=== PATIENT | male | born 1960 | race Caucasian/White ===

== ENCOUNTER → 2019-12-11 09:04 | Outpatient (BNVA) | payer MEDICAID, SELFPAY | PROVIDERS: Family Provider Family Medicine; PCP Family Medicine; Visit Provider Anesthesiology | DX: G89.29 Other chronic pain (principal); M54.5 Low back pain; F17.210 Nicotine dependence, cigarettes, uncomplicated; Z79.891 Long term (current) use of opiate analgesic | CPT/HCPCS: 99214 ==

== ENCOUNTER 2019-12-26 18:29 | Emergency (ER) | payer MEDICAID, SELFPAY | END 2019-12-26 20:10 | disposition admitted as inpatient to this hospital (09) | LOC: ER 02-01 07:31 | PROVIDERS: Emergency Provider Family Medicine; Family Provider Family Medicine; PCP Family Medicine | DX: I48.91 Unspecified atrial fibrillation (principal); J44.9 Chronic obstructive pulmonary disease, unspecified; I25.10 Atherosclerotic heart disease of native coronary artery without angina pectoris; I11.0 Hypertensive heart disease with heart failure; I50.9 Heart failure, unspecified; R07.9 Chest pain, unspecified; E78.5 Hyperlipidemia, unspecified; Z86.73 Personal history of transient ischemic attack (TIA), and cerebral infarction without residual deficits; F17.210 Nicotine dependence, cigarettes, uncomplicated; I25.2 Old myocardial infarction | CPT/HCPCS: 71045; 80053; 83540; 83550; 83880; 84443; 84484; 85025; 85610; 85730; 93005; 96365; 96372; 96375; 99283; 99285; J1650; J3490; J7040 ==

== ENCOUNTER 2019-12-26 18:29 | Emergency (ER) | payer MEDICAID, SELFPAY | END 2019-12-26 20:00 | disposition home or self-care (01) | LOC: ER 06-21 15:31 | PROVIDERS: Emergency Provider Family Medicine; Family Provider Family Medicine; PCP Family Medicine | DX: R07.9 Chest pain, unspecified (principal); I48.91 Unspecified atrial fibrillation; J44.9 Chronic obstructive pulmonary disease, unspecified; I11.0 Hypertensive heart disease with heart failure; I50.9 Heart failure, unspecified; I25.10 Atherosclerotic heart disease of native coronary artery without angina pectoris; E78.5 Hyperlipidemia, unspecified; Z86.73 Personal history of transient ischemic attack (TIA), and cerebral infarction without residual deficits; F17.210 Nicotine dependence, cigarettes, uncomplicated | CPT/HCPCS: 99281 ==

== ENCOUNTER 2019-12-26 18:29 | Inpatient (IN) | payer MEDICAID, SELFPAY ==
[2019-12-26] VITALS (38 sets, daily range): BP systolic 115–167; BP diastolic 64–122; PULSE 59–190; RESP 10–36; TEMP 36.5–36.9; O2SAT 92–98; BMI 30.7
--- NOTE | 2019-12-26 18:36 | ED_ITS ---
Entered by Paris Mata, acting as scribe for HPI - Chest Pain General: Chief Complaint: Chest Pain Stated Complaint: chest pain Time Seen by Provider: 12/26/19 18:38 Source: patient Mode of arrival: wheelchair Limitations: no limitations History of Present Illness: HPI narrative: 59 yo Male presents to ED with complaint of rapid heart rate and chest pain. Pt states that he has a history of a heart attack and 2 stents. Pt states that he was at rest when his rapid heart rate and pain started this evening. Pt states that this started around 17:30 this evening. MD complaint: chest pain Pertinent past history: coronary artery disease and prior [place] Onset (ago): hour(s) Timing of current episode: constant and still present Prior episodes: Yes Onset: during rest Pain location: substernal Pain radiation: none Pain scale (0-10): 8 Quality: other (pressure) Relieving factors: nothing Exacerbating factors: nothing Associated symptoms: Reports palpitations; Deny abdominal pain, dyspnea, fever(s), nausea or vomiting Treatment prior to arrival: nitroglycerin Review of Systems Const: Denies: fever, chills, body aches, fatigue, malaise or night sweats Eyes: Denies: change in vision or blurry vision ENMT: Denies: throat pain, oral sores/lesions, dental pain, nasal discharge or nasal congestion Card: Reports: chest pain and palpitations Resp: Denies: shortness of breath, productive cough, non-productive cough or wheezing GI: Denies: abdominal pain, nausea, vomiting, vomiting blood, coffee grounds in vomit, difficulty swallowing, heartburn/indigestion, diarrhea, constipation, cramping, blood in stool or black tarry stool : Denies: flank pain, difficulty urinating, painful urination, urinary frequency, urinary urgency, urinary incontinence or blood in urine Musc: Denies: neck pain, back pain, extremity pain, extremity swelling, joint pain or joint swelling Skin/Breast: Denies: rash, itching or redness Neuro: Denies: headache, numbness in extremities, weakness in extremities, changes in sensation, lack of coordination, difficulty walking, frequent falls, dizziness, vertigo or confusion Psych: Denies: anxiety, depression, loss of interest, visual hallucinations, auditory hallucinations, suicidal ideation or homicidal ideation Endo: Denies: excessive urination, excessive thirst, tired all the time or cold intolerance Jose/Lymph: Denies: easy bruising, easy bleeding, petechiae, enlarged lymph nodes or tender lymph nodes PFSH ED PFSH: Medical History (Updated 12/28/19 @ 15:06 by Suleiman Luz DO) CAD (coronary artery disease) COPD (chronic obstructive pulmonary disease) Encounter for long-term use of opiate analgesic Hyperlipidemia Hypertension Kidney stones Opioid contract exists Stroke Tobacco abuse Smoking cessation discussed with patient in detail for over 10 minutes. Surgical History (Updated 12/26/19 @ 21:26 by Tony Frias MD) H/O angioplasty History of ureter stent Stented coronary artery Family History Other Adopted Social History (Updated 12/26/19 @ 21:26 by Tony Frias MD) Smoking and tobacco status: current every day smoker cigarettes Packs smoked per day: 0.5 Alcohol intake: unknown Adopted: Yes Household members: family Housing: House Physical Exam Const: COMMON NORMALS: average body habitus, oriented x3 and alert GENERAL APPEARANCE: cooperative, comfortable, well kempt and well developed NUTRITIONAL APPEARANCE: obese ORIENTATION/CONSCIOUSNESS: Yes awake, Yes oriented to person and Yes oriented to place HENMT: COMMON NORMALS: normocephalic, head/scalp atraumatic, EAC's normal, TM 's normal bilaterally, external nose normal, moist oral mucous membranes and oropharynx normal HEAD & SCALP: normocephalic and atraumatic NOSE: ex ternal nose normal EXTERNAL AUDITORY CANAL: EAC's normal TYMPANIC MEMBRANE: TM's normal bilaterally MOUTH: oral and palatal mucosa normal, lip normal and tongue normal THROAT: posterior oropharynx normal and tonsils normal Eye: COMMON NORMALS: PERRL, EOMs intact bilaterally, conjunctivae normal and no scleral icterus CONJUNCTIVA: Yes conjunctivae normal PUPIL: Yes PERRL Neck/C-Spine: COMMON NORMALS: full ROM, no lymphadenopathy, supple, no meningeal signs and thyroid normal THYROID: thyroid normal and asymmetrical Lymph: LYMPHATIC: no lymphadenopathy noted Resp: COMMON NORMALS: normal respiratory effort, no retractions, no use of accessory muscles and clear to auscultation bilaterally AUSCULTATION: clear to auscultation bilaterally Cardio: COMMON NORMALS: regular rhythm; negative for regular rate RATE: abnormal rate and tachycardic RHYTHM: regular rhythm HEART SOUNDS: no murmurs GI: COMMON NORMALS: normal to inspection, nondistended, normoactive bowel sounds, soft to palpation and no hepatosplenomegaly PALPATION: Yes soft and Y es no hepatosplenomegaly : COMMON NORMALS: Yes no CVA tenderness BLADDER/KIDNEY EXAM: Yes no CVA tenderness Back/Pelvis: COMMON NORMALS: no CVA tenderness LUMBAR SPINE/LOWER BACK: Yes normal to inspection Extremity: COMMON NORMALS: no clubbing, cyanosis or edema, no calf tenderness and no pedal edema Neuro: COMMON NORMALS: oriented x3 SENSORIUM/ORIENTATION: Yes alert, Yes oriented to person and Yes oriented to place MENINGEAL SIGNS: Yes no meningeal signs Psych: APPEARANCE: Yes well kempt Skin: COMMON NORMALS: no rashes or lesions noted and skin turgor normal GENERAL SKIN EXAM: no rashes or lesions noted and turgor normal Course ED course: New onset A. fib with signs of congestive heart failure patient converted with medication in the emergency room will admit for evaluation medication adjustments. He also had chest pain while he was in A. fib with RVR may need further evaluation given his known history of coronary artery disease Vital Signs: Vital signs: Vital Signs Temperature 98.4 F 12/27/19 04:00 Pulse Rate 73 12/27/19 07:00 Respiratory Rate 21 H 12/27/19 05:30 Blood Pressure 136/81 12/27/19 07:00 Pulse Oximetry 96 12/27/19 07:00 MDM - Chest Pain Lab Data: Labs: Lab Results 12/26/19 12/26/19 12/26/19 Range/Units 18:58 18:58 18:58 WBC 10.4 H (4.0-10.0) 10^3/ uL RBC 5.08 (4.1-5.3) 10^6/u L Hgb 14.9 (11.7-16.6) g/dL Hct 44.8 (42.0-52.0) % MCV 88.2 (80-94) fL MCH 29.3 (28.0-34.0) pg MCHC 33.3 (30.0-36.0) g/dL RDW 12.6 (12.1-15.1) % Plt Count 225 (130-400) 10^3/c mm MPV 10.0 (7.4-10.4) fL Neut % (Auto) 67.1 % Lymph % (Auto) 21.4 % [place] % (Auto) 7.4 % Eos % (Auto) 3.2 % Baso % (Auto) 0.7 % Neut # (Auto) 7.0 (1.8-7.7) 10^3/u L Lymph # (Auto) 2.2 (0.8-4.8) 10^3/u L [place] # (Auto) 0.8 (0.2-0.9) 10^3/u L Eos # (Auto) 0.3 (0.0-0.8) 10^3/u L Baso # (Auto) 0.1 (0.0-0.1) 10^3/u L Nucleated RBC % (a uto) 0 % Nucleated RBCs # 0.0 /100WBC PT 12.80 (10.5-13.3) SECO NDS INR 0.93 (0.8-1.2) APTT 28.6 (23.9-36.7) SECO NDS Sodium 138 (136-145) mmol/L Potassium 3.5 (3.5-5.1) mmol/L Chloride 103 (98-107) mmol/L Carbon Dioxide 20 L (22-29) mmol/L Anion Gap 18.5 (5-19) BUN 12 (6-20) mg/dL Creatinine 1.0 (0.7-1.2) mg/dL GFR Calculation 76.7 L (90-130) mL/min Glucose 159 H (65-115) mg/dL Calcium 10.0 (8.5-10.5) mg/dL Iron (59-158) ug/dL TIBC mcg/dl % Saturation (20-50) % Unsat Iron Binding (112-347) ug/dL Total Bilirubin 0.3 (0.15-1.2) mg/dL AST 38 (0-40) U/L ALT 32 (0-41) U/L Alkaline Phosphata se 74 (40-130) IU/L Troponin T Baselin e (0-15) ng/mL NT-Pro-B Natriuret Pep 2701 H (0-125) pg/mL Total Protein 7.1 (6.6-8.7) g/dL Albumin 4.1 (3.5-5.2) g/dL Globulin 3.0 (1.3-4.6) g/dL TSH (0.27-4.20) uIU/ mL 12/26/19 12/26/19 Range/Units 18:58 18:58 WBC (4.0-10.0) 10^3/ uL RBC (4.1-5.3) 10^6/u L Hgb (11.7-16.6) g/dL Hct (42.0-52.0) % MCV (80-94) fL MCH (28.0-34.0) pg MCHC (30.0-36.0) g/dL RDW (12.1-15.1) % Plt Count (130-400) 10^3/c mm MPV (7.4-10.4) fL Neut % (Auto) % Lymph % (Auto) % [place] % (Auto) % Eos % (Auto) % Baso % (Auto) % Neut # (Auto) (1.8-7.7) 10^3/u L Lymph # (Auto) (0.8-4.8) 10^3/u L [place] # (Auto) (0.2-0.9) 10^3/u L Eos # (Auto) (0.0-0.8) 10^3/u L Baso # (Auto) (0.0-0.1) 10^3/u L Nucleated RBC % (a uto) % Nucleated RBCs # /100WBC PT (10.5-13.3) SECO NDS INR (0.8-1.2) APTT (23.9-36.7) SECO NDS Sodium (136-145) mmol/L Potassium (3.5-5.1) mmol/L Chloride (98-107) mmol/L Carbon Dioxide (22-29) mmol/L Anion Gap (5-19) BUN (6-20) mg/dL Creatinine (0.7-1.2) mg/dL GFR Calculation (90-130) mL/min Glucose (65-115) mg/dL Calcium (8.5-10.5) mg/dL Iron 49 L (59-158) ug/dL TIBC 286 mcg/dl % Saturation 17.1 L (20-50) % Unsat Iron Binding 237 (112-347) ug/dL Total Bilirubin (0.15-1.2) mg/dL AST (0-40) U/L ALT (0-41) U/L Alkaline Phosphata se (40-130) IU/L Troponin T Baselin e 21 H (0-15) ng/mL NT-Pro-B Natriuret Pep (0-125) pg/mL Total Protein (6.6-8.7) g/dL Albumin (3.5-5.2) g/dL Globulin (1.3-4.6) g/dL TSH 1.49 (0.27-4.20) uIU/ mL Discharge Plan Discharge Patient Disposition: Left Against Medical Advice Clinical Impression: Chest pain, Atrial fibrillation, COPD (chronic obstructive pulmonary disease), Hypertension, CAD (coronary artery disease), CHF (congestive heart failure) Interventions: ED Discharge Assessment Last Done: 12/26/19 20:44 Discharge Date/Time: 12/26/19 20:10 Coding Level of Care Code ED Cosmetologist for Chg Fwd Exam Comprehensive The documentation recorded by the Esperanza maddox Carmen, accurately reflects the service I personally performed and the decisions made by Natty ugarte Curtis L, Dec 26, 2019 18:29
--- NOTE | 2019-12-26 18:39 | ECG_ITS ---
Measurements Intervals [place] Rate: 128 P: [place]: 0 QRS: -6 QRSD: 95 T: 138 QT: 309 QTc: 452 ATRIAL FIBRILLATION WITH RAPID VENTRICULAR RESPONSE POSSIBLE LEFT VENTRICULAR HYPERTROPHY [VOLTAGE CRITERIA PLUS LAE OR QRS WIDENING] ST DEVIATION AND MODERATE T-WAVE ABNORMALITY, CONSIDER LATERAL ISCHEMIA Compared to ECG 12/25/2018 06:39:43 T-wave abnormality now present Possible ischemia now present Sinus rhythm no longer present ST (T wave) deviation no longer present Myocardial infarct finding no longer present Electronically Signed On 12-27-2019 13:07:47 CONSULTING NURSE by Devorah Cat M.D. [id number]
--- NOTE | 2019-12-26 18:41 | XR_ITS ---
WS: [id number] XR chest 1V portable [id number] REASON FOR EXAM: dyspnea/cough FINDINGS: Along the lingula segment there is evidence of infiltrate obliterating the cardiac silhouet te on the left. And suggest interstitial pneumonia. There is cardiomegaly the heart appears to be larger than previous exam. The remaining lung carney show no edema, pleural effusion, pneumothorax, or mass effect. XR/XR chest 1V portable [id number] IMPRESSION: Interstitial infiltrate in the lingula segment on the left. Borderline cardiomegaly.
[2019-12-26] MEDS: sodium chloride 0.9% 500 ML 999 ML IV (18:46)
[2019-12-26 19:09] LABS: Basophils # 0.1 10^3/uL (0.0-0.1); Basophils % 0.7 %; Eosinophils # 0.3 10^3/uL (0.0-0.8); Eosinophils % 3.2 %; Hematocrit 44.8 % (42.0-52.0); Hemoglobin 14.9 g/dL (11.7-16.6); Lymphocytes # 2.2 10^3/uL (0.8-4.8); Lymphocytes % 21.4 %; Mean Corpuscular HGB Conc 33.3 g/dL (30.0-36.0); Mean Corpuscular Hemoglobin 29.3 pg (28.0-34.0); Mean Corpuscular Volume 88.2 fL (80-94); Monocytes # 0.8 10^3/uL (0.2-0.9); Monocytes % 7.4 %; Neutrophils % 67.1 %; Nucleated Red Blood Cells % 0 %; Platelet Count 225 10^3/cmm (130-400); Red Blood Count 5.08 10^6/uL (4.1-5.3); Red Cell Distribution Width 12.6 % (12.1-15.1); White Blood Count 10.4 10^3/uL (4.0-10.0)
[2019-12-26 19:18] LABS: INR 0.93 (0.8-1.2)
[2019-12-26 19:19] LABS: Partial Thromboplastin Time 28.6 SECONDS (23.9-36.7)
[2019-12-26 19:26] LABS: Troponin(5th) Baseline 21 ng/mL (0-15)
--- NOTE | 2019-12-26 19:27 | PC.NURSE ---
EKG performed and shown to ED physician.
[2019-12-26 19:33] LABS: Alanine Aminotransferase 32 U/L (0-41); Albumin Level 4.1 g/dL (3.5-5.2); Alkaline Phosphatase 74 IU/L (40-130); Anion Gap 18.5 (5-19); Aspartate Amino Transferase 38 U/L (0-40); Blood Urea Nitrogen 12 mg/dL (6-20); Carbon Dioxide 20 mmol/L (22-29); Chloride 103 mmol/L (98-107); Glomerular Filtration Rate 76.7 mL/min (90-130); Glucose 159 mg/dL (65-115); NT Pro B Type Natriuretic Pept 2701 pg/mL (0-125); Potassium 3.5 mmol/L (3.5-5.1); Sodium 138 mmol/L (136-145); Total Bilirubin 0.3 mg/dL (0.15-1.2); Total Protein 7.1 g/dL (6.6-8.7)
[2019-12-26] MEDS: enoxaparin 100 mg/mL Syringe 90 MG SUBCUT (19:35)
--- NOTE | 2019-12-26 20:39 | ECG_ITS ---
Measurements Intervals [place] Rate: 79 P: 50 [place]: 153 QRS: -6 QRSD: 98 T: 152 QT: 390 QTc: 447 SINUS RHYTHM WITH OCCASIONAL SUPRAVENTRICULAR PREMATURE COMPLEXES POSSIBLE LEFT ATRIAL ENLARGEMENT [-0.1mV P WAVE IN V1/V2] LEFT VENTRICULAR HYPERTROPHY AND ST-T CHANGE PROBABLE INFERIOR MYOCARDIAL INFARCTION , PROBABLY OLD Compared to ECG 12/25/2018 06:39:43 No significant changes Electronically Signed On 12-27-2019 13:15:11 GRAIN SACKER by Devorah Cat M.D. [id number]
--- NOTE | 2019-12-26 21:17 | P.HP_ITS ---
Providers/Chief Complaint Admitting Physician: Tony Frias MD Primary Care Provider: Syeda Bender MD Chief Complaint: chest pain History of Present Illness Shamir Larose is a 59 year old male with past medical history of significant noncompliance, obesity, uncontrolled hypertension, hyperlipidemia, continuous tobacco abuse, history of CAD status post drug-eluting stent to RCA in 2014, NSTEMI in 2019 requiring stent to 100% mid RCA lesion, COPD who presented to the ER today after having symptoms of chest discomfort which started while he was sitting in his couch at home at around 9 AM. Patient states chest discomfort was different from his previous heart attacks as it was not any chest pain but more of chest pressure along with fluttering palpitations in his chest which accompanied by him feeling uneasy with nausea, diaphoresis, mild dizziness, difficulty in breathing. He states he has never had similar episodes in the past. He denies of having any exertional or rest anginal-like symptoms in the last 1 to 2 weeks and states he has been very compliant with his medications though he has not seen any rubber process hand in last 1 year. When he presented to the ER he was found to be in atrial fibrillation with his heart rate going up to 130 and he was started on Cardizem drip at 15 after a bolus of Cardizem. On my evaluation patient was on Cardizem 15 with his heart rate in 60s, sinus rhythm with frequent APCs. Patient stated that he used Symbicort nebulization for the first time in a long time along with a cup of coffee after which he had his symptoms. On further interrogation patient states he has been having difficulty in breathing which is been progressing for last couple of months for which he has been getting different nebulizations from his primary care physician. Difficulty in breathing gets worse on exertion and on lying down flat. He denies of having any PND, swelling in his lower limbs. He denies of having any fever, flulike symptoms, cough, expectoration, dysuria, changes in his bowel movements, bleeding from anywhere. He continues to smoke. Review of Systems Const: Denies: fever, chills, body aches, change in appetite, malaise, night sweats, diaphoresis, change in sleep pattern, daytime sleepiness or snoring Eyes: Denies: change in vision, blurry vision, photophobia, eye discomfort or eye discharge ENMT: Denies: throat pain, enlarged tonsils, hoarseness, mouth pain, oral sores/lesions, dry mouth, tinnitus, nasal congestion or post nasal drip Card: Reports: chest pain, palpitations, irregular heart rhythm, edema, swelling of feet/ankles, shortness of breath on exertion and shortness of breath when lying down; Denies: lightheadedness, syncope, pre-syncope, leg pain with exertion or bluish discoloration of hands/feet Resp: Reports: shortness of breath; Denies: productive cough, non-productive cough, wheezing, stridor, pain on inspiration, change in phlegm color, coughing up blood or chest congestion GI: Denies: abdominal pain, nausea, vomiting, vomiting blood, coffee grounds in vomit, difficulty swallowing, heartburn/indigestion, diarrhea, constipation, bloating, cramping, change in bowel habits, painful bowel movements, blood in stool or black tarry stool : Denies: flank pain, difficulty urinating, painful urination, urinary frequency, urinary urgency, urinary hesitancy, urinary dribbling, difficulty starting urination, change in urine stream, nighttime urination or blood in urine Musc: Denies: neck pain, back pain, extremity pain, joint pain, joint swelling, redness, joint stiffness or limited range of motion Neuro: Denies: headache, numbness in extremities, weakness in extremities, changes in sensation, lack of coordination, difficulty walking, frequent falls, dizziness, vertigo, confusion, slurred speech, difficulty communicating thoughts or seizure-like activity Psych: Denies: anxiety, depression, mood swings, panic attacks, hopelessness or irritability Endo: Denies: excessive urination, excessive thirst, tired all the time, cold intolerance, excessive sweating, flushing or heat intolerance Jose/Lymph: Denies: easy bruising or easy bleeding All/Imm: Denies: tongue swelling, facial swelling or acute wheezing Medications/Allergies Home Medications Medication Instructions Recorded Confirmed Last Taken Type budesonide-formoterol [Symbicort] 2 puff INHALATION BID 12/26/19 12/26/19 12/26/19 History Allergies Allergy/AdvReac Type Severity Reaction Status Date / Time No Known Allergies Allergy Unverified 12/11/19 09:29 PFSH Acute PFSH: Medical History (Updated 12/26/19 @ 21:28 by Tony Frias MD) CAD (coronary artery disease) COPD (chronic obstructive pulmonary disease) Encounter for long-term use of opiate analgesic Hyperlipidemia Hypertension Kidney stones Opioid contract exists Stroke Tobacco abuse Smoking cessation discussed with patient in detail for over 10 minutes. Surgical History (Updated 12/26/19 @ 21:26 by Tony Frias MD) H/O angioplasty History of ureter stent Stented coronary artery Family History Other Adopted Social History (Updated 12/26/19 @ 21:26 by Tony Frias MD) Smoking and tobacco status: current every day smoker cigarettes Packs smoked per day: 0.5 Alcohol intake: unknown Adopted: Yes Household members: family Housing: House Vitals/I&O/Wt Last Vital Signs Temp 97.7 F 12/26/19 18:35 Pulse 69 12/26/19 21:15 Resp 18 12/26/19 20:44 BP 133/90 12/26/19 20:44 Pulse Ox 96 12/26/19 21:15 12/26/19 12/26/19 12/26/19 06:59 14:59 22:59 Intake Total 503.667 / 503.667 Balance 503.667 / 503.667 Weight last 48 hrs Weight 86.183 kg Physical Exam Narrative: EXAM NARRATIVE: General: No acute distress, AO x3 HEENT: PERRLA, pupils bilaterally equal and reactive Chest: Normal vesicular breath sounds, bilateral fine crackles, equal good air entry bilaterally CVS: S1-S2 irregular, no murmurs, no tachycardia, no gallops, no rubs Abdomen: Soft, nontender, no organomegaly, bowel sounds present Neuro: No focal deficits, no facial deformity, AO x3, power 5/5 in all limbs Data : 12/27/19 04:40 12/27/19 04:28 A&P Assessment and plan (1) Atrial fibrillation: Status: Acute Code(s): I48.91 - Unspecified atrial fibrillation (2) CAD (coronary artery disease): Status: Acute Code(s): I25.10 - Atherosclerotic heart disease of [place] coronary artery without angina pectoris (3) CHF (congestive heart failure): Status: Acute Code(s): I50.9 - Heart failure, unspecified (4) Hypertension: Status: Acute Code(s): I10 - Essential (primary) hypertension (5) Hyperlipidemia: Status: Acute Code(s): E78.5 - Hyperlipidemia, unspecified (6) COPD (chronic obstructive pulmonary disease): Status: Acute Code(s): J44.9 - Chronic obstructive pulmonary disease, unspecified (7) Tobacco abuse: Status: Chronic Code(s): Z72.0 - Tobacco use Additional A&P Information Atrial fibrillation: This is new to the patient. Patient is on Cardizem drip at 15 with a heart rate of 60 and is converted to sinus rhythm right now with frequent APCs. We will decrease the Cardizem drip to 5. And can been off keeping his heart rate around 80 to 90 bpm. We will start patient on Lopressor 25 mg twice daily in view of his extensive CAD history. Patient was already given Lovenox full dose in the ER. Patient is already on dual antiplatelet therapy for his CAD history. Will most likely need anticoagulation as well given atrial fibrillation. Can plan to start him on oral anticoagulation from tomorrow morning. CHF: As per the old records in the system Patient has not seen any rubber process hand over 1 year but has been having symptoms of shortness of breath for couple of months. proBNP is elevated. Repeat echocardiogram. IV Lasix 20 mg stat. Strict intake and output charting. Daily weights. CAD: Patient has extensive history of noncompliance and CAD with stents in RCA in the past. Atrial fibrillation at present could be a warning sign for impending ACS. Continue to monitor troponins. Will await for delta. Continue home dose of aspirin, Plavix. Patient is not on any statins. We will give him atorvastatin 80 mg daily. Check lipid panel, HbA1c tomorrow morning. Morphine and nitroglycerin as needed. Given the new onset A. fib it could be a sign of oncoming angina as well. Will need stress test before discharge even if troponins continue to remain negative. Oxygen supplementation keeping saturation over 90%. COPD: Continue with oxygen supplementation keeping saturation 90% Ipratropium every 6 hours, budesonide twice daily. Will avoid albuterol given atrial fibrillation. Continue home dose of Flonase. Tobacco abuse: Discussed in detail regarding this need for cessation of tobacco. Full code. Full dose Lovenox will work for DVT prophylaxis as well. Cardiac diet. Attestations Medical Necessity Statement*: Admission for more than 2 midnights for atrial fibrillation, CHF. 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
[2019-12-26 21:19] LABS: Troponin 5 2HR 67.94 ng/mL (0-15)
[2019-12-26 21:31] LABS: Troponin 5 2HR Delta 46.94 ABS# (0-10)
[2019-12-26] MEDS: atorvastatin 40 mg Tablet 80 MG PO (21:46)
[2019-12-26] MEDS: HYDROcodone-acetaminophen 10-325 mg Tablet 1 TAB PO (21:46)
[2019-12-26] MEDS: FUROsemide 10 mg/mL SDV 2mL 20 MG IVP (21:49)
[2019-12-26] MEDS: pneumococcal (23 valent) SDV 0.5 mL IM (21:49)
[2019-12-26 23:15] LABS: Iron 49 ug/dL (59-158); Percent Saturation 17.1 % (20-50); Thyroid Stimulating Hormone 1.49 uIU/mL (0.27-4.20); Total Iron Binding Capacity 286 mcg/dl; Unsaturated Iron Binding 237 ug/dL (112-347)
[2019-12-27] VITALS (14 sets, daily range): BP systolic 121–157; BP diastolic 62–86; PULSE 65–80; RESP 12–28; TEMP 36.9; O2SAT 90–98
--- NOTE | 2019-12-27 00:39 | ECG_ITS ---
Measurements Intervals [place] Rate: 181 P: [place]: 0 QRS: -18 QRSD: 95 T: 131 QT: 220 QTc: 382 ATRIAL FIBRILLATION WITH RAPID VENTRICULAR RESPONSE VOLTAGE CRITERIA FOR LVH PROBABLE INFERIOR MYOCARDIAL INFARCTION MODERATE T-WAVE ABNORMALITY, CONSIDER LATERAL ISCHEMIA Compared to ECG 12/25/2018 06:39:43 T-wave abnormality now present Possible ischemia now present Sinus rhythm no longer present ST (T wave) deviation no longer present Myocardial infarct finding still present Electronically Signed On 12-27-2019 13:16:51 BUYER GRAIN by Devorah Cat M.D. [id number]
[2019-12-27 01:02] LABS: Troponin 5 6HR 243.7 ng/mL (0-15); Troponin 5 6HR Delta 222.7 ng/L (0-12)
[2019-12-27] MEDS: metoprolol tartrate 25 mg Tablet PO (03:59)
[2019-12-27 04:57] LABS: Basophils # 0.1 10^3/uL (0.0-0.1); Basophils % 0.7 %; Eosinophils # 0.3 10^3/uL (0.0-0.8); Eosinophils % 3.7 %; Hematocrit 43.6 % (42.0-52.0); Hemoglobin 14.5 g/dL (11.7-16.6); Lymphocytes % 22.3 %; Mean Corpuscular HGB Conc 33.3 g/dL (30.0-36.0); Mean Corpuscular Volume 87.2 fL (80-94); Mean Platelet Volume 10.5 fL (7.4-10.4); Monocytes # 0.9 10^3/uL (0.2-0.9); Neutrophils # 5.6 10^3/uL (1.8-7.7); Nucleated Red Blood Cells % 0 %; Platelet Count 233 10^3/cmm (130-400); White Blood Count 8.8 10^3/uL (4.0-10.0)
[2019-12-27 05:27] LABS: Alanine Aminotransferase 31 U/L (0-41); Albumin Level 4.1 g/dL (3.5-5.2); Alkaline Phosphatase 71 IU/L (40-130); Anion Gap 18.3 (5-19); Aspartate Amino Transferase 34 U/L (0-40); Blood Urea Nitrogen 12 mg/dL (6-20); Calcium 9.9 mg/dL (8.5-10.5); Carbon Dioxide 24 mmol/L (22-29); Chloride 103 mmol/L (98-107); Globulin 2.8 g/dL (1.3-4.6); Glomerular Filtration Rate 76.7 mL/min (90-130); Glucose 101 mg/dL (65-115); Potassium 4.3 mmol/L (3.5-5.1); Sodium 141 mmol/L (136-145); Total Bilirubin 0.6 mg/dL (0.15-1.2); Total Protein 6.9 g/dL (6.6-8.7)
[2019-12-27 05:29] LABS: Chol HDL Ratio 7.77 mg/dL (1.0-5.00); Cholesterol 272 mg/dL (0-200); HDL Cholesterol 35 mg/dL (60-100); LDL Cholesterol Calculated 192 mg/dL (50-129); Triglycerides 227 mg/dL (0-150); VLDL Cholestrol Calculation 45 mg/dL (0-30)
[2019-12-27 05:40] LABS: Estmated Average Glucose 117; Hemoglobin A1C 5.7 % (4.0-6.0)
--- NOTE | 2019-12-27 07:29 | NUR.SHIFT ---
Addendum entered by Skyla Kirk RN 12/27/19 08:27: Dr. Frias notified Original Note: Threatening to leave AMA nurse entered room to assess patient, patient states he wants unhooked so he can leave right now. Nurse asked patient what was wrong, he states he cant breathe and can come back to have his stress test done. He states he wants to leave right now. Nurse asked if patient understood risk of this and importance of staying in the hospital, he says yes. SERENA Daly, encouraged patient to stay to be assessed by . Patient agrees at this time, but states that when hes ready to leave he will.
--- NOTE | 2019-12-27 07:55 | PC.NURSE ---
AMA patient once again requests to have IV removed and heart monitor disconnected. this nurse again explained the risk of leaving AMA. He verbalized understanding. Patient left AMA at 0800. IV discontinued, cath intact and site asymptomatic.
--- NOTE | 2019-12-27 10:20 | P.DS_ITS ---
Discharge Providers Date of Admission: 12/26/19 20:13 Date of Discharge: December 27, 2019 Attending Provider at Admission: Tony Frias MD Attending Provider at Discharge: Tnoy Frias MD Primary Care Provider: Syeda Bender MD Diagnoses at Discharge Discharge Diagnosis (1) Atrial fibrillation: Status: Acute (2) CAD (coronary artery disease): Status: Acute (3) CHF (congestive heart failure): Status: Acute (4) Hypertension: Status: Acute (5) Hyperlipidemia: Status: Acute (6) COPD (chronic obstructive pulmonary disease): Status: Acute (7) Tobacco abuse: Status: Chronic Problem details: Smoking cessation discussed with patient in detail for over 10 minutes. Reason for Visit Reason for Visit: Reason For Visit: chest pain Hospital Course Discharge Summary: Shamir Larose is a 59 year old male with past medical history of significant noncompliance, obesity, uncontrolled hypertension, hyperlipidemia, continuous tobacco abuse, history of CAD status post drug- eluting stent to RCA in 2013, NSTEMI in 2019 requiring stent to 100% mid RCA lesion, COPD. Patient was admitted on December 26 for atrial fibrillation with RVR which was treated with Cardizem drip. Overnight Cardizem drip was weaned off once his heart rate had settled down. Patient had converted back to sinus rhythm with frequent APCs. Overnight patient had remained chest pain-free though his cardiac enzymes continue to rise with a significant delta change. Patient was started on full dose Lovenox and metoprolol twice daily along with his home medications which were continued. This morning patient insisted on leaving AMA at around 7 AM when the nursing staff from ICU and myself had spoken to him via phone and explained to him for him need to be in hospital for 1 more day for possible cardiac catheterization versus stress test after cardiology consultation. Patient was explained that no treatment can lead to dire consequences as he is having NSTEMI right now. Patient at first had agreed to stay for me to come and see him but on coming to the ER I was told that patient had left AMA 30 minutes after talking to me. Physical Exam Narrative: EXAM NARRATIVE: Left AMA before I could see him today. Discharge Data Data Completed and Pending: Completed Studies During Hospitalization Category Date Time Status XR chest 1V kelly ble [id number] Stat Exams 12/26/19 18:41 Completed Labs from last 24 hours 0212/27/19 12/27/19 04:40 04:40 04:28 WBC 8.8 RBC 5.00 Hgb 14.5 Hct 43.6 MCV 87.2 MCH 29.0 MCHC 33.3 RDW 13.0 Plt Count 233 MPV 10.5 H Neut % (Auto) 63.0 Lymph % (Auto) 22.3 [place] % (Auto) 10.0 Eos % (Auto) 3.7 Baso % (Auto) 0.7 Neut # (Auto) 5.6 Lymph # (Auto) 2.0 [place] # (Auto) 0.9 Eos # (Auto) 0.3 Baso # (Auto) 0.1 Nucleated RBC % (a uto) 0 Nucleated RBCs # 0.0 PT INR APTT Sodium Potassium Chloride Carbon Dioxide Anion Gap BUN Creatinine GFR Calculation Glucose Estimat Average Gl ucose 117 Hemoglobin A1c 5.7 Calcium Iron TIBC % Saturation Unsat Iron Binding Total Bilirubin AST ALT Alkaline Phosphata se Troponin I 6 Hour Troponin I Hi Sens Del Troponin T Baselin e Troponin T 120 Min cab[place] Delta Troponin T NT-Pro-B Natriuret Pep Total Protein Albumin Globulin Triglycerides 227 H Cholesterol 272 H LDL Cholesterol, C alc 192 H Total VLDL Cholest jo 45 H HDL Cholesterol 35 L Cholesterol/HDL Ra cyrus 7.77 H TSH 12/27/19 12/27/19 12/26/19 04:28 00:30 20:39 WBC RBC Hgb Hct MCV MCH MCHC RDW Plt Count MPV Neut % (Auto) Lymph % (Auto) [place] % (Auto) Eos % (Auto) Baso % (Auto) Neut # (Auto) Lymph # (Auto) [place] # (Auto) Eos # (Auto) Baso # (Auto) Nucleated RBC % (a uto) Nucleated RBCs # PT INR APTT Sodium 141 Potassium 4.3 Chloride 103 Carbon Dioxide 24 Anion Gap 18.3 BUN 12 Creatinine 1.0 GFR Calculation 76.7 L Glucose 101 Estimat Average Gl ucose Hemoglobin A1c Calcium 9.9 Iron TIBC % Saturation Unsat Iron Binding Total Bilirubin 0.6 AST 34 ALT 31 Alkaline Phosphata se 71 Troponin I 6 Hour 243.7 H Troponin I Hi Sens Del 222.7 H* Troponin T Baselin e Troponin T 120 Min cabazon 67.94 H Delta Troponin T 46.94 H* NT-Pro-B Natriuret Pep Total Protein 6.9 Albumin 4.1 Globulin 2.8 Triglycerides Cholesterol LDL Cholesterol, C alc Total VLDL Cholest jo HDL Cholesterol Cholesterol/HDL Ra cyrus TSH 12/26/19 12/26/19 12/26/19 18:58 18:58 18:58 WBC RBC Hgb Hct MCV MCH MCHC RDW Plt Count MPV Neut % (Auto) Lymph % (Auto) [place] % (Auto) Eos % (Auto) Baso % (Auto) Neut # (Auto) Lymph # (Auto) [place] # (Auto) Eos # (Auto) Baso # (Auto) Nucleated RBC % (a uto) Nucleated RBCs # PT INR APTT Sodium 138 Potassium 3.5 Chloride 103 Carbon Dioxide 20 L Anion Gap 18.5 BUN 12 Creatinine 1.0 GFR Calculation 76.7 L Glucose 159 H Estimat Average Gl ucose Hemoglobin A1c Calcium 10.0 Iron 49 L TIBC 286 % Saturation 17.1 L Unsat Iron Binding 237 Total Bilirubin 0.3 AST 38 ALT 32 Alkaline Phosphata se 74 Troponin I 6 Hour Troponin I Hi Sens Del Troponin T Baselin e 21 H Troponin T 120 Min [place] Delta Troponin T NT-Pro-B Natriuret Pep 2701 H Total Protein 7.1 Albumin 4.1 Globulin 3.0 Triglycerides Cholesterol LDL Cholesterol, C alc Total VLDL Cholest jo HDL Cholesterol Cholesterol/HDL Ra cyrus TSH 1.49 12/26/19 12/26/19 18:58 18:58 WBC 10.4 H RBC 5.08 Hgb 14.9 Hct 44.8 MCV 88.2 MCH 29.3 MCHC 33.3 RDW 12.6 Plt Count 225 MPV 10.0 Neut % (Auto) 67.1 Lymph % (Auto) 21.4 [place] % (Auto) 7.4 Eos % (Auto) 3.2 Baso % (Auto) 0.7 Neut # (Auto) 7.0 Lymph # (Auto) 2.2 [place] # (Auto) 0.8 Eos # (Auto) 0.3 Baso # (Auto) 0.1 Nucleated RBC % (a uto) 0 Nucleated RBCs # 0.0 PT 12.80 INR 0.93 APTT 28.6 Sodium Potassium Chloride Carbon Dioxide Anion Gap BUN Creatinine GFR Calculation Glucose Estimat Average Gl ucose Hemoglobin A1c Calcium Iron TIBC % Saturation Unsat Iron Binding Total Bilirubin AST ALT Alkaline Phosphata se Troponin I 6 Hour Troponin I Hi Sens Del Troponin T Baselin e Troponin T 120 Min [place] Delta Troponin T NT-Pro-B Natriuret Pep Total Protein Albumin Globulin Triglycerides Cholesterol LDL Cholesterol, C alc Total VLDL Cholest jo HDL Cholesterol Cholesterol/HDL Ra cyrus TSH Vitals: Last Vital Signs Temp 98.4 F 12/27/19 04:00 Pulse 73 12/27/19 07:00 Resp 21 H 12/27/19 05:30 BP 136/81 12/27/19 07:00 Pulse Ox 96 12/27/19 07:00 Discharge Plan Discharge Patient Disposition: Left Against Medical Advice Prescriptions: No Action clopidogrel [Plavix] 75 mg tablet 75 mg PO DAILY RF: 0 nitroglycerin [Nitrostat] 0.4 mg tablet, sublingual 0.4 mg SUBLINGUAL Q5M PRN (Reason: Chest Pain) RF: 0 Spiriva with HandiHaler 18 mcg capsule, w/inhalation device 1 cap INHALATION DAILY RF: 0 fluticasone propionate 50 mcg/actuation spray,suspension 1 spray INTRANASAL DAILY RF: 0 hydrocodone-acetaminophen 10-325 mg tablet 1 tab PO TID PRN (Reason: pain) 30 Days Qty: 90 RF: 0 aspirin [Adult Aspirin Regimen] 81 mg tablet,delayed release (DR/EC) 81 mg PO DAILY Qty: 90 RF: 3 Symbicort 160-4.5 mcg/actuation Hfa Aerosol Inhaler 2 puff INHALATION BID RF: 0 Discharge Date/Time: 12/27/19 08:00 Discharge Attestations Time Spent in Discharge Care*: less than 30 min Quality Metrics Clinical Quality Measures During this hospital stay, did patient experience: AMI Clinical Trial Participant: No Contraindication to aspirin (AMI): Aspirin given Contraindication to statin: Statin prescribed Coding Level of Care Code Acute [employer] [employer] Former for [facility] Fwd Diagnoses Atrial fibrillation I48.91 CAD (coronary artery disease) I25.10 CHF (congestive heart failure) I50.9 Hypertension I10 Hyperlipidemia E78.5 COPD (chronic obstructive pulmonary disease) J44.9 Tobacco abuse Z72.0
== END 2019-12-27 08:00 | disposition left against medical advice (07) | DRG 310 ==
LOC: ER 18:47 → ICU 20:38
PROVIDERS: Admitting Provider Student in an Organized Health Care Education/Training Program; Emergency Provider Family Medicine; Family Provider Family Medicine; PCP Family Medicine; Visit Provider Student in an Organized Health Care Education/Training Program
DX: I48.91 Unspecified atrial fibrillation (principal); I25.10 Atherosclerotic heart disease of native coronary artery without angina pectoris; E78.5 Hyperlipidemia, unspecified; J44.9 Chronic obstructive pulmonary disease, unspecified; Z86.73 Personal history of transient ischemic attack (TIA), and cerebral infarction without residual deficits; I10 Essential (primary) hypertension; I25.2 Old myocardial infarction; E66.9 Obesity, unspecified; Z68.30 Body mass index [BMI] 30.0-30.9, adult; F17.210 Nicotine dependence, cigarettes, uncomplicated; Z79.82 Long term (current) use of aspirin; Z79.899 Other long term (current) drug therapy; Z79.02 Long term (current) use of antithrombotics/antiplatelets; Z79.891 Long term (current) use of opiate analgesic
CPT/HCPCS: 12345; 36415; 71045; 80053; 80061; 83036; 83540; 83550; 83880; 84443; 84484; 85025; 85610; 85730; 90471; 90686; 90732; 93005; 94640; 94664; 96372; 96375; 99283; J1650; J1940; J3490; J3535; J7040

== ENCOUNTER → 2020-02-04 09:44 | Outpatient (BNVA) | payer MEDICAID, SELFPAY | PROVIDERS: Family Provider Family Medicine; PCP Family Medicine; Visit Provider Nurse Practitioner | DX: G89.29 Other chronic pain (principal); M54.5 Low back pain; F17.210 Nicotine dependence, cigarettes, uncomplicated; Z71.6 Tobacco abuse counseling; Z79.891 Long term (current) use of opiate analgesic | CPT/HCPCS: 99213; 99214 ==

== ENCOUNTER → 2020-04-08 08:12 | Outpatient (BNVA) | payer MEDICAID, SELFPAY | PROVIDERS: Family Provider Family Medicine; PCP Family Medicine; Visit Provider Anesthesiology | DX: G89.29 Other chronic pain (principal); M54.5 Low back pain; F17.210 Nicotine dependence, cigarettes, uncomplicated; Z79.891 Long term (current) use of opiate analgesic; Z71.6 Tobacco abuse counseling | CPT/HCPCS: 99214 ==

== ENCOUNTER → 2020-06-08 08:01 | Outpatient (BNVA) | payer MEDICAID, SELFPAY | PROVIDERS: Family Provider Family Medicine; PCP Family Medicine; Visit Provider Anesthesiology | DX: G89.29 Other chronic pain (principal); M54.41 Lumbago with sciatica, right side; F17.210 Nicotine dependence, cigarettes, uncomplicated; Z79.891 Long term (current) use of opiate analgesic | CPT/HCPCS: 99213; 99214 ==

== ENCOUNTER → 2020-07-12 11:49 | Outpatient (BNVA) | payer MEDICAID, SELFPAY | PROVIDERS: Family Provider Family Medicine; PCP Family Medicine; Visit Provider Internal Medicine | DX: Z11.59 Encounter for screening for other viral diseases (principal) | CPT/HCPCS: 87635 ==

== ENCOUNTER 2020-07-14 09:55 | Outpatient (CLI) | payer MEDICAID, SELFPAY ==
--- NOTE | 2020-07-14 10:31 | PFTS_ITS ---
Date of Study:07/14/20 Date of Dictation: 07/15/2020 MECHANICS: Forced vital capacity (FVC) is . Reduced Forced expiratory volume in one second (FEV1) is . Reduced FEV1/FVC is . Normal No significant bronchodilator response FLOW VOLUME LOOP: Normal . LUNG VOLUMES: Total lung capacity (TLC) is normal. Residual volume (RV) is mildly high. RV/TLC mildly high DIFFUSING CAPACITY FOR CARBON MONOXIDE: Mildly reduced . INTERPRETATION: Mixed pattern with spirometry suggestive of restriction and lung volumes suggestive of air trapping with mild gas transfer defect. Correlate clinically. MTDD
== END 2020-07-14 09:56 | disposition home or self-care (01) ==
LOC: RT 09:57
PROVIDERS: PCP Family Medicine; Visit Provider Family Medicine
DX: J44.9 Chronic obstructive pulmonary disease, unspecified (principal)
CPT/HCPCS: 94060; 94726; 94729; J7611

== ENCOUNTER → 2020-08-05 08:49 | Outpatient (BNVA) | payer MEDICAID, SELFPAY | PROVIDERS: PCP Family Medicine; Visit Provider Anesthesiology | DX: G89.29 Other chronic pain (principal); M54.41 Lumbago with sciatica, right side; F17.210 Nicotine dependence, cigarettes, uncomplicated; Z79.891 Long term (current) use of opiate analgesic | CPT/HCPCS: 99213; 99214 ==

== ENCOUNTER → 2020-10-04 08:34 | Outpatient (BNVA) | payer MEDICAID, SELFPAY | PROVIDERS: PCP Family Medicine; Visit Provider Anesthesiology | DX: G89.29 Other chronic pain (principal); M54.5 Low back pain; F17.210 Nicotine dependence, cigarettes, uncomplicated; Z79.891 Long term (current) use of opiate analgesic | CPT/HCPCS: 99212; 99214 ==

== ENCOUNTER 2020-11-17 14:14 | Emergency (ER) | payer MEDICAID, SELFPAY ==
[2020-11-17 14:16] VITALS: BP 198/152; PULSE 105; RESP 18; TEMP 36.4; O2SAT 95; BMI 32.3
--- NOTE | 2020-11-17 14:34 | PC.NURSE ---
pt has 1.5 cm laceration in between thumb and index finger as well as about 2.5cm laceration to proximal left upper hand area. has a couple of additional skin tears. wounds cleansed with normal saline flushes. distal sensation and radial pulse intact. swelling noted to right little finger and right thumb finger. pt utd on tetanus, finding out from [employer] worker if the dog is utd on its rabies shot. was not provoked, pt bent down to pet dog and dog bit his hand.
--- NOTE | 2020-11-17 14:40 | XR_ITS ---
WS: [id number] Right hand, 3 views, 11/17/2020 Clinical Data: dog bite Comparison: Right hand, 09/13/2015. Findings: No fractures or dislocations are seen. The soft tissues are unremarkable. The cystic lee ge at the distal portion of the radial side of the scaphoid is again seen.No radiopaque foreign neelam s are seen. XR/XR hand RT min 3V* [id number] Impression: Negative right hand.
--- NOTE | 2020-11-17 14:40 | W.ED.ANIMALB ---
HPI - Animal Bite General: Chief Complaint: Animal Bite Stated Complaint: DOG BITE TO R HAND Time Seen by Provider: 11/17/20 14:32 Source: patient Mode of arrival: ambulatory Limitations: no limitations History of Present Illness: HPI narrative: Patient is a 60-year-old male who presents to ED today for evaluation following a dog bite injury to his right hand. Patient tells me he went to pet his neighbor's dog when it bit him. Dog is up-to-date on immunizations. Dog can be quarantined. Dog was not acting abnormally. Patient is up-to-date on his tetanus. complaint: animal bite Onset (ago): hour(s) Animal: dog Description of animal: household pet, immunizations UTD and appeared well Mechanism: bite Location - Extremities: Right: hand Context: provoked (approached animal) Associated symptoms: Reports no associated symptoms Related Data: Patient tetanus UTD: Yes Review of Systems Musc: Reports: extremity pain (R hand) Skin/Breast: Reports: other (several abrasions/bite roy to R hand) Neuro: Denies: numbness in extremities or sensory changes PFSH ED PFSH: Medical History (Updated 11/17/20 @ 15:12 by SAHARA Ansari) CAD (coronary artery disease) COPD (chronic obstructive pulmonary disease) Encounter for long-term use of opiate analgesic Hyperlipidemia Hypertension Kidney stones Opioid contract exists Sleep apnea in adult Stroke Tobacco abuse Smoking cessation discussed with patient in detail for 3-10 minutes. -he has cut back to 15 cigs/day Surgical History H/O angioplasty History of ureter stent Stented coronary artery Family History Other Adopted Social History (Updated 10/04/20 @ 08:57 by Tamela Ventura LPN) Smoking and tobacco status: current every day smoker cigarettes Packs smoked per day: 0.75 Alcohol intake: never Adopted: Yes Household members: family Housing: House History of recent travel: No Physical Exam Const: COMMON NORMALS: no acute distress, patient oriented x3, no limitations and alert Extremity: OTHER: pt with one 1cm laceration to dorsal hand overlying 1st metacarpal; another 1cm lac to dorsal surface overlying 5th MCP joint; several other very shallow abrasions; no tendon involvement visualized; full ROM of all digits against resistance; sensory intact; bleeding controlled Neuro: COMMON NORMALS: patient oriented x3, moves all extremities, no focal motor deficits and no sensory deficits noted SENSORIUM/ORIENTATION: Yes alert Skin: OTHER: see extremity assessment Procedures Laceration Laceration 1: Site: hand Side (If applicable): right Size (cm): 1.0 Description: linear Depth: simple, single layer Local Anesthetic: lidocaine 2% Amount of anesthesia used (mL): 1.0 Pre-repair: wound explored and irrigated extensively Skin layer closed with: nylon Size (cm): 4-0 Number of sutures: 2 Technique: simple, interrupted Laceration 2: Site: hand Side (If applicable): right Size (cm): 1.0 Description: linear Depth: simple, single layer Local Anesthetic: lidocaine 2% Amount of anesthesia used (mL): 1.0 Pre-repair: wound explored and irrigated extensively Skin layer closed with: nylon Size (cm): 4-0 Number of sutures: 2 Technique: simple, interrupted Course Vital Signs: Vital signs: Vital Signs Temperature 97.5 F L 11/17/20 14:16 Pulse Rate 105 H 11/17/20 14:16 Respiratory Rate 18 11/17/20 14:16 Blood Pressure 198/152 11/17/20 14:16 Pulse Oximetry 95 11/17/20 14:16 MDM - Animal Bite Imaging Data^: R hand XR: Radiologist's impression: [address] [address] XRay Report Signed Patient: Elfego Larose #: [id number] : 1Acct#:[id number] Age/Sex: 60 / MADM Date: 11/17/20 Loc: ERRoom/Bed: Attending Dr: Ordering Provider/Ordering MD: Natalie David Date of Service: 11/17/20 Procedure(s): XR hand RT min 3V* 32300 Accession Number(s): [id number] Report Number: [id number] WS: [id number] Right hand, 3 views, 11/17/2020 Clinical Data: dog bite Comparison: Right hand, 09/13/2015. Findings: No fractures or dislocations are seen. The soft tissues are unremarkable. The cystic change at the distal portion of the radial side of the scaphoid is again seen.No radiopaque foreign bodies are seen. XR/XR hand RT min 3V* 04803 Impression: Negative right hand. Dictated By:Brittany Rodríguez MD Signed By:Brittany Rodríguez MDSigned Date/Time:11/17/201454 DD/ 52 Discharge Plan Discharge Patient Disposition: Home Clinical Impression: Dog bite Qualifiers: Encounter type: initial encounter Qualified Code(s): W54.0XXA - Bitten by dog, initial encounter Condition: Stable Prescriptions: New Augmentin 875-125 mg tablet 1 tab PO Q12H 7 Days Qty: 14 RF: 0 No Action Spiriva with HandiHaler 18 mcg capsule, w/inhalation device 1 cap INHALATION DAILY RF: 0 fluticasone propionate 50 mcg/actuation spray,suspension 1 spray INTRANASAL DAILY RF: 0 nitroglycerin 0.4 mg tablet, sublingual 0.4 mg SUBLINGUAL ONCE PRNRF: 0 rosuvastatin [Crestor] 10 mg tablet 10 mg PO DAILY Qty: 30 RF: 3 potassium gluconate 595 mg (99 mg) tablet 595 mg PO DAILY RF: 0 diltiazem HCl [Cardizem CD] 180 mg capsule,extended release 24hr 180 mg PO DAILY Qty: 30 RF: 1 hydrocodone-acetaminophen 10-325 mg tablet 1 tab PO TID PRN (Reason: pain) 30 Days Qty: 90 RF: 0 hydrocodone-acetaminophen 10-325 mg tablet 1 tab PO Q8H PRN (Reason: pain) 30 Days Qty: 90 RF: 0 aspirin [Adult Aspirin Regimen] 81 mg tablet,delayed release (DR/EC) 81 mg PO DAILY Qty: 90 RF: 3 clopidogrel [Plavix] 75 mg tablet 75 mg PO DAILY Qty: 90 RF: 3 hydrochlorothiazide 12.5 mg capsule See Rx Instructions .ROUTE .COMPLEX Qty: 60 RF: 5 Discharge Orders: Discharge ED (Routine); Ordered 11/17/20 Ordered By: Natalie David Referrals: Syeda Bender MD [Primary Care Provider] - Patient Instructions: Laceration, Animal Bite (ED), Suture Care (ED) Activity Restrictions/Additional Instructions: Keep wounds clean with warm soap and water several times daily. Monitor for signs of infection such as redness, swelling, pus-like drainage, or worsening pain. Fill antibiotics immediately. Sutures can be removed in 7 days. Coding Level of Care Code ED Manufacturing Cost Estimator for [facility] Exam Expanded Problem Focused
--- NOTE | 2020-11-17 14:52 | PC.NURSE ---
dog that bit pt utd on rabies vaccine
--- NOTE | 2020-11-17 15:35 | PC.NURSE ---
dressed wounds with telfa, 2x2's, and coban
== END 2020-11-17 15:35 | disposition home or self-care (01) ==
PROVIDERS: Emergency Provider Physician Assistant; PCP Family Medicine
DX: S61.451A Open bite of right hand, initial encounter (principal); W54.0XXA Bitten by dog, initial encounter; Z79.82 Long term (current) use of aspirin; Z79.02 Long term (current) use of antithrombotics/antiplatelets; I25.10 Atherosclerotic heart disease of native coronary artery without angina pectoris; J44.9 Chronic obstructive pulmonary disease, unspecified; E78.5 Hyperlipidemia, unspecified; Z86.73 Personal history of transient ischemic attack (TIA), and cerebral infarction without residual deficits; F17.210 Nicotine dependence, cigarettes, uncomplicated
CPT/HCPCS: 12001; 12345; 73130; 99281; 99283

== ENCOUNTER → 2020-11-29 07:55 | Outpatient (BNVA) | payer MEDICAID, SELFPAY | PROVIDERS: PCP Family Medicine; Visit Provider Anesthesiology | DX: G89.29 Other chronic pain (principal); M54.5 Low back pain; F17.210 Nicotine dependence, cigarettes, uncomplicated; Z79.891 Long term (current) use of opiate analgesic | CPT/HCPCS: 99213 ==

== ENCOUNTER 2020-12-07 19:29 | Emergency (ER) | payer MEDICAID, SELFPAY ==
[2020-12-07 19:36] VITALS: PULSE 91; RESP 20; TEMP 36.9; O2SAT 95; BMI 32.3
[2020-12-07 19:41] VITALS: BP 211/125; PULSE 91; RESP 25; O2SAT 95
--- NOTE | 2020-12-07 19:48 | ECG_ITS ---
[facility] Test Date: 2020-12-07 Pat Name: Shamir Larose Department: Room: Gender: Male [employer]: : 1960 Requested By: Jackelyn Tompkins I Order Number: [id number] Shonda MD: Urbano Heard M.D. Measurements Intervals [place] Rate: 92 P: 71 NH: 148 QRS: -5 QRSD: 92 T: 145 QT: 372 QTc: 462 Interpretive Statements SINUS RHYTHM WITH SINUS ARRHYTHMIA LEFT VENTRICULAR HYPERTROPHY AND ST-T CHANGE [VOLTAGE CRITERIA PLUS ST/T ABNORMALITY] Compared to ECG 12/26/2019 19:51:59 Myocardial infarct finding no longer present ST (T wave) deviation still present Electronically Signed On 12-07-2020 20:15:46 INVENTORY ASSISTANT by Urbano Heard M.D. [id number]
--- NOTE | 2020-12-07 19:48 | XR_ITS ---
WS: [id number] Portable AP upright chest, 12/07/2020 Clinical Data: chest pain Comparison: PA and lateral chest, 05/31/2020. Findings: No nodules, masses or effusions are seen. The heart is enlarged. The pulmonary vascularity is not increased. No pneumonia or pneumothorax is seen. The aortic arch and descending aorta are tort uous. There is a levoscoliosis of the upper thoracic spine. XR/XR chest 1V portable 19656 Impression: Atherosclerosis and cardiomegaly.
--- NOTE | 2020-12-07 20:02 | PC.PHAR ---
pt states he takes care of his own medications-pt states he takes his lisinopril prn ext med history shows last filled on 05/31/2020 pts pharmacy is closed to verify last time filled-pt states he is taking lipitor ext med history shows last filled on 04/09/2020 pharmacy closed to verify last time filled-pt states he dced the symbicort inhaler
[2020-12-07 20:37] LABS: Basophils # 0.1 10^3/uL (0.0-0.1); Basophils % 0.5 %; Eosinophils # 0.4 10^3/uL (0.0-0.8); Eosinophils % 3.6 %; Hematocrit 46.4 % (42.0-52.0); Hemoglobin 15.7 g/dL (11.7-16.6); Lymphocytes # 2.4 10^3/uL (0.8-4.8); Lymphocytes % 22.2 %; Mean Corpuscular HGB Conc 33.8 g/dL (30.0-36.0); Mean Corpuscular Hemoglobin 30.3 pg (28.0-34.0); Mean Corpuscular Volume 89.4 fL (80-94); Mean Platelet Volume 10.6 fL (7.4-10.4); Monocytes % 9.4 %; Neutrophils # 6.95 10^3/uL (1.8-7.7); Neutrophils % 63.7 %; Nucleated Red Blood Cells % 0 %; Platelet Count 302 10^3/cmm (130-400); Red Blood Count 5.19 10^6/uL (4.1-5.3); Red Cell Distribution Width 12.6 % (12.1-15.1); White Blood Count 10.9 10^3/uL (4.0-10.0)
[2020-12-07] MEDS: aspirin 81 mg Chew Tablet 243 MG PO (20:48)
[2020-12-07 21:00] LABS: D Dimer 0.54 ug/mIFEU (0-0.59)
--- NOTE | 2020-12-07 21:48 | ECG_ITS ---
[facility] Test Date: 2020-12-07 Pat Name: Shamir Larose Department: Room: Gender: Male [employer] Administrator: : 1960 Requested By: Jackelyn Tompkins I Order Number: [id number] Shonda MD: Devorah Cat M.D. Measurements Intervals [place] Rate: 87 P: 70 VA: 151 QRS: 12 QRSD: 94 T: 159 QT: 386 QTc: 467 Interpretive Statements SINUS RHYTHM LEFT VENTRICULAR HYPERTROPHY AND ST-T CHANGE [VOLTAGE CRITERIA PLUS ST/T ABNORMALITY] Compared to ECG 12/07/2020 19:34:52 Sinus arrhythmia no longer present ST (T wave) deviation still present Electronically Signed On 12-08-2020 20:32:41 PUBLIC HEALTH VETERINARIAN by Devorah Cat M.D. [id number]
[2020-12-07 21:52] LABS: Troponin(5th) Baseline 20 ng/L (0-15)
[2020-12-07 22:00] LABS: Alanine Aminotransferase 20 U/L (0-41); Albumin Level 3.9 g/dL (3.5-5.2); Alkaline Phosphatase 61 IU/L (40-130); Anion Gap 14.1 (5-19); Aspartate Amino Transferase 14 U/L (0-40); Blood Urea Nitrogen 12 mg/dL (6-20); Calcium 9.1 mg/dL (8.5-10.5); Carbon Dioxide 25 mmol/L (22-29); Chloride 103 mmol/L (98-107); Globulin 3.1 g/dL (1.3-4.6); Glomerular Filtration Rate 115.4 mL/min (90-130); Glucose 98 mg/dL (65-115); Lipase 27 U/L (13-60); NT Pro B Type Natriuretic Pept 1744 pg/mL (0-125); Osmolality Calculated 286 mOsm/kg (285-295); Potassium 4.1 mmol/L (3.5-5.1); Sodium 138 mmol/L (136-145); Total Bilirubin 0.2 mg/dL (0.15-1.2)
[2020-12-07 22:56] VITALS: BP 181/108; PULSE 88; RESP 18; O2SAT 97
[2020-12-07 23:36] LABS: Troponin 5 2HR 21.13 ng/L (0-15); Troponin 5 2HR Delta 1.13 ABS# (0-10)
--- NOTE | 2020-12-07 23:39 | W.ED.CHESTPA ---
HPI - Chest Pain General: Chief Complaint: Chest Pain Stated Complaint: suspects heart attack Time Seen by Provider: 12/07/20 19:37 Source: patient Mode of arrival: ambulatory Limitations: no limitations History of Present Illness: HPI narrative: 60-year-old gentleman with a prior [place] presents to the emergency department with chest pain that started about 3 days ago. Pain started at rest, located on the left side of his chest and radiates to his left arm. The patient states that the pain comes and goes and he eventually decided to come in today because he had a pretty bad night last night. He is currently chest pain-free. MD complaint: chest pain Pertinent past history: coronary artery disease and prior [place] Onset (ago): day(s) (3) Timing of current episode: episodic Onset: during rest Pain location: left chest Pain radiation: left arm Severity: moderate Quality: sharp Relieving factors: nothing Exacerbating factors: nothing Associated symptoms: Reports nausea; Deny abdominal pain, diaphoresis, dyspnea, fever(s), leg edema, palpitations, sense of impending doom or vomiting Review of Systems General: Reports: 10 or more systems reviewed and unremarkable except in HPI and below Const: Denies: fever(s) or diaphoresis Eyes: Denies: change in vision or blurry vision ENMT: Denies: throat pain, enlarged tonsils, odynophagia, hoarseness, mouth pain or swelling of lips/tongue Card: Denies: palpitations Resp: Denies: dyspnea GI: Reports: nausea; Denies: abdominal pain or vomiting : Denies: flank pain, dysuria, urinary frequency, urinary urgency or urinary hesitancy Musc: Denies: neck pain, back pain or extremity swelling Skin/Breast: Denies: rash, pruritus or erythema Neuro: Denies: headache(s), numbness in extremities or weakness in extremities Endo: Denies: polyuria, polydipsia or tired all the time PFS ED PFSH: Medical History (Reviewed 12/08/20 @ 00:44 by Jackelyn Tompkins MD, [facility] – [place]) CAD (coronary artery disease) COPD (chronic obstructive pulmonary disease) Encounter for long-term use of opiate analgesic Hyperlipidemia Hypertension Kidney stones Opioid contract exists Sleep apnea in adult Stroke Tobacco abuse Smoking cessation discussed with patient in detail for 3-10 minutes. -he has cut back to 15 cigs/day Surgical History (Reviewed 12/08/20 @ 00:44 by Jackelyn Tompkins MD, [facility] [place]) H/O angioplasty History of ureter stent Stented coronary artery Family History (Reviewed 12/08/20 @ 00:44 by Jackelyn Tompkins MD, [facility] [place]) Other Adopted Social History (Reviewed 12/08/20 @ 00:44 by Jackelyn Tompkins MD, [facility] [place]) Smoking and tobacco status: current every day smoker cigarettes Packs smoked per day: 0.75 Alcohol intake: never Adopted: Yes Household members: family Housing: House History of recent travel: No Physical Exam Const: COMMON NORMALS: no acute distress, average body habitus, patient oriented x3, no limitations, healthy appearing, alert and well nourished HENMT: COMMON NORMALS: normocephalic, atraumatic and moist oral mucous membranes HEAD & SCALP: normocephalic and atraumatic Neck/C-Spine: COMMON NORMALS: no meningeal signs and no JVD Chest: COMMONS NORMALS: normal inspection of the chest and normal palpation of entire chest wall Resp: COMMON NORMALS: normal respiratory effort, No retractions, No use of accessory muscles, clear to auscultation bilaterally and percussion normal AUSCULTATION: clear to auscultation bilaterally PERCUSSION: percussion normal Cardio: COMMON NORMALS: no JVD, regular rate, regular rhythm, S1 normal heart sound present, S2 normal heart sound present, No gallops present (Cardio), No clicks present (Cardio), No murmurs present (Cardio), No rub (Cardio) and Peripheral pulses 2+ throughout RATE: regular rate RHYTHM: regular rhythm HEART SOUNDS: S1 normal heart sound present and S2 normal heart sound present PERIPHERAL PULSES: Peripheral pulses 2+ throughout GI: COMMON NORMALS: Normal to inspection, nondistended, normoactive bowel sounds present, Soft to palpation, non-tender, No hepatosplenomegaly present, no masses and no bruits PALPATION: Yes Soft to palpation and Yes No hepatosplenomegaly present Extremity: COMMON NORMALS: normal to inspection, full ROM, capillary refill normal, no calf tenderness and no pedal edema Neuro: COMMON NORMALS: patient oriented x3 SENSORIUM/ORIENTATION: Yes alert MENINGEAL SIGNS: Yes no meningeal signs Skin: COMMON NORMALS: no rashes or lesions noted, no wounds, turgor normal, no jaundice, no petechiae and no mottling GENERAL SKIN EXAM: no rashes or lesions noted and turgor normal Course Reevaluation(s): Reevaluation #1: Discussed his lab and imaging findings with him. Explained that he is baseline troponin is mildly elevated, however his 2-hour troponin has a flat delta. Based on his risk factors I discussed his options with him as his heart score is 4 making him moderate risk for major adverse cardiac event, about 17% in the next 6 weeks. Patient was anxious to go home and wanted to be discharged home. He will follow-up with his primary care provider and baffle mounter. Time: 23:39 Vital Signs: Vital signs: Vital Signs Temperature 98.4 F 12/07/20 19:36 Pulse Rate 85 12/08/20 00:14 Respiratory Rate 16 12/08/20 00:14 Blood Pressure 198/108 12/08/20 00:14 Pulse Oximetry 95 12/08/20 00:14 MDM - Chest Pain MDM Narrative: Medical decision making narrative: 60-year-old male who presents to the emergency department with chest pain. He has a history of a prior [place] about 1 year ago. Heart score is a 4 making him moderate risk for major adverse cardiac event within the next 6 weeks. Patient had a mildly elevated baseline troponin with a flat 2-hour delta. Patient elected to be discharged home. He will follow-up with his outpatient providers. Medical Records: Attestation: I reviewed the patient's medical records. Lab Data: Attestation: I reviewed the patient's lab results. Labs: Lab Results 12/07/20 12/07/20 12/07/20 Range/Units 19:42 19:42 19:42 WBC 10.9 H (4.0-10.0) 10^3/ uL RBC 5.19 (4.1-5.3) 10^6/u L Hgb 15.7 (11.7-16.6) g/dL Hct 46.4 (42.0-52.0) % MCV 89.4 (80-94) fL MCH 30.3 (28.0-34.0) pg MCHC 33.8 (30.0-36.0) g/dL RDW 12.6 (12.1-15.1) % Plt Count 302 (130-400) 10^3/c mm MPV 10.6 H (7.4-10.4) fL Neut % (Auto) 63.7 % Lymph % (Auto) 22.2 % Stevens % (Auto) 9.4 % Eos % (Auto) 3.6 % Baso % (Auto) 0.5 % Neut # (Auto) 6.95 (1.8-7.7) 10^3/u L Lymph # (Auto) 2.4 (0.8-4.8) 10^3/u L Stevens # (Auto) 1.0 H (0.2-0.9) 10^3/u L Eos # (Auto) 0.4 (0.0-0.8) 10^3/u L Baso # (Auto) 0.1 (0.0-0.1) 10^3/u L Nucleated RBC % (a uto) 0 % Nucleated RBCs # 0.0 /100WBC D-Dimer 0.54 (0-0.59) ug/mIFE U Sodium Cancelled Potassium Cancelled Chloride Cancelled Carbon Dioxide Cancelled Anion Gap Cancelled BUN Cancelled Creatinine Cancelled GFR Calculation Cancelled Glucose Cancelled Calculated Osmolal ity Cancelled Calcium Cancelled Total Bilirubin Cancelled AST Cancelled ALT Cancelled Alkaline Phosphata se Cancelled Troponin T Baselin e Troponin T 120 Min [place] (0-15) ng/L Delta Troponin T (0-10) ABS# NT-Pro-B Natriuret Pep Cancelled Total Protein Cancelled Albumin Cancelled Globulin Cancelled Lipase Cancelled 12/07/20 12/07/20 12/07/20 Range/Units 19:42 21:20 21:20 WBC (4.0-10.0) 10^3/ uL RBC (4.1-5.3) 10^6/u L Hgb (11.7-16.6) g/dL Hct (42.0-52.0) % MCV (80-94) fL MCH (28.0-34.0) pg MCHC (30.0-36.0) g/dL RDW (12.1-15.1) % Plt Count (130-400) 10^3/c mm MPV (7.4-10.4) fL Neut % (Auto) % Lymph % (Auto) % Stevens % (Auto) % Eos % (Auto) % Baso % (Auto) % Neut # (Auto) (1.8-7.7) 10^3/u L Lymph # (Auto) (0.8-4.8) 10^3/u L Stevens # (Auto) (0.2-0.9) 10^3/u L Eos # (Auto) (0.0-0.8) 10^3/u L Baso # (Auto) (0.0-0.1) 10^3/u L Nucleated RBC % (a uto) % Nucleated RBCs # /100WBC D-Dimer (0-0.59) ug/mIFE U Sodium 138 Potassium 4.1 Chloride 103 Carbon Dioxide 25 Anion Gap 14.1 BUN 12 Creatinine 0.7 GFR Calculation 115.4 Glucose 98 Calculated Osmolal ity 286 Calcium 9.1 Total Bilirubin 0.2 AST 14 ALT 20 Alkaline Phosphata se 61 Troponin T Baselin e Cancelled 20 H Troponin T 120 Min [place] (0-15) ng/L Delta Troponin T (0-10) ABS# NT-Pro-B Natriuret Pep 1744 H Total Protein 7.0 Albumin 3.9 Globulin 3.1 Lipase 27 12/07/20 Range/Units 23:09 WBC (4.0-10.0) 10^3/ uL RBC (4.1-5.3) 10^6/u L Hgb (11.7-16.6) g/dL Hct (42.0-52.0) % MCV (80-94) fL MCH (28.0-34.0) pg MCHC (30.0-36.0) g/dL RDW (12.1-15.1) % Plt Count (130-400) 10^3/c mm MPV (7.4-10.4) fL Neut % (Auto) % Lymph % (Auto) % Stevens % (Auto) % Eos % (Auto) % Baso % (Auto) % Neut # (Auto) (1.8-7.7) 10^3/u L Lymph # (Auto) (0.8-4.8) 10^3/u L Stevens # (Auto) (0.2-0.9) 10^3/u L Eos # (Auto) (0.0-0.8) 10^3/u L Baso # (Auto) (0.0-0.1) 10^3/u L Nucleated RBC % (a uto) % Nucleated RBCs # /100WBC D-Dimer (0-0.59) ug/mIFE U Sodium Potassium Chloride Carbon Dioxide Anion Gap BUN Creatinine GFR Calculation Glucose Calculated Osmolal ity Calcium Total Bilirubin AST ALT Alkaline Phosphata se Troponin T Baselin e Troponin T 120 Min [place] 21.13 H (0-15) ng/L Delta Troponin T 1.13 (0-10) ABS# NT-Pro-B Natriuret Pep Total Protein Albumin Globulin Lipase EKG Data^: EKG 1: Attestation: I personally reviewed and interpreted this EKG as follows: EKG interpretation date: 12/07/20 EKG interpretation time: 19:35 Prior EKG tracings: available for review Interpretation: Sinus rhythm with sinus arrhythmia. Heart rate 92 bpm. LVH. T wave inversion in lead I, aVL, V2 through V6 Q wave in leads II and aVF EKG 2: Attestation: I personally reviewed and interpreted this EKG as follows: EKG interpretation date: 12/07/20 EKG interpretation time: 22:54 Prior EKG tracings: available for review Interpretation: Sinus rhythm. Heart rate 87 bpm. LVH. Q waves in II, aVF. T wave inversion in leads I, aVL, V2 through V6. No significant change from earlier today Discharge Plan Discharge Patient Disposition: Home Clinical Impression: Chest pain Qualifiers: Chest pain type: unspecified Qualified Code(s): R07.9 - Chest pain, unspecified Condition: Stable Prescriptions: Continued Spiriva with HandiHaler 18 mcg capsule, w/inhalation device 1 cap INHALATION DAILY@06 RF: 0 fluticasone propionate 50 mcg/actuation spray,suspension 2 spray INTRANASAL BID PRN (Reason: Allergy Symptoms) RF: 0 nitroglycerin 0.4 mg tablet, sublingual 0.4 mg SUBLINGUAL Q5M PRN (Reason: Chest Pain) RF: 0 potassium gluconate 595 mg (99 mg) tablet 595 mg PO DAILY@06 RF: 0 hydrocodone-acetaminophen 10-325 mg tablet 1 tab PO TID PRN (Reason: pain) 30 Days Qty: 90 RF: 0 multivitamin Tablet 1 tab PO EVERY OTHER DAY RF: 0 Lipitor 80 mg Tablet 80 mg PO BEDTIME RF: 0 lisinopril 10 mg tablet 10 mg PO PRN RF: 0 Plavix 75 mg tablet 75 mg PO DAILY@06 RF: 0 Adult Low Dose Aspirin 81 mg tablet,delayed release (DR/EC) 81 mg PO DAILY@06 RF: 0 hydrochlorothiazide 12.5 mg capsule 12.5 mg PO BID@ RF: 0 Discharge Orders: Discharge ED (Routine); Ordered 12/07/20 Ordered By: Jackelyn Tompkins Referrals: Syeda Bender MD [Primary Care Provider] - 1-3 days Discharge Diet: Usual diet Discharge Activity: Resume usual activity Patient Instructions: Chest Pain (ED) Activity Restrictions/Additional Instructions: Return for any new or worsening symptoms. Follow-up with your primary care provider within 3 days. Continue your home medications. Coding Level of Care Code ED Community Affairs Director for [facility]
[2020-12-08 00:14] VITALS: BP 198/108; PULSE 85; RESP 16; O2SAT 95
== END 2020-12-07 23:58 | disposition home or self-care (01) ==
LOC: ER 20:00 → MEDSURG 23:40
PROVIDERS: Emergency Provider Family Medicine; PCP Family Medicine
DX: R07.9 Chest pain, unspecified (principal); Z79.02 Long term (current) use of antithrombotics/antiplatelets; Z79.82 Long term (current) use of aspirin; I25.10 Atherosclerotic heart disease of native coronary artery without angina pectoris; J44.9 Chronic obstructive pulmonary disease, unspecified; E78.5 Hyperlipidemia, unspecified; I10 Essential (primary) hypertension; Z86.73 Personal history of transient ischemic attack (TIA), and cerebral infarction without residual deficits; F17.210 Nicotine dependence, cigarettes, uncomplicated
CPT/HCPCS: 12345; 36415; 71045; 80053; 83690; 83880; 84484; 85025; 85378; 93005; 99282; 99283

== ENCOUNTER → 2021-01-27 10:14 | Outpatient (BNVA) | payer MEDICAID, SELFPAY | PROVIDERS: PCP Family Medicine; Visit Provider Anesthesiology | DX: G89.29 Other chronic pain (principal); M54.5 Low back pain; M54.6 Pain in thoracic spine; F17.210 Nicotine dependence, cigarettes, uncomplicated; Z79.891 Long term (current) use of opiate analgesic | CPT/HCPCS: 99213 ==

== ENCOUNTER → 2021-03-21 09:04 | Outpatient (BNVA) | payer MEDICAID, SELFPAY | PROVIDERS: PCP Family Medicine; Visit Provider Nurse Practitioner | DX: G89.29 Other chronic pain (principal); M54.6 Pain in thoracic spine; M54.5 Low back pain; F17.210 Nicotine dependence, cigarettes, uncomplicated; Z79.891 Long term (current) use of opiate analgesic; Z71.6 Tobacco abuse counseling | CPT/HCPCS: 99214 ==

== ENCOUNTER → 2021-04-28 09:25 | Outpatient (BNVA) | payer MEDICAID, SELFPAY | PROVIDERS: PCP Family Medicine; Visit Provider Nurse Practitioner | DX: G89.29 Other chronic pain (principal); M54.6 Pain in thoracic spine; M54.5 Low back pain; F17.210 Nicotine dependence, cigarettes, uncomplicated; Z79.891 Long term (current) use of opiate analgesic; Z71.6 Tobacco abuse counseling | CPT/HCPCS: 99213; 99214 ==

== ENCOUNTER → 2021-06-23 09:02 | Outpatient (BNVA) | payer MEDICAID, SELFPAY | PROVIDERS: PCP Family Medicine; Visit Provider Nurse Practitioner | DX: G89.29 Other chronic pain (principal); M54.6 Pain in thoracic spine; M54.5 Low back pain; F17.210 Nicotine dependence, cigarettes, uncomplicated; Z79.891 Long term (current) use of opiate analgesic; Z71.6 Tobacco abuse counseling | CPT/HCPCS: 99213; 99214 ==

== ENCOUNTER → 2021-08-25 09:11 | Outpatient (BNVA) | payer MEDICAID, SELFPAY | PROVIDERS: PCP Family Medicine; Visit Provider Anesthesiology | DX: G89.29 Other chronic pain (principal); M54.50 Low back pain, unspecified; Z71.6 Tobacco abuse counseling; Z79.891 Long term (current) use of opiate analgesic; F17.200 Nicotine dependence, unspecified, uncomplicated | CPT/HCPCS: 99214 ==

== ENCOUNTER 2021-09-05 13:08 | Outpatient (CLI) | payer MEDICAID, SELFPAY ==
--- NOTE | 2021-09-05 13:18 | USCV_ITS ---
Shamir Larose Age: 61 Gender: M : 1960 Exam Date: 09/05/2021 13:27 Ordering Phys: Syeda Bender MD Technologist: Myranda Winslow Exam Location: [facility] [place] Indication: claudication Risk Factors: denies diabetes Previous Vascular Surgery: cardiac stents RIGHT LEFT BP: 160.0 / 90.00 BP: 156.0/ 87.00 0 0 Waveform Velocity (cm/s) Velocity (cm/s) Waveform Triphasic 163.1 Iliac Prox 209.6 Triphasic Triphasic Iliac Mid Triphasic 150.7 227.9 Triphasic 129.0 Iliac Distal 205.1 Triphasic Biphasic 121.2 REPA[employer]ER [employer]IRSPRING 131.3 Triphasic Biphasic 24.4 SFA Prox 65.1 Biphasic Biphasic 67.6 SFA Mid 50.2 Biphasic Biphasic 54.4 SFA Dist 78.5 Monophasic Monophasic 27.2 POP 27.8 Monophasic Monophasic 30.7 OPERATIONS GENERAL AGENT 45.1 Monophasic Monophasic 22.9 DPA 24.9 Monophasic 0.7 YAMILET 0.9 FINDINGS RT OPERATIONS GENERAL AGENT 84, RT DPA 118 LT OPERATIONS GENERAL AGENT 138 , LT DPA 86 Moderate diffuse plaques are noted in the femoral and popliteal artery on the right side. Moderate diffuse plaques are noted in the superficial femoral, and popliteal artery on the left side. Minutes resting YAMILET of 0.7 on the right side and 0.9 on the left side . CONCLUSIONS 1. Abnormal resting YAMILET, consistent with moderate peripheral artery disease on the right side. 2. Slightly diminished resting YAMILET on the left side, suggesting mild peripheral artery disease. 3. Moderate diffuse plaques in the femoral and popliteal arteries bilaterally Consider exercise YAMILET, if clinically indicated, to evaluate the functional status Dr Urbano Heard MD [facility] (Electronically Signed) Final Date: 06 September 2021 09:45 S
== END 2021-09-05 13:09 | disposition home or self-care (01) ==
LOC: RAD 13:11
PROVIDERS: PCP Family Medicine; Visit Provider Family Medicine
DX: I73.9 Peripheral vascular disease, unspecified (principal)
CPT/HCPCS: 93925

== ENCOUNTER → 2021-09-12 10:13 | Outpatient (BNVA) | payer MEDICAID, SELFPAY | PROVIDERS: PCP Family Medicine; Visit Provider Anesthesiology | DX: G89.29 Other chronic pain (principal); M54.50 Low back pain, unspecified; F17.210 Nicotine dependence, cigarettes, uncomplicated; Z71.6 Tobacco abuse counseling; Z79.891 Long term (current) use of opiate analgesic | CPT/HCPCS: 99214 ==

== ENCOUNTER → 2021-10-26 08:35 | Outpatient (BNVA) | payer MEDICAID, SELFPAY | PROVIDERS: PCP Family Medicine; Visit Provider Anesthesiology | DX: G89.29 Other chronic pain (principal); M54.50 Low back pain, unspecified; F17.210 Nicotine dependence, cigarettes, uncomplicated; Z79.891 Long term (current) use of opiate analgesic; Z71.6 Tobacco abuse counseling | CPT/HCPCS: 99213 ==

== ENCOUNTER 2022-01-11 07:22 | Emergency (ER) | payer MEDICAID, SELFPAY ==
[2022-01-11 07:34] VITALS: BP 133/84; PULSE 90; RESP 22; TEMP 36.6; O2SAT 96; BMI 33.7
--- NOTE | 2022-01-11 07:53 | XR_ITS ---
WS: [id number] Portable AP upright chest, 01/11/2022 Clinical Data: angina, CHF Comparison: Portable chest, 12/07/2020. Findings: No nodules, masses or effusions are seen. The heart is enlarged. The pulmonary vascularity is not increased. No pneumonia or pneumothorax is seen. The aortic arch and descending thoracic aorta show mild tortuosity. Monitor leads are on the chest wall. XR/XR chest 1V portable [id number] Impression: Atherosclerosis and cardiomegaly.
--- NOTE | 2022-01-11 07:53 | W.ED.CHESTPA ---
Documented by User: BRANDYN Blankenship 01/11/22 10:44 HPI - Chest Pain General: Chief Complaint: Chest Pain Stated Complaint: sent by PCP Time Seen by Provider: 01/11/22 07:47 History of Present Illness: Patient states he was sent here by Dr. Bender's office yesterday but he decided he would wait a day to come in because he had to take care of his son. patient says he has had angina over the last few days and has taken nitroglycerin with good relief. Patient also takes hydrocodone. Patient states that Dr. Bender's office told me he had an elevated lab and that he should get it checked out further. Patient denies any shortness of breath chest pain nausea vomiting diarrhea fever chills. Patient does have a history of CHF , history of stents. Associated symptoms: Deny abdominal pain, dyspnea, fever(s), nausea or vomiting Review of Systems Const: Denies: fever(s), chills or body aches Eyes: Denies: eye discomfort ENMT: Denies: throat pain Card: Reports: chest pain (Angina over the last few days relieved with nitroglycerin.) and swelling of feet/ankles Resp: Denies: dyspnea GI: Denies: abdominal pain, nausea or vomiting Skin/Breast: Denies: rash Neuro: Denies: headache(s) Psych: Denies: depression or suicidal ideation PFSH ED PFSH: Medical History CAD (coronary artery disease) Cigarette smoker motivated to quit COPD (chronic obstructive pulmonary disease) Encounter for long-term use of opiate analgesic Encounter for tobacco use cessation counseling Hyperlipidemia Hypertension Kidney stones Opioid contract exists PAD (peripheral artery disease) Sleep apnea in adult Stroke Tobacco abuse Smoking cessation discussed with patient in detail for 3-10 minutes. -he has cut back to 15 cigs/day Surgical History H/O angioplasty History of ureter stent Stented coronary artery Family History Other Adopted Social History Alcohol intake: never Adopted: Yes Household members: family Housing: House History of recent travel: No Physical Exam Const: COMMON NORMALS: no acute distress, patient oriented x3 and alert HENMT: COMMON NORMALS: normocephalic and external ears normal HEAD & SCALP: normocephalic EXTERNAL EAR: Yes external ears normal Eye: COMMON NORMALS: EOMs intact bilaterally Neck/C-Spine: COMMON NORMALS: no JVD Resp: COMMON NORMALS: normal respiratory effort and No use of accessory muscles Cardio: COMMON NORMALS: no JVD GI: INSPECTION: Yes normal to inspection Extremity: COMMON NORMALS: normal to inspection and full ROM Neuro: COMMON NORMALS: patient oriented x3 SENSORIUM/ORIENTATION: Yes alert Psych: COMMON NORMALS: mental status grossly normal Skin: COMMON NORMALS: no rashes or lesions noted GENERAL SKIN EXAM: no rashes or lesions noted Course Vital Signs: Vital signs: Vital Signs Temperature 97.8 F 01/11/22 07:34 Pulse Rate 72 01/11/22 11:03 Respiratory Rate 18 01/11/22 11:03 Blood Pressure 119/70 01/11/22 11:03 Pulse Oximetry 97 01/11/22 11:03 MDM - Chest Pain Medical Decision Making Patient presents with stable angina type symptoms. He said he has had intermittent chest pain over the last few days. Takes nitroglycerin and has complete relief. Sent here by Dr. Bender. Patient is not having pain shortness of breath while here. Laboratory studies were negative for any concerning findings. Chest x-ray looks fine EKG looks fine. Patient as follow back up with Dr. Bender. Lab Data : 01/11/22 08:00 01/11/22 08:00 Radiology Impressions Chest X-Ray 01/11/22 07:53 Impression: Atherosclerosis and cardiomegaly. Laboratory Results WBC 10.9 10^3/uL (4.0-10.0) H 01/11/22 08:00 RBC 5.32 10^6/uL (4.1-5.3) H 01/11/22 08:00 Hgb 15.7 g/dL (11.7-16.6) 01/11/22 08:00 Hct 47.0 % (42.0-52.0) 01/11/22 08:00 MCV 88.3 fl (80-94) 01/11/22 08:00 MCH 29.5 pg (28.0-34.0) 01/11/22 08:00 MCHC 33.4 g/dL (30.0-36.0) 01/11/22 08:00 RDW 12.8 % (12.1-15.1) 01/11/22 08:00 Plt Count 272 10^3/cmm (130-400) 01/11/22 08:00 MPV 9.9 fL (7.4-10.4) 01/11/22 08:00 Neut % (Auto) 64.4 % 01/11/22 08:00 Lymph % (Auto) 19.8 % 01/11/22 08:00 Barron % (Auto) 10.2 % 01/11/22 08:00 Eos % (Auto) 4.6 % 01/11/22 08:00 Baso % (Auto) 0.6 % 01/11/22 08:00 Neut # (Auto) 7.01 10^3/uL (1.8-7.7) 01/11/22 08:00 Lymph # (Auto) 2.2 10^3/uL (0.8-4.8) 01/11/22 08:00 Barron # (Auto) 1.1 10^3/uL (0.2-0.9) H 01/11/22 08:00 Eos # (Auto) 0.5 10^3/uL (0.0-0.8) 01/11/22 08:00 Baso # (Auto) 0.1 10^3/uL (0.0-0.1) 01/11/22 08:00 Nucleated RBC % (auto) 0 % 01/11/22 08:00 Nucleated RBCs # 0.0 /100WBC 01/11/22 08:00 PT 13.30 SECONDS (12.1-14.9) 01/11/22 08:00 INR 0.98 (0.8-1.2) 01/11/22 08:00 Sodium 138 mmol/L (136-145) 01/11/22 08:00 Potassium 4.4 mmol/L (3.5-5.1) 01/11/22 08:00 Chloride 101 mmol/L (98-107) 01/11/22 08:00 Carbon Dioxide 22 mmol/L (22-29) 01/11/22 08:00 Anion Gap 19.4 (5-19) H 01/11/22 08:00 BUN 13 mg/dL (8-23) 01/11/22 08:00 Creatinine 0.9 mg/dL (0.7-1.2) 01/11/22 08:00 GFR Calculation 86.1 mL/min (90-130) L 01/11/22 08:00 Glucose 121 mg/dL (65-115) H 01/11/22 08:00 Calculated Osmolality 287 mOsm/kg (285-295) 01/11/22 08:00 Calcium 9.6 mg/dL (8.5-10.5) 01/11/22 08:00 Total Bilirubin 0.4 mg/dL (0.15-1.2) 01/11/22 08:00 AST 15 U/L (0-40) 01/11/22 08:00 ALT 21 U/L (0-41) 01/11/22 08:00 Alkaline Phosphatase 65 IU/L (40-130) 01/11/22 08:00 Troponin T Baseline 22 ng/L (0-15) H 01/11/22 08:00 Troponin T 120 Minute 17.40 ng/L (0-15) H 01/11/22 09:46 Delta Troponin T -4.60 ABS# (0-10) L 01/11/22 09:46 NT-Pro-B Natriuret Pep 881 pg/mL (0-125) H 01/11/22 08:00 Total Protein 6.8 g/dL (6.6-8.7) 01/11/22 08:00 Albumin 4.5 g/dL (3.5-5.2) 01/11/22 08:00 Globulin 2.3 g/dL (1.3-4.6) 01/11/22 08:00 EKG Data EKG 1: EKG interpretation date: 01/11/22 EKG interpretation time: 07:50 Computer generated interpretation: Sinus rhythm with occasional PVC. Left ventricular hypertrophy. Old [place] positive Q wave V1 V2. Ventricular rate 80 bpm RI interval 162 ms QRS duration 96 ms QT is 393 ms Discharge Plan Discharge Patient Disposition: Home Clinical Impression: Stable angina Condition: Stable Prescriptions: No Action potassium gluconate 595 mg (99 mg) tablet 595 mg PO DAILY@06 0RF Advil Dual Action 125-250 mg tablet 2 tab PO BID PRN (Reason: Pain) 0RF Plavix 75 mg tablet 75 mg PO DAILY@06 Qty: 90 3RF nitroglycerin 0.4 mg tablet, sublingual 0.4 mg SUBLINGUAL Q5M PRN (Reason: Chest Pain) Qty: 30 3RF Adult Low Dose Aspirin 81 mg tablet,delayed release (DR/EC) 81 mg PO DAILY@06 Qty: 30 3RF multivitamin Tablet 1 tab PO .TWICE A WEEK 0RF ropinirole 0.5 mg tablet See Rx Instructions .ROUTE .COMPLEX 0RF Rx Instructions: 1 TAB PO BEDTIME FOR 5 DAYS THEN 2 TABS AT BEDTIME lisinopril-hydrochlorothiazide 10-12.5 mg tablet 1 tab PO QAM 0RF Spiriva with HandiHaler 18 mcg capsule, w/inhalation device 1 cap INHALATION QAM 0RF Symbicort 160-4.5 mcg/actuation HFA aerosol inhaler 2 puff INHALATION BID 0RF hydrocodone-acetaminophen 10-325 mg tablet 1 tab PO QID PRN (Reason: Pain) 0RF Crestor 10 mg tablet 10 mg PO BEDTIME 0RF Discharge Orders: Discharge ED (Routine); Ordered 01/11/22 Ordered By: Neno Torres Referrals: Syeda Bender MD [Primary Care Provider] - Discharge Diet: Usual diet Discharge Activity: Increase activity as tolerated Patient Instructions: Angina (ED) Activity Restrictions/Additional Instructions: Follow-up with medical provider as directed. Take medications as prescribed. Return to the ER or your medical provider if condition worsens. Please read and understand discharge instructions. If any questions ask please. Coding Level of Care Code ED Plastic Card Grader Cardroom for Chg Fwd Exam Comprehensive Documented by User: Suleiman Luz DO 01/11/22 12:18 HPI - Chest Pain General: Chief Complaint: Chest Pain Stated Complaint: sent by PCP Time Seen by Provider: 01/11/22 07:47 PFSH ED PFSH: Medical History CAD (coronary artery disease) Cigarette smoker motivated to quit COPD (chronic obstructive pulmonary disease) Encounter for long-term use of opiate analgesic Encounter for tobacco use cessation counseling Hyperlipidemia Hypertension Kidney stones Opioid contract exists PAD (peripheral artery disease) Sleep apnea in adult Stroke Tobacco abuse Smoking cessation discussed with patient in detail for 3-10 minutes. -he has cut back to 15 cigs/day Surgical History H/O angioplasty History of ureter stent Stented coronary artery Family History Other Adopted Social History Alcohol intake: never Adopted: Yes Household members: family Housing: House History of recent travel: No Course Vital Signs: Vital signs: Vital Signs Temperature 97.8 F 01/11/22 07:34 Pulse Rate 72 01/11/22 11:03 Respiratory Rate 18 01/11/22 11:03 Blood Pressure 119/70 01/11/22 11:03 Pulse Oximetry 97 01/11/22 11:03 MDM - Chest Pain Medical Decision Making Patient presents with stable angina type symptoms. He said he has had intermittent chest pain over the last few days. Takes nitroglycerin and has complete relief. Sent here by Dr. Bender. Patient is not having pain shortness of breath while here. Laboratory studies were negative for any concerning findings. Chest x-ray looks fine EKG looks fine. Patient as follow back up with Dr. Bender. Chart reviewed and patient discussed with midlevel. Agree with assessment and plan. Medical Records I reviewed the patient's medical records. Lab Data I reviewed the patient's lab results. : 01/11/22 08:00 01/11/22 08:00 Radiology Impressions Chest X-Ray 01/11/22 07:53 Impression: Atherosclerosis and cardiomegaly. Laboratory Results WBC 10.9 10^3/uL (4.0-10.0) H 01/11/22 08:00 RBC 5.32 10^6/uL (4.1-5.3) H 01/11/22 08:00 Hgb 15.7 g/dL (11.7-16.6) 01/11/22 08:00 Hct 47.0 % (42.0-52.0) 01/11/22 08:00 MCV 88.3 fl (80-94) 01/11/22 08:00 MCH 29.5 pg (28.0-34.0) 01/11/22 08:00 MCHC 33.4 g/dL (30.0-36.0) 01/11/22 08:00 RDW 12.8 % (12.1-15.1) 01/11/22 08:00 Plt Count 272 10^3/cmm (130-400) 01/11/22 08:00 MPV 9.9 fL (7.4-10.4) 01/11/22 08:00 Neut % (Auto) 64.4 % 01/11/22 08:00 Lymph % (Auto) 19.8 % 01/11/22 08:00 Barron % (Auto) 10.2 % 01/11/22 08:00 Eos % (Auto) 4.6 % 01/11/22 08:00 Baso % (Auto) 0.6 % 01/11/22 08:00 Neut # (Auto) 7.01 10^3/uL (1.8-7.7) 01/11/22 08:00 Lymph # (Auto) 2.2 10^3/uL (0.8-4.8) 01/11/22 08:00 Barron # (Auto) 1.1 10^3/uL (0.2-0.9) H 01/11/22 08:00 Eos # (Auto) 0.5 10^3/uL (0.0-0.8) 01/11/22 08:00 Baso # (Auto) 0.1 10^3/uL (0.0-0.1) 01/11/22 08:00 Nucleated RBC % (auto) 0 % 01/11/22 08:00 Nucleated RBCs # 0.0 /100WBC 01/11/22 08:00 PT 13.30 SECONDS (12.1-14.9) 01/11/22 08:00 INR 0.98 (0.8-1.2) 01/11/22 08:00 Sodium 138 mmol/L (136-145) 01/11/22 08:00 Potassium 4.4 mmol/L (3.5-5.1) 03/10/22 08:00 Chloride 101 mmol/L (98-107) 01/11/22 08:00 Carbon Dioxide 22 mmol/L (22-29) 01/11/22 08:00 Anion Gap 19.4 (5-19) H 01/11/22 08:00 BUN 13 mg/dL (8-23) 01/11/22 08:00 Creatinine 0.9 mg/dL (0.7-1.2) 01/11/22 08:00 GFR Calculation 86.1 mL/min (90-130) L 01/11/22 08:00 Glucose 121 mg/dL (65-115) H 01/11/22 08:00 Calculated Osmolality 287 mOsm/kg (285-295) 01/11/22 08:00 Calcium 9.6 mg/dL (8.5-10.5) 01/11/22 08:00 Total Bilirubin 0.4 mg/dL (0.15-1.2) 01/11/22 08:00 AST 15 U/L (0-40) 01/11/22 08:00 ALT 21 U/L (0-41) 01/11/22 08:00 Alkaline Phosphatase 65 IU/L (40-130) 01/11/22 08:00 Troponin T Baseline 22 ng/L (0-15) H 01/11/22 08:00 Troponin T 120 Minute 17.40 ng/L (0-15) H 01/11/22 09:46 Delta Troponin T -4.60 ABS# (0-10) L 01/11/22 09:46 NT-Pro-B Natriuret Pep 881 pg/mL (0-125) H 01/11/22 08:00 Total Protein 6.8 g/dL (6.6-8.7) 01/11/22 08:00 Albumin 4.5 g/dL (3.5-5.2) 01/11/22 08:00 Globulin 2.3 g/dL (1.3-4.6) 01/11/22 08:00 Discharge Plan Discharge Patient Disposition: Home Clinical Impression: Stable angina Condition: Stable Prescriptions: No Action potassium gluconate 595 mg (99 mg) tablet 595 mg PO DAILY@06 0RF Advil Dual Action 125-250 mg tablet 2 tab PO BID PRN (Reason: Pain) 0RF Plavix 75 mg tablet 75 mg PO DAILY@06 Qty: 90 3RF nitroglycerin 0.4 mg tablet, sublingual 0.4 mg SUBLINGUAL Q5M PRN (Reason: Chest Pain) Qty: 30 3RF Adult Low Dose Aspirin 81 mg tablet,delayed release (DR/EC) 81 mg PO DAILY@06 Qty: 30 3RF multivitamin Tablet 1 tab PO .TWICE A WEEK 0RF ropinirole 0.5 mg tablet See Rx Instructions .ROUTE .COMPLEX 0RF Rx Instructions: 1 TAB PO BEDTIME FOR 5 DAYS THEN 2 TABS AT BEDTIME lisinopril-hydrochlorothiazide 10-12.5 mg tablet 1 tab PO QAM 0RF Spiriva with HandiHaler 18 mcg capsule, w/inhalation device 1 cap INHALATION QAM 0RF Symbicort 160-4.5 mcg/actuation HFA aerosol inhaler 2 puff INHALATION BID 0RF hydrocodone-acetaminophen 10-325 mg tablet 1 tab PO QID PRN (Reason: Pain) 0RF Crestor 10 mg tablet 10 mg PO BEDTIME 0RF Discharge Orders: Discharge ED (Routine); Ordered 01/11/22 Ordered By: Neno Torres Referrals: Syeda Bender MD [Primary Care Provider] - Discharge Diet: Usual diet Discharge Activity: Increase activity as tolerated Patient Instructions: Angina (ED) Activity Restrictions/Additional Instructions: Follow-up with medical provider as directed. Take medications as prescribed. Return to the ER or your medical provider if condition worsens. Please read and understand discharge instructions. If any questions ask please. Coding Level of Care Code ED Plastic Card Grader Cardroom for [place] Fwd Exam Comprehensive
[2022-01-11 08:18] LABS: Basophils # 0.1 10^3/uL (0.0-0.1); Basophils % 0.6 %; Eosinophils # 0.5 10^3/uL (0.0-0.8); Eosinophils % 4.6 %; Hemoglobin 15.7 g/dL (11.7-16.6); Lymphocytes # 2.2 10^3/uL (0.8-4.8); Lymphocytes % 19.8 %; Mean Corpuscular HGB Conc 33.4 g/dL (30.0-36.0); Mean Corpuscular Hemoglobin 29.5 pg (28.0-34.0); Mean Corpuscular Volume 88.3 fl (80-94); Mean Platelet Volume 9.9 fL (7.4-10.4); Monocytes # 1.1 10^3/uL (0.2-0.9); Monocytes % 10.2 %; Neutrophils # 7.01 10^3/uL (1.8-7.7); Neutrophils % 64.4 %; Nucleated Red Blood Cells % 0 %; Platelet Count 272 10^3/cmm (130-400); Red Blood Count 5.32 10^6/uL (4.1-5.3); Red Cell Distribution Width 12.8 % (12.1-15.1); White Blood Count 10.9 10^3/uL (4.0-10.0)
[2022-01-11 08:37] LABS: Troponin(5th) Baseline 22 ng/L (0-15)
[2022-01-11 08:44] LABS: INR 0.98 (0.8-1.2)
[2022-01-11 08:59] LABS: Alanine Aminotransferase 21 U/L (0-41); Albumin Level 4.5 g/dL (3.5-5.2); Alkaline Phosphatase 65 IU/L (40-130); Aspartate Amino Transferase 15 U/L (0-40); Blood Urea Nitrogen 13 mg/dL (8-23); Calcium 9.6 mg/dL (8.5-10.5); Carbon Dioxide 22 mmol/L (22-29); Chloride 101 mmol/L (98-107); Globulin 2.3 g/dL (1.3-4.6); Glomerular Filtration Rate 86.1 mL/min (90-130); Glucose 121 mg/dL (65-115); NT Pro B Type Natriuretic Pept 881 pg/mL (0-125); Osmolality Calculated 287 mOsm/kg (285-295); Sodium 138 mmol/L (136-145); Total Bilirubin 0.4 mg/dL (0.15-1.2); Total Protein 6.8 g/dL (6.6-8.7)
[2022-01-11 09:05] LABS: Anion Gap 19.4 (5-19); Potassium 4.4 mmol/L (3.5-5.1)
--- NOTE | 2022-01-11 09:40 | PC.PHAR ---
PT STATES HE TAKES CARE OF HIS OWN MEDICATIONS-PT STATES HE IS NOT TAKING DILTIAZEM 120MG DAILY LAST FILLED ON 01/08/22 30D/S PT STATES HE HAS TOLD THE DR HE IS NOT TAKING PT STATES NOT TAKEN IN OVER A MONTH PT STATES HE PICKS UP THE MEDICATION FROM THE PHARMACY AND THEN THROWS THE MEDICATION AWAY STATES IT MAKES HIM FEEL BAD- PT STATES HE STOP TAKING THE CRESTOR FOR A WHILE BUT RESTARTED TAKING A FEW WEEKS AGO-NOTES ARE MADE IN THE PHARMACY COMMENTS
[2022-01-11 09:42] VITALS: BP 136/88; PULSE 72; RESP 20; O2SAT 95
[2022-01-11 11:03] VITALS: BP 119/70; PULSE 72; RESP 18; O2SAT 97
--- NOTE | 2022-01-11 13:53 | ECG_ITS ---
[facility] Test Date: 2022-01-11 Pat Name: Shamir Larose Department: Room: Gender: Male Physiology Teacher: : 1960 Requested By: Neno Torres Order Number: [id number] Shonda MD: Devorah Cat M.D. Measurements Intervals [place] Rate: 80 P: 70 SC: 162 QRS: -5 QRSD: 96 T: 157 QT: 393 QTc: 455 Interpretive Statements SINUS RHYTHM WITH OCCASIONAL VENTRICULAR PREMATURE COMPLEXES LEFT VENTRICULAR HYPERTROPHY AND ST-T CHANGE [VOLTAGE CRITERIA PLUS ST/T ABNORMALITY] WARNING: DATA QUALITY MAY AFFECT INTERPRETATION Compared to ECG 12/07/2020 22:54:02 Ventricular premature complex(es) now present ST (T wave) deviation still present Electronically Signed On 01-12-2022 6:08:00 TRENCH DIGGING MACHINE OPERATOR by Devorah Cat M.D. [email or web address]
== END 2022-01-11 11:04 | disposition home or self-care (01) ==
PROVIDERS: Emergency Provider Nurse Practitioner Family; PCP Family Medicine
DX: I25.118 Atherosclerotic heart disease of native coronary artery with other forms of angina pectoris (principal); Z79.02 Long term (current) use of antithrombotics/antiplatelets; Z79.82 Long term (current) use of aspirin; I25.10 Atherosclerotic heart disease of native coronary artery without angina pectoris; J44.9 Chronic obstructive pulmonary disease, unspecified; E78.5 Hyperlipidemia, unspecified; I10 Essential (primary) hypertension
CPT/HCPCS: 71045; 80053; 83880; 84484; 85025; 85610; 93005; 99283

== ENCOUNTER 2022-04-08 20:07 | Emergency (ER) | payer MEDICAID, SELFPAY ==
[2022-04-08 20:17] VITALS: BP 153/90; PULSE 96; RESP 24; TEMP 36.6; O2SAT 96; BMI 33.7
--- NOTE | 2022-04-08 21:08 | XRR_ITS ---
PROCEDURE INFORMATION: Exam: XR Chest Exam date and time: 04/08/2022 9:27 PM Age: 62 years old Clinical indication: Pain; Chest pressure; Prior surgery; Surgery date: 6+ months; Surgery type: Stents; Additional info: Cp TECHNIQUE: Imaging protocol: XR of the chest. Views: 1 view. COMPARISON: CR XR chest 1V portable [id number] 01/11/2022 8:07 AM FINDINGS: Lungs: See Heart/Mediastinum finding. Pleural spaces: Unremarkable. No pleural effusion. No pneumothorax. Heart/Mediastinum: Stable mild cardiomegaly. Mild atelectasis in the lung bases. The lungs are otherwise clear. Bones/joints: Unremarkable. XR/XR chest 1V portable [id number] IMPRESSION: No acute finding.
--- NOTE | 2022-04-08 21:09 | ECG_ITS ---
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 Measurements Intervals [place] Rate: 89 P: 51 VA: 140 QRS: -10 QRSD: 94 T: 142 QT: 379 QTc: 463 Interpretive Statements SINUS RHYTHM LEFT VENTRICULAR HYPERTROPHY AND ST-T CHANGE [VOLTAGE CRITERIA PLUS ST/T ABNORMALITY] Compared to ECG 01/11/2022 07:50:44 Ventricular premature complex(es) no longer present ST (T wave) deviation still present Electronically Signed On 04-09-2022 16:21:27 CDT by Jonathan Singer M.D. [email or web address]
--- NOTE | 2022-04-08 21:18 | ED_ITS ---
HPI - Chest Pain General: Chief Complaint: Chest Pain Stated Complaint: Chest Pain Time Seen by Provider: 04/08/22 20:50 Source: patient History of Present Illness: 62-year-old male with a history of coronary disease and COPD. He presents with chest discomfort and shortness of breath. He notes the chest discomfort is been going on since yesterday or so. He states that it is worse at rest and it is with exertion. He feels it worse lying down at night as well. He denies any fever. He has a chronic cough that has not changed. He does have some sputum production. Someincreased swelling of his lower extremities. MD complaint: chest pain and chest discomfort Pertinent past history: coronary artery disease Onset (ago): day(s) Timing of current episode: episodic Prior episodes: Yes Onset: during rest Quality: tightness and aching Relieving factors: nothing Exacerbating factors: other Associated symptoms: Reports dyspnea and leg edema; Deny abdominal pain, diaphoresis, fever(s), palpitations or vomiting Treatment prior to arrival: none Review of Systems Const: Denies: fever(s) or diaphoresis ENMT: Denies: throat pain Card: Reports: chest pain; Denies: palpitations Resp: Reports: dyspnea and productive cough GI: Denies: abdominal pain or vomiting PFSH ED PFSH: Medical History CAD (coronary artery disease) Cigarette smoker motivated to quit COPD (chronic obstructive pulmonary disease) Encounter for long-term use of opiate analgesic Encounter for tobacco use cessation counseling Hyperlipidemia Hypertension Kidney stones Opioid contract exists PAD (peripheral artery disease) Sleep apnea in adult Stroke Tobacco abuse Smoking cessation discussed with patient in detail for 3-10 minutes. -he has cut back to 15 cigs/day Surgical History H/O angioplasty History of ureter stent Stented coronary artery Family History Other Adopted Social History Smoking and tobacco status: current every day smoker cigarettes Packs smoked per day: 0.75 Alcohol intake: never Adopted: Yes Household members: family Housing: House History of recent travel: No Physical Exam Const: GENERAL APPEARANCE: cooperative; not frail appearing HENMT: COMMON NORMALS: normocephalic, atraumatic and Normal external nose present HEAD & SCALP: normocephalic and atraumatic FACE & SINUS: normal facial exam and face symmetric NOSE: Normal external nose present Eye: COMMON NORMALS: Equal, round and reactive pupils present and EOMs intact bilaterally PUPIL: Yes Equal, round and reactive pupils present Chest: CHEST: Yes Symmetrical chest wall rise Resp: COMMON NORMALS: normal respiratory effort, No use of accessory muscles and clear to auscultation bilaterally AUSCULTATION: clear to auscultation bilaterally Cardio: COMMON NORMALS: regular rate and regular rhythm RATE: regular rate RHYTHM: regular rhythm GI: INSPECTION: Yes abdominal distension Extremity: GENERAL: Yes edema (1+) Neuro: DEISY COMA SCALE: document GCS findings [place] coma scale eye open ing: Spontaneous Deisy coma scale verbal response: Orientated Deisy coma scale motor response: Obey commands Deisy coma scale total score: 15 Course Vital Signs: Vital signs: Vital Signs Temperature 97.8 F 04/08/22 20:17 Pulse Rate 80 04/09/22 00:33 Respiratory Rate 18 04/09/22 00:33 Blood Pressure 167/90 04/09/22 00:33 Pulse Oximetry 97 04/09/22 00:33 MDM - Chest Pain Medical Decision Making 62-year-old male with a history of coronary disease. Presents with chest discomfort on and off. He is not hurting currently. He has some shortness of breath with it. CBC is normal. BMP is essentially normal. His troponin at baseline is 18, and did not change at 2 hours. His EKG did not show any significant acute ST changes. His chest x-ray is normal. His BNP is slightly elevated. He was given IV Lasix here, and has diuresed about 1300. He notes that he feels much better. His chest pain is gone. He had a stress test at this facility this year showing no disease amenable to intervention. He is givent the option for observation given his hx, but wishes to go home. continued diruesis the next couple days. to return for any return of symptoms. Lab Data : 04/08/22 20:54 04/08/22 20:54 Radiology Impressions Chest X-Ray 04/08/22 21:08 IMPRESSION: No acute finding. Laboratory Results WBC 10.4 10^3/uL (4.0-10.0) H 04/08/22 20:54 RBC 5.24 10^6/uL (4.1-5.3) 04/08/22 20:54 Hgb 16.0 g/dL (11.7-16.6) 04/08/22 20:54 Hct 45.8 % (42.0-52.0) 04/08/22 20:54 MCV 87.4 fl (80-94) 04/08/22 20:54 MCH 30.5 pg (28.0-34.0) 04/08/22 20:54 MCHC 34.9 g/dL (30.0-36.0) 04/08/22 20:54 RDW 12.5 % (12.1-15.1) 04/08/22 20:54 Plt Count 297 10^3/cmm (130-400) 04/08/22 20:54 MPV 9.7 fL (7.4-10.4) 04/08/22 20:54 Neut % (Auto) 62.4 % 04/08/22 20:54 Lymph % (Auto) 21.2 % 04/08/22 20:54 [place] % (Auto) 10.4 % 04/08/22 20:54 Eos % (Auto) 4.7 % 04/08/22 20:54 Baso % (Auto) 0.6 % 04/08/22 20:54 Neut # (Auto) 6.49 10^3/uL (1.8-7.7) 04/08/22 20:54 Lymph # (Auto) 2.2 10^3/uL (0.8-4.8) 04/08/22 20:54 [place] # (Auto) 1.1 10^3/uL (0.2-0.9) H 04/08/22 20:54 Eos # (Auto) 0.5 10^3/uL (0.0-0.8) 04/08/22 20:54 Baso # (Auto) 0.1 10^3/uL (0.0-0.1) 04/08/22 20:54 Nucleated RBC % (auto) 0 % 04/08/22 20:54 Nucleated RBCs # 0.0 /100WBC 04/08/22 20:54 Sodium 133 mmol/L (136-145) L 04/08/22 20:54 Potassium 4.1 mmol/L (3.5-5.1) 04/08/22 20:54 Chloride 97 mmol/L (98-107) L 04/08/22 20:54 Carbon Dioxide 24 mmol/L (22-29) 04/08/22 20:54 Anion Gap 16.1 (5-19) 04/08/22 20:54 BUN 14 mg/dL (8-23) 04/08/22 20:54 Creatinine 0.9 mg/dL (0.7-1.2) 04/08/22 20:54 GFR Calculation 85.8 mL/min (90-130) L 04/08/22 20:54 Glucose 115 mg/dL (65-115) 04/08/22 20:54 Calculated Osmolality 277 mOsm/kg (285-295) L 04/08/22 20:54 Calcium 9.7 mg/dL (8.5-10.5) 04/08/22 20:54 Total Bilirubin 0.4 mg/dL (0.15-1.2) 04/08/22 20:54 AST 16 U/L (0-40) 04/08/22 20:54 ALT 28 U/L (0-41) 04/08/22 20:54 Alkaline Phosphatase 59 IU/L (40-130) 04/08/22 20:54 Creatine Kinase 48 U/L (39-308) 04/08/22 20:54 Troponin T Baseline 18 ng/L (0-15) H 04/08/22 20:54 Troponin T 120 Minute 18.46 ng/L (0-15) H 04/08/22 22:45 Delta Troponin T 0.46 ABS# (0-10) 04/08/22 22:45 NT-Pro-B Natriuret Pep 796 pg/mL (0-125) H 04/08/22 20:54 Total Protein 7.2 g/dL (6.6-8.7) 04/08/22 20:54 Albumin 4.4 g/dL (3.5-5.2) 04/08/22 20:54 Globulin 2.8 g/dL (1.3-4.6) 04/08/22 20:54 Discharge Plan Discharge Patient Disposition: Home Clinical Impression: CAD (coronary artery disease), Pulmonary edema Condition: Stable Prescriptions: New furosemide 20 mg tablet 20 mg PO DAILY Qty: 30 0RF No Action potassium gluconate 595 mg (99 mg) tablet 595 mg PO DAILY@06 0RF Advil Dual Action 125-250 mg tablet 2 tab PO BID PRN (Reason: Pain) 0RF Plavix 75 mg tablet 75 mg PO DAILY@06 Qty: 90 3RF nitroglycerin 0.4 mg tablet, sublingual 0.4 mg SUBLINGUAL Q5M PRN (Reason: Chest Pain) Qty: 30 3RF Adult Low Dose Aspirin 81 mg tablet,delayed release (DR/EC) 81 mg PO DAILY@06 Qty: 30 3RF Crestor 10 mg tablet 10 mg PO BEDTIME Qty: 30 0RF Rx Instructions: Must make follow-up for further refills multivitamin Tablet 1 tab PO .TWICE A WEEK 0RF ropinirole 0.5 mg tablet See Rx Instructions .ROUTE .COMPLEX 0RF Rx Instructions: 1 TAB PO BEDTIME FOR 5 DAYS THEN 2 TABS AT BEDTIME lisinopril-hydrochlorothiazide 10-12.5 mg tablet 1 tab PO QAM 0RF Spiriva with HandiHaler 18 mcg capsule, w/inhalation device 1 cap INHALATION QAM 0RF Symbicort 160-4.5 mcg/actuation HFA aerosol inhaler 2 puff INHALATION BID 0RF hydrocodone-acetaminophen 10-325 mg tablet 1 tab PO QID PRN (Reason: Pain) 0RF Discharge Orders: Discharge ED (Routine); Ordered 04/09/22 Ordered By: Gera Alexis Referrals: Syeda Bender MD [Primary Care Provider] - 1-3 days Patient Instructions: Chest Pain (ED), Pulmonary Edema (ED) Activity Restrictions/Additional Instructions: Return for worsening chest pain despite treatment, worsening shortness of breath, fever greater than 100, vomiting liquids or medications, any other concerning symptoms. Take the medication you were prescribed once daily for the next 3 days, then stop. You may take it as needed for further swelling or shortness of breath as it arises. Call your doctor on Saturday to let them know. Coding Level of Care Code ED Door And Arrival Attendant for Chg Fwd Exam Comprehensive
[2022-04-08 21:25] LABS: Basophils # 0.1 10^3/uL (0.0-0.1); Basophils % 0.6 %; Eosinophils # 0.5 10^3/uL (0.0-0.8); Eosinophils % 4.7 %; Hematocrit 45.8 % (42.0-52.0); Lymphocytes # 2.2 10^3/uL (0.8-4.8); Lymphocytes % 21.2 %; Mean Corpuscular HGB Conc 34.9 g/dL (30.0-36.0); Mean Corpuscular Hemoglobin 30.5 pg (28.0-34.0); Mean Corpuscular Volume 87.4 fl (80-94); Mean Platelet Volume 9.7 fL (7.4-10.4); Monocytes # 1.1 10^3/uL (0.2-0.9); Monocytes % 10.4 %; Neutrophils # 6.49 10^3/uL (1.8-7.7); Neutrophils % 62.4 %; Nucleated Red Blood Cells % 0 %; Platelet Count 297 10^3/cmm (130-400); Red Blood Count 5.24 10^6/uL (4.1-5.3); Red Cell Distribution Width 12.5 % (12.1-15.1); White Blood Count 10.4 10^3/uL (4.0-10.0)
[2022-04-08 21:30] LABS: Troponin(5th) Baseline 18 ng/L (0-15)
[2022-04-08] MEDS: FUROsemide 10 mg/mL SDV 10mL 60 MG IVP (21:33)
[2022-04-08] MEDS: ipratropium-albuterol 3 mL Neb INHALATION (21:36)
[2022-04-08 21:37] VITALS: PULSE 82; RESP 18; O2SAT 97
[2022-04-08 21:38] LABS: Alanine Aminotransferase 28 U/L (0-41); Albumin Level 4.4 g/dL (3.5-5.2); Alkaline Phosphatase 59 IU/L (40-130); Anion Gap 16.1 (5-19); Aspartate Amino Transferase 16 U/L (0-40); Blood Urea Nitrogen 14 mg/dL (8-23); Calcium 9.7 mg/dL (8.5-10.5); Carbon Dioxide 24 mmol/L (22-29); Chloride 97 mmol/L (98-107); Creatine Phosphokinase 48 U/L (39-308); Globulin 2.8 g/dL (1.3-4.6); Glomerular Filtration Rate 85.8 mL/min (90-130); Glucose 115 mg/dL (65-115); NT Pro B Type Natriuretic Pept 796 pg/mL (0-125); Osmolality Calculated 277 mOsm/kg (285-295); Potassium 4.1 mmol/L (3.5-5.1); Sodium 133 mmol/L (136-145); Total Bilirubin 0.4 mg/dL (0.15-1.2); Total Protein 7.2 g/dL (6.6-8.7)
[2022-04-08 21:40] VITALS: PULSE 84
--- NOTE | 2022-04-08 23:09 | ECG_ITS ---
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 Measurements Intervals [place] Rate: 94 P: 68 ME: 153 QRS: -9 QRSD: 93 T: 146 QT: 358 QTc: 450 Interpretive Statements SINUS RHYTHM LEFT VENTRICULAR HYPERTROPHY AND ST-T CHANGE [VOLTAGE CRITERIA PLUS ST/T ABNORMALITY] Compared to ECG 01/11/2022 07:50:44 Ventricular premature complex(es) no longer present ST (T wave) deviation still present Electronically Signed On 04-09-2022 16:29:17 CDT by Jonathan Singer M.D. [email or web address] systemQvolveun[facility].[email or web address]/store/[id number] f
[2022-04-08 23:18] LABS: Troponin 5 2HR 18.46 ng/L (0-15)
[2022-04-08 23:21] LABS: Troponin 5 2HR Delta 0.46 ABS# (0-10)
[2022-04-09 00:33] VITALS: BP 167/90; PULSE 80; RESP 18; O2SAT 97
== END 2022-04-09 00:35 | disposition home or self-care (01) ==
PROVIDERS: Emergency Provider Emergency Medicine; PCP Family Medicine
DX: I25.10 Atherosclerotic heart disease of native coronary artery without angina pectoris (principal); J81.1 Chronic pulmonary edema; I10 Essential (primary) hypertension; J44.9 Chronic obstructive pulmonary disease, unspecified; E78.5 Hyperlipidemia, unspecified; F17.210 Nicotine dependence, cigarettes, uncomplicated; Z79.02 Long term (current) use of antithrombotics/antiplatelets; Z79.82 Long term (current) use of aspirin
CPT/HCPCS: 71045; 80053; 82550; 83880; 84484; 85025; 93005; 94640; 96374; 99285; J1940

== ENCOUNTER 2022-04-19 12:25 | Emergency (ER) | payer MEDICAID, SELFPAY ==
[2022-04-19 12:30] VITALS: BP 164/77; PULSE 98; RESP 18; O2SAT 98; BMI 33.9
--- NOTE | 2022-04-19 12:38 | XR_ITS ---
WS: [id number] Portable AP upright chest, 04/19/2022 Clinical Data: chest pain Comparison: Portable chest, 04/08/2022. Findings: No nodules, masses or effusions are seen. The heart is enlarged. The pulmonary vascularity is not increased. No pneumonia or pneumothorax is seen. Monitor leads are on the chest wall. XR/XR chest 1V portable [id number] Impression: Cardiomegaly.
--- NOTE | 2022-04-19 12:38 | ECG_ITS ---
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 Measurements Intervals [place] Rate: 96 P: 76 HI: 156 QRS: 34 QRSD: 95 T: 140 QT: 359 QTc: 454 Interpretive Statements SINUS RHYTHM WITH OCCASIONAL SUPRAVENTRICULAR PREMATURE COMPLEXES MODERATE T-WAVE ABNORMALITY, CONSIDER ANTEROLATERAL ISCHEMIA [-0.1+ mV T-WAVE IN V3-V6] WARNING: DATA QUALITY MAY AFFECT INTERPRETATION Compared to ECG 04/08/2022 22:27:52 T-wave abnormality now present Possible ischemia now present Left ventricular hypertrophy no longer present ST (T wave) deviation no longer present Electronically Signed On 04-20-2022 5:45:17 CDT by Urbano Heard M.D. [email or web address] [email or web address].[employer]/store/[id number] f
[2022-04-19 12:46] LABS: Basophils # 0.1 10^3/uL (0.0-0.1); Basophils % 0.6 %; Eosinophils # 0.4 10^3/uL (0.0-0.8); Eosinophils % 3.8 %; Hematocrit 45.5 % (42.0-52.0); Lymphocytes # 2.4 10^3/uL (0.8-4.8); Lymphocytes % 22.3 %; Mean Corpuscular HGB Conc 35.2 g/dL (30.0-36.0); Mean Corpuscular Hemoglobin 30.4 pg (28.0-34.0); Mean Corpuscular Volume 86.3 fl (80-94); Mean Platelet Volume 9.8 fL (7.4-10.4); Monocytes # 0.8 10^3/uL (0.2-0.9); Monocytes % 7.3 %; Neutrophils # 7.13 10^3/uL (1.8-7.7); Neutrophils % 65.5 %; Nucleated Red Blood Cells % 0 %; Platelet Count 282 10^3/cmm (130-400); Red Blood Count 5.27 10^6/uL (4.1-5.3); Red Cell Distribution Width 12.2 % (12.1-15.1); White Blood Count 10.9 10^3/uL (4.0-10.0)
--- NOTE | 2022-04-19 12:52 | ED_ITS ---
HPI - General Adult General: Chief complaint: Weakness Stated complaint: Heart pressure Time Seen by Provider: 04/19/22 12:38 History of Present Illness: Patient is a 62-year-old male with a history of CAD status post stents x2, diabetes, hypertension, smoking with COPD who presents emergency room with complaints of acute onset of chest pressure and diaphoresis since 5:00. Patient says that shortly after waking up this morning, patient developed pressure-like chest pain lasting for 30 seconds at home. During his period, patient reported diaphoresis and nausea. Patient denies any emesis, radiation of pain towards the back, shoulder or abdomen. Patient says the pain is pleuritic. Patient denies any recent exertional chest pain or shortness of breath. Patient report feeling lightheaded and diaphoretic frantic lasting for few seconds. Patient has had intermittent chest pressure throughout this morning. Patient denies any fever/chills, cough runny nose sore throat. P atient denies any recent mobilization recent surgery, leg swelling, prior history of VTE. No focal abdominal complaints, complaints, diarrhea not melena/hematochezia. Patient is followed by Dr. Cat and has an appointment with her on Saturday. Onset:5am Duration:ongoing, intermittent Location:home Severity:moderate Associated symptoms: Reports chest pain and nausea; Deny dyspnea, rash, palpitations or vomiting Review of Systems Const: Reports: other (+Diaphroesis); Denies: fever(s) or chills Eyes: Denies: change in vision ENMT: Denies: mouth pain Card: Reports: chest pain; Denies: palpitations Resp: Denies: dyspnea or non-productive cough GI: Reports: nausea; Denies: abdominal pain, vomiting or diarrhea : Denies: dysuria Musc: Denies: extremity pain Skin/Breast: Denies: rash or new lesions Neuro: Denies: weakness in extremities Psych: Reports: other (Normal mood) Jose/Lymph: Denies: easy bruising PFSH ED PFSH: Medical History CAD (coronary artery disease) Cigarette smoker motivated to quit COPD (chronic obstructive pulmonary disease) Encounter for long-term use of opiate analgesic Encounter for tobacco use cessation counseling Hyperlipidemia Hypertension Kidney stones Opioid contract exists PAD (peripheral artery disease) Sleep apnea in adult Stroke Tobacco abuse Smoking cessation discussed with patient in detail for 3-10 minutes. -he has cut back to 15 cigs/day Surgical History H/O angioplasty History of ureter stent Stented coronary artery Family History Other Adopted Social History Smoking and tobacco status: current every day smoker cigarettes Packs smoked per day: 0.75 Alcohol intake: never Adopted: Yes Household members: family Housing: House History of recent travel: No Physical Exam Const: COMMON NORMALS: alert HENMT: COMMON NORMALS: atraumatic HEAD & SCALP: atraumatic MOUTH: moist mucous membranes not abnormal Eye: COMMON NORMALS: EOMs intact bilaterally and conjunctivae normal CONJUNCTIVA: Yes conjunctivae normal Neck/C-Spine: COMMON NORMALS: full ROM and supple Resp: COMMON NORMALS: normal respiratory effort and clear to auscultation bilaterally AUSCULTATION: clear to auscultation bilaterally Cardio: COMMON NORMALS: regular rate RATE: regular rate GI: COMMON NORMALS: Soft to palpation and non-tender PALPATION: Yes Soft to palpation OTHER: No focal TTP. NO guarding rebound, guarding, rigidity. No CVA tenderness to percussion. Neg Ortiz/Neg McBurney's point tenderness, no suprabupic tenderness to palpation. Extremity: COMMON NORMALS: full ROM OTHER: no lower extremity swelling Neuro: SENSORIUM/ORIENTATION: Yes alert MOTOR EXAM: No Abnormal motor strength present and Other motor observations present (no focal motor deficits) Psych: COMMON NORMALS: speech normal SPEECH: Yes normal speech MOOD & AFFECT: Yes euthymic mood Course Vital Signs: Vital signs: Vital Signs Pulse Rate 98 04/19/22 12:30 Respiratory Rate 18 04/19/22 12:30 Blood Pressure 164/77 04/19/22 12:30 Pulse Oximetry 98 04/19/22 12:30 MDM - General Adult Medical Decision Making [62]yo patient w/ hx of CAD s/p stent x 2, COPD, HTN, DM, smoking presenting to the ED with evaluation of new onset chest pain lasting for 30 seconds at a time since 5 AM. HDS, pulse 2+ radially bilaterally, no signs of fluid overload, AAOx3, neuro exam intact. Given History and Exam today I have no suspicion for ACS, Pneumothorax, Pneumonia, Pulmonary Embolus, Tamponade, Aortic Dissection or other emergent problems as a cause for this presentation. Workup: ECG x 2, CXR, CBC, BMP, Troponin x 2 Interventions: ASA 325mg, morphine 4mg Findings: ECG: No overt evidence of STEMI, T wave inversions in V2-V6, I and aVL without any reciprocal ST elevation. CXR: Without PTX, PNA, or widened mediastinum [3:37pm] On reassessment, the patient is HDS, troponin x2 with delta less than 5. However given the EKG, and risk factors, I have performed a shared decision patient. At the present time I have offered admission however patient declined. Patient electing to leave AMA at 3:23pm. Patient counseled regarding risks of leaving including severe morbidity, brain , hypoxia, arrythmia, , chest pain, or any other unwanted consequences of leaving against medical advice today. Patient verbalizes understanding of the risks and still wishes to leave AMA. Patient tells me that he elects for the alternative of following up closely with cardiology outpatient. I will schedule patient with close follow- up with cardiology in the next few days. Patient signed AMA paperwork. Patient advised that patient is welcome to return at any time. Was instructed that patient may come back if symptoms continue to persist and that emergent adverse conditions have not fully been ruled out. Patient is A&Ox3 and has capacity and is of sound mind to make decisions. I have given patient follow up with our pillowcase cleaner to be seen by our outpatient Cardiology for chest pain. Patient aware of a call from our pillowcase cleaner to schedule for appointment(s) and verbalizes understanding of the importance of following up. Disposition: AMA Lab Data : 04/19/22 12:40 04/19/22 12:40 Radiology Impressions Chest X-Ray 04/19/22 12:38 Impression: Cardiomegaly. Laboratory Results WBC 10.9 10^3/uL (4.0-10.0) H 04/19/22 12:40 RBC 5.27 10^6/uL (4.1-5.3) 04/19/22 12:40 Hgb 16.0 g/dL (11.7-16.6) 04/19/22 12:40 Hct 45.5 % (42.0-52.0) 04/19/22 12:40 MCV 86.3 fl (80-94) 04/19/22 12:40 MCH 30.4 pg (28.0-34.0) 04/19/22 12:40 MCHC 35.2 g/dL (30.0-36.0) 04/19/22 12:40 RDW 12.2 % (12.1-15.1) 04/19/22 12:40 Plt Count 282 10^3/cmm (130-400) 04/19/22 12:40 MPV 9.8 fL (7.4-10.4) 04/19/22 12:40 Neut % (Auto) 65.5 % 04/19/22 12:40 Lymph % (Auto) 22.3 % 04/19/22 12:40 [place] % (Auto) 7.3 % 04/19/22 12:40 Eos % (Auto) 3.8 % 04/19/22 12:40 Baso % (Auto) 0.6 % 04/19/22 12:40 Neut # (Auto) 7.13 10^3/uL (1.8-7.7) 04/19/22 12:40 Lymph # (Auto) 2.4 10^3/uL (0.8-4.8) 04/19/22 12:40 [place] # (Auto) 0.8 10^3/uL (0.2-0.9) 04/19/22 12:40 Eos # (Auto) 0.4 10^3/uL (0.0-0.8) 04/19/22 12:40 Baso # (Auto) 0.1 10^3/uL (0.0-0.1) 04/19/22 12:40 Nucleated RBC % (auto) 0 % 04/19/22 12:40 Nucleated RBCs # 0.0 /100WBC 04/19/22 12:40 Sodium 136 mmol/L (136-145) 04/19/22 12:40 Potassium 4.2 mmol/L (3.5-5.1) 04/19/22 12:40 Chloride 97 mmol/L (98-107) L 04/19/22 12:40 Carbon Dioxide 25 mmol/L (22-29) 04/19/22 12:40 Anion Gap 18.2 (5-19) 04/19/22 12:40 BUN 19 mg/dL (8-23) 04/19/22 12:40 Creatinine 1.1 mg/dL (0.7-1.2) 04/19/22 12:40 GFR Calculation 68.1 mL/min (90-130) L 04/19/22 12:40 Glucose 179 mg/dL (65-115) H 04/19/22 12:40 Calculated Osmolality 289 mOsm/kg (285-295) 04/19/22 12:40 Calcium 9.5 mg/dL (8.5-10.5) 04/19/22 12:40 Troponin T Baseline 21 ng/L (0-15) H 04/19/22 12:40 Troponin T 120 Minute 24.65 ng/L (0-15) H 04/19/22 14:00 Delta Troponin T 3.65 ABS# (0-10) 04/19/22 14:00 Imaging Data Other Imaging: Radiologist's impression: [employer] [address] XRay Report Signed Patient: Shamir Larose Unit #: [id number] : 1960 Age/Sex: 62 / M ADM Date: 04/19/22 Loc: ER Room/Bed: Attending Dr: Ordering Provider/Ordering MD: Roberto Carlos Gracia MD Date of Service: 04/19/22 Procedure(s): XR chest 1V portable [id number] Accession Number(s): [id number] Report Number: [id number] WS: [id number] Portable AP upright chest, 04/19/2022 Clinical Data: chest pain Comparison: Portable chest, 04/08/2022. Findings: No nodules, masses or effusions are seen. The heart is enlarged. The pulmonary vascularity is not increased. No pneumonia or pneumothorax is seen. Monitor leads are on the chest wall. XR/XR chest 1V portable [id number] Impression: Cardiomegaly. ? Dictated By: Brittany Rodríguez MD Signed By: Brittany Rodríguez MD Signed Date/Time: 04/19/22 1323 DD/ 1322 Discharge Plan Discharge Patient Disposition: Left Against Medical Advice Clinical Impression: Chest pain Condition: Stable Prescriptions: No Action potassium gluconate 595 mg (99 mg) tablet 595 mg PO DAILY@06 0RF Advil Dual Action 125-250 mg tablet 2 tab PO BID PRN (Reason: Pain) 0RF Plavix 75 mg tablet 75 mg PO DAILY@06 Qty: 90 3RF nitroglycerin 0.4 mg tablet, sublingual 0.4 mg SUBLINGUAL Q5M PRN (Reason: Chest Pain) Qty: 30 3RF furosemide 20 mg tablet 20 mg PO DAILY Qty: 30 3RF Adult Low Dose Aspirin 81 mg tablet,delayed release (DR/EC) 81 mg PO DAILY@06 Qty: 30 3RF Crestor 10 mg tablet 10 mg PO BEDTIME Qty: 30 0RF Rx Instructions: Must make follow-up for further refills lisinopril-hydrochlorothiazide 10-12.5 mg tablet 1 tab PO QAM 0RF Spiriva with HandiHaler 18 mcg capsule, w/inhalation device 1 cap INHALATION QAM 0RF budesonide-formoterol [Symbicort] 160-4.5 mcg/actuation HFA aerosol inhaler 2 puff INHALATION BID 0RF hydrocodone-acetaminophen 10-325 mg tablet 1 tab PO QID PRN (Reason: Pain) 0RF Referrals: Syeda Bender MD [Primary Care Provider] - Discharge Diet: Advance as tolerated Discharge Activity: Increase activity as tolerated Coding Level of Care Code ED Sorting And Folding Supervisor for Chg Fwd Exam Comprehensive
[2022-04-19 13:06] LABS: Troponin(5th) Baseline 21 ng/L (0-15)
[2022-04-19 13:09] LABS: Anion Gap 18.2 (5-19); Blood Urea Nitrogen 19 mg/dL (8-23); Calcium 9.5 mg/dL (8.5-10.5); Carbon Dioxide 25 mmol/L (22-29); Chloride 97 mmol/L (98-107); Glomerular Filtration Rate 68.1 mL/min (90-130); Glucose 179 mg/dL (65-115); Osmolality Calculated 289 mOsm/kg (285-295); Potassium 4.2 mmol/L (3.5-5.1); Sodium 136 mmol/L (136-145)
[2022-04-19] MEDS: aspirin 325 mg Tablet PO (13:45)
--- NOTE | 2022-04-19 14:38 | ECG_ITS ---
[facility] Test Date: 2022-04-19 Pat Name: Shamir Larose Department: Room: Gender: Male Warp Hand: : 1960 Requested By: Roberto Carlos Gracia Order Number: [id number] Shonda MD: Urbano Heard M.D. Measurements Intervals [place] Rate: 91 P: 78 [place]: 166 QRS: 35 QRSD: 91 T: 167 QT: 367 QTc: 453 Interpretive Statements SINUS RHYTHM PROBABLE INFERIOR MYOCARDIAL INFARCTION , PROBABLY OLD [35 ms Q WAVE IN II/aVF] MODERATE T-WAVE ABNORMALITY, CONSIDER ANTEROLATERAL ISCHEMIA [-0.1+ mV T-WAVE IN V3-V6] Compared to ECG 04/19/2022 11:34:17 Myocardial infarct finding now present T-wave abnormality still present Possible ischemia still present Electronically Signed On 04-20-2022 6:01:59 CDT by Urbano Heard M.D. [email or web address]/store/[id number]
[2022-04-19 15:10] LABS: Troponin 5 2HR 24.65 ng/L (0-15)
[2022-04-19 15:19] LABS: Troponin 5 2HR Delta 3.65 ABS# (0-10)
--- NOTE | 2022-04-20 14:22 | DCPLANNER ---
Addendum entered by Gilda Bah 06/07/22 09:11: Patient had a follow up appointment scheduled for 04.23.[address] Cat at [facility] - patient did attend appointment. Addendum entered by Gilda Bah 04/22/22 05:47: Patient has a follow up appointment scheduled for Saturday, April 23, 2022 at 3:[address] Cat at 3:[address] Cat at [facility]. Clinic will call patient with appointment information. Original Note: manager surgical had message to schedule a follow up appointment for patient with cardiology. manager surgical sent patients information to the front office staff at [facility]. Patients information will be printed and reviewed. Clinic will call patient with appointment information.
== END 2022-04-19 15:38 | disposition left against medical advice (07) ==
PROVIDERS: Emergency Provider Emergency Medicine; PCP Family Medicine
DX: R07.9 Chest pain, unspecified (principal); Z53.29 Procedure and treatment not carried out because of patient's decision for other reasons; I25.10 Atherosclerotic heart disease of native coronary artery without angina pectoris; I10 Essential (primary) hypertension; E11.9 Type 2 diabetes mellitus without complications; F17.210 Nicotine dependence, cigarettes, uncomplicated; Z79.82 Long term (current) use of aspirin; Z79.02 Long term (current) use of antithrombotics/antiplatelets
CPT/HCPCS: 71045; 80048; 84484; 85025; 93005; 99285

== ENCOUNTER → 2022-04-23 15:15 | Outpatient (BNVA) | payer MEDICAID, SELFPAY | PROVIDERS: PCP Family Medicine; Visit Provider Internal Medicine Cardiovascular Disease | DX: I11.0 Hypertensive heart disease with heart failure (principal); I50.32 Chronic diastolic (congestive) heart failure; I25.10 Atherosclerotic heart disease of native coronary artery without angina pectoris; E78.5 Hyperlipidemia, unspecified; F17.210 Nicotine dependence, cigarettes, uncomplicated; I73.9 Peripheral vascular disease, unspecified; G47.30 Sleep apnea, unspecified; I48.0 Paroxysmal atrial fibrillation; Z79.82 Long term (current) use of aspirin; Z79.01 Long term (current) use of anticoagulants | CPT/HCPCS: 99214 ==

== ENCOUNTER 2022-08-02 13:24 | Outpatient (CLI) | payer MEDICAID, SELFPAY ==
--- NOTE | 2022-08-02 13:45 | USCV_ITS ---
Shamir Larose Age: 62 Gender: M : 1960 Exam Date: 08/02/2022 13:39 Ordering Phys: Devorah Cat MD ([email or web address]) Technologist: Myranda Winslow Exam Location: [facility] – [place] Indication: SOB, CAD BP: 110 / 70 HR: 93 Rhythm: Sinus Technical Quality: Technically difficult study MEASUREMENTS (Male / Female) Normal Values 2D ECHO LV Diastolic Diameter PLAX 4.5 cm 4.2 - 5.9 / 3.9 - 5.3 cm LV Systolic Diameter PLAX 3.6 cm IVS Diastolic Thickness 1.4 cm 0.6 - 1.0 / 0.6 - 0.9 cm IVS Systolic Thickness 2.2 cm LVPW Diastolic Thickness 1.4 cm 0.6 - 1.0 / 0.6 - 0.9 cm LVPW Systolic Thickness 2.0 cm LVOT Diameter 2.0 cm LV Ejection Fraction 2D Teich 9.5 % LV Ejection Fraction MOD 2C 58.6 % LV Ejection Fraction 2C AL 59.1 % LA Diameter 2.9 cm LA Width 3.5 cm LA Height 5.6 cm RA Width 3.4 cm RA Height 3.9 cm Aorta at Sinotubular Diameter 2.9 cm IVC Diameter 1.2 cm DOPPLER AV Peak Velocity 176.0 cm/s LVOT Peak Velocity 146.0 cm/s AV Area Cont Eq vti 2.8 cm squared AV Area Cont Eq pk 2.7 cm squared MV Peak Velocity 97.0 cm/s MV Area PHT 3.6 cm squared Mitral E to A Ratio 0.7 MV E' Velocity 28.0 cm/s Mitral E to MV E' Ratio 11.8 Mitral E to LV E' Lateral Ratio 13.4 Mitral E to LV E' Septal Ratio 10.6 TR Peak Velocity 102.0 cm/s TR Peak Gradient 4.2 mmHg Right Atrial Pressure 3.0 mmHg Pulmonary Artery Systolic Pressu 7.2 mmHg PV Peak Velocity 106.0 cm/s RV Acceleration Time 0.1 s RV Ejection Time 0.3 s RV AcT/ET 0.4 FINDINGS Left Ventricle Normal left ventricular size, systolic function and wall thickness, with no regional wall motion abnormalities. Left ventricular ejection fraction is estimated at 70-75 %. Grade I diastolic dysfunction (abnormal relaxation filling pattern), normal to mildly elevated filling pressures. Right Ventricle Normal right ventricular size and systolic function. RVSP could not be calculated due to incomplete tricuspid regurgitation velocity profile. Right Atrium Normal right atrial size. Left Atrium Normal left atrial size. Mitral Valve Structurally normal mitral valve. No mitral valve stenosis. No mitral valve regurgitation. Aortic Valve Possibly trileaflet aortic valve. No aortic valve stenosis. No aortic valve regurgitation. Tricuspid Valve Structurally normal tricuspid valve. Pulmonic Valve Pulmonic valve not well visualized. Pericardium No pericardial effusion. Aorta Aorta not well visualized. IVC Normal IVC dimension with >50% respiratory change of the inferior vena cava. CONCLUSIONS 1. This is a technically difficult study. Optison was used per protocol. 2. Normal left ventricular size, systolic function and wall thickness, with no regional wall motion abnormalities. Left ventricular ejection fraction is estimated at 70-75 %. Grade I diastolic dysfunction (abnormal relaxation filling pattern), normal to mildly elevated filling pressures. 3. When compared to study dated 06/09/2018, there may not have been any significant change. Devorah Cat MD (Electronically Signed) Final Date: 07 August 2022 19:16 S
[2022-08-02] MEDS: perflutren protein-a microsphr 0.22 mg/mL SDV 3 mL IV (14:45)
== END 2022-08-02 13:25 | disposition home or self-care (01) ==
LOC: RAD 13:25
PROVIDERS: PCP Family Medicine; Visit Provider Internal Medicine Cardiovascular Disease
DX: R06.02 Shortness of breath (principal); I48.0 Paroxysmal atrial fibrillation; I25.10 Atherosclerotic heart disease of native coronary artery without angina pectoris
CPT/HCPCS: C8929

== ENCOUNTER → 2022-09-14 09:17 | Outpatient (BNVA) | payer MEDICAID, SELFPAY | PROVIDERS: PCP Family Medicine; Visit Provider Internal Medicine Cardiovascular Disease | DX: I11.0 Hypertensive heart disease with heart failure (principal); I50.32 Chronic diastolic (congestive) heart failure; I25.10 Atherosclerotic heart disease of native coronary artery without angina pectoris; E78.5 Hyperlipidemia, unspecified; G47.30 Sleep apnea, unspecified; I48.0 Paroxysmal atrial fibrillation; F17.210 Nicotine dependence, cigarettes, uncomplicated; Z95.5 Presence of coronary angioplasty implant and graft | CPT/HCPCS: 99214 ==

== ENCOUNTER 2023-02-21 07:38 | Emergency (ER) | payer MEDICAID, SELFPAY ==
[2023-02-21] VITALS (10 sets, daily range): BP systolic 141–158; BP diastolic 91–98; PULSE 85–99; RESP 15–26; TEMP 36.6; O2SAT 95–98; BMI 33.5
--- NOTE | 2023-02-21 07:47 | ECG_ITS ---
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 Measurements Intervals [place] Rate: 91 P: 66 IA: 155 QRS: 6 QRSD: 122 T: 131 QT: 371 QTc: 457 Interpretive Statements SINUS RHYTHM RIGHT BUNDLE BRANCH BLOCK [120+ ms QRS DURATION, UPRIGHT V1, 40+ ms S IN I/aVL/V4/V5/V6] MODERATE T-WAVE ABNORMALITY, CONSIDER ANTEROLATERAL ISCHEMIA [-0.1+ mV T-WAVE IN V3-V6] Compared to ECG 04/19/2022 13:20:41 Right bundle-branch block now present Myocardial infarct finding no longer present T-wave abnormality still present Possible ischemia still present Electronically Signed On 02-22-2023 1:32:12 CDT by Urbano Heard M.D. [id number]
--- NOTE | 2023-02-21 07:47 | XRR_ITS ---
PROCEDURE INFORMATION: Exam: XR Chest Exam date and time: 02/21/2023 8:02 AM Age: 62 years old Clinical indication: Sternal or substernal pain; Prior surgery; Surgery type: Coronary stents; Additional info: Chest pain TECHNIQUE: Imaging protocol: Radiologic exam of the chest. Views: 1 view. COMPARISON: CR XR chest 1V portable [id number] 04/08/2022 9:27 PM FINDINGS: Lungs: Unremarkable. No consolidation. Pleural spaces: Unremarkable. No pleural effusion. No pneumothorax. Heart/Mediastinum: Unremarkable. No cardiomegaly. Bones/joints: Unremarkable. XR/XR chest 1V portable [id number] IMPRESSION: No acute findings.
--- NOTE | 2023-02-21 07:47 | ED_ITS ---
HPI - Chest Pain General: Chief Complaint: Chest Pain Stated Complaint: chest pains/sob Time Seen by Provider: 02/21/23 07:40 Source: patient Mode of arrival: ambulatory History of Present Illness: 62-year-old male who presents to the emergency room with complaints of chest pain that woke him up this morning around 5 AM. Earlier in the evening he had woken up diaphoretic but had no chest pain at that time. He had 1 other episode of chest pain while at rest 2 days ago but it resolved spontaneously and did not take any nitro. This morning he took 2 nitro he said he had minimal relief at worst his chest pain is 8 of 10 he reports that it 6 of 10 at this time. Patient has known history of coronary artery disease with previous angiography and stenting. He states he is still taking both his aspirin and his Plavix. Unfortunately he does still smoke. complaint: chest pain Onset (ago): minute(s) Timing of current episode: episodic Prior episodes: Yes Onset: during rest Pain location: left chest Quality: tightness Relieving factors: nothing Exacerbating factors: nothing Associated symptoms: Reports diaphoresis, dyspnea and nausea; Deny abdominal pain, fever(s), leg edema, palpitations, sense of impending doom, syncope or vomiting Treatment prior to arrival: nitroglycerin Review of Systems Const: Reports: diaphoresis; Denies: fever(s), chills, fatigue or malaise ENMT: Denies: throat pain, ear or mastoid pain, nasal discharge or nasal congestion Card: Reports: chest pain; Denies: palpitations, irregular heart rhythm, edema or syncope Resp: Reports: dyspnea GI: Reports: nausea; Denies: abdominal pain or vomiting : Denies: flank pain, dysuria, urinary frequency or urinary urgency Skin/Breast: Denies: rash or pruritus PFSH ED PFSH: Medical History CAD (coronary artery disease) Cigarette smoker motivated to quit COPD (chronic obstructive pulmonary disease) Encounter for long-term use of opiate analgesic Encounter for tobacco use cessation counseling Hyperlipidemia Hypertension Kidney stones Opioid contract exists PAD (peripheral artery disease) Sleep apnea in adult Stroke Tobacco abuse Smoking cessation discussed with patient in detail for 3-10 minutes. -he has cut back to 15 cigs/day Surgical History H/O angioplasty History of ureter stent Stented coronary artery Family History Other Adopted Social History Smoking and tobacco status: current every day smoker cigarettes Packs smoked per day: 0.75 Alcohol intake: never Substance/Drug Use: never Adopted: Yes Household members: family Housing: House Physical Exam Const: GENERAL APPEARANCE: cooperative and comfortable ORIENTATION/CONSCIOUSNESS: Yes awake, Yes oriented to person, Yes oriented to place and Yes oriented to time HENMT: COMMON NORMALS: normocephalic, atraumatic and hearing grossly normal bilaterally HEAD & SCALP: normocephalic and atraumatic Resp: COMMON NORMALS: normal respiratory effort, No retractions, No use of accessory muscles and clear to auscultation bilaterally AUSCULTATION: clear to auscultation bilaterally Cardio: COMMON NORMALS: regular rate, regular rhythm and No murmurs present (Cardio) RATE: regular rate RHYTHM: regular rhythm GI: COMMON NORMALS: Soft to palpation and No hepatosplenomegaly present AUSCULTATION: Yes normoactive bowel sounds PALPATION: Yes Soft to palpation, No Tenderness to palpation present (GI), No Guarding due to palpation present (GI) and Yes No hepatosplenomegaly present Extremity: COMMON NORMALS: normal to inspection, capillary refill normal, no clubbing, cyanosis or edema, no calf tenderness and no pedal edema Neuro: SENSORIUM/ORIENTATION: Yes oriented to person, Yes oriented to place and Yes oriented to time Skin: COMMON NORMALS: no rashes or lesions noted GENERAL SKIN EXAM: no rashes or lesions noted Course Vital Signs: Vital signs: Vital Signs Temperature 97.8 F 02/21/23 07:48 Pulse Rate 99 02/21/23 10:00 Respiratory Rate 26 H 02/21/23 10:00 Blood Pressure 147/98 02/21/23 10:00 Pulse Oximetry 95 02/21/23 10:00 Oxygen Delivery Me thod Room Air 02/21/23 08:06 MDM - Chest Pain Medical Decision Making Initial EKG on arrival shows a right bundle branch block with a sinus rhythm at a heart rate of 91 T wave inversion across the anterior leads is unchanged from April 2022 Second troponin negative EKGs is unchanged. I was going to discussed with the patient discharge him however he became upset we had given him his morning pain medicines that he had missed from his home medications but he still was angry he left without discussing the results with me nurse had attempted to try to get him to stay. Medical Records I reviewed the patient's medical records. Lab Data I reviewed the patient's lab results. 02/21/23 08:16 02/21/23 08:16 Radiology Impressions Chest X-Ray 02/21/23 07:47 IMPRESSION: No acute findings. Laboratory Results WBC 7.8 10^3/uL (4.0-10.0) 02/21/23 08:16 RBC 5.04 10^6/uL (4.1-5.3) 02/21/23 08:16 Hgb 14.5 g/dL (11.7-16.6) 02/21/23 08:16 Hct 43.1 % (42.0-52.0) 02/21/23 08:16 MCV 85.5 fl (80-94) 02/21/23 08:16 MCH 28.8 pg (28.0-34.0) 02/21/23 08:16 MCHC 33.6 g/dL (30.0-36.0) 02/21/23 08:16 RDW 12.6 % (12.1-15.1) 02/21/23 08:16 Plt Count 269 10^3/cmm (130-400) 02/21/23 08:16 MPV 9.7 fL (7.4-10.4) 02/21/23 08:16 Neut % (Auto) 67.7 % 02/21/23 08:16 Lymph % (Auto) 20.7 % 02/21/23 08:16 Anderson % (Auto) 6.5 % 02/21/23 08:16 Eos % (Auto) 4.1 % 02/21/23 08:16 Baso % (Auto) 0.6 % 02/21/23 08:16 Neut # (Auto) 5.31 10^3/uL (1.8-7.7) 02/21/23 08:16 Lymph # (Auto) 1.6 10^3/uL (0.8-4.8) 02/21/23 08:16 Anderson # (Auto) 0.5 10^3/uL (0.2-0.9) 02/21/23 08:16 Eos # (Auto) 0.3 10^3/uL (0.0-0.8) 02/21/23 08:16 Baso # (Auto) 0.1 10^3/uL (0.0-0.1) 02/21/23 08:16 Nucleated RBC % (auto) 0 % 02/21/23 08:16 Nucleated RBCs # 0.0 /100WBC 02/21/23 08:16 Sodium 136 mmol/L (136-145) 02/21/23 08:16 Potassium 4.2 mmol/L (3.5-5.1) 02/21/23 08:16 Chloride 99 mmol/L (98-107) 02/21/23 08:16 Carbon Dioxide 25 mmol/L (22-29) 02/21/23 08:16 Anion Gap 16.2 (5-19) 02/21/23 08:16 BUN 18 mg/dL (8-23) 02/21/23 08:16 Creatinine 0.7 mg/dL (0.7-1.2) 02/21/23 08:16 GFR Calculation 114.6 mL/min (90-130) 02/21/23 08:16 Glucose 187 mg/dL (65-115) H 02/21/23 08:16 Calculated Osmolality 289 mOsm/kg (285-295) 02/21/23 08:16 Calcium 9.4 mg/dL (8.5-10.5) 02/21/23 08:16 Total Bilirubin 0.4 mg/dL (0.15-1.2) 02/21/23 08:16 AST 16 U/L (0-40) 02/21/23 08:16 ALT 17 U/L (0-41) 02/21/23 08:16 Alkaline Phosphatase 66 U/L (40-130) 02/21/23 08:16 Troponin T Baseline 18 ng/L (0-15) H 02/21/23 08:16 Troponin T 120 Minute 16.08 ng/L (0-15) H 02/21/23 10:54 Delta Troponin T -1.92 ABS# (0-10) L 02/21/23 10:54 Total Protein 7.1 g/dL (6.6-8.7) 02/21/23 08:16 Albumin 4.1 g/dL (3.5-5.2) 02/21/23 08:16 Globulin 3.0 g/dL (1.3-4.6) 02/21/23 08:16 Discharge Plan Discharge Patient Disposition: Home Clinical Impression: Chest pain Condition: Stable Prescriptions: No Action potassium gluconate 595 mg (99 mg) tablet 595 mg PO DAILY@05 Crestor 10 mg tablet 10 mg PO BEDTIME Qty: 90 3RF lisinopril-hydrochlorothiazide 10-12.5 mg tablet 1 tab PO DAILY@05 Spiriva with HandiHaler 18 mcg capsule, w/inhalation device 1 cap INHALATION QAM budesonide-formoterol [Symbicort] 160-4.5 mcg/actuation HFA aerosol inhaler 2 puff INHALATION BID hydrocodone-acetaminophen 10-325 mg tablet 1 tab PO Q6H Rx Instructions: @02:00,08:00,14:00,20:00 tizanidine 4 mg tablet 4 mg PO BEDTIME pantoprazole 40 mg tablet,delayed release (DR/EC) 40 mg PO DAILY@05 Advil 200 mg Tablet 400 mg PO Q6H PRN (Reason: Pain) Nitrostat 0.4 mg Tablet, Sublingual 0.4 mg SUBLINGUAL Q5M PRN (Reason: Chest Pain) Rx Instructions: do not exceed 3 doses per episode Plavix 75 mg tablet 75 mg PO DAILY@05 Adult Low Dose Aspirin 81 mg tablet,delayed release (DR/EC) 81 mg PO DAILY@05 furosemide 20 mg tablet 20 mg PO DAILY PRN (Reason: Edema) Discharge Orders: Discharge ED (Routine); Ordered 02/21/23 Ordered By: Suleiman Luz Referrals: Syeda Bender MD [Primary Care Provider] - Patient Instructions: Opioid Safety, Pain Management Coding Level of Care Code ED Marketing Project Manager for [facility]
[2023-02-21] MEDS: aspirin 81 mg Chew Tablet 324 MG PO (08:03)
[2023-02-21] MEDS: nitroglycerin drip 50 MG/250 ML PREMIX IV (08:23)
[2023-02-21 08:35] LABS: Basophils # 0.1 10^3/uL (0.0-0.1); Basophils % 0.6 %; Eosinophils # 0.3 10^3/uL (0.0-0.8); Eosinophils % 4.1 %; Hematocrit 43.1 % (42.0-52.0); Hemoglobin 14.5 g/dL (11.7-16.6); Lymphocytes # 1.6 10^3/uL (0.8-4.8); Lymphocytes % 20.7 %; Mean Corpuscular HGB Conc 33.6 g/dL (30.0-36.0); Mean Corpuscular Hemoglobin 28.8 pg (28.0-34.0); Mean Corpuscular Volume 85.5 fl (80-94); Mean Platelet Volume 9.7 fL (7.4-10.4); Monocytes # 0.5 10^3/uL (0.2-0.9); Monocytes % 6.5 %; Neutrophils # 5.31 10^3/uL (1.8-7.7); Neutrophils % 67.7 %; Nucleated Red Blood Cells % 0 %; Platelet Count 269 10^3/cmm (130-400); Red Blood Count 5.04 10^6/uL (4.1-5.3); Red Cell Distribution Width 12.6 % (12.1-15.1); White Blood Count 7.8 10^3/uL (4.0-10.0)
[2023-02-21 08:54] LABS: Alanine Aminotransferase 17 U/L (0-41); Albumin Level 4.1 g/dL (3.5-5.2); Alkaline Phosphatase 66 U/L (40-130); Anion Gap 16.2 (5-19); Aspartate Amino Transferase 16 U/L (0-40); Blood Urea Nitrogen 18 mg/dL (8-23); Calcium 9.4 mg/dL (8.5-10.5); Carbon Dioxide 25 mmol/L (22-29); Chloride 99 mmol/L (98-107); Glomerular Filtration Rate 114.6 mL/min (90-130); Glucose 187 mg/dL (65-115); Osmolality Calculated 289 mOsm/kg (285-295); Potassium 4.2 mmol/L (3.5-5.1); Sodium 136 mmol/L (136-145); Total Bilirubin 0.4 mg/dL (0.15-1.2); Total Protein 7.1 g/dL (6.6-8.7); Troponin(5th) Baseline 18 ng/L (0-15)
[2023-02-21] MEDS: HYDROcodone-acetaminophen 5-325 mg Tablet 1 TAB PO (09:44)
--- NOTE | 2023-02-21 09:47 | ECG_ITS ---
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 Measurements Intervals [place] Rate: 95 P: 66 IL: 152 QRS: 8 QRSD: 125 T: 104 QT: 352 QTc: 443 Interpretive Statements SINUS RHYTHM RIGHT BUNDLE BRANCH BLOCK [120+ ms QRS DURATION, UPRIGHT V1, 40+ ms S IN I/aVL/V4/V5/V6] MODERATE T-WAVE ABNORMALITY, CONSIDER LATERAL ISCHEMIA [-0.1+ mV T-WAVE IN I/aVL/V5/V6] Compared to ECG 04/19/2022 13:20:41 Right bundle-branch block now present Myocardial infarct finding no longer present T-wave abnormality still present Possible ischemia still present Electronically Signed On 02-22-2023 22:15:00 CDT by Urbano Heard M.D. [id number]
--- NOTE | 2023-02-21 11:00 | PC.NURSE ---
AT 1040 NURSE ROUNDED ON PT - COORDINATOR CARDIOPULMONARY SERVICES WAS IN THE ROOM AND PT STATES, I FEEL REALLY GREAT RIGHT NOW! AND SMILED.
--- NOTE | 2023-02-21 11:16 | PC.NURSE ---
Cooper Hu reported to this nurse that patient was requesting to leave. This nurse went into patient's room and inquired about why patient wanted to leave. Pt sitting on edge of bed, stating If I , I'm going to at home. I want to leave. You better hurry the fuck up, because I want to leave now . This nurse educated patient on the risks and benefits of leaving the hospital against medical advice. Pt continued to state that he wanted to go home. This nurse removed patient's IV and walked patient to ED waiting room.
[2023-02-21 11:19] LABS: Troponin 5 2HR 16.08 ng/L (0-15); Troponin 5 2HR Delta -1.92 ABS# (0-10)
--- NOTE | 2023-02-21 19:46 | PC.NURSE ---
AT 0920- PT ASKED NURSE IF HE COULD HAVE HIS NEIGHBOR BRING HIS HOME MEDICATIONS IN BECAUSE HE HAD NOT TAKEN THEM AND HE TAKES THEM AT 0800. NURSE TOLD PT THAT WAS FINE. AT 0945 - NURSE SMITA COMES TO GET THIS NURSE BECAUSE HE IS STANDING IN HIS ROOM, VERY UPSET, WANTING TO LEAVE, AND TAKING ALL OF HIS MONITORS OFF. DR HURD CAME INTO ROOM AND WAS ABLE TO CALM PATIENT. PT STATES HE WAS HAVING BACK PAIN AND WANTED TO GO HOME FOR HIS PAIN MEDICATION. NURSE ORDERED PT'S HOME DOSE OF NORCO 10MG/325 AND ADMINISTERED TO PT. PT WAS APOLOGETIC AND WANTED TO STAY.
== END 2023-02-21 11:15 | disposition home or self-care (01) ==
PROVIDERS: Emergency Provider Family Medicine; PCP Family Medicine
DX: R07.9 Chest pain, unspecified (principal); Z79.82 Long term (current) use of aspirin; Z79.02 Long term (current) use of antithrombotics/antiplatelets; I25.10 Atherosclerotic heart disease of native coronary artery without angina pectoris; J44.9 Chronic obstructive pulmonary disease, unspecified; E78.5 Hyperlipidemia, unspecified; I10 Essential (primary) hypertension; Z86.73 Personal history of transient ischemic attack (TIA), and cerebral infarction without residual deficits; F17.210 Nicotine dependence, cigarettes, uncomplicated
CPT/HCPCS: 36415; 71045; 80053; 84484; 85025; 93005; 96365; 96366; 99285; J3490

== ENCOUNTER 2023-04-20 15:15 | Emergency (ER) | payer MEDICAID, SELFPAY ==
[2023-04-20] VITALS (7 sets, daily range): BP systolic 124–174; BP diastolic 74–88; PULSE 88–97; RESP 16–20; TEMP 36.7; O2SAT 94–96; BMI 32.3
--- NOTE | 2023-04-20 15:30 | W.ED.CHESTPA ---
Documented by User: John Raines MD 04/30/23 03:29 HPI - Chest Pain General: Chief Complaint: Chest Pain Stated Complaint: CHEST PAIN Time Seen by Provider: 04/20/23 15:30 History of Present Illness: 63-year-old gentleman presenting to the emergency department for evaluation of chest pain. He reports he has been at baseline health, awoke 20 minutes into nap with shooting sensation in the chest and severe left arm pain/numbness. Associated shortness of breath. [place] atypical compared to normal chest pain and was concerned. No other specific changes in health, exacerbating, or alleviating factors identified. Onset (ago): minute(s) Timing of current episode: constant Onset: awoke with symptoms Severity: severe Quality: shooting Associated symptoms: Reports no associated symptoms Review of Systems General: Reports: 10 or more systems reviewed and unremarkable except in HPI and below PFSH ED PFSH: Medical History CAD (coronary artery disease) Cigarette smoker motivated to quit COPD (chronic obstructive pulmonary disease) Encounter for long-term use of opiate analgesic Encounter for tobacco use cessation counseling Hyperlipidemia Hypertension Kidney stones Opioid contract exists PAD (peripheral artery disease) Sleep apnea in adult Stroke Tobacco abuse Smoking cessation discussed with patient in detail for 3-10 minutes. -he has cut back to 15 cigs/day Surgical History H/O angioplasty History of ureter stent Stented coronary artery Family History Other Adopted Social History Smoking and tobacco status: current every day smoker cigarettes Packs smoked per day: 0.75 Alcohol intake: never Substance/Drug Use: never Adopted: Yes Household members: family Housing: House Physical Exam Const: COMMON NORMALS: alert GENERAL APPEARANCE: cooperative and well developed HENMT: COMMON NORMALS: normocephalic and atraumatic HEAD & SCALP: normocephalic and atraumatic THROAT: posterior oropharynx normal Eye: COMMON NORMALS: conjunctivae normal CONJUNCTIVA: Yes conjunctivae normal SCLERA: sclerae normal Neck/C-Spine: COMMON NORMALS: supple GENERAL: Yes trachea midline Resp: COMMON NORMALS: clear to auscultation bilaterally EFFORT & INSPECTION: Yes able to speak in complete sentences AUSCULTATION: clear to auscultation bilaterally Cardio: COMMON NORMALS: regular rate and regular rhythm RATE: regular rate RHYTHM: regular rhythm GI: COMMON NORMALS: Soft to palpation PALPATION: Yes Soft to palpation and No Tenderness to palpation present (GI) Extremity: GENERAL: Yes normal exam except as noted and No edema Neuro: COMMON NORMALS: moves all extremities SENSORIUM/ORIENTATION: Yes alert and No Orientation impaired Psych: COMMON NORMALS: mental status grossly normal and Normal thought process present THOUGHT PROCESS: Normal thought process present Course Vital Signs: Vital signs: Vital Signs Temperature 98.1 F 04/20/23 15:21 Pulse Rate 93 04/20/23 19:30 Respiratory Rate 16 04/20/23 19:30 Blood Pressure 133/75 04/20/23 19:30 Pulse Oximetry 95 04/20/23 19:30 Oxygen Delivery Me thod Room Air 04/20/23 16:40 MDM - Chest Pain Medical Decision Making 63-year-old gentleman presenting to the emergency department for evaluation of chest pain that is different from baseline. Exam as above. EKG demonstrates sinus tachycardia with PVCs and right bundle branch block. Handed off to Dr. Alexis pending completion of ED evaluation. 63-year-old male gentleman checked out to me at shift change by the previous physician. This gentleman had chest pain at home. 63-year-old patient checked out to me at shift change by the previous physician. This gentleman had chest pain at home. It is resolved now. He is feeling well. His vitals are good. CBC is essentially normal. BMP is normal. Liver enzymes and lipase are normal. His BNP is 642, delta troponin is 10. His EKG shows some T wave inversion that appears chronic. It is anterior lateral on EKG. He also has some ST depression laterally. Spoke with the patient. Told him that his enzymes are up, and he may have coronary blockage that needs further investigation such as repeat cardiac enzymes, stress testing versus cardiac cath. Risks of not proceeding with this were discussed including continued heart muscle damage and potential . Despite this, he wishes to go home, as he feels well at this point. He assures me that he will return immediately to the emergency department for any return of his symptoms. He will follow-up with his doctor. Medical Records I reviewed the patient's medical records. Lab Data I reviewed the patient's lab results. 04/20/23 15:46 04/20/23 15:46 Radiology Impressions Chest X-Ray 04/20/23 15:38 IMPRESSION: 1. No acute cardiopulmonary process. 2. Stable moderate enlargement of the cardiac silhouette. Laboratory Results WBC 8.8 10^3/uL (4.0-10.0) 04/20/23 15:46 RBC 4.67 10^6/uL (4.1-5.3) 04/20/23 15:46 Hgb 13.4 g/dL (11.7-16.6) 04/20/23 15:46 Hct 40.6 % (42.0-52.0) L 04/20/23 15:46 MCV 86.9 fl (80-94) 04/20/23 15:46 MCH 28.7 pg (28.0-34.0) 04/20/23 15:46 MCHC 33.0 g/dL (30.0-36.0) 04/20/23 15:46 RDW 13.1 % (12.1-15.1) 04/20/23 15:46 Plt Count 298 10^3/cmm (130-400) 04/20/23 15:46 MPV 9.3 fL (7.4-10.4) 04/20/23 15:46 Neut % (Auto) 73.9 % 04/20/23 15:46 Lymph % (Auto) 16.0 % 04/20/23 15:46 [place] % (Auto) 6.3 % 04/20/23 15:46 Eos % (Auto) 2.7 % 04/20/23 15:46 Baso % (Auto) 0.6 % 04/20/23 15:46 Neut # (Auto) 6.47 10^3/uL (1.8-7.7) 04/20/23 15:46 Lymph # (Auto) 1.4 10^3/uL (0.8-4.8) 04/20/23 15:46 Merrick # (Auto) 0.6 10^3/uL (0.2-0.9) 04/20/23 15:46 Eos # (Auto) 0.2 10^3/uL (0.0-0.8) 04/20/23 15:46 Baso # (Auto) 0.1 10^3/uL (0.0-0.1) 04/20/23 15:46 Nucleated RBC % (auto) 0 % 04/20/23 15:46 Nucleated RBCs # 0.0 /100WBC 04/20/23 15:46 Sodium 139 mmol/L (136-145) 04/20/23 15:46 Potassium 3.9 mmol/L (3.5-5.1) 04/20/23 15:46 Chloride 101 mmol/L (98-107) 04/20/23 15:46 Carbon Dioxide 23 mmol/L (22-29) 04/20/23 15:46 Anion Gap 18.9 (5-19) 04/20/23 15:46 BUN 11 mg/dL (8-23) 04/20/23 15:46 Creatinine 0.9 mg/dL (0.7-1.2) 04/20/23 15:46 GFR Calculation 85.5 mL/min (90-130) L 04/20/23 15:46 Glucose 188 mg/dL (65-115) H 04/20/23 15:46 Calculated Osmolality 292 mOsm/kg (285-295) 04/20/23 15:46 Calcium 9.4 mg/dL (8.5-10.5) 04/20/23 15:46 Total Bilirubin 0.2 mg/dL (0.15-1.2) 04/20/23 15:46 AST 13 U/L (0-40) 04/20/23 15:46 ALT 16 U/L (0-41) 04/20/23 15:46 Alkaline Phosphatase 60 U/L (40-130) 04/20/23 15:46 Troponin T Baseline 15 ng/L (0-15) 04/20/23 15:46 Troponin T 120 Minute 24.80 ng/L (0-15) H 04/20/23 17:52 Delta Troponin T 9.80 ABS# (0-10) 04/20/23 17:52 NT-Pro-B Natriuret Pep 642 pg/mL (0-125) H 04/20/23 15:46 Total Protein 6.4 g/dL (6.6-8.7) L 04/20/23 15:46 Albumin 4.0 g/dL (3.5-5.2) 04/20/23 15:46 Globulin 2.4 g/dL (1.3-4.6) 04/20/23 15:46 Lipase 19 U/L (13-60) 04/20/23 15:46 Discharge Plan Discharge Patient Disposition: Home Clinical Impression: Chest pain Condition: Stable Prescriptions: No Action potassium gluconate 595 mg (99 mg) tablet 595 mg PO DAILY@05 sulfamethoxazole-trimethoprim [Bactrim DS] 800-160 mg tablet 1 tab PO BID 10 Days Qty: 20 0RF mupirocin 2 % ointment 1 applic topical BID Qty: 22 0RF Crestor 10 mg tablet 10 mg PO BEDTIME Qty: 90 3RF lisinopril-hydrochlorothiazide 10-12.5 mg tablet 1 tab PO DAILY@05 Spiriva with HandiHaler 18 mcg capsule, w/inhalation device 1 cap INHALATION QAM budesonide-formoterol [Symbicort] 160-4.5 mcg/actuation HFA aerosol inhaler 2 puff INHALATION BID hydrocodone-acetaminophen 10-325 mg tablet 1 tab PO Q6H Rx Instructions: @02:00,08:00,14:00,20:00 tizanidine 4 mg tablet 4 mg PO BEDTIME pantoprazole 40 mg tablet,delayed release (DR/EC) 40 mg PO DAILY@05 Advil 200 mg Tablet 400 mg PO Q6H PRN (Reason: Pain) Nitrostat 0.4 mg Tablet, Sublingual 0.4 mg SUBLINGUAL Q5M PRN (Reason: Chest Pain) Rx Instructions: do not exceed 3 doses per episode Plavix 75 mg tablet 75 mg PO DAILY@05 Adult Low Dose Aspirin 81 mg tablet,delayed release (DR/EC) 81 mg PO DAILY@05 furosemide 20 mg tablet 20 mg PO DAILY PRN (Reason: Edema) Discharge Orders: Discharge ED (Routine); Ordered 04/20/23 Ordered By: Gera Alexis Referrals: Syeda Bender MD [Primary Care Provider] - Discharge Diet: Usual diet Discharge Activity: Resume usual activity Patient Instructions: Chest Pain (ED), Opioid Safety Activity Restrictions/Additional Instructions: Thank you for visiting the emergency department. You were seen and evaluated for chest pain. The exact cause of your symptoms is unclear, although elevation in your heart enzymes are concerning for a potential problem. You were counseled on this, and chose to go home despite our advice to stay for further testing. Please follow up with primary care. Please follow-up with cardiology. Return for anything that you are concerned about and feel needs emergency department evaluation, especially any return of your chest discomfort. 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[employer] Documented by User: Gera Alexis DO 04/21/23 16:22 HPI - Chest Pain General: Chief Complaint: Chest Pain Stated Complaint: CHEST PAIN Time Seen by Provider: 04/20/23 15:30 PFSH ED PFSH: Medical History CAD (coronary artery disease) Cigarette smoker motivated to quit COPD (chronic obstructive pulmonary disease) Encounter for long-term use of opiate analgesic Encounter for tobacco use cessation counseling Hyperlipidemia Hypertension Kidney stones Opioid contract exists PAD (peripheral artery disease) Sleep apnea in adult Stroke Tobacco abuse Smoking cessation discussed with patient in detail for 3-10 minutes. -he has cut back to 15 cigs/day Surgical History H/O angioplasty History of ureter stent Stented coronary artery Family History Other Adopted Social History Smoking and tobacco status: current every day smoker cigarettes Packs smoked per day: 0.75 Alcohol intake: never Substance/Drug Use: never Adopted: Yes Household members: family Housing: House Course Vital Signs: Vital signs: Vital Signs Temperature 98.1 F 04/20/23 15:21 Pulse Rate 93 04/20/23 19:30 Respiratory Rate 16 04/20/23 19:30 Blood Pressure 133/75 04/20/23 19:30 Pulse Oximetry 95 06/17/23 19:30 Oxygen Delivery Me thod Room Air 04/20/23 16:40 MDM - Chest Pain Medical Decision Making 63-year-old male gentleman checked out to me at shift change by the previous physician. This gentleman had chest pain at home. 63-year-old patient checked out to me at shift change by the previous physician. This gentleman had chest pain at home. It is resolved now. He is feeling well. His vitals are good. CBC is essentially normal. BMP is normal. Liver enzymes and lipase are normal. His BNP is 642, delta troponin is 10. His EKG shows some T wave inversion that appears chronic. It is anterior lateral on EKG. He also has some ST depression laterally. Spoke with the patient. Told him that his enzymes are up, and he may have coronary blockage that needs further investigation such as repeat cardiac enzymes, stress testing versus cardiac cath. Risks of not proceeding with this were discussed including continued heart muscle damage and potential . Despite this, he wishes to go home, as he feels well at this point. He assures me that he will return immediately to the emergency department for any return of his symptoms. He will follow-up with his doctor. Lab Data 04/20/23 15:46 04/20/23 15:46 Radiology Impressions Chest X-Ray 04/20/23 15:38 IMPRESSION: 1. No acute cardiopulmonary process. 2. Stable moderate enlargement of the cardiac silhouette. Laboratory Results WBC 8.8 10^3/uL (4.0-10.0) 04/20/23 15:46 RBC 4.67 10^6/uL (4.1-5.3) 04/20/23 15:46 Hgb 13.4 g/dL (11.7-16.6) 04/20/23 15:46 Hct 40.6 % (42.0-52.0) L 04/20/23 15:46 MCV 86.9 fl (80-94) 04/20/23 15:46 MCH 28.7 pg (28.0-34.0) 04/20/23 15:46 MCHC 33.0 g/dL (30.0-36.0) 04/20/23 15:46 RDW 13.1 % (12.1-15.1) 04/20/23 15:46 Plt Count 298 10^3/cmm (130-400) 04/20/23 15:46 MPV 9.3 fL (7.4-10.4) 04/20/23 15:46 Neut % (Auto) 73.9 % 04/20/23 15:46 Lymph % (Auto) 16.0 % 04/20/23 15:46 [place] % (Auto) 6.3 % 04/20/23 15:46 Eos % (Auto) 2.7 % 04/20/23 15:46 Baso % (Auto) 0.6 % 04/20/23 15:46 Neut # (Auto) 6.47 10^3/uL (1.8-7.7) 04/20/23 15:46 Lymph # (Auto) 1.4 10^3/uL (0.8-4.8) 04/20/23 15:46 [place] # (Auto) 0.6 10^3/uL (0.2-0.9) 04/20/23 15:46 Eos # (Auto) 0.2 10^3/uL (0.0-0.8) 04/20/23 15:46 Baso # (Auto) 0.1 10^3/uL (0.0-0.1) 04/20/23 15:46 Nucleated RBC % (auto) 0 % 04/20/23 15:46 Nucleated RBCs # 0.0 /100WBC 04/20/23 15:46 Sodium 139 mmol/L (136-145) 04/20/23 15:46 Potassium 3.9 mmol/L (3.5-5.1) 04/20/23 15:46 Chloride 101 mmol/L (98-107) 04/20/23 15:46 Carbon Dioxide 23 mmol/L (22-29) 04/20/23 15:46 Anion Gap 18.9 (5-19) 04/20/23 15:46 BUN 11 mg/dL (8-23) 04/20/23 15:46 Creatinine 0.9 mg/dL (0.7-1.2) 04/20/23 15:46 GFR Calculation 85.5 mL/min (90-130) L 04/20/23 15:46 Glucose 188 mg/dL (65-115) H 04/20/23 15:46 Calculated Osmolality 292 mOsm/kg (285-295) 04/20/23 15:46 Calcium 9.4 mg/dL (8.5-10.5) 04/20/23 15:46 Total Bilirubin 0.2 mg/dL (0.15-1.2) 04/20/23 15:46 AST 13 U/L (0-40) 04/20/23 15:46 ALT 16 U/L (0-41) 04/20/23 15:46 Alkaline Phosphatase 60 U/L (40-130) 04/20/23 15:46 Troponin T Baseline 15 ng/L (0-15) 04/20/23 15:46 Troponin T 120 Minute 24.80 ng/L (0-15) H 04/20/23 17:52 Delta Troponin T 9.80 ABS# (0-10) 04/20/23 17:52 NT-Pro-B Natriuret Pep 642 pg/mL (0-125) H 04/20/23 15:46 Total Protein 6.4 g/dL (6.6-8.7) L 04/20/23 15:46 Albumin 4.0 g/dL (3.5-5.2) 04/20/23 15:46 Globulin 2.4 g/dL (1.3-4.6) 04/20/23 15:46 Lipase 19 U/L (13-60) 04/20/23 15:46 Discharge Plan Discharge Patient Disposition: Home Clinical Impression: Chest pain Condition: Stable Prescriptions: No Action potassium gluconate 595 mg (99 mg) tablet 595 mg PO DAILY@05 sulfamethoxazole-trimethoprim [Bactrim DS] 800-160 mg tablet 1 tab PO BID 10 Days Qty: 20 0RF mupirocin 2 % ointment 1 applic topical BID Qty: 22 0RF Crestor 10 mg tablet 10 mg PO BEDTIME Qty: 90 3RF lisinopril-hydrochlorothiazide 10-12.5 mg tablet 1 tab PO DAILY@05 Spiriva with HandiHaler 18 mcg capsule, w/inhalation device 1 cap INHALATION QAM budesonide-formoterol [Symbicort] 160-4.5 mcg/actuation HFA aerosol inhaler 2 puff INHALATION BID hydrocodone-acetaminophen 10-325 mg tablet 1 tab PO Q6H Rx Instructions: @02:00,08:00,14:00,20:00 tizanidine 4 mg tablet 4 mg PO BEDTIME pantoprazole 40 mg tablet,delayed release (DR/EC) 40 mg PO DAILY@05 Advil 200 mg Tablet 400 mg PO Q6H PRN (Reason: Pain) Nitrostat 0.4 mg Tablet, Sublingual 0.4 mg SUBLINGUAL Q5M PRN (Reason: Chest Pain) Rx Instructions: do not exceed 3 doses per episode Plavix 75 mg tablet 75 mg PO DAILY@05 Adult Low Dose Aspirin 81 mg tablet,delayed release (DR/EC) 81 mg PO DAILY@05 furosemide 20 mg tablet 20 mg PO DAILY PRN (Reason: Edema) Discharge Orders: Discharge ED (Routine); Ordered 04/20/23 Ordered By: Gera Alexis Referrals: Syeda Bender MD [Primary Care Provider] - Discharge Diet: Usual diet Discharge Activity: Resume usual activity Patient Instructions: Chest Pain (ED), Opioid Safety Activity Restrictions/Additional Instructions: Thank you for visiting the emergency department. You were seen and evaluated for chest pain. The exact cause of your symptoms is unclear, although elevation in your heart enzymes are concerning for a potential problem. You were counseled on this, and chose to go home despite our advice to stay for further testing. Please follow up with primary care. Please follow-up with cardiology. Return for anything that you are concerned about and feel needs emergency department evaluation, especially any return of your chest discomfort. 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
--- NOTE | 2023-04-20 15:38 | XRR_ITS ---
PROCEDURE INFORMATION: Exam: XR Chest Exam date and time: 04/20/2023 4:10 PM Age: 63 years old Clinical indication: Pain; Chest pressure; Additional info: Cp TECHNIQUE: Imaging protocol: Radiologic exam of the chest. Views: 1 view. COMPARISON: CR XR chest 1V portable [id number] 02/21/2023 8:02 AM FINDINGS: Lungs: Lungs are clear bilaterally. Pleural spaces: No pleural effusion. No pneumothorax. Heart/Mediastinum: Stable moderate enlargement of the cardiac silhouette. Mediastinal contours are unremarkable. Bones/joints: Unremarkable for age. XR/XR chest 1V portable [id number] IMPRESSION: 1. No acute cardiopulmonary process. 2. Stable moderate enlargement of the cardiac silhouette.
--- NOTE | 2023-04-20 15:50 | ECG_ITS ---
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 Measurements Intervals [place] Rate: 101 P: 74 CA: 143 QRS: 1 QRSD: 122 T: 140 QT: 355 QTc: 462 Interpretive Statements SINUS TACHYCARDIA WITH FREQUENT SUPRAVENTRICULAR PREMATURE COMPLEXES RIGHT BUNDLE BRANCH BLOCK [120+ ms QRS DURATION, UPRIGHT V1, 40+ ms S IN I/aVL/V4/V5/V6] MODERATE T-WAVE ABNORMALITY, CONSIDER ANTEROLATERAL ISCHEMIA [-0.1+ mV T-WAVE IN V3-V6] Compared to ECG 02/21/2023 09:58:51 Sinus rhythm no longer present T-wave abnormality still present Possible ischemia still present Electronically Signed On 04-22-2023 8:01:03 CDT by Librado Lerma M.D. [email or web address]
[2023-04-20 15:52] LABS: Basophils # 0.1 10^3/uL (0.0-0.1); Basophils % 0.6 %; Eosinophils # 0.2 10^3/uL (0.0-0.8); Eosinophils % 2.7 %; Hematocrit 40.6 % (42.0-52.0); Hemoglobin 13.4 g/dL (11.7-16.6); Lymphocytes # 1.4 10^3/uL (0.8-4.8); Mean Corpuscular Hemoglobin 28.7 pg (28.0-34.0); Mean Corpuscular Volume 86.9 fl (80-94); Mean Platelet Volume 9.3 fL (7.4-10.4); Monocytes # 0.6 10^3/uL (0.2-0.9); Monocytes % 6.3 %; Neutrophils # 6.47 10^3/uL (1.8-7.7); Neutrophils % 73.9 %; Nucleated Red Blood Cells % 0 %; Platelet Count 298 10^3/cmm (130-400); Red Blood Count 4.67 10^6/uL (4.1-5.3); Red Cell Distribution Width 13.1 % (12.1-15.1); White Blood Count 8.8 10^3/uL (4.0-10.0)
[2023-04-20 16:13] LABS: Troponin(5th) Baseline 15 ng/L (0-15)
[2023-04-20 16:20] LABS: Alanine Aminotransferase 16 U/L (0-41); Alkaline Phosphatase 60 U/L (40-130); Anion Gap 18.9 (5-19); Aspartate Amino Transferase 13 U/L (0-40); Blood Urea Nitrogen 11 mg/dL (8-23); Calcium 9.4 mg/dL (8.5-10.5); Carbon Dioxide 23 mmol/L (22-29); Chloride 101 mmol/L (98-107); Globulin 2.4 g/dL (1.3-4.6); Glomerular Filtration Rate 85.5 mL/min (90-130); Glucose 188 mg/dL (65-115); Lipase 19 U/L (13-60); NT Pro B Type Natriuretic Pept 642 pg/mL (0-125); Osmolality Calculated 292 mOsm/kg (285-295); Potassium 3.9 mmol/L (3.5-5.1); Sodium 139 mmol/L (136-145); Total Bilirubin 0.2 mg/dL (0.15-1.2); Total Protein 6.4 g/dL (6.6-8.7)
--- NOTE | 2023-04-20 16:44 | PC.NURSE ---
PT PLACED ON CONTINUOS NIBP, SPO2, AND CM
[2023-04-20] MEDS: morphine 4 mg/mL SDV 1 mL IVP (17:42)
--- NOTE | 2023-04-20 17:43 | ECG_ITS ---
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 Measurements Intervals [place] Rate: 91 P: 30 MS: 140 QRS: 2 QRSD: 123 T: 167 QT: 373 QTc: 459 Interpretive Statements SINUS RHYTHM RIGHT BUNDLE BRANCH BLOCK [120+ ms QRS DURATION, UPRIGHT V1, 40+ ms S IN I/aVL/V4/V5/V6] LEFT VENTRICULAR HYPERTROPHY AND ST-T CHANGE [VOLTAGE CRITERIA PLUS ST/T ABNORMALITY] Compared to ECG 04/20/2023 15:50:32 Left ventricular hypertrophy now present ST (T wave) deviation now present Sinus tachycardia no longer present T-wave abnormality no longer present Possible ischemia no longer present Electronically Signed On 04-22-2023 8:03:41 CDT by Librado Lerma M.D. [email or web address]
== END 2023-04-20 19:31 | disposition home or self-care (01) ==
PROVIDERS: Emergency Medicine; Emergency Provider Emergency Medicine; PCP Family Medicine
DX: R07.9 Chest pain, unspecified (principal); Z79.02 Long term (current) use of antithrombotics/antiplatelets; Z79.82 Long term (current) use of aspirin; F17.210 Nicotine dependence, cigarettes, uncomplicated; I25.10 Atherosclerotic heart disease of native coronary artery without angina pectoris; J44.9 Chronic obstructive pulmonary disease, unspecified; E78.5 Hyperlipidemia, unspecified; I10 Essential (primary) hypertension; Z86.73 Personal history of transient ischemic attack (TIA), and cerebral infarction without residual deficits
CPT/HCPCS: 36415; 71045; 80053; 83690; 83880; 84484; 85025; 93005; 96374; 99285; J2270

== ENCOUNTER → 2023-08-26 14:44 | Outpatient (BNVA) | payer MEDICAID, SELFPAY | PROVIDERS: PCP Family Medicine; Visit Provider Internal Medicine Cardiovascular Disease | DX: I11.0 Hypertensive heart disease with heart failure (principal); I50.32 Chronic diastolic (congestive) heart failure; I25.10 Atherosclerotic heart disease of native coronary artery without angina pectoris; E78.5 Hyperlipidemia, unspecified; I73.9 Peripheral vascular disease, unspecified; Z72.0 Tobacco use; G47.30 Sleep apnea, unspecified; I48.0 Paroxysmal atrial fibrillation; Z79.82 Long term (current) use of aspirin | CPT/HCPCS: 99214 ==

== ENCOUNTER 2023-08-27 13:40 | Outpatient (CLI) | payer MEDICAID, SELFPAY ==
[2023-08-27 14:02] LABS: Basophils # 0.1 10^3/uL (0.0-0.1); Basophils % 0.9 %; Eosinophils # 0.4 10^3/uL (0.0-0.8); Eosinophils % 4.5 %; Hematocrit 42.6 % (37-53); Lymphocytes # 2.3 10^3/uL (0.8-4.8); Lymphocytes % 25.4 %; Mean Corpuscular HGB Conc 33.1 g/dL (30-55); Mean Corpuscular Hemoglobin 28.4 pg (27-33); Mean Corpuscular Volume 85.9 fl (82-101); Mean Platelet Volume 9.4 fL (7.4-10.4); Monocytes # 0.5 10^3/uL (0.2-0.9); Monocytes % 5.8 %; Neutrophils # 5.65 10^3/uL (1.8-7.7); Neutrophils % 63.1 %; Nucleated Red Blood Cells % 0 %; Platelet Count 301 10^3/cmm (157-399); Red Blood Count 4.96 10^6/uL (3.85-5.65); Red Cell Distribution Width 13.2 % (12.1-15.1); White Blood Count 8.96 10^3/uL (3.29-11.43)
[2023-08-27 14:22] LABS: Alanine Aminotransferase 20 U/L (0-41); Albumin Level 4.2 g/dL (3.5-5.2); Alkaline Phosphatase 69 U/L (40-130); Anion Gap 14.5 (5-19); Aspartate Amino Transferase 16 U/L (0-40); Blood Urea Nitrogen 15 mg/dL (8-23); Calcium 9.5 mg/dL (8.5-10.5); Carbon Dioxide 28 mmol/L (22-29); Chloride 99 mmol/L (98-107); Chol HDL Ratio 6.24 mg/dL (1.0-5.00); Cholesterol 212 mg/dL (0-200); Globulin 3.2 g/dL (1.3-4.6); Glomerular Filtration Rate 85.5 mL/min (90-130); Glucose 161 mg/dL (65-115); HDL Cholesterol 34 mg/dL (60-100); LDL Cholesterol Calculated 126 mg/dL (50-129); LDL HDL Ratio 3.71 RATIO (0.00-3.22); Osmolality Calculated 288 mOsm/kg (285-295); Potassium 4.5 mmol/L (3.5-5.1); Sodium 137 mmol/L (136-145); Total Bilirubin 0.4 mg/dL (0.15-1.2); Total Protein 7.4 g/dL (6.6-8.7); Triglycerides 261 mg/dL (0-150)
== END 2023-08-27 13:41 | disposition home or self-care (01) ==
PROVIDERS: PCP Family Medicine; Visit Provider Internal Medicine Cardiovascular Disease
DX: I25.10 Atherosclerotic heart disease of native coronary artery without angina pectoris (principal); I50.9 Heart failure, unspecified; I73.9 Peripheral vascular disease, unspecified; Z79.899 Other long term (current) drug therapy
CPT/HCPCS: 36415; 80053; 80061; 85025

== ENCOUNTER → 2023-09-05 09:13 | Outpatient (BNVA) | payer MEDICAID, SELFPAY | PROVIDERS: PCP Family Medicine; Visit Provider Internal Medicine Cardiovascular Disease | DX: R07.89 Other chest pain (principal); I73.9 Peripheral vascular disease, unspecified; I25.10 Atherosclerotic heart disease of native coronary artery without angina pectoris; I50.9 Heart failure, unspecified; R07.9 Chest pain, unspecified; I50.32 Chronic diastolic (congestive) heart failure; I10 Essential (primary) hypertension; E78.5 Hyperlipidemia, unspecified; Z72.0 Tobacco use; G47.30 Sleep apnea, unspecified; I48.0 Paroxysmal atrial fibrillation; G89.29 Other chronic pain | CPT/HCPCS: 93005 ==

== ENCOUNTER 2023-09-19 11:44 | Observation (INO) | payer MEDICAID, SELFPAY ==
[2023-09-19] VITALS (24 sets, daily range): BP systolic 125–174; BP diastolic 81–109; PULSE 86–100; RESP 17–22; O2SAT 92–96; BMI 33.2
--- NOTE | 2023-09-19 07:30 | XACV_ITS ---
Exam Room: 2 Ht: 168 cm Wt: 93 kg BSA: 2.12 m2 Gender: Male : 1960 Any Known Allergies: Other Exam Priority: Routine Procedure(s): Procedure Description: Diagnostic procedure Procedure Description: Coronary Angiography Diagnostic Cath Status: Elective Diagnostic Findings * 63-year-old man with past medical history of coronary artery disease with drug-eluting stents to RV marginal branch in 2013 and mid RCA in December 2018, hypertension, hyperlipidemia, obesity, RBBB, PAD and tobacco abuse. He has been having worsening chest pains with more nitro use for last few months. EKG showed T wave inversion in anterolateral leads. Given typical worsening symptoms, I decided to proceed with coronary angiogram.. * Angiography shows a right coronary dominant system. * Short left main artery with mid vessel 60% stenosis. SANDRA 3 flow. * Small to medium caliber left anterior descending artery that wraps around apex. Mid LAD with 70% stenosis. SANDRA 3 flow. * Small to medium caliber circumflex artery with minor luminal irregularities.. * Proximal right coronary artery with 90% stenosis. Patent stent in mid right coronary artery and an RV marginal branch with mild in-stent restenosis. Mild diffuse disease in rest of right coronary artery. SANDRA 3 flow. Conclusions 1. Multivessel coronary artery disease including left main disease. 2. Mid left main with severe 60% stenosis. 3. Mid LAD with 70% stenosis. 4. Proximal right coronary artery with 90% stenosis. Recommendations * Return to inpatient for close monitoring and routine cath care. * Statin and aspirin 81mg lifelong, if tolerated. * Continue optimal medical management. Meticulous diabetes control. * He will be referred to CT surgery for coronary artery bypass grafting. Pressures Phase:Rest AO : 166 / 87 ( 118 ) @ 9:30:00 AM 129 / 103 ( 117 ) @ 9:32:00 AM 109 / 69 ( 89 ) @ 9:39:00 AM 122 / 83 ( 103 ) @ 9:43:00 AM 143 / 83 ( 110 ) @ 9:48:00 AM 126 / 92 ( 110 ) @ 9:48:00 AM Clinical Evaluation EBL: 5mL-10mL Procedural Details Procedure Consent Obtained. Current Diagnosis : Chest Pain. Pre-Procedure Time Out. Identified patient by full name and date of as verbalized by the patient/guarantor. Does the consent match the physician's order: Yes. Accurate & Complete Informed Consent: Yes. Inpatient/Outpatient History & Physical on Chart: Yes. If H&P is completed, is and addenduem needed: No; If yes, is the addendum complete: N/A. Visualize and Verify Site with Patient/Guarantor: N/A. Relevant Radiology Images available: Yes. Pre-op teaching completed and patient verbalized understanding. The risks, benefits, and alternatives of sedation and/or procedure were discussed by physician. The patient agrees to continue. Procedure started. Physician arrived. [facility] Clinical Fraility Score: 3: Managing Well. Radio Performer Indications: Worsening Angina. Chest Pain Symptom Assessment: Typical Angina Symptoms. Correct patient, site and procedure confirmed by cath team. Current diagnosis: Chest Pain. PERRLA. Strong, equal hand data reviewer bilaterally. Lungs clear x 5 lobes. IV Site on Arrival: 20 gauge in the left anticubital. IV Fluids: 0.9% NaCl at KVO. 0 mL infused prior to supervisor laboratory. Pre Procedural Pulses: bilateral dorsalis pedis was Doppled. Pre Procedural Pulses: bilateral posterior tibial was Doppled. Pre Procedural Pulses: bilateral radial was 2+. Oxygen started at 2liters/min via nasal canula. right groin was prepped with chloroprep then draped in the usual sterile fashion. right radial was prepped with chloroprep then draped in the usual sterile fashion. Baseline sample Acquired. HR: 94 BPM. Physician scrubbed in. Immediate Pre-Procedure Time Out. Correct Patient: Yes; Correct Procedure: Yes; Correct Site: Yes; Correct Patient Position: Yes; Correct Supplies: Yes; Dried Flammable Prep: Yes; Blood Products Available: N/A;. Lidocaine 1% infiltrated to the right radial. Arterial access obtained. Wire unable to advance. Wire and needle out. Arterial access obtained. Wire unable to advance. Wire and needle out. Arterial access obtained. Wire unable to advance. Wire and needle out. Arterial access obtained. Wire unable to advance. Wire and needle out. TR band placed. Hemostasis obtained. Unable to obtain radial access. attempting to gain access in the Femoral artery. Lidocaine 1% infiltrated to the right groin. Arterial access obtained with micropuncture set. Wire and needle removed. Arterial access obtained with micropuncture set. A 5 [place] JL4 catheter in over wire. Multiple views taken of left coronary artery. Catheter removed over the standard wire. A 5 [place] JL4.5 catheter in over wire. Multiple views taken of left coronary artery. Catheter removed over the standard wire. A 5 [place] JR4 catheter in over wire. Multiple views taken of right coronary artery. Dr. Singer called to review films. Catheter removed over the standard wire. Sheath to be pulled in CPRU. Post Procedure: Pulses reassessed and unchanged. PERRLA. Strong, equal hand data reviewer bilaterally. No VTE prophylaxis required. Medication's Wasted: Nitro = 49.95 mcg. Medication's Wasted: Heparin = 1000 units. Total IV fluids: 70 mL. Post-op diagnosis: Multi Vessel CAD. Complications: None. Estimated blood loss: 5mL-10mL. Responsiveness - Normal response to verbal stimuli; alert and oriented, PERRLA. Airway - Unaffected, no intervention required; spontaneous ventilation. Circulation: W/N/L, pulses unchanged. Nausea/Vomiting: No. Vital chart was stopped. Procedure completed. Patient transferred by stretcher to CPRU. Access Site Site: Right Femoral artery Sheath Size: 6 Fr Hemostasis Success: Unsuccessful Procedure Medications Start: 8:48 AM Stop: 8:48 AM Medication: Fentanyl Amount: 50 mcg Route: I.V. Start: 8:56 AM Stop: 8:56 AM Medication: Versed Amount: 1 mg Route: I.V. Start: 9:06 AM Stop: 9:06 AM Medication: Nitrogylcerin Amount: 50 mcg Route: S.Q. Start: 9:21 AM Stop: 9: AM Medication: Fentanyl Amount: 25 mcg Route: I.V. Start: 9: AM Stop: 9: AM Medication: Versed Amount: 1 mg Route: I.V. Start: 9:27 AM Stop: 9: AM Medication: Versed 1 mg and Fentanyl 25 mcg Amount: 1 Route: I.V. Start: 9:50 AM Stop: 9:50 AM Medication: Versed Amount: 1 mg Route: I.V. I, the attending physician, have reviewed and verified all procedure medications. Yes, all medications given per verbal order History/Risk Factors Hypertension: Yes Dyslipidemia: Yes Peripheral Arterial Disease (PAD): No Myocardial Infarction (NE): Yes Obesity: No Renal Disease: No Prior Interventions PCI: Yes CABG: No Valve Surgery: No Date of PCI: 12/24/2018 Report Signatures Finalized by Devorah Cat MD on 09/20/2023 02:05 PM
[2023-09-19] MEDS: diphenhydrAMINE 50 mg Capsule PO (07:45)
[2023-09-19 07:58] LABS: Basophils # 0.1 10^3/uL (0.0-0.1); Eosinophils # 0.4 10^3/uL (0.0-0.8); Eosinophils % 4.6 %; Hematocrit 45.4 % (37-53); Lymphocytes # 2.7 10^3/uL (0.8-4.8); Lymphocytes % 28.8 %; Mean Corpuscular HGB Conc 33.7 g/dL (30-55); Mean Corpuscular Hemoglobin 29.7 pg (27-33); Mean Corpuscular Volume 88.2 fl (82-101); Mean Platelet Volume 9.5 fL (7.4-10.4); Monocytes # 0.5 10^3/uL (0.2-0.9); Monocytes % 5.8 %; Neutrophils # 5.54 10^3/uL (1.8-7.7); Neutrophils % 59.4 %; Nucleated Red Blood Cells % 0 %; Platelet Count 306 10^3/cmm (157-399); Red Blood Count 5.15 10^6/uL (3.85-5.65); Red Cell Distribution Width 13.2 % (12.1-15.1); White Blood Count 9.33 10^3/uL (3.29-11.43)
[2023-09-19 08:14] LABS: Anion Gap 16.1 (5-19); Blood Urea Nitrogen 18 mg/dL (8-23); Calcium 9.7 mg/dL (8.5-10.5); Carbon Dioxide 27 mmol/L (22-29); Chloride 98 mmol/L (98-107); Glomerular Filtration Rate 85.5 mL/min (90-130); Glucose 213 mg/dL (65-115); Osmolality Calculated 292 mOsm/kg (285-295); Potassium 4.1 mmol/L (3.5-5.1); Sodium 137 mmol/L (136-145)
--- NOTE | 2023-09-19 08:40 | W.PM.OPSUD ---
Surgery/Procedure H&P Update DATE OF PROCEDURE: September 19, 2023 DATE H&P PERFORMED: 08/26/23 H&P UPDATE INFORMATION: I have reviewed H&P completed within last 30 days, I have examined patient prior to procedure and No changes to prior documentation PREOP DIAGNOSIS: Worsening chest pain PRIMARY INDICATION FOR PROCEDURE: Worsening chest pains PLANNED PROCEDURE: Operation Date: 09/19/23 08:30 Proposed Procedures p [facility] [place] w/-w/o 44566,R07.89,I25.10,I50.32(Left) - Devorah Cat MD PATIENT REASSESSED PRIOR TO SEDATION, WITH NO CHANGE NOTED: Yes PHYSICAL EXAM: alert, oriented x 3, clear to auscultation bilaterally and regular rate & rhythm AIRWAY EVAL/ANESTHESIA PLAN: normal airway, ASA III, Monitored Anesthesia, Local Anesthesia, Risks, benefits & alternatives of sedation and/or procedure discussed and Patient agrees to continue as planned
--- NOTE | 2023-09-19 10:05 | PC.NURSE ---
Pt arrived to CPRU 3 for post cath recovery. Pt drowsy and arouses easily to verbal stimuli. Denies pain. Pt placed on bedside patient monitor.
--- NOTE | 2023-09-19 10:09 | PC.NURSE ---
Vtach at 1009 patient had 16 beat run of Vtach, rhythm returned to SR spontaneously. Defib pads applied to patient. Patient denies pain. Dr. Cat notified and came to bedside. Dr. Cat placed orders to admit for observation.
--- NOTE | 2023-09-19 10:20 | USCV_ITS ---
Shamir Larose Age: 63 Gender: M : 1960 Exam Date: 09/19/2023 13:30 Ordering Phys: Devorah Cat MD ([email or web address]) Technologist: Mack Helton [place] [facility] [place]: CAD BP: 134 / 76 HR: 86 Rhythm: Sinus Technical Quality: Adequate MEASUREMENTS (Male / Female) Normal Values 2D ECHO LV Diastolic Diameter PLAX 4.0 cm 4.2 - 5.9 / 3.9 - 5.3 cm LV Systolic Diameter PLAX 2.5 cm IVS Diastolic Thickness 1.1 cm 0.6 - 1.0 / 0.6 - 0.9 cm IVS Systolic Thickness 1.2 cm LVPW Diastolic Thickness 1.1 cm 0.6 - 1.0 / 0.6 - 0.9 cm LVPW Systolic Thickness 1.4 cm LVOT Diameter 2.1 cm LV Ejection Fraction 2D Teich 65.3 % LV Ejection Fraction MOD 2C 58.8 % LV Ejection Fraction 2C AL 56.6 % LA Diameter 4.0 cm LA Width 4.5 cm DOPPLER AV Peak Velocity 147.0 cm/s LVOT Peak Velocity 119.0 cm/s AV Area Cont Eq vti 3.6 cm squared AV Area Cont Eq pk 2.8 cm squared MV Area PHT 4.2 cm squared Mitral E to A Ratio 0.8 MV E' Velocity 35.0 cm/s Mitral E to MV E' Ratio 14.1 Mitral E to LV E' Lateral Ratio 14.1 Mitral E to LV E' Septal Ratio 14.1 TR Peak Velocity 123.7 cm/s TR Peak Gradient 6.1 mmHg RV Acceleration Time 0.1 s FINDINGS Left Ventricle Normal left ventricular size, systolic function with no regional wall motion abnormalities. Left ventricular ejection fraction is estimated at 65-70 %. Grade I diastolic dysfunction (abnormal relaxation filling pattern), normal to mildly elevated filling pressures. Right Ventricle Normal right ventricular size and systolic function. RVSP could not be calculated due to incomplete tricuspid regurgitation velocity profile. Right Atrium Normal right atrial size. Left Atrium Normal left atrial size. Mitral Valve Structurally normal mitral valve. No mitral valve stenosis. No mitral valve regurgitation. Aortic Valve Aortic valve not well visualized. No aortic valve stenosis. No aortic valve regurgitation. Tricuspid Valve Structurally normal tricuspid valve. No significant tricuspid valve regurgitation. Pulmonic Valve Pulmonic valve not well visualized. Pericardium No pericardial effusion. Aorta Aorta not well visualized. IVC Inferior vena cava not visualized. CONCLUSIONS 1. Normal left ventricular size, systolic function with no regional wall motion abnormalities. Left ventricular ejection fraction is estimated at 65-70 %. Grade I diastolic dysfunction (abnormal relaxation filling pattern), normal to mildly elevated filling pressures. 2. No significant change when compared to study dated 08/02/2022. Devorah Cat MD (Electronically Signed) Final Date: 20 September 2023 13:29 S
--- NOTE | 2023-09-19 11:25 | PC.NURSE ---
Sheath pull Received verbal orders from Dr. Cat to pull groin sheath. Sheath was flushed intermittently to maintain patency until sheath pull orders. Right groin sheath pulled at 1050, manual pressure held for 20 minutes. pressure relieved and bleeding noted from site. Small hematoma noted. Additional 15 minutes of pressure held, hematoma expressed. Hemostasis achieved . No signs of bleeding or hematoma noted. Site soft. Applied dressing to site.
--- NOTE | 2023-09-19 11:48 | PC.NURSE ---
Pt transferred to ICU 6. Report called to SERENA Mancini. Bedside performed with SERENA Mancini.
[2023-09-19] MEDS: HYDROcodone-acetaminophen 10-325 mg Tablet 1 TAB PO (12:33)
[2023-09-19] MEDS: metoprolol tartrate 25 mg Tablet 12.5 MG PO (12:33)
[2023-09-19] MEDS: sodium chloride 0.9% 1,000 ML 100 ML IV (12:33)
[2023-09-19 13:01] LABS: Glucose Point of Care 286 mg/dL (70-110)
[2023-09-19] MEDS: ipratropium-albuterol 3 mL Neb INHALATION ×2 (13:07→15:44)
--- NOTE | 2023-09-19 13:11 | ECG_ITS ---
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 Measurements Intervals [place] Rate: 100 P: 18 VT: 122 QRS: 10 QRSD: 106 T: 132 QT: 351 QTc: 454 Interpretive Statements SINUS TACHYCARDIA POSSIBLE RIGHT VENTRICULAR CONDUCTION DELAY [RSR (QR) IN V1/V2] MODERATE T-WAVE ABNORMALITY, CONSIDER ANTEROLATERAL ISCHEMIA [-0.1+ mV T-WAVE IN V3-V6] Compared to ECG 08/26/2023 15:47:43 Sinus rhythm no longer present T-wave abnormality still present Possible ischemia still present Electronically Signed On 09-20-2023 14:18:43 TECHNICAL TRAINING INSTRUCTOR by Jonathan Singer M.D. [id number]
--- NOTE | 2023-09-19 13:13 | PC.NURSE ---
Patient refused insulin even though blood sugar is 286. Patient stated that isn't bad and refused insulin because he does not take any at home.
[2023-09-19] MEDS: gabapentin 300 mg Capsule PO (15:34)
--- NOTE | 2023-09-19 16:30 | PC.NURSE ---
Nurse went to round on patient and he was standing fully dressed and demanded I take his IV out right now. I told the patient to wait until Dr. Cat and he then screamed at nurse YOU CAN T TELL ME WHAT TO DO, GET OUT OF MY ROOM . Nurse left room. Dr. Cat then came in the room and spoke with the patient and agreed to discharge him.
== END 2023-09-19 16:50 | disposition home or self-care (01) ==
LOC: ICU 11:48
PROVIDERS: Admitting Provider Internal Medicine Cardiovascular Disease; PCP Family Medicine; Visit Provider Internal Medicine Cardiovascular Disease
DX: I65.23 Occlusion and stenosis of bilateral carotid arteries (principal); I25.10 Atherosclerotic heart disease of native coronary artery without angina pectoris; Z95.5 Presence of coronary angioplasty implant and graft; I10 Essential (primary) hypertension; E78.5 Hyperlipidemia, unspecified; I25.2 Old myocardial infarction; J44.9 Chronic obstructive pulmonary disease, unspecified
CPT/HCPCS: 36415; 36416; 80048; 82962; 85025; 93005; 93306; 93454; 94640; 96361; 96365; 99152; 99153; C1769; C1887; C1894; G0378; J1644; J2250; J3010; J3490; J7030; Q0163; Q9967

== ENCOUNTER → 2023-09-25 08:38 | Outpatient (BNVA) | payer MEDICAID, SELFPAY | PROVIDERS: PCP Family Medicine; Visit Provider Nurse Practitioner Family | DX: I25.10 Atherosclerotic heart disease of native coronary artery without angina pectoris (principal); F17.210 Nicotine dependence, cigarettes, uncomplicated; I10 Essential (primary) hypertension | CPT/HCPCS: 36415; 80048; 99213 ==

== ENCOUNTER 2024-01-05 04:44 | Emergency (ER) | payer MEDICAID, SELFPAY ==
[2024-01-05] VITALS (15 sets, daily range): BP systolic 96–125; BP diastolic 49–87; PULSE 95–108; RESP 16–28; TEMP 36.9; O2SAT 82–94; BMI 29.0
--- NOTE | 2024-01-05 04:59 | XRR_ITS ---
PROCEDURE INFORMATION: Exam: XR Chest Exam date and time: 01/05/2024 5:09 AM Age: 63 years old Clinical indication: Dyspnea; Prior surgery; Surgery date: <1 month; Surgery type: Quad bypass 10 days ago; Additional info: SOB TECHNIQUE: Imaging protocol: Radiologic exam of the chest. Views: 1 view. COMPARISON: CR XR chest 1V portable [id number] 04/20/2023 4:10 PM FINDINGS: Lungs: See Heart/Mediastinum finding. Pleural spaces: See Heart/Mediastinum finding. Heart/Mediastinum: Stable cardiomegaly, slightly increasing vascular prominence, interstitial edema, and small bilateral pleural effusions. Bones/joints: Status post median sternotomy. XR/XR chest 1V portable [id number] IMPRESSION: Mild congestive heart failure is developing.
--- NOTE | 2024-01-05 05:00 | ECG_ITS ---
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 Measurements Intervals [place] Rate: 98 P: -4 OR: 96 QRS: -6 QRSD: 104 T: 120 QT: 387 QTc: 494 Interpretive Statements SINUS RHYTHM WITH SHORT OR INTERVAL WITH OCCASIONAL SUPRAVENTRICULAR PREMATURE COMPLEXES POSSIBLE RIGHT VENTRICULAR CONDUCTION DELAY [RSR (QR) IN V1/V2] POSSIBLE LEFT VENTRICULAR HYPERTROPHY [VOLTAGE CRITERIA PLUS LAE OR QRS WIDENING] POSSIBLE LATERAL MYOCARDIAL INFARCTION , OF INDETERMINATE AGE [30 ms Q WAVE IN I/aVL/V5/V6] Compared to ECG 09/19/2023 13:11:11 Short OR interval now present Myocardial infarct finding now present Sinus tachycardia no longer present T-wave abnormality no longer present Possible ischemia no longer present Electronically Signed On 01-06-2024 9:29:52 FOSTER PARENT by Librado Lerma M.D. [id number]
[2024-01-05 05:10] LABS: Basophils % 0.2 %; Eosinophils # 0.2 10^3/uL (0.0-0.8); Eosinophils % 1.1 %; Hematocrit 32.2 % (37-53); Lymphocytes % 10.6 %; Mean Corpuscular HGB Conc 30.7 g/dL (30-55); Mean Corpuscular Hemoglobin 28.4 pg (27-33); Mean Corpuscular Volume 92.3 fl (82-101); Mean Platelet Volume 10.6 fL (7.4-10.4); Monocytes # 1.5 10^3/uL (0.2-0.9); Monocytes % 7.8 %; Neutrophils # 14.79 10^3/uL (1.8-7.7); Neutrophils % 78.5 %; Nucleated Red Blood Cells # 0.1 /100WBC; Nucleated Red Blood Cells % 0.6 %; Platelet Count 211 10^3/cmm (157-399); Red Blood Count 3.49 10^6/uL (3.85-5.65); Red Cell Distribution Width 14.2 % (12.1-15.1); White Blood Count 18.81 10^3/uL (3.29-11.43)
[2024-01-05] MEDS: FUROsemide 10 mg/mL SDV 4mL 40 MG IVP (05:14)
[2024-01-05 05:21] LABS: INR 1.09 (0.8-1.2)
[2024-01-05] MEDS: ipratropium-albuterol 3 mL Neb INHALATION (05:35)
[2024-01-05 05:37] LABS: Alanine Aminotransferase 43 U/L (0-41); Albumin Level 3.5 g/dL (3.5-5.2); Alkaline Phosphatase 127 U/L (40-130); Blood Urea Nitrogen 16 mg/dL (8-23); Calcium 8.4 mg/dL (8.5-10.5); Carbon Dioxide 24 mmol/L (22-29); Chloride 98 mmol/L (98-107); Creatinine Clr Calc Pharmacy 59.1157; Glomerular Filtration Rate 55.9 mL/min (90-130); Glucose 167 mg/dL (65-115); NT Pro B Type Natriuretic Pept 13228 pg/mL (0-125); Osmolality Calculated 293 mOsm/kg (285-295); Sodium 139 mmol/L (136-145); Total Bilirubin 0.8 mg/dL (0.15-1.2); Total Protein 6.5 g/dL (6.6-8.7)
[2024-01-05 05:40] LABS: Anion Gap 20.5 (5-19); Aspartate Amino Transferase 30 U/L (0-40); Potassium 3.5 mmol/L (3.5-5.1)
--- NOTE | 2024-01-05 05:49 | W.ED.SOB ---
Documented by User: Gera Alexis DO 01/05/24 18:32 HPI - SOB/Dyspnea General: Chief Complaint: Shortness of Breath/Dyspnea Stated Complaint: SOB\Swollen Time Seen by Provider: 01/05/24 05:01 History of Present Illness: HPI Narrative: 63-year-old male had four-vessel CABG 10 days ago at an outside facility. He evidently left AMA 3 days ago. He presents with significant shortness of breath. He denies fever. He denies overt chest pain other than postsurgical pain. He has noted significant swelling to his bilateral lower extremities and his right hand as well. Associated symptoms: Deny abdominal pain, chest pain, fever(s), nausea or vomiting Review of Systems Const: Denies: fever(s) or chills ENMT: Denies: throat pain Card: Denies: chest pain Resp: Reports: dyspnea; Denies: productive cough or non-productive cough GI: Denies: abdominal pain, nausea or vomiting PFS ED PFSH: Medical History Cigarette smoker motivated to quit PAD (peripheral artery disease) Encounter for tobacco use cessation counseling Sleep apnea in adult Kidney stones Stroke CAD (coronary artery disease) COPD (chronic obstructive pulmonary disease) Hyperlipidemia Hypertension Opioid contract exists Encounter for long-term use of opiate analgesic Tobacco abuse Smoking cessation discussed with patient in detail for 3-10 minutes. -he has cut back to 15 cigs/day Surgical History History of ureter stent Stented coronary artery H/O angioplasty Family History Other Adopted Social History Smoking and tobacco/nicotine status: current every day tobacco/nicotine user cigarettes Packs smoked per day: 0.75 Alcohol intake: never Substance/Drug Use: never Adopted: Yes Household members: family Housing: House Physical Exam Const: GENERAL APPEARANCE: cooperative; not frail appearing HENMT: COMMON NORMALS: normocephalic, atraumatic and Normal external nose present HEAD & SCALP: normocephalic and atraumatic FACE & SINUS: normal facial exam NOSE: Normal external nose present Eye: COMMON NORMALS: Equal, round and reactive pupils present and EOMs intact bilaterally PUPIL: Yes Equal, round and reactive pupils present Neck/C-Spine: GENERAL: Yes trachea midline Chest: CHEST: Yes Symmetrical chest wall rise OTHER: sternal wound clean, no discharge Resp: EFFORT & INSPECTION: Yes symmetric chest movement and Yes tachypneic AUSCULTATION: diminished lung sounds Cardio: COMMON NORMALS: regular rate and regular rhythm RATE: regular rate RHYTHM: regular rhythm GI: COMMON NORMALS: Soft to palpation PALPATION: Yes Soft to palpation Extremity: GENERAL: Yes edema (2+) Course Vital Signs: Vital signs: Vital Signs Temperature 98.4 F 01/05/24 06:56 Pulse Rate 100 01/05/24 12:43 Respiratory Rate 16 01/05/24 12:43 Blood Pressure 104/49 01/05/24 12:43 Pulse Oximetry 91 01/05/24 12:43 Oxygen Delivery Me thod Nasal Cannula 01/05/24 10:00 Oxygen Flow Rate 3 01/05/24 10:00 MDM - SOB/Dyspnea Medical Decision Making The patient had a room air sat of 82% on arrival. He feels much better on 3 L here. Saturations are 90 to 94% on 3 L. He was given IV Lasix. Initially his blood pressure was quite soft, so only 40 mg was given. His white blood cell count is 19. Only 79% neutrophils. His creatinine is 1.3. His BNP is significantly elevated at 13,000. He has a troponin of 300. I have spoken with our land leasing examiner here. We do not have chest surgery availability. While we could start a workup here, any needed intervention would require transfer. The patient is agreeable to be transferred back to his surgical facility. We have a call out to them. Patient care was taken over at shift change. A call was placed to Deann, Dr. Lu was excepting hospitalist. Patient will be transferred for continuity of care and for CT surgeon. Prior to transfer, patient decided to leave AGAINST MEDICAL ADVICE. It was stressed to him that he is feeling improved, because he received medication, and he is on oxygen currently which she does not have adequate oxygen at home. He understands this, and he understands the risks including . He still wishes to go. Lab Data 01/05/24 05:03 01/05/24 05:03 Labs/Radiology: Radiology Impressions Chest X-Ray 01/05/24 04:59 IMPRESSION: Mild congestive heart failure is developing. Laboratory Results WBC 18.81 10^3/uL (3.29-11.43) H 01/05/24 05:03 RBC 3.49 10^6/uL (3.85-5.65) L 01/05/24 05:03 Hgb 9.90 g/dL (11.27-16.99) L 01/05/24 05:03 Hct 32.2 % (37-53) L 01/05/24 05:03 MCV 92.3 fl (82-101) 01/05/24 05:03 MCH 28.4 pg (27-33) 01/05/24 05:03 MCHC 30.7 g/dL (30-55) 01/05/24 05:03 RDW 14.2 % (12.1-15.1) 01/05/24 05:03 Plt Count 211 10^3/cmm (157-399) 01/05/24 05:03 MPV 10.6 fL (7.4-10.4) H 01/05/24 05:03 Neut % (Auto) 78.5 % 01/05/24 05:03 Lymph % (Auto) 10.6 % 01/05/24 05:03 [place] % (Auto) 7.8 % 01/05/24 05:03 Eos % (Auto) 1.1 % 01/05/24 05:03 Baso % (Auto) 0.2 % 01/05/24 05:03 Neut # (Auto) 14.79 10^3/uL (1.8-7.7) H 01/05/24 05:03 Lymph # (Auto) 2.0 10^3/uL (0.8-4.8) 01/05/24 05:03 [place] # (Auto) 1.5 10^3/uL (0.2-0.9) H 01/05/24 05:03 Eos # (Auto) 0.2 10^3/uL (0.0-0.8) 01/05/24 05:03 Baso # (Auto) 0.0 10^3/uL (0.0-0.1) 01/05/24 05:03 Nucleated RBC % (auto) 0.6 % 01/05/24 05:03 Nucleated RBCs # 0.1 /100WBC 01/05/24 05:03 PT 14.50 SECONDS (12.1-14.9) 01/05/24 05:03 INR 1.09 (0.8-1.2) 01/05/24 05:03 Specimen Type Arterial 01/05/24 05:39 Sample Site Radial, right 01/05/24 05:39 ABG pH 7.50 (7.35-7.45) H 01/05/24 05:39 ABG pCO2 34.5 mmHg (35-45) L 01/05/24 05:39 ABG pO2 87.9 mmHg (80.0-100.0) 01/05/24 05:39 ABG HCO3 26.8 mmol/L (22-26) H 01/05/24 05:39 ABG Base Excess 3.6 mmol/L (-2.0-2.0) H 01/05/24 05:39 Samir Test Pos 01/05/24 05:39 Hematocrit 27.8 % (42-52) L 01/05/24 05:39 Hgb O2 Saturation 95.7 % (95-100) 01/05/24 05:39 Carboxyhemoglobin 1.9 %THgb (0.4-20.1) 01/05/24 05:39 Methemoglobin 0.4 % (0.4-1.5) 01/05/24 05:39 Total Hemoglobin 9.1 g/dL (14-18) L 01/05/24 05:39 O2 Delivery Device Nc 01/05/24 05:39 O2 Liters/Min 2.5 % 01/05/24 05:39 Pay Station Collector ID [email or web address] 01/05/24 05:39 Sodium 139 mmol/L (136-145) 01/05/24 05:03 Potassium 3.5 mmol/L (3.5-5.1) 01/05/24 05:03 Chloride 98 mmol/L (98-107) 01/05/24 05:03 Carbon Dioxide 24 mmol/L (22-29) 01/05/24 05:03 Anion Gap 20.5 (5-19) H 01/05/24 05:03 BUN 16 mg/dL (8-23) 01/05/24 05:03 Creatinine 1.3 mg/dL (0.7-1.2) H 01/05/24 05:03 GFR Calculation 55.9 mL/min (90-130) L 01/05/24 05:03 Glucose 167 mg/dL (65-115) H 01/05/24 05:03 Calculated Osmolality 293 mOsm/kg (285-295) 01/05/24 05:03 Lactic Acid 3.0 mmol/L (0.5-2.2) H 01/05/24 05:03 Lactic Acid (Sepsis) 2.5 mmol/L (0.5-2.2) H 01/05/24 08:03 Calcium 8.4 mg/dL (8.5-10.5) L 01/05/24 05:03 Total Bilirubin 0.8 mg/dL (0.15-1.2) 01/05/24 05:03 AST 30 U/L (0-40) 01/05/24 05:03 ALT 43 U/L (0-41) H 01/05/24 05:03 Alkaline Phosphatase 127 U/L (40-130) 01/05/24 05:03 Troponin T Baseline 302 ng/L (0-15) H* 01/05/24 05:03 Troponin T 120 Minute 316.1 ng/L (0-15) H 01/05/24 06:43 Delta Troponin T 14.1 ABS# (0-10) H* 01/05/24 06:43 Troponin T Hi Sens 6Hr 325.8 ng/L (0-15) H 01/05/24 10:59 Troponin T Hi Sens 6Hr Delta 23.8 ng/L (0-12) H* 01/05/24 10:59 NT-Pro-B Natriuret Pep 61447 pg/mL (0-125) H 01/05/24 05:03 Total Protein 6.5 g/dL (6.6-8.7) L 01/05/24 05:03 Albumin 3.5 g/dL (3.5-5.2) 01/05/24 05:03 Globulin 3.0 g/dL (1.3-4.6) 01/05/24 05:03 Discharge Plan Discharge Patient Disposition: Left Against Medical Advice Clinical Impression: Acute hypoxic respiratory failure, Pulmonary edema, Leukocytosis CHF (congestive heart failure) Qualifiers: Heart failure type: diastolic Heart failure chronicity: chronic Qualified Code(s): I50.32 - Chronic diastolic (congestive) heart failure Condition: Stable Prescriptions: No Action potassium gluconate 595 mg (99 mg) tablet 595 mg PO DAILY@05 gabapentin 300 mg capsule See Rx Instructions .ROUTE .COMPLEX Rx Instructions: 300mg po qam and 600mg at bedtime furosemide 20 mg tablet 20 mg PO DAILY PRN (Reason: Edema) Qty: 90 3RF lisinopril-hydrochlorothiazide 10-12.5 mg tablet 1 tab PO DAILY@05 hydrocodone-acetaminophen 10-325 mg tablet 1 tab PO Q6H MDD 4 tabs PRN (Reason: Pain) clopidogrel 75 mg tablet 75 mg PO DAILY@05 Nitrostat 0.4 mg Tablet, Sublingual 0.4 mg SUBLINGUAL Q5M PRN (Reason: Chest Pain) Rx Instructions: do not exceed 3 doses per episode rosuvastatin 20 mg tablet 20 mg PO BEDTIME Lantus Solostar U-100 Insulin 100 unit/mL (3 mL) insulin pen 15 unit SUBCUT BEDTIME@17 aspirin 325 mg tablet 325 mg PO DAILY@05 pantoprazole 40 mg tablet,delayed release (DR/EC) 40 mg PO DAILY@05 metformin 500 mg tablet extended release 24 hr 500 mg PO BID@05,17 metoprolol succinate 25 mg tablet extended release 24 hr 25 mg PO DAILY Qty: 90 1RF Rx Instructions: rx filled 12/19/23 30d/s pt states doesnt take 01/05/24 Referrals: Syeda Bender MD [Primary Care Provider] - Coding Level of Care Code 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 Fwd Documented by User: Robbie Us DO 01/05/24 10:51 HPI - SOB/Dyspnea General: Chief Complaint: Shortness of Breath/Dyspnea Stated Complaint: SOB\Swollen Time Seen by Provider: 01/05/24 05:01 PFSH ED PFSH: Medical History Cigarette smoker motivated to quit PAD (peripheral artery disease) Encounter for tobacco use cessation counseling Sleep apnea in adult Kidney stones Stroke CAD (coronary artery disease) COPD (chronic obstructive pulmonary disease) Hyperlipidemia Hypertension Opioid contract exists Encounter for long-term use of opiate analgesic Tobacco abuse Smoking cessation discussed with patient in detail for 3-10 minutes. -he has cut back to 15 cigs/day Surgical History History of ureter stent Stented coronary artery H/O angioplasty Family History Other Adopted Social History Smoking and tobacco/nicotine status: current every day tobacco/nicotine user cigarettes Packs smoked per day: 0.75 Alcohol intake: never Substance/Drug Use: never Adopted: Yes Household members: family Housing: House Course Vital Signs: Vital signs: Vital Signs Temperature 98.4 F 01/05/24 06:56 Pulse Rate 100 01/05/24 12:43 Respiratory Rate 16 01/05/24 12:43 Blood Pressure 104/49 01/05/24 12:43 Pulse Oximetry 91 01/05/24 12:43 Oxygen Delivery Me thod Nasal Cannula 01/05/24 10:00 Oxygen Flow Rate 3 01/05/24 10:00 MDM - SOB/Dyspnea Medical Decision Making The patient had a room air sat of 82% on arrival. He feels much better on 3 L here. Saturations are 90 to 94% on 3 L. He was given IV Lasix. Initially his blood pressure was quite soft, so only 40 mg was given. His white blood cell count is 19. Only 79% neutrophils. His creatinine is 1.3. His BNP is significantly elevated at 13,000. He has a troponin of 300. I have spoken with our land leasing examiner here. We do not have chest surgery availability. While we could start a workup here, any needed intervention would require transfer. The patient is agreeable to be transferred back to his surgical facility. We have a call out to them. Patient care was taken over at shift change. A call was placed to Deann, Dr. Lu was excepting hospitalist. Patient will be transferred for continuity of care and for CT surgeon. Lab Data 01/05/24 05:03 01/05/24 05:03 Labs/Radiology: Radiology Impressions Chest X-Ray 01/05/24 04:59 IMPRESSION: Mild congestive heart failure is developing. Laboratory Results WBC 18.81 10^3/uL (3.29-11.43) H 01/05/24 05:03 RBC 3.49 10^6/uL (3.85-5.65) L 01/05/24 05:03 Hgb 9.90 g/dL (11.27-16.99) L 01/05/24 05:03 Hct 32.2 % (37-53) L 01/05/24 05:03 MCV 92.3 fl (82-101) 01/05/24 05:03 MCH 28.4 pg (27-33) 01/05/24 05:03 MCHC 30.7 g/dL (30-55) 01/05/24 05:03 RDW 14.2 % (12.1-15.1) 01/05/24 05:03 Plt Count 211 10^3/cmm (157-399) 01/05/24 05:03 MPV 10.6 fL (7.4-10.4) H 01/05/24 05:03 Neut % (Auto) 78.5 % 01/05/24 05:03 Lymph % (Auto) 10.6 % 01/05/24 05:03 [place] % (Auto) 7.8 % 01/05/24 05:03 Eos % (Auto) 1.1 % 01/05/24 05:03 Baso % (Auto) 0.2 % 01/05/24 05:03 Neut # (Auto) 14.79 10^3/uL (1.8-7.7) H 01/05/24 05:03 Lymph # (Auto) 2.0 10^3/uL (0.8-4.8) 01/05/24 05:03 [place] # (Auto) 1.5 10^3/uL (0.2-0.9) H 01/05/24 05:03 Eos # (Auto) 0.2 10^3/uL (0.0-0.8) 01/05/24 05:03 Baso # (Auto) 0.0 10^3/uL (0.0-0.1) 01/05/24 05:03 Nucleated RBC % (auto) 0.6 % 01/05/24 05:03 Nucleated RBCs # 0.1 /100WBC 01/05/24 05:03 PT 14.50 SECONDS (12.1-14.9) 01/05/24 05:03 INR 1.09 (0.8-1.2) 01/05/24 05:03 Specimen Type Arterial 01/05/24 05:39 Sample Site Radial, right 01/05/24 05:39 ABG pH 7.50 (7.35-7.45) H 01/05/24 05:39 ABG pCO2 34.5 mmHg (35-45) L 01/05/24 05:39 ABG pO2 87.9 mmHg (80.0-100.0) 01/05/24 05:39 ABG HCO3 26.8 mmol/L (22-26) H 01/05/24 05:39 ABG Base Excess 3.6 mmol/L (-2.0-2.0) H 01/05/24 05:39 Samir Test Pos 01/05/24 05:39 Hematocrit 27.8 % (42-52) L 01/05/24 05:39 Hgb O2 Saturation 95.7 % (95-100) 01/05/24 05:39 Carboxyhemoglobin 1.9 %THgb (0.4-20.1) 01/05/24 05:39 Methemoglobin 0.4 % (0.4-1.5) 01/05/24 05:39 Total Hemoglobin 9.1 g/dL (14-18) L 01/05/24 05:39 O2 Delivery Device Nc 01/05/24 05:39 O2 Liters/Min 2.5 % 01/05/24 05:39 Pay Station Collector ID [email or web address] 01/05/24 05:39 Sodium 139 mmol/L (136-145) 01/05/24 05:03 Potassium 3.5 mmol/L (3.5-5.1) 01/05/24 05:03 Chloride 98 mmol/L (98-107) 01/05/24 05:03 Carbon Dioxide 24 mmol/L (22-29) 01/05/24 05:03 Anion Gap 20.5 (5-19) H 01/05/24 05:03 BUN 16 mg/dL (8-23) 01/05/24 05:03 Creatinine 1.3 mg/dL (0.7-1.2) H 01/05/24 05:03 GFR Calculation 55.9 mL/min (90-130) L 01/05/24 05:03 Glucose 167 mg/dL (65-115) H 01/05/24 05:03 Calculated Osmolality 293 mOsm/kg (285-295) 01/05/24 05:03 Lactic Acid 3.0 mmol/L (0.5-2.2) H 01/05/24 05:03 Lactic Acid (Sepsis) 2.5 mmol/L (0.5-2.2) H 01/05/24 08:03 Calcium 8.4 mg/dL (8.5-10.5) L 01/05/24 05:03 Total Bilirubin 0.8 mg/dL (0.15-1.2) 01/05/24 05:03 AST 30 U/L (0-40) 01/05/24 05:03 ALT 43 U/L (0-41) H 01/05/24 05:03 Alkaline Phosphatase 127 U/L (40-130) 01/05/24 05:03 Troponin T Baseline 302 ng/L (0-15) H* 01/05/24 05:03 Troponin T 120 Minute 316.1 ng/L (0-15) H 01/05/24 06:43 Delta Troponin T 14.1 ABS# (0-10) H* 01/05/24 06:43 Troponin T Hi Sens 6Hr 325.8 ng/L (0-15) H 01/05/24 10:59 Troponin T Hi Sens 6Hr Delta 23.8 ng/L (0-12) H* 01/05/24 10:59 NT-Pro-B Natriuret Pep 33355 pg/mL (0-125) H 01/05/24 05:03 Total Protein 6.5 g/dL (6.6-8.7) L 01/05/24 05:03 Albumin 3.5 g/dL (3.5-5.2) 01/05/24 05:03 Globulin 3.0 g/dL (1.3-4.6) 01/05/24 05:03 All radiology interpretation(s) finalized by discharge Discharge Plan Discharge Patient Disposition: Left Against Medical Advice Clinical Impression: Acute hypoxic respiratory failure, Pulmonary edema, Leukocytosis CHF (congestive heart failure) Qualifiers: Heart failure type: diastolic Heart failure chronicity: chronic Qualified Code(s): I50.32 - Chronic diastolic (congestive) heart failure Condition: Stable Prescriptions: No Action potassium gluconate 595 mg (99 mg) tablet 595 mg PO DAILY@05 gabapentin 300 mg capsule See Rx Instructions .ROUTE .COMPLEX Rx Instructions: 300mg po qam and 600mg at bedtime furosemide 20 mg tablet 20 mg PO DAILY PRN (Reason: Edema) Qty: 90 3RF lisinopril-hydrochlorothiazide 10-12.5 mg tablet 1 tab PO DAILY@05 hydrocodone-acetaminophen 10-325 mg tablet 1 tab PO Q6H MDD 4 tabs PRN (Reason: Pain) clopidogrel 75 mg tablet 75 mg PO DAILY@05 Nitrostat 0.4 mg Tablet, Sublingual 0.4 mg SUBLINGUAL Q5M PRN (Reason: Chest Pain) Rx Instructions: do not exceed 3 doses per episode rosuvastatin 20 mg tablet 20 mg PO BEDTIME Lantus Solostar U-100 Insulin 100 unit/mL (3 mL) insulin pen 15 unit SUBCUT BEDTIME@17 aspirin 325 mg tablet 325 mg PO DAILY@05 pantoprazole 40 mg tablet,delayed release (DR/EC) 40 mg PO DAILY@05 metformin 500 mg tablet extended release 24 hr 500 mg PO BID@05,17 metoprolol succinate 25 mg tablet extended release 24 hr 25 mg PO DAILY Qty: 90 1RF Rx Instructions: rx filled 12/19/23 30d/s pt states doesnt take 01/05/24 Referrals: Syeda Bender MD [Primary Care Provider] - Coding Level of Care Code 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
[2024-01-05 05:50] LABS: ABG PCO2 34.5 mmHg (35-45); Arterial Blood Gas Hematocrit 27.8 % (42-52); Base Excess ABG 3.6 mmol/L (-2.0-2.0); Blood Gas Allen Test Pos; Blood Gas LPM 2.5 %; Blood Gas Sample Site Radial, right; Blood Gas Sample Type Arterial; Carboxyhemoglobin 1.9 %THgb (0.4-20.1); HCO3 ABG 26.8 mmol/L (22-26); HGB O2 Sat 95.7 % (95-100); Methemoglobin 0.4 % (0.4-1.5); Oxygen Device NC; PO2 ABG 87.9 mmHg (80.0-100.0); Total Hemoglobin 9.1 g/dL (14-18)
[2024-01-05 05:57] LABS: Troponin(5th) Baseline 302 ng/L (0-15)
[2024-01-05 06:56] LABS: Reflex Lactate Order REFLEX LACTIC ORDERD
--- NOTE | 2024-01-05 07:00 | ECG_ITS ---
[facility] Test Date: 2024-01-05 Pat Name: Shamir Larose Department: Room: Gender: Male Extrusion Former: : 1960 Requested By: Gera Covarrubias Order Number: [id number] Merchant MD: Librado Lerma M.D. Measurements Intervals [place] Rate: 101 P: 33 [place]: 127 QRS: -4 QRSD: 103 T: 69 QT: 426 QTc: 552 Interpretive Statements SINUS TACHYCARDIA POSSIBLE LEFT ATRIAL ENLARGEMENT [-0.1mV P-WAVE IN V1/V2] POSSIBLE RIGHT VENTRICULAR CONDUCTION DELAY [RSR (QR) IN V1/V2] LEFT VENTRICULAR HYPERTROPHY AND ST-T CHANGE [VOLTAGE CRITERIA PLUS ST/T ABNORMALITY] PROBABLE LATERAL MYOCARDIAL INFARCTION , PROBABLY OLD [35 ms Q WAVE IN I/aVL/V5/V6] Compared to ECG 01/05/2024 05:02:12 ST (T wave) deviation now present Sinus rhythm no longer present Short [place] interval no longer present Myocardial infarct finding still present Electronically Signed On 01-06-2024 9:37:09 SAMPLE COLOR MAKER by Librado Lerma M.D. [id number]
[2024-01-05] MEDS: vancomycin 1,000 MG in sodium chloride 0.9% 250 ML 250 MG IV (07:09)
[2024-01-05 07:14] LABS: Troponin 5 2HR 316.1 ng/L (0-15)
[2024-01-05 07:15] LABS: Troponin 5 2HR Delta 14.1 ABS# (0-10)
[2024-01-05] MEDS: piperacillin-tazobactam 4.5 GM in sodium chloride 0.9% (plus) 50 ML IV (08:14)
--- NOTE | 2024-01-05 08:19 | PC.PHAR ---
pt states he takes care of his own medications-pt states he no longer uses his symbicort 160-4.5mcg or spiriva handihaler pt states not used for a while ext shows both last filled 10/22/23-pt states he does not take metoprolol succinate er 25mg daily states not taken for a while ext shows last filled 12/19/23 30d/s
[2024-01-05 10:05] LABS: Lactic Acid level (Lactate) 2.5 mmol/L (0.5-2.2)
[2024-01-05] MEDS: HYDROcodone-acetaminophen 10-325 mg Tablet 1 TAB PO (10:54)
--- NOTE | 2024-01-05 10:54 | ECG_ITS ---
[facility] Test Date: 2024-01-05 Pat Name: Shamir Larose Department: Room: Gender: Male Office Services Clerk: : 1960 Requested By: Gera Covarrubias Order Number: [id number] Shonda MD: Librado Lerma M.D. Measurements Intervals [place] Rate: 104 P: 68 OR: 127 QRS: 25 QRSD: 110 T: 37 QT: 352 QTc: 465 Interpretive Statements SINUS TACHYCARDIA WITH OCCASIONAL SUPRAVENTRICULAR PREMATURE COMPLEXES POSSIBLE RIGHT VENTRICULAR CONDUCTION DELAY [RSR (QR) IN V1/V2] LATERAL MYOCARDIAL INFARCTION , PROBABLY OLD [40+ ms Q WAVE AND/OR ST/T ABNORMALITY IN I/aVL/V5/V6] Compared to ECG 01/05/2024 07:04:46 Left ventricular hypertrophy no longer present ST (T wave) deviation no longer present Myocardial infarct finding still present Electronically Signed On 01-06-2024 9:37:07 PLATEN DRIER OPERATOR by Librado Lerma M.D. [email or web address]/store/[id number]
[2024-01-05 11:41] LABS: Troponin 5 6HR 325.8 ng/L (0-15); Troponin 5 6HR Delta 23.8 ng/L (0-12)
== END 2024-01-05 13:14 | disposition left against medical advice (07) ==
PROVIDERS: Emergency Provider Emergency Medicine; PCP Family Medicine
DX: J96.01 Acute respiratory failure with hypoxia (principal); J81.1 Chronic pulmonary edema; D72.829 Elevated white blood cell count, unspecified; I11.0 Hypertensive heart disease with heart failure; I50.32 Chronic diastolic (congestive) heart failure; Z79.02 Long term (current) use of antithrombotics/antiplatelets; Z79.82 Long term (current) use of aspirin; Z79.84 Long term (current) use of oral hypoglycemic drugs; Z79.4 Long term (current) use of insulin; F17.210 Nicotine dependence, cigarettes, uncomplicated; Z86.73 Personal history of transient ischemic attack (TIA), and cerebral infarction without residual deficits; I25.10 Atherosclerotic heart disease of native coronary artery without angina pectoris; J44.9 Chronic obstructive pulmonary disease, unspecified; E78.5 Hyperlipidemia, unspecified; I10 Essential (primary) hypertension
CPT/HCPCS: 36415; 36600; 71045; 80053; 82805; 83605; 83880; 84484; 85025; 85610; 87040; 93005; 94640; 96365; 96375; 99285; J1940; J2543; J3370; J7050

== ENCOUNTER 2024-01-06 08:27 | Emergency (ER) | payer MEDICAID, SELFPAY ==
[2024-01-06] VITALS (51 sets, daily range): BP systolic 70–107; BP diastolic 36–62; PULSE 89–116; RESP 18–20; TEMP 36.8; O2SAT 78–94; BMI 29.0
--- NOTE | 2024-01-06 08:30 | XRR_ITS ---
PROCEDURE INFORMATION: Exam: XR Chest Exam date and time: 01/06/2024 8:54 AM Age: 63 years old Clinical indication: Cough and dyspnea and shortness of breath; Prior surgery; Surgery date: 6+ months; Surgery type: Heart; Additional info: Dyspnea/cough TECHNIQUE: Imaging protocol: Radiologic exam of the chest. Views: 1 view. COMPARISON: CR (CHEST, ) 01/05/2024 5:09 AM FINDINGS: Lungs: There are infiltrates in both lung bases without significant change. Pleural spaces: There are small bilateral pleural effusions as before both of which appears slightly improved Heart/Mediastinum: This patient is status post CABG. There is stable moderate cardiomegaly Bones/joints: Unremarkable. XR/XR chest 1V portable [id number] IMPRESSION: 1. Status post CABG 2. Stable cardiomegaly 3. No significant change bilateral basilar infiltrates 4. Small bilateral pleural effusions
--- NOTE | 2024-01-06 08:42 | ECG_ITS ---
[facility] Test Date: 2024-01-06 Pat Name: Shamir Larose Department: Room: Gender: Male Big Data Developer: : 1960 Requested By: Suleiman Stevens Order Number: [id number] Shonda MD: Librado Lerma M.D. Measurements Intervals [place] Rate: 93 P: 46 HI: 142 QRS: 1 QRSD: 107 T: 48 QT: 368 QTc: 459 Interpretive Statements SINUS RHYTHM WITH OCCASIONAL VENTRICULAR PREMATURE COMPLEXES POSSIBLE LEFT ATRIAL ENLARGEMENT [-0.1mV P-WAVE IN V1/V2] POSSIBLE RIGHT VENTRICULAR CONDUCTION DELAY [RSR (QR) IN V1/V2] Compared to ECG 01/05/2024 10:54:03 Ventricular premature complex(es) now present Sinus tachycardia no longer present Myocardial infarct finding no longer present Electronically Signed On 01-06-2024 8:45:49 INSURANCE SALESMAN by Librado Lerma M.D. [email or web address] [email or web address] medical [email or web address] [email or web address]/store/[id number]
--- NOTE | 2024-01-06 08:45 | ED_ITS ---
HPI - SOB/Dyspnea 2 General: Chief Complaint: Shortness of Breath/Dyspnea Stated Complaint: fluid retention Time Seen by Provider: 01/06/24 08:30 Source: patient Mode of arrival: EMS History of Present Illness: HPI Narrative: 63-year-old male who was seen yesterday for shortness of breath. Patient undergone CABG at [facility] in [place] left AMA from that facility 4 days ago. Transfer had been arranged to [facility] they are waiting on bed availability and patient decided to leave AMA from our ER because a bed was not available in [place]. He returns today complaining of increasing shortness of breath. MD elicited complaint: shortness of breath Pertinent past history: congestive heart failure Onset (ago): day(s) Context: other (Recent bypass) Timing: constant Severity: moderate Exacerbating factors: lying flat and exertion Relieving factors: oxygen, rest and upright position Known history of: congestive heart failure Associated symptoms: Reports chest congestion, lightheadedness and orthopnea; Deny abdominal pain, chest pain, cough, diaphoresis, dizziness, extremity pain, fever(s), hemoptysis, myalgias, nausea, palpitations, paresthesias, polydipsia, polyuria, rash, sense of impending doom, syncope or vomiting Treatment prior to arrival: oxygen Review of Systems 2 Const: Denies: fever(s), chills or diaphoresis Card: Reports: edema, swelling of feet/ankles, lightheadedness and orthopnea; Denies: chest pain, palpitations or syncope Resp: Reports: chest congestion; Denies: dyspnea or hemoptysis GI: Denies: abdominal pain, nausea or vomiting : Denies: dysuria, urinary frequency or urinary urgency Musc: Denies: neck pain, back pain or extremity pain Skin/Breast: Denies: rash Neuro: Denies: dizziness Endo: Denies: polyuria or polydipsia PFSH ED 2 PFSH: Medical History Cigarette smoker motivated to quit PAD (peripheral artery disease) Encounter for tobacco use cessation counseling Sleep apnea in adult Kidney stones Stroke CAD (coronary artery disease) COPD (chronic obstructive pulmonary disease) Hyperlipidemia Hypertension Opioid contract exists Encounter for long-term use of opiate analgesic Tobacco abuse Smoking cessation discussed with patient in detail for 3-10 minutes. -he has cut back to 15 cigs/day Surgical History History of ureter stent Stented coronary artery H/O angioplasty Family History Other Adopted Social History Smoking and tobacco/nicotine status: current every day tobacco/nicotine user cigarettes Packs smoked per day: 0.75 Alcohol intake: never Substance/Drug Use: never Adopted: Yes Household members: family Housing: House Physical Exam 2 Const: GENERAL APPEARANCE: cooperative ORIENTATION/CONSCIOUSNESS: Yes awake, Yes oriented to person, Yes oriented to place and Yes oriented to time HENMT: COMMON NORMALS: normocephalic, atraumatic and hearing grossly normal bilaterally HEAD & SCALP: normocephalic and atraumatic Resp: COMMON NORMALS: normal respiratory effort, No retractions and No use of accessory muscles AUSCULTATION: crackles and diminished lung sounds bilateral in the lower lung carney Cardio: COMMON NORMALS: regular rate, regular rhythm and No murmurs present (Cardio) RATE: regular rate RHYTHM: regular rhythm GI: COMMON NORMALS: Soft to palpation and No hepatosplenomegaly present I NSPECTION: Yes abdominal distension AUSCULTATION: Yes normoactive bowel sounds PALPATION: Yes Soft to palpation, No Tenderness to palpation present (GI), No Guarding due to palpation present (GI) and Yes No hepatosplenomegaly present Extremity: COMMON NORMALS: normal to inspection and capillary refill normal GENERAL: Yes edema Neuro: SENSORIUM/ORIENTATION: Yes oriented to person, Yes oriented to place and Yes oriented to time Skin: COMMON NORMALS: no rashes or lesions noted GENERAL SKIN EXAM: no rashes or lesions noted Course 2 Vital Signs: Vital signs: Vital Signs Temperature 98.2 F 01/06/24 08:28 Pulse Rate 101 H 01/06/24 11:16 Respiratory Rate 18 01/06/24 08:59 Blood Pressure 85/59 01/06/24 11:16 Pulse Oximetry 93 01/06/24 11:16 Oxygen Delivery Me thod Nasal Cannula 01/06/24 11:16 Oxygen Flow Rate 3 01/06/24 11:16 MDM - SOB/Dyspnea Medical Decision Making Bilateral lower lobe pneumonia complicated by congestive heart failure and hypotension lactic acid is elevated as well. He is not clinically able to tolerate a large fluid bolus. Started him on dobutamine to raise pressure and improve his cardiac output. He has been started on IV antibiotics as well we have called for transfer again to [facility] they will accept him as an ER to ER. Dobutamine IV infusion in the emergency room relayed to the transfer center. Medical Records I reviewed the patient's medical records. Lab Data I reviewed the patient's lab results. 01/06/24 09:23 01/06/24 09:23 Labs/Radiology: Radiology Impressions Chest X-Ray 01/06/24 08:30 IMPRESSION: 1. Status post CABG 2. Stable cardiomegaly 3. No significant change bilateral basilar infiltrates 4. Small bilateral pleural effusions Laboratory Results WBC 18.27 10^3/uL (3.29-11.43) H 01/06/24 09:23 RBC 3.13 10^6/uL (3.85-5.65) L 01/06/24 09:23 Hgb 9.00 g/dL (11.27-16.99) L 01/06/24 09:23 Hct 28.3 % (37-53) L 01/06/24 09:23 MCV 90.4 fl (82-101) 01/06/24 09:23 MCH 28.8 pg (27-33) 01/06/24 09: MCHC 31.8 g/dL (30-55) 01/06/24 09:23 RDW 14.6 % (12.1-15.1) 01/06/24 09:23 Plt Count 234 10^3/cmm (157-399) 01/06/24 09:23 MPV 10.3 fL (7.4-10.4) 01/06/24 09:23 Neut % (Auto) 80.8 % 01/06/24 09:23 Lymph % (Auto) 8.2 % 01/06/24 09:23 [place] % (Auto) 8.5 % 01/06/24 09:23 Eos % (Auto) 1.0 % 01/06/24 09:23 Baso % (Auto) 0.2 % 01/06/24 09:23 Neut # (Auto) 14.75 10^3/uL (1.8-7.7) H 01/06/24 09:23 Lymph # (Auto) 1.5 10^3/uL (0.8-4.8) 01/06/24 09:23 [place] # (Auto) 1.6 10^3/uL (0.2-0.9) H 01/06/24 09:23 Eos # (Auto) 0.2 10^3/uL (0.0-0.8) 01/06/24 09:23 Baso # (Auto) 0.0 10^3/uL (0.0-0.1) 01/06/24 09:23 Nucleated RBC % (auto) 0.3 % 01/06/24 09:23 Nucleated RBCs # 0.1 /100WBC 01/06/24 09:23 Sodium 141 mmol/L (136-145) 01/06/24 09:23 Potassium 2.9 mmol/L (3.5-5.1) L 01/06/24 09:23 Chloride 97 mmol/L (98-107) L 01/06/24 09:23 Carbon Dioxide 27 mmol/L (22-29) 01/06/24 09:23 Anion Gap 19.9 (5-19) H 01/06/24 09:23 BUN 20 mg/dL (8-23) 01/06/24 09:23 Creatinine 1.9 mg/dL (0.7-1.2) H 01/06/24 09:23 GFR Calculation 36.1 mL/min (90-130) L 01/06/24 09:23 Glucose 148 mg/dL (65-115) H 01/06/24 09:23 Calculated Osmolality 297 mOsm/kg (285-295) H 01/06/24 09:23 Lactic Acid 2.7 mmol/L (0.5-2.2) H 01/06/24 09:23 Calcium 8.2 mg/dL (8.5-10.5) L 01/06/24 09:23 Total Bilirubin 0.7 mg/dL (0.15-1.2) 01/06/24 09:23 AST 25 U/L (0-40) 01/06/24 09:23 ALT 31 U/L (0-41) 01/06/24 09:23 Alkaline Phosphatase 108 U/L (40-130) 01/06/24 09:23 NT-Pro-B Natriuret Pep 44851 pg/mL (0-125) H 01/06/24 09:23 Total Protein 6.5 g/dL (6.6-8.7) L 01/06/24 09:23 Albumin 3.3 g/dL (3.5-5.2) L 01/06/24 09:23 Globulin 3.2 g/dL (1.3-4.6) 01/06/24 09:23 All radiology interpretation(s) finalized by discharge Discharge Plan Discharge Patient Disposition: Transfer to ED Clinical Impression: Congestive heart failure, COPD (chronic obstructive pulmonary disease), Atrial fibrillation, Pneumonia of both lower lobes Condition: Stable Prescriptions: No Action potassium gluconate 595 mg (99 mg) tablet 595 mg PO DAILY@05 gabapentin 300 mg capsule See Rx Instructions .ROUTE .COMPLEX Rx Instructions: 300mg po qam and 600mg at bedtime furosemide 20 mg tablet 20 mg PO DAILY PRN (Reason: Edema) Qty: 90 3RF lisinopril-hydrochlorothiazide 10-12.5 mg tablet 1 tab PO DAILY@05 hydrocodone-acetaminophen 10-325 mg tablet 1 tab PO Q6H MDD 4 tabs PRN (Reason: Pain) clopidogrel 75 mg tablet 75 mg PO DAILY@05 nitroglycerin [Nitrostat] 0.4 mg Tablet, Sublingual 0.4 mg SUBLINGUAL Q5M PRN (Reason: Chest Pain) Rx Instructions: do not exceed 3 doses per episode rosuvastatin 20 mg tablet 20 mg PO BEDTIME insulin glargine [Lantus Solostar U-100 Insulin] 100 unit/mL (3 mL) insulin pen 15 unit SUBCUT BEDTIME@17 aspirin 325 mg tablet 325 mg PO DAILY@05 pantoprazole 40 mg tablet,delayed release (DR/EC) 40 mg PO DAILY@05 metformin 500 mg tablet extended release 24 hr 500 mg PO BID@05,17 metoprolol succinate 25 mg tablet extended release 24 hr 25 mg PO DAILY Qty: 90 1RF Rx Instructions: rx filled 12/19/23 30d/s pt states doesnt take 01/05/24 Referrals: Syeda Bender MD [Primary Care Provider] - Patient Instructions: Opioid Safety, Pain Management Coding Level of Care Code ED Line Controller for Hamilton Palmer
[2024-01-06 09:38] LABS: Basophils % 0.2 %; Eosinophils # 0.2 10^3/uL (0.0-0.8); Hematocrit 28.3 % (37-53); Lymphocytes # 1.5 10^3/uL (0.8-4.8); Lymphocytes % 8.2 %; Mean Corpuscular HGB Conc 31.8 g/dL (30-55); Mean Corpuscular Hemoglobin 28.8 pg (27-33); Mean Corpuscular Volume 90.4 fl (82-101); Mean Platelet Volume 10.3 fL (7.4-10.4); Monocytes # 1.6 10^3/uL (0.2-0.9); Monocytes % 8.5 %; Neutrophils # 14.75 10^3/uL (1.8-7.7); Neutrophils % 80.8 %; Nucleated Red Blood Cells # 0.1 /100WBC; Nucleated Red Blood Cells % 0.3 %; Platelet Count 234 10^3/cmm (157-399); Red Blood Count 3.13 10^6/uL (3.85-5.65); Red Cell Distribution Width 14.6 % (12.1-15.1); White Blood Count 18.27 10^3/uL (3.29-11.43)
[2024-01-06 10:02] LABS: Lactic Sepsis W/Reflex 2.7 mmol/L (0.5-2.2)
[2024-01-06 10:14] LABS: Alanine Aminotransferase 31 U/L (0-41); Albumin Level 3.3 g/dL (3.5-5.2); Alkaline Phosphatase 108 U/L (40-130); Anion Gap 19.9 (5-19); Aspartate Amino Transferase 25 U/L (0-40); Blood Urea Nitrogen 20 mg/dL (8-23); Calcium 8.2 mg/dL (8.5-10.5); Carbon Dioxide 27 mmol/L (22-29); Chloride 97 mmol/L (98-107); Creatinine Clr Calc Pharmacy 40.4476; Globulin 3.2 g/dL (1.3-4.6); Glomerular Filtration Rate 36.1 mL/min (90-130); Glucose 148 mg/dL (65-115); NT Pro B Type Natriuretic Pept 14871 pg/mL (0-125); Osmolality Calculated 297 mOsm/kg (285-295); Potassium 2.9 mmol/L (3.5-5.1); Sodium 141 mmol/L (136-145); Total Bilirubin 0.7 mg/dL (0.15-1.2); Total Protein 6.5 g/dL (6.6-8.7)
[2024-01-06] MEDS: HYDROcodone-acetaminophen 10-325 mg Tablet 1 TAB PO (10:42)
[2024-01-06] MEDS: piperacillin-tazobactam 3.375 GM in sodium chloride 0.9% (plus) 50 ML IV (10:52)
[2024-01-06] MEDS: potassium chloride premix 100 ML 25 MEQ IV (10:52)
[2024-01-06] MEDS: vancomycin 1,000 MG in sodium chloride 0.9% 250 ML 250 MG IV (11:15)
[2024-01-06 11:23] LABS: Reflex Lactate Order REFLEX LACTIC ORDERD
[2024-01-06] MEDS: DOBUTamine drip 500 MG/250 ML PREMIX 12.25 MG IV (12:26)
[2024-01-06 13:07] LABS: Lactic Acid level (Lactate) 1.6 mmol/L (0.5-2.2)
[2024-01-06] MEDS: DOPamine drip 400 MG/250 ML PREMIX 15.3100000000000005 MG IV (13:49)
== END 2024-01-06 13:51 ==
PROVIDERS: Emergency Provider Family Medicine; PCP Family Medicine
DX: I11.0 Hypertensive heart disease with heart failure (principal); I50.9 Heart failure, unspecified; J44.9 Chronic obstructive pulmonary disease, unspecified; I48.91 Unspecified atrial fibrillation; J18.9 Pneumonia, unspecified organism; Z95.1 Presence of aortocoronary bypass graft; Z79.02 Long term (current) use of antithrombotics/antiplatelets; Z79.82 Long term (current) use of aspirin; Z79.84 Long term (current) use of oral hypoglycemic drugs; Z79.4 Long term (current) use of insulin; Z86.73 Personal history of transient ischemic attack (TIA), and cerebral infarction without residual deficits; E78.5 Hyperlipidemia, unspecified
CPT/HCPCS: 36415; 71045; 80053; 83605; 83880; 85025; 87040; 87070; 87205; 93005; 96365; 96367; 96375; 99285; 99291; J1250; J1265; J2543; J3370; J3480; J7050

== ENCOUNTER 2024-02-13 19:00 | Emergency (ER) | payer MEDICAID, SELFPAY ==
--- NOTE | 2024-02-13 19:02 | XRR_ITS ---
PROCEDURE INFORMATION: Exam: XR Chest Exam date and time: 02/13/2024 7:26 PM Age: 63 years old Clinical indication: Chest wall pain; Patient HX: T. Presents to er with complaint of rib/ chest pain with inspiration. PT. States pain started at about 15:30. PT. Had open heart surgery on dec 24, and wanted to have it checked out; Additional info: Cp TECHNIQUE: Imaging protocol: Radiologic exam of the chest. Views: 1 view. COMPARISON: CR XR chest 1V portable [id number] 01/06/2024 8:54 AM FINDINGS: Lungs: No focal consolidation. Pleural spaces: No evidence of pneumothorax. Small left-sided pleural effusion. Heart/Mediastinum: Parascribe CABG Bones/joints: No evidence of acute osseous abnormality. XR/XR chest 1V portable [id number] IMPRESSION: 1. Small left-sided pleural effusion.
--- NOTE | 2024-02-13 19:02 | ECG_ITS ---
[facility] Test Date: 2024-02-13 Pat Name: Shamir Larose Department: Room: Gender: Male Screw Down: : 1960 Requested By: Kurtis Schaffer Order Number: [id number] Shonda MD: Librado Lerma M.D. Measurements Intervals [place] Rate: 88 P: 71 NM: 157 QRS: 19 QRSD: 110 T: 130 QT: 367 QTc: 445 Interpretive Statements SINUS RHYTHM POSSIBLE LEFT ATRIAL ENLARGEMENT [-0.1mV P-WAVE IN V1/V2] POSSIBLE RIGHT VENTRICULAR CONDUCTION DELAY [RSR (QR) IN V1/V2] MODERATE T-WAVE ABNORMALITY, CONSIDER ANTEROLATERAL ISCHEMIA [-0.1+ mV T-WAVE IN V3-V6] Compared to ECG 01/06/2024 08:42:10 T-wave abnormality now present Possible ischemia now present Ventricular premature complex(es) no longer present Electronically Signed On 02-14-2024 17:02:58 CDT by Librado Lerma M.D. [id number]
[2024-02-13 19:11] VITALS: BP 147/81; PULSE 90; RESP 18; TEMP 36.6; O2SAT 96; BMI 29.8
[2024-02-13 19:22] VITALS: BP 158/68; PULSE 88; RESP 17; O2SAT 97
[2024-02-13 19:43] LABS: Basophils # 0.1 10^3/uL (0.0-0.1); Eosinophils # 0.7 10^3/uL (0.0-0.8); Eosinophils % 6.3 %; Hematocrit 41.2 % (37-53); Lymphocytes # 2.9 10^3/uL (0.8-4.8); Lymphocytes % 27.8 %; Mean Corpuscular HGB Conc 30.8 g/dL (30-55); Mean Corpuscular Hemoglobin 27.4 pg (27-33); Mean Corpuscular Volume 88.8 fl (82-101); Mean Platelet Volume 9.6 fL (7.4-10.4); Monocytes # 0.8 10^3/uL (0.2-0.9); Neutrophils # 5.96 10^3/uL (1.8-7.7); Neutrophils % 56.6 %; Nucleated Red Blood Cells % 0 %; Platelet Count 327 10^3/cmm (157-399); Red Blood Count 4.64 10^6/uL (3.85-5.65); Red Cell Distribution Width 15.3 % (12.1-15.1); White Blood Count 10.51 10^3/uL (3.29-11.43)
--- NOTE | 2024-02-13 19:46 | ED_ITS ---
HPI - Chest Pain 2 General: Chief Complaint: Chest Pain Stated Complaint: cp, open heart surgery x 5 weeks ago Time Seen by Provider: 02/13/24 19:39 History of Present Illness: Patient presents to the ER with complaints of left lateral chest pain upon waking up from a nap today worse when he takes a big deep breath. Patient open heart surgery about 5 weeks ago and he said this pain is totally different than that pain. Patient said he woke up around 3 PM today with inspirational pain and pressure. Patient is lying in bed in no acute distress and does not appear toxic. Pain is reproducible with palpation of the lateral costochondral margin. Review of Systems 2 General: Reports: 10 or more systems reviewed and unremarkable except in HPI and below PFSH ED 2 PFSH: Medical History Cigarette smoker motivated to quit PAD (peripheral artery disease) Encounter for tobacco use cessation counseling Sleep apnea in adult Kidney stones Stroke CAD (coronary artery disease) COPD (chronic obstructive pulmonary disease) Hyperlipidemia Hypertension Opioid contract exists Encounter for long-term use of opiate analgesic Tobacco abuse Smoking cessation discussed with patient in detail for 3-10 minutes. -he has cut back to 15 cigs/day Surgical History History of ureter stent Stented coronary artery H/O angioplasty Family History Other Adopted Social History Smoking and tobacco/nicotine status: current every day tobacco/nicotine user cigarettes Packs smoked per day: 0.75 Alcohol intake: never Substance/Drug Use: never Adopted: Yes Household members: family Housing: House Physical Exam 2 Const: COMMON NORMALS: no acute distress, average body habitus, patient oriented x3, no limitations, healthy appearing, alert and well nourished HENMT: COMMON NORMALS: normocephalic, atraumatic, hearing grossly normal bilaterally, Normal external nose present, moist oral mucous membranes and oropharynx normal HEAD & SCALP: normocephalic and atraumatic NOSE: Normal external nose present Neck/C-Spine: COMMON NORMALS: no JVD Chest: COMMONS NORMALS: normal inspection of the chest; negative for normal palpation of entire chest wall (Tenderness with palpation over left lateral costochondral margin) Resp: COMMON NORMALS: normal respiratory effort, No retractions, No use of accessory muscles and clear to auscultation bilaterally AUSCULTATION: clear to auscultation bilaterally Cardio: COMMON NORMALS: no JVD, regular rate, regular rhythm, S1 normal heart sound present, S2 normal heart sound present, No gallops present (Cardio), No clicks present (Cardio), No murmurs present (Cardio) and No rub (Cardio) R ATE: regular rate RHYTHM: regular rhythm HEART SOUNDS: S1 normal heart sound present and S2 normal heart sound present GI: COMMON NORMALS: Normal to inspection, nondistended, normoactive bowel sounds present, Soft to palpation, non-tender, No hepatosplenomegaly present, no masses and no bruits PALPATION: Yes Soft to palpation and Yes No hepatosplenomegaly present Neuro: COMMON NORMALS: patient oriented x3 SENSORIUM/ORIENTATION: Yes alert Course 2 Vital Signs: Vital signs: Vital Signs Temperature 97.8 F 02/13/24 19:11 Pulse Rate 83 02/13/24 22:34 Respiratory Rate 16 02/13/24 22:34 Blood Pressure 153/61 02/13/24 20:44 Pulse Oximetry 99 02/13/24 22:34 Oxygen Delivery Me thod Room Air 02/13/24 21:50 MDM - Chest Pain Medical Decision Making Patient presented with left chest pain. Patient is worked up in a standard cardiac fashion with serial EKGs serial enzymes. X-ray shows small left pleural effusion, EKGs were unremarkable as well as troponins with a delta of less than 1. Patient was given 30 mg Toradol IV in which instantaneously resolved the patient's pain. This along with the patient's pain being reproducible with palpation makes it very unlikely to be cardiac orientated chest pain. Patient be discharged home with a small prescription for Toradol to take as needed. Differential Diagnosis Unlikely acute massive pulmonary embolism, acute respiratory failure, acute myocardial infarction, cardiac arrest or sudden cardiac Medical Records I reviewed the patient's medical records. Lab Data I reviewed the patient's lab results. 02/13/24 19:20 02/13/24 19:20 Radiology Impressions Chest X-Ray 02/13/24 19:02 IMPRESSION: 1. Small left-sided pleural effusion. Laboratory Results WBC 10.51 10^3/uL (3.29-11.43) 02/13/24 19:20 RBC 4.64 10^6/uL (3.85-5.65) 02/13/24 19:20 Hgb 12.70 g/dL (11.27-16.99) 02/13/24 19:20 Hct 41.2 % (37-53) 02/13/24 19:20 MCV 88.8 fl (82-101) 02/13/24 19:20 MCH 27.4 pg (27-33) 02/13/24 19:20 MCHC 30.8 g/dL (30-55) 02/13/24 19:20 RDW 15.3 % (12.1-15.1) H 02/13/24 19:20 Plt Count 327 10^3/cmm (157-399) 02/13/24 19:20 MPV 9.6 fL (7.4-10.4) 02/13/24 19:20 Neut % (Auto) 56.6 % 02/13/24 19:20 Lymph % (Auto) 27.8 % 02/13/24 19:20 [place] % (Auto) 8.0 % 02/13/24 19:20 Eos % (Auto) 6.3 % 02/13/24 19:20 Baso % (Auto) 1.0 % 02/13/24 19:20 Neut # (Auto) 5.96 10^3/uL (1.8-7.7) 02/13/24 19:20 Lymph # (Auto) 2.9 10^3/uL (0.8-4.8) 02/13/24 19:20 [place] # (Auto) 0.8 10^3/uL (0.2-0.9) 02/13/24 19:20 Eos # (Auto) 0.7 10^3/uL (0.0-0.8) 02/13/24 19:20 Baso # (Auto) 0.1 10^3/uL (0.0-0.1) 02/13/24 19:20 Nucleated RBC % (auto) 0 % 02/13/24 19:20 Nucleated RBCs # 0.0 /100WBC 02/13/24 19:20 PT 12.90 SECONDS (12.1-14.9) 02/13/24 19:20 INR 0.95 (0.8-1.2) 02/13/24 19:20 Sodium 140 mmol/L (136-145) 02/13/24 19:20 Potassium 4.9 mmol/L (3.5-5.1) 02/13/24 19:20 Chloride 103 mmol/L (98-107) 02/13/24 19:20 Carbon Dioxide 25 mmol/L (22-29) 02/13/24 19:20 Anion Gap 16.9 (5-19) 02/13/24 19:20 BUN 16 mg/dL (8-23) 02/13/24 19:20 Creatinine 1.0 mg/dL (0.7-1.2) 02/13/24 19:20 GFR Calculation 75.7 mL/min (90-130) L 02/13/24 19:20 Glucose 161 mg/dL (65-115) H 02/13/24 19:20 Calculated Osmolality 295 mOsm/kg (285-295) 02/13/24 19:20 Calcium 10.0 mg/dL (8.5-10.5) 02/13/24 19:20 Total Bilirubin 0.2 mg/dL (0.15-1.2) 02/13/24 19:20 AST 14 U/L (0-40) 02/13/24 19:20 ALT 11 U/L (0-41) 02/13/24 19:20 Alkaline Phosphatase 85 U/L (40-130) 02/13/24 19:20 Troponin T Baseline 30 ng/L (0-15) H 02/13/24 19:20 Troponin T 120 Minute 30.86 ng/L (0-15) H 02/13/24 21:20 Delta Troponin T 0.86 ABS# (0-10) 02/13/24 21:20 Total Protein 7.1 g/dL (6.6-8.7) 02/13/24 19:20 Albumin 4.3 g/dL (3.5-5.2) 02/13/24 19:20 Globulin 2.8 g/dL (1.3-4.6) 02/13/24 19:20 Lipase 31 U/L (13-60) 02/13/24 19:20 All radiology interpretation(s) finalized by discharge Discharge Plan Discharge Patient Disposition: Home Clinical Impression: Acute chest wall pain Condition: Stable Prescriptions: No Action potassium gluconate 595 mg (99 mg) tablet 595 mg PO DAILY@05 gabapentin 300 mg capsule See Rx Instructions .ROUTE .COMPLEX Rx Instructions: 300mg po qam and 600mg at bedtime furosemide 20 mg tablet 20 mg PO DAILY PRN (Reason: Edema) Qty: 90 3RF aspirin 325 mg tablet 325 mg PO DAILY Qty: 90 0RF lisinopril-hydrochlorothiazide 10-12.5 mg tablet 1 tab PO DAILY@05 hydrocodone-acetaminophen 10-325 mg tablet 1 tab PO Q6H MDD 4 tabs PRN (Reason: Pain) clopidogrel 75 mg tablet 75 mg PO DAILY@05 nitroglycerin [Nitrostat] 0.4 mg Tablet, Sublingual 0.4 mg SUBLINGUAL Q5M PRN (Reason: Chest Pain) Rx Instructions: do not exceed 3 doses per episode rosuvastatin 20 mg tablet 20 mg PO BEDTIME insulin glargine [Lantus Solostar U-100 Insulin] 100 unit/mL (3 mL) insulin pen 15 unit SUBCUT BEDTIME@17 pantoprazole 40 mg tablet,delayed release (DR/EC) 40 mg PO DAILY@05 metformin 500 mg tablet extended release 24 hr 500 mg PO BID@05,17 metoprolol succinate 25 mg tablet extended release 24 hr 25 mg PO DAILY Qty: 90 1RF Rx Instructions: rx filled 12/19/23 30d/s pt states doesnt take 01/05/24 Discharge Orders: Discharge ED (Routine); Ordered 02/13/24 Ordered By: Robbie Us Referrals: Syeda Bender MD [Primary Care Provider] - 1 week Patient Instructions: Chest Pain - Chest Wall Coding Level of Care Code ED Sheet Metal Contractor for Nicog Estela
[2024-02-13 20:04] LABS: INR 0.95 (0.8-1.2)
[2024-02-13 20:07] LABS: Troponin(5th) Baseline 30 ng/L (0-15)
[2024-02-13 20:08] LABS: Alanine Aminotransferase 11 U/L (0-41); Albumin Level 4.3 g/dL (3.5-5.2); Alkaline Phosphatase 85 U/L (40-130); Anion Gap 16.9 (5-19); Aspartate Amino Transferase 14 U/L (0-40); Blood Urea Nitrogen 16 mg/dL (8-23); Carbon Dioxide 25 mmol/L (22-29); Chloride 103 mmol/L (98-107); Creatinine Clr Calc Pharmacy 77.8332; Globulin 2.8 g/dL (1.3-4.6); Glomerular Filtration Rate 75.7 mL/min (90-130); Glucose 161 mg/dL (65-115); Lipase 31 U/L (13-60); Osmolality Calculated 295 mOsm/kg (285-295); Potassium 4.9 mmol/L (3.5-5.1); Sodium 140 mmol/L (136-145); Total Bilirubin 0.2 mg/dL (0.15-1.2); Total Protein 7.1 g/dL (6.6-8.7)
[2024-02-13] MEDS: ketorolac 30 mg/mL INJ IVP (20:27)
[2024-02-13 20:44] VITALS: BP 153/61; PULSE 84; RESP 15; O2SAT 95
[2024-02-13 21:50] VITALS: PULSE 85; RESP 16; O2SAT 95
[2024-02-13 21:51] LABS: Troponin 5 2HR 30.86 ng/L (0-15); Troponin 5 2HR Delta 0.86 ABS# (0-10)
[2024-02-13 22:34] VITALS: PULSE 83; RESP 16; O2SAT 99
== END 2024-02-13 22:35 | disposition home or self-care (01) ==
PROVIDERS: Emergency Medicine; Emergency Provider Emergency Medicine; PCP Family Medicine
DX: R07.89 Other chest pain (principal); Z79.02 Long term (current) use of antithrombotics/antiplatelets; Z79.82 Long term (current) use of aspirin; Z79.84 Long term (current) use of oral hypoglycemic drugs; Z79.4 Long term (current) use of insulin; Z86.73 Personal history of transient ischemic attack (TIA), and cerebral infarction without residual deficits; I25.10 Atherosclerotic heart disease of native coronary artery without angina pectoris; J44.9 Chronic obstructive pulmonary disease, unspecified; E78.5 Hyperlipidemia, unspecified; I10 Essential (primary) hypertension; F17.210 Nicotine dependence, cigarettes, uncomplicated
CPT/HCPCS: 36415; 71045; 80053; 83690; 84484; 85025; 85610; 93005; 96374; 99285; J1885

== ENCOUNTER → 2024-03-03 10:21 | Outpatient (BNVA) | payer MEDICAID, SELFPAY | PROVIDERS: PCP Family Medicine; Visit Provider Nurse Practitioner Family | DX: I25.10 Atherosclerotic heart disease of native coronary artery without angina pectoris (principal); I48.0 Paroxysmal atrial fibrillation; I11.0 Hypertensive heart disease with heart failure; I50.32 Chronic diastolic (congestive) heart failure; Z95.2 Presence of prosthetic heart valve; F17.210 Nicotine dependence, cigarettes, uncomplicated | CPT/HCPCS: 99214 ==

== ENCOUNTER 2024-03-19 12:53 | Outpatient (RCR) | payer MEDICAID, SELFPAY | END 2024-04-03 23:59 | disposition home or self-care (01) | LOC: CR 12:53 | PROVIDERS: PCP Family Medicine; Referring Provider Nurse Practitioner Family; Visit Provider Family Medicine | DX: Z95.1 Presence of aortocoronary bypass graft (principal) | CPT/HCPCS: 93798 ==

== ENCOUNTER 2024-04-08 10:02 | Outpatient (RCR) | payer MEDICAID, SELFPAY | END 2024-05-03 23:59 | disposition home or self-care (01) | LOC: CR 10:02 | PROVIDERS: PCP Family Medicine; Referring Provider Nurse Practitioner Family; Visit Provider Family Medicine | DX: Z95.1 Presence of aortocoronary bypass graft (principal) | CPT/HCPCS: 93798 ==

== ENCOUNTER → 2024-05-04 11:05 | Outpatient (BNVA) | payer MEDICAID, SELFPAY | PROVIDERS: PCP Family Medicine; Visit Provider Internal Medicine Cardiovascular Disease | DX: I25.10 Atherosclerotic heart disease of native coronary artery without angina pectoris (principal); Z72.0 Tobacco use; E78.5 Hyperlipidemia, unspecified; I48.0 Paroxysmal atrial fibrillation; I11.0 Hypertensive heart disease with heart failure; I50.32 Chronic diastolic (congestive) heart failure; I73.9 Peripheral vascular disease, unspecified; J44.9 Chronic obstructive pulmonary disease, unspecified; G47.30 Sleep apnea, unspecified; Z95.1 Presence of aortocoronary bypass graft | CPT/HCPCS: 99214 ==

== ENCOUNTER → 2024-08-31 13:45 | Outpatient (BNVA) | payer MEDICAID, SELFPAY | PROVIDERS: PCP Family Medicine; Visit Provider Internal Medicine Cardiovascular Disease | DX: I21.9 Acute myocardial infarction, unspecified (principal); I49.3 Ventricular premature depolarization; I45.10 Unspecified right bundle-branch block; R94.31 Abnormal electrocardiogram [ECG] [EKG]; R07.9 Chest pain, unspecified; I49.8 Other specified cardiac arrhythmias | CPT/HCPCS: 93005 ==

== ENCOUNTER 2024-09-24 06:49 | Outpatient (CLI) | payer MEDICAID, SELFPAY ==
--- NOTE | 2024-09-24 07:00 | USCV_ITS ---
Shamir Larose Age: 64 Gender: M : 1960 Exam Date: 09/24/2024 07:04 Ordering Phys: Ashley Zheng MD ([email or web address]) Technologist: Exam Location: [facility] [place] Indication: cad BP: 170 / 80 HR: 75 Rhythm: Sinus Technical Quality: Adequate MEASUREMENTS (Male / Female) Normal Values 2D ECHO LV Diastolic Diameter PLAX 4.3 cm 4.2 - 5.9 / 3.9 - 5.3 cm IVS Diastolic Thickness 1.2 cm 0.6 - 1.0 / 0.6 - 0.9 cm IVS Systolic Thickness 1.3 cm LVPW Diastolic Thickness 1.0 cm 0.6 - 1.0 / 0.6 - 0.9 cm LVPW Systolic Thickness 1.1 cm LVOT Diameter 2.0 cm LV Ejection Fraction 2D Teich 53.2 % LV Ejection Fraction MOD 4C 59.9 % LV Ejection Fraction MOD 2C 69.7 % LV Ejection Fraction 2C AL 69.0 % LA Diameter 3.5 cm RA Systolic Volume 4C AL 50.3 ml RA Systolic Volume 4C MOD 47.0 ml Aorta at Sinotubular Diameter 2.6 cm IVC Diameter 1.6 cm M-MODE LA Ao Ratio MM 1.2 AV Cusp Separation MM 1.7 cm DOPPLER AV Peak Velocity 124.0 cm/s LVOT Peak Velocity 111.0 cm/s AV Area Cont Eq vti 3.8 cm squared AV Area Cont Eq pk 2.9 cm squared MV Peak Velocity 111.0 cm/s MV Area PHT 3.4 cm squared Mitral E to A Ratio 0.8 TV Peak Velocity 144.0 cm/s TR Peak Velocity 164.0 cm/s TR Peak Gradient 10.8 mmHg TV Peak E Velocity 86.0 cm/s Right Atrial Pressure 3.0 mmHg Pulmonary Artery Systolic Pressu 13.8 mmHg PV Peak Velocity 107.0 cm/s FINDINGS Left Ventricle Normal left ventricular size, systolic function and wall thickness, with no regional wall motion abnormalities. Left ventricular ejection fraction is estimated at 55 %. Grade I/IV diastolic dysfunction (abnormal relaxation filling pattern), normal to mildly elevated filling pressures. Right Ventricle The right ventricle is normal in size and function. Right Atrium The right atrium is normal in size. Left Atrium The left atrium is normal in size. Mitral Valve Structurally normal mitral valve without significant stenosis or prolapse. There is no mitral regurgitation. Aortic Valve Structurally normal aortic valve without significant sclerosis or stenosis. There is no aortic regurgitation. Tricuspid Valve Structurally normal tricuspid valve without significant stenosis or regurgitation. Pulmonary artery systolic pressure is normal. Pulmonic Valve Structurally normal pulmonic valve without significant stenosis. There is no pulmonic regurgitation. Pericardium Normal pericardium without effusion. Aorta Normal ascending aorta dimension. IVC The inferior vena cava appears normal. CONCLUSIONS Normal left ventricular size, systolic function and wall thickness, with no regional wall motion abnormalities. Left ventricular ejection fraction is estimated at 55 %. Grade I/IV diastolic dysfunction (abnormal relaxation filling pattern), normal to mildly elevated filling pressures. No significant valve abnormalities. There is no pericardial effusion. Pulmonary artery systolic pressure is within normal limits. Right atrial pressure is around 5 mm of mercury. Ashley Zheng MD (Electronically Signed) Final Date: 24 September 2024 13:38 S
== END 2024-09-24 06:50 | disposition home or self-care (01) ==
LOC: RAD 06:49
PROVIDERS: PCP Family Medicine; Visit Provider Internal Medicine Cardiovascular Disease
DX: I50.30 Unspecified diastolic (congestive) heart failure (principal); R06.02 Shortness of breath
CPT/HCPCS: 93306

== ENCOUNTER 2024-10-04 12:30 | Emergency (ER) | payer MEDICAID, SELFPAY ==
[2024-10-04 12:40] VITALS: BP 138/91; PULSE 94; RESP 17; TEMP 36.6; O2SAT 95; BMI 32.3
--- NOTE | 2024-10-04 14:09 | CTR_ITS ---
PROCEDURE INFORMATION: Exam: CT Abdomen And Pelvis Without Contrast Exam date and time: 10/04/2024 2:45 PM Age: 64 years old Clinical indication: Abdominal pain; Right flank pain TECHNIQUE: Imaging protocol: Computed tomography of the abdomen and pelvis without contrast. Radiation optimization: All CT scans at this facility use at least one of these dose optimization techniques: automated exposure control; mA and/or kV adjustment per patient size (includes targeted exams where dose is matched to clinical indication); or iterative reconstruction. COMPARISON: CT abdomen pelvis w con* [id number] 07/17/2018 8:35 AM RADIATION DOSE METRICS: Total DLP (mGy-cm): 839.86 FINDINGS: Liver: There is a diffuse decrease in hepatic parenchymal density, consistent with fatty infiltration. Gallbladder and biliary ducts: Cholelithiasis. Pancreas: Normal. No ductal dilation. Spleen: Normal. No splenomegaly. Adrenal glands: Normal. No mass. Kidneys and ureters: Bilateral renal cysts have benign features the larger of which measures 16 mm in the craniocaudad dimension at the inferior pole of the right kidney. Follow-up is not necessary. Punctate nonobstructing right renal calculus. No hydronephrosis or hydroureter. Stomach and bowel: There is diverticulosis of the colon without evidence of diverticulitis. Appendix: A normal appendix is identified. Intraperitoneal space: Unremarkable. No free air. No significant fluid collection. Vasculature: Multivessel atherosclerotic disease. Infrarenal abdominal aorta is mildly aneurysmal measuring 3.1 cm in the AP dimension. No evidence for rupture. Lymph nodes: Unremarkable. No enlarged lymph nodes. Urinary bladder: Unremarkable as visualized. Reproductive: Unremarkable as visualized. Bones/joints: Unremarkable. No acute fracture. Soft tissues: Unremarkable. CT/CT kidney stone [id number] IMPRESSION: 1. Fatty infiltration of the liver. 2. Cholelithiasis. 3. There is a punctate nonobstructing right renal calculus. No obstructing urinary tract calculus. 4. Infrarenal abdominal aorta is mildly aneurysmal measuring 3.1 cm in the AP dimension. No evidence for rupture. Follow-up imaging in 3 years is recommended.
--- NOTE | 2024-10-04 14:11 | ED_ITS ---
Documented by User: SAHARA Albright 10/04/24 17:48 HPI - Abdominal Pain 2 General: Chief Complaint: Abdominal Pain Stated Complaint: back injury, pain increased Time Seen by Provider: 10/04/24 14:01 Source: patient Mode of arrival: ambulatory Limitations: no limitations History of Present Illness: Patient is a 64-year-old male with past medical history of multiple kidney stones and diverticulitis who presents to the emergency department complaining of right flank pain for the past 4 days. Initially he states that started in the right lower quadrant but has since migrated to the right flank. Reports that he has not had issues with kidney stones in some time, but does have a history of bilateral ureteral stents. He states he takes Creede daily, has been taking double dose due to the pain. Also notes decrease in urination and noticing that his urine appears darker. He is reporting fevers and chills. Reporting that the pain is a 10/10 at this time and located just to the right flank/right lower back region. He still has his appendix and gallbladder. No chest pain, shortness of breath, nausea/vomiting, or changes in bowel habits. He states that he thought this pain was from diverticulitis so he took some liquid medication that cleared him out. Vital stable at this time. He does not see a urologist regularly at this time. MD elicited complaint: flank pain Pertinent past history: diverticulitis and kidney stones Onset (ago): day(s) (4) Pain Consistency: constant Location: R flank Severity: severe Quality: stabbing Radiation: back Associated Symptoms: Reports chills, fever(s) and hematuria ( Dark urine ); Denies bloating, change in stool character, constipation, diarrhea, dysuria, hematochezia, nausea and vomiting Treatments prior to arrival: prescription analgesics Related Data Home Medications Medication Instructions Recorded Confirmed potassium gluconate 595 mg (99 mg) 595 mg PO DAILY@06/27/20 05/04/24 tablet hydrocodone 10 mg-acetaminophen 1 tab PO Q6H PRN Pain 01/11/22 05/04/24 325 mg tablet pantoprazole 40 mg tablet,delayed 40 mg PO DAILY@02/21/23 05/04/24 release metformin 500 mg tablet,extended 500 mg PO BID@09/19/23 05/04/24 release 24 hr nitroglycerin 0.4 mg sublingual 0.4 mg sublingual Q5M PRN Chest 01/05/24 05/04/24 tablet (Nitrostat) Pain lisinopril 10 0.5 tab PO DAILY@05 03/03/24 05/04/24 mg-hydrochlorothiazide 12.5 mg tablet insulin glargine 100 unit/mL (3 10 unit SUBCUT BEDTIME@17 05/04/24 05/04/24 mL) subcutaneous pen (Lantus Solostar U-100 Insulin) gabapentin 300 mg capsule 600 mg .Route TID 08/31/24 Previous Rx's Medication Instructions Recorded furosemide 20 mg tablet 20 mg PO DAILY PRN Edema #90 tabs 10/21/23 aspirin 325 mg tablet 325 mg PO DAILY #90 tabs 01/15/24 clopidogrel 75 mg tablet 75 mg PO DAILY@05 #90 tabs 08/21/24 rosuvastatin 20 mg tablet See Rx Instructions .Route 09/17/24 .COMPLEX #90 tabs Allergies Allergy/AdvReac Type Severity Reaction Status Date / Time Beta-Blockers Allergy ADR-Confusi Verified 08/31/24 13:10 (Beta-Adrenergic Bloc on/Sweating Review of Systems 2 General: Reports: 10 or more systems reviewed and unremarkable except in HPI and below Const: Reports: fever(s) and chills; Denies: change in appetite, change in weight or diaphoresis ENMT: Denies: throat pain or hoarseness Card: Denies: chest pain, palpitations or lightheadedness Resp: Denies: dyspnea, productive cough or wheezing GI: Denies: abdominal pain, nausea, vomiting, diarrhea, constipation, bloating, change in stool character or hematochezia : Reports: flank pain, oliguria and hematuria ( Dark urine ); Denies: difficulty urinating, dysuria, urinary frequency or urinary urgency Musc: Reports: back pain; Denies: neck pain Skin/Breast: Denies: rash or new lesions Neuro: Denies: headache(s) or dizziness PFSH ED 2 PFSH: Medical History Cigarette smoker motivated to quit PAD (peripheral artery disease) Encounter for tobacco use cessation counseling Sleep apnea in adult Kidney stones Stroke CAD (coronary artery disease) COPD (chronic obstructive pulmonary disease) Hyperlipidemia Hypertension Opioid contract exists Encounter for long-term use of opiate analgesic Tobacco abuse Smoking cessation discussed with patient in detail for 3-10 minutes. -he has cut back to 15 cigs/day Surgical History S/P CABG x 4 History of ureter stent Stented coronary artery H/O angioplasty Family History Other Adopted Social History Smoking and tobacco/nicotine status: current every day tobacco/nicotine user (1 ppd) cigarettes Packs smoked per day: 0.75 Alcohol intake: never Substance/Drug Use: never Adopted: Yes Household members: family Housing: House Physical Exam 2 Const: COMMON NORMALS: patient oriented x3, no limitations, alert and well nourished GENERAL APPEARANCE: cooperative and in distress (Appears uncomfortable) ORIENTATION/CONSCIOUSNESS: Yes awake HENMT: COMMON NORMALS: normocephalic, atraumatic, hearing grossly normal bilaterally, external ears normal, Normal external nose present, Normal nasal mucous membranes and turbinates present and moist oral mucous membranes HEAD & SCALP: normocephalic and atraumatic NOSE: Normal external nose present and Normal nasal mucous membranes and turbinates present EXTERNAL EAR: Yes external ears normal Eye: COMMON NORMALS: Equal, round and reactive pupils present, EOMs intact bilaterally, conjunctivae normal and normal visual carney by confrontation C ONJUNCTIVA: Yes conjunctivae normal PUPIL: Yes Equal, round and reactive pupils present Neck/C-Spine: COMMON NORMALS: full ROM, supple, no meningeal signs and no JVD Resp: COMMON NORMALS: normal respiratory effort, No retractions, No use of accessory muscles and clear to auscultation bilaterally AUSCULTATION: clear to auscultation bilaterally, no crackles, no rales, no rhonchi and no wheezes Cardio: COMMON NORMALS: no JVD, regular rate, regular rhythm, S1 normal heart sound present, S2 normal heart sound present, No gallops present (Cardio), No clicks present (Cardio), No murmurs present (Cardio) and No rub (Cardio) R ATE: regular rate RHYTHM: regular rhythm HEART SOUNDS: S1 normal heart sound present and S2 normal heart sound present GI: COMMON NORMALS: non-tender, No hepatosplenomegaly present and no masses INSPECTION: Yes central obesity AUSCULTATION: Yes normoactive bowel sounds PALPATION: No Guarding due to palpation present (GI), No Rigid due to palpation and Yes No hepatosplenomegaly present RECTAL EXAM: Yes deferred OTHER: Negative Rovsing sign. Negative McBurney's point tenderness. : BLADDER/KIDNEY EXAM: Yes CVA tenderness on the right Back/Pelvis: GENERAL BACK: Yes CVA tenderness OTHER: Tender to palpation to the right lower back Extremity: COMMON NORMALS: normal to inspection and full ROM Neuro: COMMON NORMALS: patient oriented x3, moves all extremities, no focal motor deficits and no sensory deficits noted SENSORIUM/ORIENTATION: Yes alert MENINGEAL SIGNS: Yes no meningeal signs Psych: COMMON NORMALS: mental status grossly normal, cooperative and speech normal SPEECH: Yes normal speech Skin: COMMON NORMALS: no rashes or lesions noted GENERAL SKIN EXAM: no rashes or lesions noted Course 2 Vital Signs: Vital signs: Vital Signs Temperature 97.8 F 10/04/24 12:40 Pulse Rate 85 10/04/24 16:33 Respiratory Rate 16 10/04/24 16:33 Blood Pressure 125/71 10/04/24 16:33 Pulse Oximetry 97 10/04/24 16:33 Oxygen Delivery Me thod Room Air 10/04/24 12:40 MDM - Abdominal Pain Medical Decision Making Patient has significant history of kidney stones, has had bilateral ureteral stents placed. 4 days ago began having right flank pain that began in the right lower quadrant and has since moved to the right flank. States this feels identical to prior kidney stones. His lab work today was normal, urinalysis did not show any signs of blood or infection. CT did not demonstrate any stones in the ureter, did show a large stone in the right kidney. Due to the location of his pain, this favors a musculoskeletal pain. He requested morphine here, which controlled his pain. He already takes Creede at home for chronic back issues. Did give him 1 dose of tamsulosin here at his request, and referred to urology as he has not seen urology in many years. Encouraged to increase his fluid intake and he will return with any new or worsening. Patient comfortable discharge home at this time. Lab Data 10/04/24 14:39 10/04/24 14:39 Labs/Radiology: Radiology Impressions Abdomen/Pelvis CT 10/04/24 14:09 IMPRESSION: 1. Fatty infiltration of the liver. 2. Cholelithiasis. 3. There is a punctate nonobstructing right renal calculus. No obstructing urinary tract calculus. 4. Infrarenal abdominal aorta is mildly aneurysmal measuring 3.1 cm in the AP dimension. No evidence for rupture. Follow-up imaging in 3 years is recommended. Laboratory Results WBC 9.85 10^3/uL (3.29-11.43) 10/04/24 14:39 RBC 5.42 10^6/uL (3.85-5.65) 10/04/24 14:39 Hgb 14.90 g/dL (11.27-16.99) 10/04/24 14:39 Hct 45.4 % (37-53) 10/04/24 14:39 MCV 83.8 fl (82-101) 10/04/24 14:39 MCH 27.5 pg (27-33) 10/04/24 14:39 MCHC 32.8 g/dL (30-55) 10/04/24 14:39 RDW 15.2 % (12.1-15.1) H 10/04/24 14:39 Plt Count 282 10^3/cmm (157-399) 10/04/24 14:39 MPV 9.4 fL (7.4-10.4) 10/04/24 14:39 Neut % (Auto) 75.8 % 10/04/24 14:39 Lymph % (Auto) 14.6 % 10/04/24 14:39 Beltrami % (Auto) 5.6 % 10/04/24 14:39 Eos % (Auto) 3.1 % 10/04/24 14:39 Baso % (Auto) 0.6 % 10/04/24 14:39 Neut # (Auto) 7.46 10^3/uL (1.8-7.7) 10/04/24 14:39 Lymph # (Auto) 1.4 10^3/uL (0.8-4.8) 10/04/24 14:39 Beltrami # (Auto) 0.6 10^3/uL (0.2-0.9) 10/04/24 14:39 Eos # (Auto) 0.3 10^3/uL (0.0-0.8) 10/04/24 14:39 Baso # (Auto) 0.1 10^3/uL (0.0-0.1) 10/04/24 14:39 Nucleated RBC % (auto) 0 % 10/04/24 14:39 Nucleated RBCs # 0.0 /100WBC 10/04/24 14:39 Sodium 140 mmol/L (136-145) 10/04/24 14:39 Potassium 4.4 mmol/L (3.5-5.1) 10/04/24 14:39 Chloride 101 mmol/L (98-107) 10/04/24 14:39 Carbon Dioxide 25 mmol/L (22-29) 10/04/24 14:39 Anion Gap 18.4 (5-19) 10/04/24 14:39 BUN 16 mg/dL (8-23) 10/04/24 14:39 Creatinine 0.9 mg/dL (0.7-1.2) 10/04/24 14:39 GFR Calculation 85.2 mL/min (90-130) L 10/04/24 14:39 Glucose 182 mg/dL (65-115) H 10/04/24 14:39 Calculated Osmolality 296 mOsm/kg (285-295) H 10/04/24 14:39 Calcium 9.9 mg/dL (8.5-10.5) 10/04/24 14:39 Total Bilirubin 0.4 mg/dL (0.15-1.2) 10/04/24 14:39 AST 14 U/L (0-40) 10/04/24 14:39 ALT 17 U/L (0-41) 10/04/24 14:39 Alkaline Phosphatase 84 U/L (40-130) 10/04/24 14:39 Total Protein 7.5 g/dL (6.6-8.7) 10/04/24 14:39 Albumin 4.4 g/dL (3.5-5.2) 10/04/24 14:39 Globulin 3.1 g/dL (1.3-4.6) 10/04/24 14:39 Lipase 21 U/L (13-60) 10/04/24 14:39 Urine Color Yellow (Yellow) 10/04/24 14:30 Urine Appearance Clear (CLEAR) 10/04/24 14:30 Urine pH 6.5 (5-7) 10/04/24 14:30 Ur Specific Karnack 1.020 (1.005-1.030) 10/04/24 14:30 Urine Protein Negative (Negative) 10/04/24 14:30 Urine Glucose (UA) Negative (Normal) 10/04/24 14:30 Urine Ketones Negative (Negative) 10/04/24 14:30 Urine Blood Negative (Negative) 10/04/24 14:30 Urine Nitrate Negative (Negative) 10/04/24 14:30 Urine Bilirubin Negative (Negative) 10/04/24 14:30 Urine Urobilinogen 1.0 mg/dL (Negative) 10/04/24 14:30 Ur Leukocyte Esterase Negative (Negative) 10/04/24 14:30 Urine RBC 0-2 /hpf (0-2) 10/04/24 14:30 Urine WBC 0-5 /hpf (0-5) 10/04/24 14:30 Ur Squamous Epith Cells 0-5 /hpf (0-5) 10/04/24 14:30 Amorphous Sediment Not Reportable 10/04/24 14:30 Urine Bacteria None seen /hpf (NONE) 10/04/24 14:30 Hyaline Casts 0-4 /lpf H 10/04/24 14:30 All radiology interpretation(s) finalized by discharge Discharge Plan Discharge Patient Disposition: Home Clinical Impression: Calculus of right kidney Low back pain Qualifiers: Chronicity: acute Back pain laterality: right Sciatica presence: without sciatica Qualified Code(s): M54.50 - Low back pain, unspecified Condition: Stable Prescriptions: No Action potassium gluconate 595 mg (99 mg) tablet 595 mg PO DAILY@05 lisinopril-hydrochlorothiazide 10-12.5 mg tablet 0.5 tab PO DAILY@05 gabapentin 300 mg capsule 600 mg .ROUTE TID Rx Instructions: 600 mg three times daily; furosemide 20 mg tablet 20 mg PO DAILY PRN (Reason: Edema) Qty: 90 3RF aspirin 325 mg tablet 325 mg PO DAILY Qty: 90 0RF clopidogrel 75 mg tablet 75 mg PO DAILY@05 Qty: 90 3RF rosuvastatin 20 mg tablet See Rx Instructions .ROUTE .COMPLEX Qty: 90 3RF Dose Instruction: TAKE ONE TABLET BY MOUTH AT BEDTIME Rx Instructions: TAKE ONE TABLET BY MOUTH AT BEDTIME hydrocodone-acetaminophen 10-325 mg tablet 1 tab PO Q6H MDD 4 tabs PRN (Reason: Pain) nitroglycerin [Nitrostat] 0.4 mg Tablet, Sublingual 0.4 mg SUBLINGUAL Q5M PRN (Reason: Chest Pain) Rx Instructions: do not exceed 3 doses per episode insulin glargine [Lantus Solostar U-100 Insulin] 100 unit/mL (3 mL) insulin pen 10 unit SUBCUT BEDTIME@17 pantoprazole 40 mg tablet,delayed release (DR/EC) 40 mg PO DAILY@05 metformin 500 mg tablet extended release 24 hr 500 mg PO BID@, Discharge Orders: Discharge ED (Routine); Ordered 10/04/24 Ordered By: Jose Maria Sevilla Referrals: Syeda Bender MD [Primary Care Provider] - Patient Instructions: Kidney Stones (ED) Activity Restrictions/Additional Instructions: Continue taking your pain medications at home. Follow-up with urology. If your pain is musculoskeletal in nature, apply heat to your right lower back and general rest and recovery. If pain significantly worsens, return for reevaluation. 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 [employer] Documented by User: Suleiman Luz DO 10/05/24 14:09 HPI - Abdominal Pain 2 General: Chief Complaint: Abdominal Pain Stated Complaint: back injury, pain increased Time Seen by Provider: 10/04/24 14:01 Related Data Home Medications Medication Instructions Recorded Confirmed potassium gluconate 595 mg (99 mg) 595 mg PO DAILY@06/27/20 05/04/24 tablet hydrocodone 10 mg-acetaminophen 1 tab PO Q6H PRN Pain 01/11/22 05/04/24 325 mg tablet pantoprazole 40 mg tablet,delayed 40 mg PO DAILY@02/21/23 05/04/24 release metformin 500 mg tablet,extended 500 mg PO BID@,09/19/23 05/04/24 release 24 hr nitroglycerin 0.4 mg sublingual 0.4 mg sublingual Q5M PRN Chest 01/05/24 05/04/24 tablet (Nitrostat) Pain lisinopril 10 0.5 tab PO DAILY@05 03/03/24 05/04/24 mg-hydrochlorothiazide 12.5 mg tablet insulin glargine 100 unit/mL (3 10 unit SUBCUT BEDTIME@17 05/04/24 05/04/24 mL) subcutaneous pen (Lantus Solostar U-100 Insulin) gabapentin 300 mg capsule 600 mg .Route TID 08/31/24 Previous Rx's Medication Instructions Recorded furosemide 20 mg tablet 20 mg PO DAILY PRN Edema #90 tabs 10/21/23 aspirin 325 mg tablet 325 mg PO DAILY #90 tabs 01/15/24 clopidogrel 75 mg tablet 75 mg PO DAILY@05 #90 tabs 08/21/24 rosuvastatin 20 mg tablet See Rx Instructions .Route 09/17/24 .COMPLEX #90 tabs Allergies Allergy/AdvReac Type Severity Reaction Status Date / Time Beta-Blockers Allergy ADR-Confusi Verified 08/31/24 13:10 (Beta-Adrenergic Bloc on/Sweating PFSH ED 2 PFSH: Medical History Cigarette smoker motivated to quit PAD (peripheral artery disease) Encounter for tobacco use cessation counseling Sleep apnea in adult Kidney stones Stroke CAD (coronary artery disease) COPD (chronic obstructive pulmonary disease) Hyperlipidemia Hypertension Opioid contract exists Encounter for long-term use of opiate analgesic Tobacco abuse Smoking cessation discussed with patient in detail for 3-10 minutes. -he has cut back to 15 cigs/day Surgical History S/P CABG x 4 History of ureter stent Stented coronary artery H/O angioplasty Family History Other Adopted Social History Smoking and tobacco/nicotine status: current every day tobacco/nicotine user (1 ppd) cigarettes Packs smoked per day: 0.75 Alcohol intake: never Substance/Drug Use: never Adopted: Yes Household members: family Housing: House Course 2 Vital Signs: Vital signs: Vital Signs Temperature 97.8 F 10/04/24 12:40 Pulse Rate 85 10/04/24 16:33 Respiratory Rate 16 10/04/24 16:33 Blood Pressure 125/71 10/04/24 16:33 Pulse Oximetry 97 10/04/24 16:33 Oxygen Delivery Me thod Room Air 10/04/24 12:40 MDM - Abdominal Pain Medical Decision Making Patient has significant history of kidney stones, has had bilateral ureteral stents placed. 4 days ago began having right flank pain that began in the right lower quadrant and has since moved to the right flank. States this feels identical to prior kidney stones. His lab work today was normal, urinalysis did not show any signs of blood or infection. CT did not demonstrate any stones in the ureter, did show a large stone in the right kidney. Due to the location of his pain, this favors a musculoskeletal pain. He requested morphine here, which controlled his pain. He already takes Creede at home for chronic back issues. Did give him 1 dose of tamsulosin here at his request, and referred to urology as he has not seen urology in many years. Encouraged to increase his fluid intake and he will return with any new or worsening. Patient comfortable discharge home at this time. Chart reviewed Lab Data 10/04/24 14:39 10/04/24 14:39 Labs/Radiology: Radiology Impressions Abdomen/Pelvis CT 10/04/24 14:09 IMPRESSION: 1. Fatty infiltration of the liver. 2. Cholelithiasis. 3. There is a punctate nonobstructing right renal calculus. No obstructing urinary tract calculus. 4. Infrarenal abdominal aorta is mildly aneurysmal measuring 3.1 cm in the AP dimension. No evidence for rupture. Follow-up imaging in 3 years is recommended. Laboratory Results WBC 9.85 10^3/uL (3.29-11.43) 10/04/24 14:39 RBC 5.42 10^6/uL (3.85-5.65) 10/04/24 14:39 Hgb 14.90 g/dL (11.27-16.99) 10/04/24 14:39 Hct 45.4 % (37-53) 10/04/24 14:39 MCV 83.8 fl (82-101) 10/04/24 14:39 MCH 27.5 pg (27-33) 10/04/24 14:39 MCHC 32.8 g/dL (30-55) 10/04/24 14:39 RDW 15.2 % (12.1-15.1) H 10/04/24 14:39 Plt Count 282 10^3/cmm (157-399) 10/04/24 14:39 MPV 9.4 fL (7.4-10.4) 10/04/24 14:39 Neut % (Auto) 75.8 % 10/04/24 14:39 Lymph % (Auto) 14.6 % 10/04/24 14:39 Beltrami % (Auto) 5.6 % 10/04/24 14:39 Eos % (Auto) 3.1 % 10/04/24 14:39 Baso % (Auto) 0.6 % 10/04/24 14:39 Neut # (Auto) 7.46 10^3/uL (1.8-7.7) 10/04/24 14:39 Lymph # (Auto) 1.4 10^3/uL (0.8-4.8) 10/04/24 14:39 Beltrami # (Auto) 0.6 10^3/uL (0.2-0.9) 10/04/24 14:39 Eos # (Auto) 0.3 10^3/uL (0.0-0.8) 10/04/24 14:39 Baso # (Auto) 0.1 10^3/uL (0.0-0.1) 10/04/24 14:39 Nucleated RBC % (auto) 0 % 10/04/24 14:39 Nucleated RBCs # 0.0 /100WBC 10/04/24 14:39 Sodium 140 mmol/L (136-145) 10/04/24 14:39 Potassium 4.4 mmol/L (3.5-5.1) 10/04/24 14:39 Chloride 101 mmol/L (98-107) 10/04/24 14:39 Carbon Dioxide 25 mmol/L (22-29) 10/04/24 14:39 Anion Gap 18.4 (5-19) 10/04/24 14:39 BUN 16 mg/dL (8-23) 10/04/24 14:39 Creatinine 0.9 mg/dL (0.7-1.2) 10/04/24 14:39 GFR Calculation 85.2 mL/min (90-130) L 10/04/24 14:39 Glucose 182 mg/dL (65-115) H 10/04/24 14:39 Calculated Osmolality 296 mOsm/kg (285-295) H 10/04/24 14:39 Calcium 9.9 mg/dL (8.5-10.5) 10/04/24 14:39 Total Bilirubin 0.4 mg/dL (0.15-1.2) 10/04/24 14:39 AST 14 U/L (0-40) 10/04/24 14:39 ALT 17 U/L (0-41) 10/04/24 14:39 Alkaline Phosphatase 84 U/L (40-130) 10/04/24 14:39 Total Protein 7.5 g/dL (6.6-8.7) 10/04/24 14:39 Albumin 4.4 g/dL (3.5-5.2) 10/04/24 14:39 Globulin 3.1 g/dL (1.3-4.6) 10/04/24 14:39 Lipase 21 U/L (13-60) 10/04/24 14:39 Urine Color Yellow (Yellow) 10/04/24 14:30 Urine Appearance Clear (CLEAR) 10/04/24 14:30 Urine pH 6.5 (5-7) 10/04/24 14:30 Ur Specific [place] 1.020 (1.005-1.030) 10/04/24 14:30 Urine Protein Negative (Negative) 10/04/24 14:30 Urine Glucose (UA) Negative (Normal) 10/04/24 14:30 Urine Ketones Negative (Negative) 10/04/24 14:30 Urine Blood Negative (Negative) 10/04/24 14:30 Urine Nitrate Negative (Negative) 10/04/24 14:30 Urine Bilirubin Negative (Negative) 10/04/24 14:30 Urine Urobilinogen 1.0 mg/dL (Negative) 10/04/24 14:30 Ur Leukocyte Esterase Negative (Negative) 10/04/24 14:30 Urine RBC 0-2 /hpf (0-2) 10/04/24 14:30 Urine WBC 0-5 /hpf (0-5) 10/04/24 14:30 Ur Squamous Epith Cells 0-5 /hpf (0-5) 10/04/24 14:30 Amorphous Sediment Not Reportable 10/04/24 14:30 Urine Bacteria None seen /hpf (NONE) 10/04/24 14:30 Hyaline Casts 0-4 /lpf H 10/04/24 14:30 Discharge Plan Discharge Patient Disposition: Home Clinical Impression: Calculus of right kidney Low back pain Qualifiers: Chronicity: acute Back pain laterality: right Sciatica presence: without sciatica Qualified Code(s): M54.50 - Low back pain, unspecified Condition: Stable Prescriptions: No Action potassium gluconate 595 mg (99 mg) tablet 595 mg PO DAILY@05 lisinopril-hydrochlorothiazide 10-12.5 mg tablet 0.5 tab PO DAILY@05 gabapentin 300 mg capsule 600 mg .ROUTE TID Rx Instructions: 600 mg three times daily; furosemide 20 mg tablet 20 mg PO DAILY PRN (Reason: Edema) Qty: 90 3RF aspirin 325 mg tablet 325 mg PO DAILY Qty: 90 0RF clopidogrel 75 mg tablet 75 mg PO DAILY@05 Qty: 90 3RF rosuvastatin 20 mg tablet See Rx Instructions .ROUTE .COMPLEX Qty: 90 3RF Dose Instruction: TAKE ONE TABLET BY MOUTH AT BEDTIME Rx Instructions: TAKE ONE TABLET BY MOUTH AT BEDTIME hydrocodone-acetaminophen 10-325 mg tablet 1 tab PO Q6H MDD 4 tabs PRN (Reason: Pain) nitroglycerin [Nitrostat] 0.4 mg Tablet, Sublingual 0.4 mg SUBLINGUAL Q5M PRN (Reason: Chest Pain) Rx Instructions: do not exceed 3 doses per episode insulin glargine [Lantus Solostar U-100 Insulin] 100 unit/mL (3 mL) insulin pen 10 unit SUBCUT BEDTIME@17 pantoprazole 40 mg tablet,delayed release (DR/EC) 40 mg PO DAILY@05 metformin 500 mg tablet extended release 24 hr 500 mg PO BID@,17 Discharge Orders: Discharge ED (Routine); Ordered 10/04/24 Ordered By: Jose Maria Sevilla Referrals: Syeda Bender MD [Primary Care Provider] - Patient Instructions: Kidney Stones (ED) Activity Restrictions/Additional Instructions: Continue taking your pain medications at home. Follow-up with urology. If your pain is musculoskeletal in nature, apply heat to your right lower back and general rest and recovery. If pain significantly worsens, return for reevaluation. 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 [employer]
[2024-10-04 14:46] LABS: Basophils # 0.1 10^3/uL (0.0-0.1); Basophils % 0.6 %; Eosinophils # 0.3 10^3/uL (0.0-0.8); Eosinophils % 3.1 %; Hematocrit 45.4 % (37-53); Lymphocytes # 1.4 10^3/uL (0.8-4.8); Lymphocytes % 14.6 %; Mean Corpuscular HGB Conc 32.8 g/dL (30-55); Mean Corpuscular Hemoglobin 27.5 pg (27-33); Mean Corpuscular Volume 83.8 fl (82-101); Mean Platelet Volume 9.4 fL (7.4-10.4); Monocytes # 0.6 10^3/uL (0.2-0.9); Monocytes % 5.6 %; Neutrophils # 7.46 10^3/uL (1.8-7.7); Neutrophils % 75.8 %; Nucleated Red Blood Cells % 0 %; Platelet Count 282 10^3/cmm (157-399); Red Blood Count 5.42 10^6/uL (3.85-5.65); Red Cell Distribution Width 15.2 % (12.1-15.1); White Blood Count 9.85 10^3/uL (3.29-11.43)
[2024-10-04 14:48] LABS: Bilirubin Urine Negative (Negative); Blood Urine Negative (Negative); Glucose Urine UA Negative (Normal); Ketones Urine Negative (Negative); Leukocyte Esterase Urine Negative (Negative); Nitrate Urine Negative (Negative); Protein Urine Negative (Negative); Urine Appearance Clear (CLEAR); Urine Color Yellow (Yellow); pH Urine 6.5 (5-7)
[2024-10-04 14:53] LABS: Add Urine Microscopic? YES; Bacteria Urine None Seen /hpf; Hyaline Casts Urine 0-4 /lpf; RBC Urine 0-2 /hpf (0-2); Squamous Epithelial Cell Urine 0-5 /hpf (0-5); WBC Urine 0-5 /hpf (0-5)
[2024-10-04 14:59] VITALS: RESP 18; O2SAT 98
[2024-10-04] MEDS: ondansetron 2 mg/ML SDV 2 mL 8 MG IVP (14:59)
[2024-10-04] MEDS: morphine 4 mg/mL SDV 1 mL IVP (14:59)
[2024-10-04 15:06] LABS: Alanine Aminotransferase 17 U/L (0-41); Albumin Level 4.4 g/dL (3.5-5.2); Alkaline Phosphatase 84 U/L (40-130); Anion Gap 18.4 (5-19); Aspartate Amino Transferase 14 U/L (0-40); Blood Urea Nitrogen 16 mg/dL (8-23); Calcium 9.9 mg/dL (8.5-10.5); Carbon Dioxide 25 mmol/L (22-29); Chloride 101 mmol/L (98-107); Creatinine Clr Calc Pharmacy 88.6061; Globulin 3.1 g/dL (1.3-4.6); Glomerular Filtration Rate 85.2 mL/min (90-130); Glucose 182 mg/dL (65-115); Lipase 21 U/L (13-60); Osmolality Calculated 296 mOsm/kg (285-295); Potassium 4.4 mmol/L (3.5-5.1); Sodium 140 mmol/L (136-145); Total Bilirubin 0.4 mg/dL (0.15-1.2); Total Protein 7.5 g/dL (6.6-8.7)
[2024-10-04] MEDS: tamsulosin 0.4 mg Capsule PO (16:10)
[2024-10-04] MEDS: morphine 4 mg/mL SDV 1 mL 2 MG IVP (16:10)
[2024-10-04 16:33] VITALS: BP 125/71; PULSE 85; RESP 16; O2SAT 97
--- NOTE | 2024-10-07 09:49 | DCPLANNER ---
Referral sent to [facility] urolog
== END 2024-10-04 16:32 | disposition home or self-care (01) ==
PROVIDERS: Emergency Provider Physician Assistant; PCP Family Medicine
DX: N20.0 Calculus of kidney (principal); M54.50 Low back pain, unspecified; Z79.82 Long term (current) use of aspirin; Z79.02 Long term (current) use of antithrombotics/antiplatelets; Z79.4 Long term (current) use of insulin; F17.210 Nicotine dependence, cigarettes, uncomplicated; I25.10 Atherosclerotic heart disease of native coronary artery without angina pectoris; E78.5 Hyperlipidemia, unspecified; I10 Essential (primary) hypertension
CPT/HCPCS: 74176; 80053; 81001; 83690; 85025; 96374; 96375; 96376; 99285; J2270; J2405

== ENCOUNTER 2024-12-12 11:41 | Emergency (ER) | payer MEDICAID, SELFPAY ==
[2024-12-12] VITALS (7 sets, daily range): BP systolic 116–145; BP diastolic 62–72; PULSE 101–110; RESP 20–28; TEMP 37.1; O2SAT 87–94; BMI 32.3
--- NOTE | 2024-12-12 11:51 | XRR_ITS ---
PROCEDURE INFORMATION: Exam: XR Chest Exam date and time: 12/12/2024 12:28 PM Age: 64 years old Clinical indication: Shortness of breath; Prior surgery; Surgery date: 6+ months; Surgery type: Cabg; SOB; Cough; Congestion TECHNIQUE: Imaging protocol: Radiologic exam of the chest. Views: 1 view. COMPARISON: CR XR chest 1V portable [id number] 02/13/2024 7:26 PM FINDINGS: Tubes, catheters and devices: Surgical clips overlie the mediastinum. Lungs: Bilateral pulmonary linear interstitial opacities identified within lower lungs. The pulmonary opacities are most prominent within the lower left lung. The bilateral upper lungs appear clear. Pleural spaces: No pleural effusion. No pneumothorax. Heart/Mediastinum: Cardiac silhouette appears [id number] enlarged. Vasculature: [id number] atherosclerotic calcification demonstrated within the aorta. Bones/joints: Sternotomy wires, hardware is demonstrated. Mild to moderate generalized bony degenerative changes. Bony structures appear otherwise unremarkable. Generalized bony degenerative changes. XR/XR chest 1V portable [id number] IMPRESSION: 1. [id number] enlarged cardiac silhouette. 2. Pulmonary atelectasis or acute infiltrates within lower chest bilaterally.
--- NOTE | 2024-12-12 11:52 | ECG_ITS ---
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: : 1960 Requested By: Brent Fisher Order Number: [id number] Shonda MD: ELIZABETH MACIAS Measurements Intervals [place] Rate: 105 P: 71 TN: 151 QRS: 22 QRSD: 124 T: 129 QT: 338 QTc: 447 Interpretive Statements SINUS TACHYCARDIA RIGHT BUNDLE BRANCH BLOCK [120+ ms QRS DURATION, UPRIGHT V1, 40+ ms S IN I/aVL/V4/V5/V6] INFERIOR MYOCARDIAL INFARCTION , PROBABLY OLD [40+ ms Q WAVE AND/OR ST/T ABNORMALITY IN II/aVF] MARKED T-WAVE ABNORMALITY, CONSIDER ANTEROLATERAL ISCHEMIA [-0.5+ mV T-WAVE IN I/aVL/V3-V6] Compared to ECG 08/31/2024 13:49:25 Sinus rhythm no longer present Myocardial infarct finding still present T-wave abnormality still present Possible ischemia still present Electronically Signed On 12-13-2024 20:59:15 PUBLICITY DIRECTOR by ELIZABETH MACIAS [id number]
[2024-12-12 12:22] LABS: Basophils % 0.3 %; Eosinophils % 0.1 %; Hematocrit 43.9 % (37-53); Lymphocytes # 1.1 10^3/uL (0.8-4.8); Lymphocytes % 7.3 %; Mean Corpuscular HGB Conc 32.6 g/dL (30-55); Mean Corpuscular Hemoglobin 28.7 pg (27-33); Mean Platelet Volume 9.6 fL (7.4-10.4); Monocytes # 0.7 10^3/uL (0.2-0.9); Neutrophils # 12.73 10^3/uL (1.8-7.7); Neutrophils % 86.8 %; Nucleated Red Blood Cells % 0 %; Platelet Count 224 10^3/cmm (157-399); Red Blood Count 4.99 10^6/uL (3.85-5.65); Red Cell Distribution Width 13.6 % (12.1-15.1); White Blood Count 14.65 10^3/uL (3.29-11.43)
[2024-12-12 12:36] LABS: Troponin(5th) Baseline 31 ng/L (0-15)
[2024-12-12 12:39] LABS: Alanine Aminotransferase 13 U/L (0-41); Albumin Level 4.3 g/dL (3.5-5.2); Alkaline Phosphatase 84 U/L (40-130); Anion Gap 19.8 (5-19); Aspartate Amino Transferase 11 U/L (0-40); Blood Urea Nitrogen 20 mg/dL (8-23); Calcium 9.4 mg/dL (8.5-10.5); Carbon Dioxide 26 mmol/L (22-29); Chloride 93 mmol/L (98-107); Creatinine Clr Calc Pharmacy 66.4546; Globulin 2.8 g/dL (1.3-4.6); Glomerular Filtration Rate 61.1 mL/min (90-130); Glucose 240 mg/dL (65-115); Osmolality Calculated 288 mOsm/kg (285-295); Potassium 4.8 mmol/L (3.5-5.1); Sodium 134 mmol/L (136-145); Total Bilirubin 0.6 mg/dL (0.15-1.2); Total Protein 7.1 g/dL (6.6-8.7)
--- NOTE | 2024-12-12 12:44 | W.ED.SOB ---
HPI - SOB/Dyspnea General: Chief Complaint: Shortness of Breath/Dyspnea Stated Complaint: sob Time Seen by Provider: 12/12/24 11:44 History of Present Illness: HPI Narrative: 64-year-old male presents with some cough, shortness of breath, dyspnea with exertion has been going on for couple weeks but continues to worsen. EMS provided patient DuoNeb and route which he felt a lot better with. They report that when they initially got here he is breathing in the respiratory is around 50 and that improved significant with a DuoNeb. Patient does have a recent sick contact with his kids. He reports that about 3 weeks ago he was seen by his primary care provider and started on on an antibiotic but unsure what it was along with a steroid. Patient reports that his symptoms just continue to worsen. Denies any chest pain. He did have a bypass about a year ago. Associated symptoms: Deny abdominal pain, chest pain, nausea or vomiting Related Data Home Medications ?Medication ?Instructions ?Recorded ?Confirmed pantoprazole 40 mg tablet,delayed 40 mg PO DAILY@02/21/23 12/12/24 release metformin 500 mg tablet,extended 500 mg PO BID@09/19/23 12/12/24 release 24 hr nitroglycerin 0.4 mg sublingual 0.4 mg sublingual Q5M PRN Chest 01/05/24 12/12/24 tablet (Nitrostat) Pain lisinopril 10 1 tab PO DAILY 03/03/24 12/12/24 mg-hydrochlorothiazide 12.5 mg tablet insulin glargine 100 unit/mL (3 15 unit SUBCUT DAILY 05/04/24 12/12/24 mL) subcutaneous pen (Lantus Solostar U-100 Insulin) dulaglutide 0.75 mg/0.5 mL 0.75 mg SUBCUT Q7D 12/12/24 12/12/24 subcutaneous pen injector (Trulicity) gabapentin 800 mg tablet 800 mg PO TID 12/12/24 12/12/24 hydrocodone 10 mg-acetaminophen 1 tab PO Q8H 12/12/24 12/12/24 325 mg tablet rosuvastatin 20 mg tablet 20 mg PO QPM 12/12/24 12/12/24 Previous Rx's ?Medication ?Instructions ?Recorded aspirin 325 mg tablet 325 mg PO DAILY #90 tabs 01/15/24 clopidogrel 75 mg tablet 75 mg PO DAILY@05 #90 tabs 08/21/24 Allergies Allergy/AdvReac Type Severity Reaction Status Date / Time Beta-Blockers Allergy ADR-Confusi Verified 08/31/24 13:10 (Beta-Adrenergic Bloc on/Sweating Review of Systems Const: Reports: fatigue and malaise Card: Reports: dyspnea on exertion; Denies: chest pain Resp: Reports: dyspnea, productive cough and wheezing GI: Denies: abdominal pain, nausea or vomiting : Denies: flank pain or difficulty urinating Musc: Reports: neck pain Skin/Breast: Denies: rash PFSH ED PFSH: Medical History Cigarette smoker motivated to quit PAD (peripheral artery disease) Encounter for tobacco use cessation counseling Sleep apnea in adult Kidney stones Stroke CAD (coronary artery disease) COPD (chronic obstructive pulmonary disease) Hyperlipidemia Hypertension Opioid contract exists Encounter for long-term use of opiate analgesic Tobacco abuse Smoking cessation discussed with patient in detail for 3-10 minutes. -he has cut back to 15 cigs/day Surgical History S/P CABG x 4 History of ureter stent Stented coronary artery H/O angioplasty Family History Other Adopted Social History Smoking and tobacco/nicotine status: current every day tobacco/nicotine user (1 ppd) cigarettes Packs smoked per day: 0.75 Alcohol intake: never Substance/Drug Use: never Adopted: Yes Household members: family Housing: House Physical Exam Const: NUTRITIONAL APPEARANCE: obese Resp: EFFORT & INSPECTION: Yes tachypneic and Yes Actively coughing AUSCULTATION: rhonchi throughout and bronchial breath sounds Cardio: COMMON NORMALS: regular rhythm RATE: tachycardic RHYTHM: regular rhythm GI: COMMON NORMALS: Soft to palpation and non-tender PALPATION: Yes Soft to palpation Course Vital Signs: Vital signs: Vital Signs Temperature 98.8 F 12/12/24 11:46 Pulse Rate 105 H 12/12/24 14:00 Respiratory Rate 28 H 12/12/24 14:00 Blood Pressure 143/68 12/12/24 14:00 Pulse Oximetry 94 12/12/24 14:00 Oxygen Delivery Me thod Nasal Cannula 12/12/24 14:00 Oxygen Flow Rate 1.5 12/12/24 14:00 MDM - SOB/Dyspnea Medical Decision Making Patient's diagnostic studies were ordered reviewed interpreted by me. Patient is positive for influenza A. He does have a slight white count. He is mildly tachycardic and has some mild increased oxygen need. He usually uses oxygen at home at night but has been using all of it during the day. I did obtain a CTA to evaluate for PE that was negative. He does have may be early pneumonia. Discussed hospitalization with patient however he would declined. He would prefer to try to manage on outpatient basis. I will start him on Tamiflu due to his underlying medical conditions. He will return to the ER if his symptoms continue to worsen. He is stable at discharge. Lab Data 12/12/24 12:11 12/12/24 12:11 Labs/Radiology: Radiology Impressions Chest X-Ray 12/12/24 11:51 IMPRESSION: 1. [id number] enlarged cardiac silhouette. 2. Pulmonary atelectasis or acute infiltrates within lower chest bilaterally. Chest CTA 12/12/24 13:13 IMPRESSION: 1. No visualized pulmonary embolus. 2. Bilateral bronchial wall thickening and mucous plugging suggesting bronchitis. 3. Mild enlarged cardiac silhouette. Coronary arterial calcifications. 4. Pulmonary emphysema. Linear bilateral lower chest pulmonary atelectasis, or scarring. 5. Indeterminate bilateral lung nodules measuring up to 6 mm. See Fleischner guideline recommendations below. 6. Cholelithiasis. 7. Moderate to severe hepatic steatosis. Nonspecific heterogeneous and irregular appearance of the liver. Recommend correlation with liver function tests. 8. Chronic findings. For patients at low risk (minimal or absent history of smoking and of other known risk factors), recommend CT Chest at 3-6 months, then consider CT Chest at 18-24 months. For patients at high risk (history of smoking or of other known risk factors), recommend CT Chest at 3-6 months, then CT Chest at 18-24 months. (Reference: Vivian) References: Vivian Omalley et al. Guidelines for Management of Incidental Pulmonary Nodules Detected on CT Images: From the Fleischner Society 2017. Radiology. 2017;284(1):228-243. COMMENTS: The presence of pulmonary emphysema on CT is an independent risk factor for lung cancer. In the absence of a history or active diagnosis of lung cancer, it is recommended that this patient with emphysema be evaluated for enrollment in a low dose CT lung cancer screening program. Laboratory Results WBC 14.65 10^3/uL (3.29-11.43) H 12/12/24 12:11 RBC 4.99 10^6/uL (3.85-5.65) 12/12/24 12:11 Hgb 14.30 g/dL (11.27-16.99) 12/12/24 12:11 Hct 43.9 % (37-53) 12/12/24 12:11 MCV 88.0 fl (82-101) 12/12/24 12:11 MCH 28.7 pg (27-33) 12/12/24 12:11 MCHC 32.6 g/dL (30-55) 12/12/24 12:11 RDW 13.6 % (12.1-15.1) 12/12/24 12:11 Plt Count 224 10^3/cmm (157-399) 12/12/24 12:11 MPV 9.6 fL (7.4-10.4) 12/12/24 12:11 Neut % (Auto) 86.8 % 12/12/24 12:11 Lymph % (Auto) 7.3 % 12/12/24 12:11 Teller % (Auto) 5.0 % 12/12/24 12:11 Eos % (Auto) 0.1 % 12/12/24 12:11 Baso % (Auto) 0.3 % 12/12/24 12:11 Neut # (Auto) 12.73 10^3/uL (1.8-7.7) H 12/12/24 12:11 Lymph # (Auto) 1.1 10^3/uL (0.8-4.8) 12/12/24 12:11 Teller # (Auto) 0.7 10^3/uL (0.2-0.9) 12/12/24 12:11 Eos # (Auto) 0.0 10^3/uL (0.0-0.8) 12/12/24 12:11 Baso # (Auto) 0.0 10^3/uL (0.0-0.1) 12/12/24 12:11 Nucleated RBC % (auto) 0 % 12/12/24 12:11 Nucleated RBCs # 0.0 /100WBC 12/12/24 12:11 Sodium 134 mmol/L (136-145) L 12/12/24 12:11 Potassium 4.8 mmol/L (3.5-5.1) 12/12/24 12:11 Chloride 93 mmol/L (98-107) L 12/12/24 12:11 Carbon Dioxide 26 mmol/L (22-29) 12/12/24 12:11 Anion Gap 19.8 (5-19) H 12/12/24 12:11 BUN 20 mg/dL (8-23) 12/12/24 12:11 Creatinine 1.2 mg/dL (0.7-1.2) 12/12/24 12:11 GFR Calculation 61.1 mL/min (90-130) L 12/12/24 12:11 Glucose 240 mg/dL (65-115) H 12/12/24 12:11 Calculated Osmolality 288 mOsm/kg (285-295) 12/12/24 12:11 Calcium 9.4 mg/dL (8.5-10.5) 12/12/24 12:11 Total Bilirubin 0.6 mg/dL (0.15-1.2) 12/12/24 12:11 AST 11 U/L (0-40) 12/12/24 12:11 ALT 13 U/L (0-41) 12/12/24 12:11 Alkaline Phosphatase 84 U/L (40-130) 12/12/24 12:11 Troponin T Baseline 31 ng/L (0-15) H 12/12/24 12:11 NT-Pro-B Natriuret Pep 2120 pg/mL (0-125) H 12/12/24 12:11 Total Protein 7.1 g/dL (6.6-8.7) 12/12/24 12:11 Albumin 4.3 g/dL (3.5-5.2) 12/12/24 12:11 Globulin 2.8 g/dL (1.3-4.6) 12/12/24 12:11 Adenovirus (PCR) Not detected (NOT DETECT) 12/12/24 12:11 C. pneumoniae DNA (PCR) Not detected (NOT DETECT) 12/12/24 12:11 Coronavirus 229E (PCR) Not detected (NOT DETECT) 12/12/24 12:11 Human Metapneumovir PCR Not detected (NOT DETECT) 12/12/24 12:11 Influenza A (H1) PCR Not detected (NOT DETECT) 12/12/24 12:11 Influ A (H1/09) PCR Detected (NOT DETECT) A 12/12/24 12:11 Influenza A (H3) PCR Not detected (NOT DETECT) 12/12/24 12:11 Influenza Type A (PCR) Detected (NOT DETECT) A 12/12/24 12:11 Influenza Type B (PCR) Not detected (NOT DETECT) 12/12/24 12:11 M. pneumoniae (PCR) Not detected (NOT DETECT) 12/12/24 12:11 Parainfluenza 1 (PCR) Not detected (NOT DETECT) 12/12/24 12:11 Parainfluenza 2 (PCR) Not detected (NOT DETECT) 12/12/24 12:11 Parainfluenza 3 (PCR) Not detected (NOT DETECT) 12/12/24 12:11 Parainfluenza 4 (PCR) Not detected (NOT DETECT) 12/12/24 12:11 RSV Type A (PCR) Not detected (NOT DETECT) 12/12/24 12:11 RSV Type B (PCR) Not detected (NOT DETECT) 12/12/24 12:11 Entero/Rhino (PCR) Not detected (NOT DETECT) 12/12/24 12:11 SARS-CoV-2 (PCR) Not detected (NOT DETECT) 12/12/24 12:11 All radiology interpretation(s) finalized by discharge Discharge Plan Discharge Condition: Stable Prescriptions: No Action lisinopril-hydrochlorothiazide 10-12.5 mg tablet 1 tab PO DAILY aspirin 325 mg tablet 325 mg PO DAILY Qty: 90 0RF clopidogrel 75 mg tablet 75 mg PO DAILY@05 Qty: 90 3RF nitroglycerin [Nitrostat] 0.4 mg Tablet, Sublingual 0.4 mg SUBLINGUAL Q5M PRN (Reason: Chest Pain) Rx Instructions: do not exceed 3 doses per episode insulin glargine [Lantus Solostar U-100 Insulin] 100 unit/mL (3 mL) insulin pen 15 unit SUBCUT DAILY pantoprazole 40 mg tablet,delayed release (DR/EC) 40 mg PO DAILY@05 metformin 500 mg tablet extended release 24 hr 500 mg PO BID@05,17 hydrocodone-acetaminophen 10-325 mg tablet 1 tab PO Q8H gabapentin 800 mg tablet 800 mg PO TID Trulicity 0.75 mg/0.5 mL pen injector 0.75 mg SUBCUT Q7D rosuvastatin 20 mg tablet 20 mg PO QPM Rx Instructions: TAKE ONE TABLET BY MOUTH AT BEDTIME Referrals: Syeda Bender MD [Primary Care Provider] - Print Language: Spanish Coding Level of Care Code ED Records Clerk for Nicog Estela
[2024-12-12] MEDS: ipratropium-albuterol 3 mL Neb INHALATION (13:10)
[2024-12-12 13:12] LABS: NT Pro B Type Natriuretic Pept 2120 pg/mL (0-125)
--- NOTE | 2024-12-12 13:13 | CTR_ITS ---
PROCEDURE INFORMATION: Exam: CTA Chest With Contrast Exam date and time: 12/12/2024 1:25 PM Age: 64 years old Clinical indication: Shortness of breath; Additional info: SOB, tachycardia TECHNIQUE: Imaging protocol: Computed tomographic angiography of the chest with contrast. Exam focused on the arteries. 3D rendering (Not supervised by radiologist): MIP and/or 3D reconstructed images were created by the technologist. Radiation optimization: All CT scans at this facility use at least one of these dose optimization techniques: automated exposure control; mA and/or kV adjustment per patient size (includes targeted exams where dose is matched to clinical indication); or iterative reconstruction. Contrast material: OMNIPAQUE 350; Contrast volume: 67 ml; Contrast route: INTRAVENOUS (IV); COMPARISON: CR (CHEST, ) 12/12/2024 12:28 PM RADIATION DOSE METRICS: Total DLP (mGy-cm): 487.57 FINDINGS: Pulmonary arteries: No visualized pulmonary emboli. Great vessels off aortic arch: Unremarkable. Aorta: Moderate atherosclerotic calcification demonstrated within the aorta. Other arteries: Odzk-[id number] diffuse atherosclerotic arterial vascular wall calcifications are demonstrated. Lungs: Pulmonary emphysema identified within the lungs. Diffuse bilateral bronchial wall thickening within the upper and lower chest bilaterally. Prominent bronchial wall thickening within the central perihilar region. Mucous plugging within the lower lobes bilaterally. No pulmonary venous congestion is demonstrated within the lungs. No lung consolidation identified. Linear density identified within bilateral lower lungs. Multiple indeterminate noncalcified lung nodules within bilateral upper and lower chest measuring up to 6 mm. No visualized lung mass. Pleural spaces: Unremarkable. No pneumothorax. No pleural effusion. Heart: Cardiac silhouette appears mildly enlarged. Coronary arteries: Post surgical changes overlie the mediastinum, suggesting previous CABG. Sternotomy wires, hardware are present. Coronary arterial calcifications are demonstrated. Lymph nodes: Enlarged bilateral hilar lymph nodes measure up to 2.8 cm. Enlarged mediastinal lymph nodes measure up to 2.1 cm. Liver: Liver demonstrates diffuse moderate to severe hypodensity. Liver appears heterogeneous with irregular border. Possible hepatic parenchymal disease. Incomplete visualization of the liver on this study. Gallbladder and biliary ducts: Cholelithiasis is demonstrated. Incomplete visualization of the gallbladder. No evidence for biliary dilatation. Pancreas: Pancreas incidental calcifications are noted. Possible chronic pancreatitis, prior granulomatous disease. Bones/joints: Mild to moderate generalized bony degenerative changes. No visualized evidence for acute bony fracture or dislocation. Levoscoliosis of the upper thoracic spine is demonstrated. Bony structures appear otherwise unremarkable. Soft tissues: Unremarkable. CT/CT angio chest PE protcl [id number] IMPRESSION: 1. No visualized pulmonary embolus. 2. Bilateral bronchial wall thickening and mucous plugging suggesting bronchitis. 3. Mild enlarged cardiac silhouette. Coronary arterial calcifications. 4. Pulmonary emphysema. Linear bilateral lower chest pulmonary atelectasis, or scarring. 5. Indeterminate bilateral lung nodules measuring up to 6 mm. See Fleischner guideline recommendations below. 6. Cholelithiasis. 7. Moderate to severe hepatic steatosis. Nonspecific heterogeneous and irregular appearance of the liver. Recommend correlation with liver function tests. 8. Chronic findings. For patients at low risk (minimal or absent history of smoking and of other known risk factors), recommend CT Chest at 3-6 months, then consider CT Chest at 18-24 months. For patients at high risk (history of smoking or of other known risk factors), recommend CT Chest at 3-6 months, then CT Chest at 18-24 months. (Reference: Vivian) References: Vivian Omalley, et al. Guidelines for Management of Incidental Pulmonary Nodules Detected on CT Images: From the Fleischner Society 2017. Radiology. 2017;284(1):228-243. COMMENTS: The presence of pulmonary emphysema on CT is an independent risk factor for lung cancer. In the absence of a history or active diagnosis of lung cancer, it is recommended that this patient with emphysema be evaluated for enrollment in a low dose CT lung cancer screening program.
[2024-12-12] MEDS: iohexol 350 mg/mL 500 mL Btl (per mL) IV (13:31)
[2024-12-12] MEDS: methylPREDNISolone sod succ 125 mg/2 mL INJ IVP (13:56)
[2024-12-12 14:04] LABS: Adenovirus Not Detected (NOT DETECT); Chlamydia Pneumoniae Not Detected (NOT DETECT); Coronavirus 229E,HKU1,NL63,OC4 Not Detected (NOT DETECT); Human Metapneumovirus Not Detected (NOT DETECT); Human Rhinovirus/Enterovirus Not Detected (NOT DETECT); Influenza A Detected (NOT DETECT); Influenza A H1 Not Detected (NOT DETECT); Influenza A H1-2009 Detected (NOT DETECT); Influenza A H3 Not Detected (NOT DETECT); Influenza B Not Detected (NOT DETECT); Mycoplasma Pneumoniae Not Detected (NOT DETECT); Parainfluenza Virus Type 1 Not Detected (NOT DETECT); Parainfluenza Virus Type 2 Not Detected (NOT DETECT); Parainfluenza Virus Type 3 Not Detected (NOT DETECT); Parainfluenza Virus Type 4 Not Detected (NOT DETECT); Respiratory Syncytial Virus A Not Detected (NOT DETECT); Respiratory Syncytial Virus B Not Detected (NOT DETECT); SARS-COV-2 Not Detected (NOT DETECT)
== END 2024-12-12 14:53 | disposition home or self-care (01) ==
PROVIDERS: Emergency Provider Student in an Organized Health Care Education/Training Program; PCP Family Medicine
DX: J10.1 Influenza due to other identified influenza virus with other respiratory manifestations (principal); Z11.52 Encounter for screening for COVID-19; Z79.82 Long term (current) use of aspirin; Z79.02 Long term (current) use of antithrombotics/antiplatelets; Z79.84 Long term (current) use of oral hypoglycemic drugs; Z79.85 Long-term (current) use of injectable non-insulin antidiabetic drugs; F17.210 Nicotine dependence, cigarettes, uncomplicated; Z95.1 Presence of aortocoronary bypass graft; I25.10 Atherosclerotic heart disease of native coronary artery without angina pectoris; J44.9 Chronic obstructive pulmonary disease, unspecified; E78.5 Hyperlipidemia, unspecified
CPT/HCPCS: 36415; 71045; 71275; 80053; 83880; 84484; 85025; 87486; 87581; 87633; 93005; 94640; 96374; 99285; J2919

== ENCOUNTER → 2025-03-25 13:49 | Outpatient (BNVA) | payer MEDICAID, SELFPAY | PROVIDERS: PCP Family Medicine; Visit Provider Internal Medicine Cardiovascular Disease | DX: I25.10 Atherosclerotic heart disease of native coronary artery without angina pectoris (principal); R60.9 Edema, unspecified; R07.9 Chest pain, unspecified; Z79.01 Long term (current) use of anticoagulants; Z79.82 Long term (current) use of aspirin; Z95.1 Presence of aortocoronary bypass graft; Z95.5 Presence of coronary angioplasty implant and graft; F17.210 Nicotine dependence, cigarettes, uncomplicated | CPT/HCPCS: 99214 ==

== ENCOUNTER 2025-05-03 14:41 | Inpatient (IN) | payer MEDICAID, SELFPAY ==
--- OUTSIDE RECORDS SUMMARY | 2012-12-08 19:00 | XMS_ITS | Continuity of Care Document ---
Author Organization [facility] Address [address] [facility] [address] [place] [address] Phone Care Team Providers Care Rolled Seat Trimmer Name Role Phone Janet LÓPEZ, Manny Unavailable Unavailable Procedures Procedure Date ECHO W/DOPPLER, INTERPRETATION 13 Advance Directives Directive Yes / No Effective Date File Name No Information Encounters Encounter Description Practice Location Reason(s) For Visit Diagnoses Date Provider Providers Copied on Encounter [facility], [address] [address], [place], [place], [id number], [place] tel:[phone] [facility] No Information 3 Janet Bryant. [address], [id number], [place]. tel:[phone] Referring Provider: Mack Akers , Hospitalist [address] [place], [address]. tel:[phone] Family History Family Member Type Diagnosis Age At Onset No Information Payers Payer name Insurance type Covered republican ID Authoriza tion(s) No Information Social History Type Description Quantity Date Captured Comments Sex Male Smoking Status No Information Chief Complaint And Reason For Visit No Information Reason For Referral Reason For Referral No Information History Of Present Illness Encounter Date Complaint History Of Prese nt Illness No Information Functional Status Date Functional Assessmen t No Information Instructions Date Instruction Additional Infor mation No Information Assessments Type Assessment Date No Information Patient Care Teams Name Effective Dates (start - stop) Status Members No Information
--- OUTSIDE RECORDS SUMMARY | 2013-05-11 19:00 | XMS_ITS | Continuity of Care Document ---
Author Organization [facility] Address [address] [place] [address] Phone Care Team Providers Care Client Services Analyst Name Role Phone Maksim LÓPEZ, Jb Unavailable Unavailable Advance Directives Directive Yes / No Effective Date File Name No Information Encounters Encounter Description Practice Location Reason(s) For Visit Diagnoses Date Provider Providers Copied on Encounter [facility], [address] [place] [address] Maya Cuello, [place], [place], [id number], [place] tel:[phone] [facility] No Information Maksim Muhammad. [address] [address], [place], [place], [id number], [place]. tel:[phone] Referring Provider: Jb Schaeffer [address] [address], [place], [address]. tel:[phone] Family History Family Member Type Diagnosis Age [...]
[2025-05-03] VITALS (21 sets, daily range): BP systolic 101–137; BP diastolic 51–96; PULSE 74–149; RESP 17–101; TEMP 36.3–36.8; O2SAT 90–97; BMI 33.6
--- NOTE | 2025-05-03 14:46 | XRR_ITS ---
PROCEDURE INFORMATION: Exam: XR Chest Exam date and time: 05/03/2025 2:56 PM Age: 65 years old Clinical indication: Shortness of breath; Prior surgery; Surgery date: 6+ months; Surgery type: Open heart; High heart rate; Additional info: SOB TECHNIQUE: Imaging protocol: Radiologic exam of the chest. Views: 1 view. COMPARISON: CT angio chest PE protcl [id number] 12/12/2024 1:25 PM FINDINGS: Lungs: Mild bibasilar atelectasis or airspace disease. Pleural spaces: No pleural effusion. No pneumothorax. Heart/Mediastinum: Mild cardiomegaly. Postoperative changes of CABG. Bones/joints: No acute abnormality. XR/XR chest 1V portable [id number] IMPRESSION: 1. Mild bibasilar atelectasis or airspace disease. 2. Mild cardiomegaly. Postoperative changes of CABG.
--- OUTSIDE RECORDS SUMMARY | 2025-05-03 14:49 | XMS_ITS | Patient Health Record ---
Author Organization [facility] Address [address] [place], [place] [id number] Care Team Providers Care Records Assistant Name Role Phone Cicso Ruiz Primary Care Provider Bonifacio Dominguez MD, Dre Unavailable [phone] Allergies Allergen (clinical drug ingredient) Drug/Non Drug Allergy documented on EMR Reaction Allergy Type Onset Date Status None or not verifiab le (as is Current Medications) (uncoded) Unknown Allergy Active Reason For Referral No Information Social History Tobacco Use: Social History Observation Description Date Details (start date - stop date) Current Smoker NA - NA Tobacco use: Question Answer Notes : current smoker Are you interested in quitting? Ready to quit How many cigarettes a day do you smoke? 11-20 How often do you smoke cigarettes? every day How soon after you wake up do you smoke your fir st cigarette? 6-30 min Plan Of Treatment No Information Insurance Providers Payer Name Payer Address Payer Phone Subscriber Number Group Number Insured Name Patient Relationship to Insured Coverage Start Date Coverage End Date [place] [employer] [address] [place] [address] [phone] [id number] Shamir Larose Self - patient is the insured Medical (General) History Medical History History ICD Code See scanned documentation. Surgical History Surgery Date(Month/Year) Colonoscopy 01/10/2016 Back surgery 11/18/2004 Heart surgery - Dr. Gamboa 03/23/2014
--- OUTSIDE RECORDS SUMMARY | 2025-05-03 14:49 | XMS_ITS | Data Portability ---
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 Plan of Treatment Reminders Order Date Submit Date Provider Last Modified By Organization Details Last Modified Time Details Appointments None recorded. Lab HbA1c (hemoglobin A1c), blood 2024 025 [email or web address] [id number] [facility], [address], [facility], [place], [address], 5 08:24:35 CMP, serum or plasma 2024 025 [facility], [address], [facility], [place], [address], 5 13:51:26 microalbumi n/creatinin e, mass ratio, urine 2024 025 [employer] [facility], [address] [facility] [address], [address] [place], [address], 5 11:38:14 lipid panel, blood 2024 025 [facility], [address] [facility], [facility], [place], [address], 13:51:28 HbA1c (hemoglobin A1c), blood 2023 024 [facility] ([facility]), [address] [place], [address], 4 12:43:10 Referral None recorded. Procedures None recorded. Surgeries None recorded. Imaging CT, chest, w/o contrast - in May 082024 [address] [facility] Orders, [address] [place], [address], 13:40:23 Medication Orders Breztri Aerosphere 160 mcg-9mcg-4. 8mcg/actuat ion HFA aerosol inhaler 2024 025 [facility], [address] [place] [address], [address], 5 11:48:56 albuterol sulfate HFA 90 mcg/actuati on aerosol inhaler [address], [address], 15:14:30 Trulicity 0.75 mg/0.5 mL subcutaneou s pen injector 2024 025 [facility], [address] [place] [address], [address], 5 09:14:18 doxycycline hyclate 100 mg capsule 2024 025 [facility], [address] [place] [address], [address], 5 11:39:10 prednisone 20 mg tablet 2024 025 [facility], [address] [place] [address], [address], 11:39:10 Patient TargetsNo targets recorded. Patient InstructionsNo instructions recorded. Reason for Referral None Reported. Results Created Date Observation Date Name Description Value Unit Range Abnormal Flag Note LastModifiedBy Organization Detail LastModifiedTime 04/01/20 24 04/01/2024 HbA1c (hemo globi n A1c), blood HbA1c 7.1 Not Available [facility] ([facility]) [address] [place], [address], 04/01/2024 11:52:31 11/16/19 25 11/16/2024 CMP (MALE ) glucose 277.0 mg/dL 60.0-9 9.0 high Not Available [facility] [address], [address], 11/16/2024 13:51:26 11/16/19 25 11/16/2024 CMP (MALE ) BUN (blood urea nitrogen) 24.0 mg/dL 10.0-2 6.0 Not Available [facility] [address], [address], 11/16/2024 13:51:26 11/16/19 25 11/16/2024 CMP (MALE ) creatinine (serum) 0.9 mg/dL 0.4-1. 5 Not Available [facility] [address], [address], 11/16/2024 13:51:26 11/16/19 25 11/16/2024 CMP (MALE ) BUN/creatini ne ratio 26.67 ratio Not Available [facility] [address] [facility] [address], [address], 11/16/2024 13:51:26 11/16/19 25 11/16/2024 CMP (MALE ) eGFR calculated 90.6 Not Available [facility] [address] [facility] 1, [place], [address], 11/16/2024 13:51:26 11/16/19 25 11/16/2024 CMP (MALE ) total protein 8.0 g/dL 6.0-8. 5 Not Available [facility] [address] [facility] [address], [place], [address], 11/16/2024 13:51:26 11/16/19 25 11/16/2024 CMP (MALE ) total bilirubin 0.6 mg/dL 0.2-1. 3 Not Available [facility] [address] [facility], [place], [address], 11/16/2024 13:51:26 11/16/19 25 11/16/2024 CMP (MALE ) albumin 4.4 g/dL 3.5-5. 5 Not Available [facility] [address] [facility] [place], [address], 11/16/2024 13:51:26 11/16/19 25 11/16/2024 CMP (MALE ) globulin 3.6 calc Not Available [facility] [address] [facility] [address] [facility], [place], [address], 11/16/2024 13:51:26 11/16/19 25 11/16/2024 CMP (MALE ) AST (SGOT) 19.0 U/L 0.0-46 .0 Not Available [facility] [address] [facility], [place], [address], 11/16/2024 13:51:26 11/16/19 25 11/16/2024 CMP (MALE ) altv (SGPT) 18.0 U/L 13.0-6 9.0 normal Not Available [facility] [address] [facility] [address] [facility], [place], [address], 11/16/2024 13:51:26 11/16/19 25 11/16/2024 CMP (MALE ) A/G ratio 1.2 ratio Not Available [facility] [address] [facility], [place], [address], 11/16/2024 13:51:26 11/16/19 25 11/16/2024 CMP (MALE ) ALP phos 85.0 U/L 30.0-1 40.0 normal Not Available [facility] [address] [facility] [address], [place], [address], 11/16/2024 13:51:26 11/16/19 25 11/16/2024 CMP (MALE ) calcium 9.8 mg/dL 8.4-10 .5 Not Available [facility] [address] [facility] [address], [place], [address], 11/16/2024 13:51:26 11/16/19 25 11/16/2024 CMP (MALE ) sodium 134.0 mmol/ L 136.0- 145.0 low Not Available [facility] [address] [facility] [address], [place], [address], 11/16/2024 13:51:26 11/16/19 25 11/16/2024 CMP (MALE ) potassium 4.3 mmol/ L 3.5-5. 1 Not Available [facility] [address] [facility] [address], [place], [address], 11/16/2024 13:51:26 11/16/19 25 11/16/2024 CMP (MALE ) chloride 99.0 mmol/ L 98.0-1 10.0 normal Not Available [facility] [address] [facility] [place], [address], 11/16/2024 13:51:26 11/16/19 25 11/16/2024 CMP (MALE ) C02 26.0 mmol/ L 22.0-3 1.0 Not Available [facility] [address], [place], [address], 11/16/2024 13:51:26 11/16/19 25 11/16/2024 CMP (MALE ) anion gap 9.0 calc Not Available Brandin irving [facility] [address] [facility], [place], [address], 11/16/2024 13:51:26 11/16/19 25 11/16/2024 CMP (MALE ) osmolality 289.9 calc Not Available [facility] [address] [facility], [place], [address], 11/16/2024 13:51:26 11/16/19 25 11/16/2024 LIPID PROFI LE (MALE ) cholesterol 200.0 mg/dL 0.0-20 0.0 Not Available [facility] [address] [facility] [place], [address], 11/16/2024 13:51:28 11/16/19 25 11/16/2024 LIPID PROFI LE (MALE ) trig 310.0 mg/dL 0.0-15 0.0 high Not Available [facility] [address] [facility], [place], [address], 11/16/2024 13:51:28 11/16/19 25 11/16/2024 LIPID PROFI LE (MALE ) HDL - direct 34.0 mg/dL >40.0 low Not Available [facility] [address] [facility], [place], [address], 11/16/2024 13:51:28 11/16/19 25 11/16/2024 LIPID PROFI LE (MALE ) VLDL - direct 62.0 mg/dL Not Available [facility] [address] [facility] [address], [place], [address], 11/16/2024 13:51:28 11/16/19 25 11/16/2024 LIPID PROFI AVTAR (MALE ) LDL - direct 104.0 mg/dL 0.0-13 0.0 Not Available [facility] [address] [facility], [place], [address], 11/16/2024 13:51:28 11/16/19 25 11/17/2024 ALBUM IN, RANDO M URINE W/CRE ATINI NE creatinine, random urine 185 mg/dL 20-320 normal Not Available [facility] [employer] [address] [address] [place], [address], 11/17/2024 11:38:14 11/16/19 25 11/17/2024 ALBUM IN, RANDO M URINE W/CRE ATINI NE albumin, urine 3.8 mg/dL see note: normal Refer ence Range : Refer ence Range Not estab lishe d Not Available [address] [address] [address], [place], [address], 11/17/2024 11:38:14 11/16/19 25 11/17/2024 ALBUM IN, RANDO M URINE W/CRE ATINI NE albumin/crea tinine ratio, random urine 21 mg/g_ creat <30 normal The ADA defin es abnor malit ies in album in excre tion as follo ws: Album inuri a Categ ory Resul t (mg/g creat inine ) Kirti l to Mildl y incre ased <30 Moder ately incre ased 30-29 9 Sever rosalind incre ased > OR = 300 The ADA recom mends that at least two of three speci mens colle cted withi n a 3-6 month perio d be abnor mal befor e consi chinyere g a patie nt to be withi n a diagn ostic categ ory. Not Available [facility] [address] [place], [address], 11/17/2024 11:38:14 11/30/19 25 11/30/2024 HBA1C hemaglobin A1C 9.9 4.2-6. 5 high Not Available [facility] [address], [place], [address], 11/30/2024 13:17:52 03/16/20 25 03/16/2025 HBA1C hemaglobin A1C 7.2 4.2-6. 5 high Not Available [facility] [address], [place], [address], 03/16/2025 11:19:34 Result Notes None recorded. Problems Name Problem SNOMED Code Status Onset Date Resolution Date Notes Provider Name and Address Organization Details Recorded Time Prolapsed lumbar intervert ebral disc 037340219 Active 2023 L4-L5 MITALI enamorado [facility] 4 07:57:33 Restless legs 95475819 Active 2023 MITALI enamorado [facility] 4 07:57:55 Hypertens kaley disorder 17229462 Active 2023 MITALI enamorado, [facility] 4 07:59:03 Chronic back pain 106841451 Active 2023 MITALI enamorado [facility] 4 07:59:17 Coronary arteriosc lerosis 37755065 Active 2023 MITALI enamorado, [facility] 4 07:59:38 Atrial fibrillat ion 57873725 Active 2023 MITALI enamorado [facility] 4 07:59:44 Chronic obstructi ve pulmonary disease 19359780 Active 2023 MITALI enamorado [facility] 4 07:59:52 Diabetes mellitus 93348019 Active 2023 MITALI CASTILLO fei [facility] 4 08:00:11 Periphera l arterial disease 425163891 Active 2023 MITALI CASTILLO fei [facility], BobyLWalterCWalter 4 08:00:30 Type 2 diabetes mellitus 47822098 Active 2023 BETH CRAIG fei [facility], BrigetteCWalter 4 11:18:02 Uric acid renal calculus 376052774 Active 2024 MITALI CASTILLO fei [facility], BrigetteCWalter 5 11:41:50 Diverticu litis of colon 087766745 Active 2021 Diverticul itis Of Colon; 01/04/2022 9:06AM by Mitali Castillo LPN, Office Visit; Promoted; acuity set as *; Not Available [facility] 3 03:08:00 Problem Notes None recorded. Procedures Surgical History Date Name Laterality Status Provider Name and Address Organization Details Recorded Time 4 coronary artery bypass grafts x 4 completed BETH CRAIG [facility], BobyLWalterCWalter 01/27/2024 10:04:50 3 Toenail avulsion completed Bobo Greer MD [address] [place] [address], [address], [facility], Radha.CWalter 03/05/2023 09:42:36 Colonoscopy completed MITALI CASTILLO [facility], BobyLWalterCWalter 12/03/2023 08:02:13 insertion of carotid artery stent completed MITALI CASTILLO [facility], BobyLWalterCWalter 12/03/2023 08:02:26 Back Surgery completed MITALI CASTILLO [facility], BrigetteCWalter 12/03/2023 08:02:36 fluoroscopy guided vascular stent procedure completed MITALI CASTILLO [facility], L.Yoanna 12/03/2023 08:03:32 angiography completed MITALI CASTILLO [facility], Jonn 12/03/2023 08:04:31 Imaging Results None recorded. Procedure Notes None recorded. Medical Equipment None Reported. Allergies Allergen ID Allergen Name Allergen Category Reaction Reaction Severity Criticality Documentation Date Start Date Code Code System Note Provider Name and Address Organization Details Recorded Time 49877 Beta-Gluc an medicatio n dizziness Not available Not available 06/01/2023 84399 UNK React ion: dizzi ness, hypot ensio n, _abou t to die_ feeli ng; Comme nt: Recor ded 01/04 9:06A M by Mitali taylor, LATHE TURNER, Offic e Visit ; Feliciano kemp; Joce buckley ce: *; Reaso n: Adver se react ion to drug; ; Not Available [facility] 02:27:14 Medications Name Sig Start Date Stop Date Status Note LastModified by Organization Details LastModified Time metformin 500 mg tablet Take 1 tablet twice a day by oral route. 12/17 completed Not Available Not Available Not Available atorvasta tin 80 mg tablet Take 1 tablet every day by oral route for 90 days. active Not Available Not Available No t Available gabapenti n 600 mg tablet TAKE 1 TABLET BY MOUTH THREE TIMES DAILY 11/16 completed Not Available Not Available Not Available doxycycli ne hyclate 100 mg capsule take 1 capsule BY MOUTH TWICE DAILY FOR 10 DAYS active Not Available Not Available No t Available tizanidin e 4 mg tablet TAKE 1 TABLET BY MOUTH EVERY night 07/22 completed Not Available Not Available Not Available prednison e 20 mg tablet TAKE 3 TABLETS BY MOUTH EVERY MORNING FOR 3 DAYS, 2 tabs every morning for 4 days,the n 1 tab every morning until gone active Not Available Not Available No t Available gabapenti n 400 mg capsule take 1 capsule BY MOUTH THREE TIMES DAILY need TO get from pain manageme nt 11/16 completed Not Available Not Available Not Available clopidogr el 75 mg tablet TAKE ONE TABLET BY MOUTH DAILY at 5am active Not Available Not Available No t Available sulfameth oxazole 800 mg-trimet hoprim 160 mg tablet TAKE ONE TABLET BY MOUTH TWICE DAILY FOR 10 DAYS 07/22 completed Not Available Not Available Not Available hydrocodo ne 10 mg-acetam inophen 325 mg tablet TAKE 1 TABLET BY MOUTH EVERY 8 HOURS NEEDED FOR 30 DAYS active Not Available Not Available No t Available ketorolac 10 mg tablet TAKE ONE TABLET BY MOUTH EVERY 8 HOURS NEEDED FOR PAIN 02/26 completed Not Available Not Available Not Available magnesium oxide 400 mg (241.3 mg magnesium ) tablet TAKE 2 TABLETS BY MOUTH TWICE DAILY 02/26 completed Not Available Not Available Not Available aspirin 325 mg tablet,de layed release TAKE 1 TABLET BY MOUTH EVERY DAY active Not Available Not Available No t Available gabapenti n 800 mg tablet TAKE 1 TABLET BY MOUTH THREE TIMES DAILY FOR 30 DAYS active Not Available Not Available No t Available OneTouch Ultra Test strips USE one strip TWICE DAILY 2024 active Not Available Not Available Not Avai lable pantopraz ole 40 mg tablet,de layed release TAKE 1 TABLET BY MOUTH EVERY DAY active Not Available Not Available No t Available oseltamiv ir 75 mg capsule 12/17 completed Not Available Not Available Not Available ropinirol e 0.5 mg tablet TAKE 1 TABLET BY MOUTH AT BEDTIME FOR FIVE nights THEN TWO AT BEDTIME 2024 active Not Available Not Available Not Avai lable lisinopri l 10 mg tablet TAKE 1 TABLET BY MOUTH EVERY DAY active Not Available Not Available No t Available nitroglyc felipe 0.4 mg sublingua l tablet DISSOLVE 1 TABLET UNDER TONGUE EVERY 5 MINUTES NEEDED FOR CHEST PAIN active Not Available Not Available No t Available gabapenti n 300 mg capsule take 1 capsule BY MOUTH EVERY MORNING and TWO at night 11/16 completed All further refills will need to come from Pain Manageme nt. 04/01/24 Not Available Not Available Not Available diltiazem CD 120 mg capsule,e xtended release 24 hr TAKE 1 CAPSULE BY MOUTH EVERY DAY 01/21 completed Not Available Not Available Not Available mupirocin 2 % topical ointment APPLY TO THE AFFECTED AREA(S) TWICE DAILY 03/13 completed Not Available Not Available Not Available furosemid e 20 mg tablet TAKE ONE TABLET BY MOUTH DAILY NEEDED FOR edema active Not Available Not Available No t Available metoprolo l succinate ER 25 mg tablet,ex tended release 24 hr TAKE 1 TABLET BY MOUTH EVERY DAY 02/26 completed Not Available Not Available Not Available lisinopri l 10 mg-hydroc hlorothia zide 12.5 mg tablet TAKE 1 TABLET BY MOUTH EVERY DAY 12/17 completed Not Available Not Available Not Available metformin ER 500 mg tablet,ex tended release 24 hr TAKE 1 TABLET BY MOUTH EVERY DAY FOR TWO weeks THEN ONE TWICE DAILY 2024 active Not Available Not Available Not Avai lable amoxicill in 875 mg-potass ium clavulana te 125 mg tablet TAKE 1 TABLET BY MOUTH EVERY TWELVE HOURS for 10 days 12/03 completed Not Available Not Available Not Available Ventolin HFA 90 mcg/actua tion aerosol inhaler INHALE TWO PUFFS BY MOUTH EVERY 4 HOURS NEEDED FOR SHORTNES S OF BREATH OR COUGH 2024 active Not Available Not Available Not Avai lable rosuvasta tin 10 mg tablet TAKE 1 TABLET BY MOUTH AT BEDTIME 12/03 completed Not Available Not Available Not Available rosuvasta tin 20 mg tablet TAKE ONE TABLET BY MOUTH AT BEDTIME active Not Available Not Available No t Available metoprolo l tartrate 25 mg tablet take 1/2 tablet BY MOUTH TWICE DAILY 11/16 completed Not Available Not Available Not Available Spiriva with HandiHale r 18 mcg and inhalatio n capsules use 2 inhalati ons to inhale contents of 1 capsule per handihal er once daily 12/03 completed Not Available Not Available Not Available atorvasta tin at bedtime 06/05 completed Recorded 06/08/20 20 9:43AM by BRANDYN Yun, Office Visit; Refill Quantity : 90; Tablet; Not Available Not Available Not Available aspirin 81mg qd 12/03 completed Not Available Not Available Not Available lisinopri l-hydroch lorothiaz jeff daily 06/05 completed PT NEEDS TO BE SEEN FOR ADDITION AL REFILLS; [id number]; Recorded 11/20/19 23 9:12AM by Zhou Andres (Authori ana through Syeda Mclaughlin MD), Refill Request; Refill Quantity : 0; Not Available Not Available Not Available diltiazem HCl daily 06/05 completed Cardiolo gy; 0; Recorded 01/03/20 22 10:09AM by Alexus Veliz LPN, Office Visit; Not Available Not Available Not Available Symbicort 160 mcg-4.5 mcg/actua tion HFA aerosol inhaler INHALE TWO PUFFS TWICE DAILY active Not Available Not Available No t Available Lantus Solostar U-100 Insulin 100 unit/mL (3 mL) subcutane ous pen inject 15 units SUBCUTAN EOUSLY EVERY DAY active Not Available Not Available No t Available potassium chloride ER 20 mEq tablet,ex tended release TAKE 1 TABLET BY MOUTH EVERY DAY with breakfas t active Not Available Not Available No t Available Trulicity 0.75 mg/0.5 mL subcutane ous pen injector USE ONE injectio n ONCE a week active Not Available Not Available No t Available Flonase Allergy Relief 50 mcg/actua tion nasal spray,reyes pension [place] 1 spray every day by intranas al route. 07/22 completed Not Available Not Available Not Available Spiriva Respimat 1.25 mcg/actua tion solution for inhalatio n Inhale 2 puffs every day by inhalati on route. 07/22 completed Not Available Not Available Not Available Narcan 4 mg/actuat ion nasal spray CALL 911, USE 1 SPRAY IN ONE NOSTRIL. MAY REPEAT IN ALTERNAT E NOSTRILS EVERY 3 MINUTES NEEDED IF NO OR MINIMAL RESPONSE . active Pain manageme nt Not Available Not Available Not Available TechLITE Pen Needle 32 gauge x /32 USE DIRECTED active Not Available Not Available No t Available OneTouch Ultra2 Meter USE DIRECTED active Not Available Not Available No t Available OneTouch Delica Plus Lancet 33 gauge USE DIRECTED active Not Available Not Available No t Available OneTouch Delica Plus Lancet 30 gauge USE DIRECTED 2023 active Not Available Not Available Not Avai lable Breztri Aerospher e 160 mcg-9mcg- 4.8mcg/ac tuation HFA aerosol inhaler INHALE TWO PUFFS TWICE DAILY active Not Available Not Available No t Available Vitals Date Recorded Body height Body mass index (BMI) Body weight Body temperature Oxygen saturation Oxygen saturation in Arterial blood by Pulse oximetry Heart rate Systolic blood pressure Diastolic blood pressure Provider Name and Address Organization Details Last Updated DateTime 5 167.64 cm 32.8 kg/m2 17603.2 5 g 98.1 [degF] 94 % 94 % 109 /min 115 mm[Hg] 70 mm[Hg] MITALI FOLEY CASTILLO [facility] 5 11:37:15 Date Recorded Body height Body mass index (BMI) Body weight Body temperature Oxygen saturation Oxygen saturation in Arterial blood by Pulse oximetry Heart rate Systolic blood pressure Diastolic blood pressure Provider Name and Address Organization Details Last Updated DateTime 5 167.64 cm 31.5 kg/m2 84313.5 1 g 97.9 [degF] 97 % 97 % 98 /min 100 mm[Hg] 60 mm[Hg] MITALI FOLEY CASTILLO [facility] 5 10:06:00 Date Recorded Body height Body mass index (BMI) Body weight Body temperature Oxygen saturation Oxygen saturation in Arterial blood by Pulse oximetry Heart rate Systolic blood pressure Diastolic blood pressure Provider Name and Address Organization Details Last Updated DateTime 4 167.64 cm 30.7 kg/m2 09916.5 5 g 98.1 [degF] 96 % 96 % 78 /min 115 mm[Hg] 70 mm[Hg] MITALI FOLEY CASTILLO [facility] 4 13:56:59 Date Recorded Body height Body mass index (BMI) Body weight Body temperature Oxygen saturation Oxygen saturation in Arterial blood by Pulse oximetry Heart rate Systolic blood pressure Diastolic blood pressure Provider Name and Address Organization Details Last Updated DateTime 5 167.64 cm 33.2 kg/m2 05787.0 3 g 97.4 [degF] 97 % 97 % 86 /min 94 mm[Hg] 62 mm[Hg] BETH CRAIG [facility] 5 09:59:35 Date Recorded Systolic blood pressure Diastolic blood pressure Provider Name and Address Organization Details Last Updated DateTime 04/01/2024 117 mm[Hg] 70 mm[Hg] MITALI ALAINA CASTILLO [facility] 04/01/2024 11:50:54 Date Recorded Body height Body mass index (BMI) Body weight Body temperature Oxygen saturation Oxygen saturation in Arterial blood by Pulse oximetry Heart rate Provider Name and Address Organization Details Last Updated DateTime 4 167.64 cm 31.3 kg/m2 12387.9 2 g 97.4 [degF] 97 % 97 % 61 /min BETH CRAIG [facility] 4 11:15:21 Social History Question Answer Notes LastModified by [employer] Community Details LastModified Time Tobacco Smoking Status Current Every Day Smoker MITALI ALAINA OLAYINKA enamorado, [facility] 02/06/2023 11:29:01 How Much Tobacco Do You Smoke? 1 PPD [email or web address] Information not available 02/06/2023 Sex: Unknown Functional Status Question Answer Note LastModified by [employer] Community Details LastModified Time Do you use any illicit or recreational drugs? No [email or web address] Information not available 04/15/2023 What is your level of alcohol consumption? None [email or web address] Information not available 04/15/2023 Mental Status None recorded. Family History Relationship Description Onset Age of this Age Resolved Age Notes LastModified by Organization Details LastModified Time Mother Malignant tumor of colon [email or web address] Not available 02/03 14:01:56 Medical History Condition Response Coronary Artery Disease N Other N Gout N Kidney Stones N Blood Diseases N Hyperthyroidism N Breast Cancer N Blood Transfusion N Depression N COPD Y Lung Disease N Hypothyroidism N Developmental or Behavioral Disorders N Defects or Inherited Disease N Breast Problem N Difficulty Swallowing N Anesthesia Complications N Meniere's disease N Anxiety Disorder N Muscle, Joint, or Bone Problems Y Vision or Eye Problems N Arthritis N Polyps N Infertility N Cancer N Varicosities N Stroke N Endometriosis N Bladder or Kidney Problems N High Cholesterol Y Liver Disease N Headaches N Fibromyalgia N Kidney Disease N Allergies/Hayfever N Heart Problems N Ear or Hearing Problems N Hospitalizations N Thyroid Problems N GI Problems N ADD/ADHD N Skin Problems N Eating Disorder N Anemia N Constipation N Mental Illness N Ovarian Cancer N Diabetes Y Bedwetting N Seizures/Epilepsy N Tuberculosis N Eczema N Diverticulitis N Abuse/Domestic Violence N Asthma N Reflux/GERD N Hepatitis N Heart Disease Y Pulmonary Embolism N Pre-Eclampsia N Hypertension Y Chronic Ear Infections N Osteoporosis N Chicken Pox N Autism Spectrum Disorder (ASD) Y Thrombophilias N Immunizations Vaccine Type Date Status Note Provider Nam e and Address Organization Details Recorded Time Influenza, split virus, trivalent, preservative 8 completed Not Available [facility] 12/03/2023 10:44:02 Influenza, recombinant, quadrivalent, PF 1 completed BRITTANY ROJAS, [address], [phone], [facility] 04/17/2023 11:38:03 COVID-19, mRNA, LNP-S, PF, 100 mcg/0.5mL dose or 50 mcg/0.25mL dose 1 completed BRITTANY ROJAS [address], [phone], [facility] 04/17/2023 11:38:03 COVID-19, mRNA, LNP-S, PF, 100 mcg/0.5mL dose or 50 mcg/0.25mL dose 1 completed BRITTANY ROJAS [address], [address], [facility] 04/17/2023 11:38:03 Past Encounters Encounter ID Performer Location Encounter Start Date Encounter Closed Date Diagnosis/Indication Diagnosis SNOMED-CT Code Diagnosis ICD10 Code Diagnosis Note [id number] Syeda Mclaughlin MD [facility] ([facility]) [address] [place] [id number] 02/06/2023 11:08:02 02/14/2023 23:34:14 Abdominal pain 54751044 R10.9 I suspect due to constipati on and acid. will get xray. pt given written instructio ns for bowel clean out. trial of antacid Chronic constipation 236 139205 K59.09 due to pain meds [id number] Syeda Mclaughlin MD [facility] ([facility]) [address] [place] [phone] 02/19/2023 10:07:15 02/26/2023 08:09:11 Abdominal pain 78553261 R10.9 resolved. Diabetes mellitus 481106 09 E11.9 has not f/u in 1 year. will check labs while he is here, he is not fasting today. f/u with me pending lab results. Ingrowing nail of toe of right foot [id number] 4155878 L60.0 f/u for toenail removal, does not appear infected today [id number] Bobo Greer MD [facility] ([facility]) [address] [place], [place] [phone] 02/26/2023 10:08:58 03/05/2023 12:49:32 Ingrowing nail of toe of right foot [id number] 5849722 L60.0 full nail plate removed [id number] Syeda Mclaughlin MD [facility] ([facility]) [address] [place], [place] [phone] 03/13/2023 09:49:00 03/28/2023 14:33:41 Diabetes mellitus 64886350 E11.9 not controlled . start Metformin. meet with Brittany for education. needs home monitor and to learn how to use it. [id number] Syeda Mclaughlin MD [facility] ([facility]) [address] [place], [place] [phone] 04/15/2023 09:44:42 04/15/2023 11:10:26 Diabetes mellitus 28689549 E11.9 pt was given log to record FASTING sugars. he has appt with Bang rosenberg 2 days. bring fasting sugar log to 1 month f/u. [id number] BRANDYN GUNN [facility] ([facility]) [address] [place] [phone] 04/17/2023 10:43:10 04/17/2023 19:54:26 Diabetes mellitus 68360322 E11.9 [id number] Syeda Mclaughlin MD [facility] ([facility]) [address] [place] [phone] 06/05/2023 10:48:19 06/17/2023 09:27:46 Neuropathy 980770325 G62.9 Pt must inform his PM doctor about being on gabapentin for neuropathy . Type 2 romy betes mellitus 85202832 E11.21 Per pt his fasting sugars sounds at goal. Recheck A1C in 3 months. [id number] Syeda Mclaughlin MD [facility] ([facility]) [address] [place] [id number] 07/22/2023 14:58:41 07/22/2023 17:15:55 Multiple infected superficial wounds 803721147 B99.9 f/u if not resolved with antibitoic s, pt should see improvemen t in 24-48hrs [id number] Syeda Mclaughlin MD [facility] ([facility]) [address] [place] [id number] 5 12/03/2023 10:43:40 12/03/2023 11:56:12 Diabetes mellitus 95684970 E11.9 uncontroll ed. We will start insulin and titrate up quickly. 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 After he has done that and started daily insulin he should f/u w me for further titration instructio ns. Noncomplia nce with treatment 3230290 Z91.199 I encouraged better compliance , especially so he can be around longer to take care of his son. Multi vess el coronary artery disease 708927821 I25.10 scheduled for bypass in Dec Chronic pain 26197971 G8 9.29 pt asked about taking his narcan if he felt bad . long education session on what narcan is for and when to use it. Essential hypertension 20001407 I10 Hyperlipidemia 98091736 E78.5 [id number] Syeda Mclaughlin MD [facility] ([facility]) [address] [place] [id number] 01/27/2024 09:41:19 01/27/2024 15:45:55 Hospital inpatient stay within past 30 days [id number] 106 Z76.89 10 day stay after quad bypass Type 2 romy betes mellitus 96830370 E11.21 there was some confusion with his d/c diabetes meds. he has only done his lantus prn evening sugar greater than 180. his sugars actually dont look too bad so we can continue this for now. record both am and pm sugars and f/u in one month. Multi vess el coronary artery disease 884302958 I25.10 s/p quad bypass 01/27/24 [id number] Syeda Mclaughlin MD [facility] ([facility]) [address] [place] [id number] 02/27/2024 13:47:19 02/27/2024 15:52:46 Type 2 diabetes mellitus 77833532 E11.21 there was some confusion with his d/c diabetes meds. he has only done his lantus prn evening sugar greater than 180. his sugars actually dont look too bad so we can continue this for now. record both am and pm sugars and f/u in one month.01/26 pt only recorded am sugars. they are mostly 120-130. We are going to simplify his regimen. check and record only am sugars. give 10 units lantus at night. f/u 1 month. 02/27/24 [id number] Syeda Mclaughlin MD [facility] ([facility]) [address] [place] [phone] 04/01/2024 10:47:52 04/02/2024 09:34:04 Type 2 diabetes mellitus 78985498 E11.21 there was some confusion with his d/c diabetes meds. he has only done his lantus prn evening sugar greater than 180. his sugars actually dont look too bad so we can continue this for now. record both am and pm sugars and f/u in one month. 01/27/24 pt only recorded am sugars. they are mostly 120-130. We are going to simplify his regimen. check and record only am sugars. give 10 units lantus at night. f/u 1 month. 02/27/24 His fasting sugars are almost all at goal. will check A1C for trend. f/u pending results 04/01/24. Diabetic p eripheral neuropathy 370349962 E11.40 he has been taking more gabapentin then what I prescribed . he is taking 2 tabs 3 times a day. while this is not a huge amount of gabapentin , this is not how I prescribed it! we were targeting night time neuropathy . he c/o of his legs keeping him up before (now it is his back). I told him if he is going to be taking large amounts throughout the day then he needs to discuss this and have it taken over by pm. my nurse called to inform office. Chronic pain 53286163 G8 08.02 we had a long discussion that pain medicine will not take away ALL the pain - it will if I take enough hydrocodon e - since his pain is not very bad I recommende d trial of unisom for sleep. of note he now c/o more back pain at night rather than the leg pain/neuro jose martin.... 04/01/24 [id number] Syeda Mclaughlin MD [facility] ([facility]) [address] [place] [phone] 11/16/2024 11:20:26 11/16/2024 14:05:07 Type 2 diabetes mellitus 46585729 E11.21 there was some confusion with his d/c diabetes meds. he has only done his lantus prn evening sugar greater than 180. his sugars actually dont look too bad so we can continue this for now. record both am and pm sugars and f/u in one month. 01/27/24 pt only recorded am sugars. they are mostly 120-130. We are going to simplify his regimen. check and record only am sugars. give 10 units lantus at night. f/u 1 month. 02/27/24 His fasting sugars are almost all at goal. will check A1C for trend. f/u pending results 04/01/24. A1C was 7.1 on 04/01/24 improved from prior. just taking 10 units lantus at night. sugar was 490 after eating citizen [employer] [place] cervantes sandwiches . Patient was counseled on a better diet. We will start Trulicity. Once he has been on it for 1 month we will do a follow-up visit 11/16/2024 Coronary arteriosclerosis 27661147 I25.10 cardio - now Dr. Zheng is back* Diabetic p eripheral neuropathy 604141631 E11.40 now per pm* Chronic pain 80288890 G8 9 we had a long discussion that pain medicine will not take away ALL the pain - it will if I take enough hydrocodon e - since his pain is not very bad I recommende d trial of unisom for sleep. of note he now c/o more back pain at night rather than the leg pain/neuro jose martin.... 04/01/24 per PM* 11/16/24 Acute exac erbation of chronic obstructive pulmonary disease 616990152 J44.1 The patient smells strongly of tobacco and did not complain himself but I noticed that he seemed rather short of breath today. Will will treat for acute exacerbati on 11/16/[address] is who put him on the nighttime oxygen.... [id number] Syeda Mclaughlin MD [facility] ([facility]) [address] [place] [id number] 12/17/2024 09:57:10 12/22/2024 11:37:14 Type 2 diabetes mellitus 24007459 E11.21 there was some confusion with his d/c diabetes meds. he has only done his lantus prn evening sugar greater than 180. his sugars actually dont look too bad so we can continue this for now. record both am and pm sugars and f/u in one month. 01/27/24 pt only recorded am sugars. they are mostly 120-130. We are going to simplify his regimen. check and record only am sugars. give 10 units lantus at night. f/u 1 month. 02/27/24 His fasting sugars are almost all at goal. will check A1C for trend. f/u pending results 04/01/24. A1C was 7.1 on 04/01/24 improved from prior. just taking 10 units lantus at night. sugar was 490 after eating [employer] [place] cerv[employer] sandwiches . Patient was counseled on a better diet. We will start Trulicity. Once he has been on it for 1 month we will do a follow-up visit 11/16/2024 A1C on 11/30/24 was 9.9 - high as we expected but we have since started trulicity. he is taking it and states no problems with the injections and no trouble getting the medication . recheck A1C in 3 months. 12/17/24 Chronic ob structive pulmonary disease 54337389 J44.9 I recommende thomas carmona maintenanc e med. We will see if moriahtri is covered. 12/17/24 Seen in [facility] outpatient department [id number] Z76.89 Influenza caused by Influenza A virus 172006495 J09.X2 finished the tamiflu. 12/17/24 [id number] Syeda Mclaughlin MD [facility] ([facility]) [address] [place] [phone] 03/16/2025 09:50:43 03/17/2025 09:50:55 Type 2 diabetes mellitus 41421407 E11.21 there was some confusion with his d/c diabetes meds. he has only done his lantus prn evening sugar greater than 180. his sugars actually dont look too bad so we can continue this for now. record both am and pm sugars and f/u in one month. 01/27/24 pt only recorded am sugars. they are mostly 120-130. We are going to simplify his regimen. check and record only am sugars. give 10 units lantus at night. f/u 1 month. 02/27/24 His fasting sugars are almost all at goal. will check A1C for trend. f/u pending results 04/01/24. A1C was 7.1 on 04/01/24 improved from prior. just taking 10 units lantus at night. sugar was 490 after eating [employer] [place] cerv[place] sandwiches . Patient was counseled on a better diet. We will start Trulicity. Once he has been on it for 1 month we will do a follow-up visit 11/16/2024 A1C on 11/30/24 was 9.9 - high as we expected but we have since started trulicity. he is taking it and states no problems with the injections and no trouble getting the medication . recheck A1C in 3 months. 12/17/24 morning sugars 90-110. check hgA1c. 03/16/25 Multiple n odules of lung 337478833 R91.8 indetermin ate bilateral lung nodules measuring up to 6mm. per ER CT on 12/12 f/u recommende d in 3-[address] ordered for May. Greater than 50% of visit was spent counseling and coordinati on of care. Hospital records reviewed. Total time spent 22 minutes 03/16/25 Health Concerns Section Related Observation LastModified by Organization Detai ls LastModified Time None Recorded Concern Status LastModified by Organization Details LastModified Time None Recorded Advance Directives Directive None Recorded Payers Insurance Date Sequence Insurance Name Policy Number Policy Collins Covered Member ID Collins Member ID Guarantor Name 03/13/2025 [place] [facility] Shamir Larose [id number] Shamir Larose 03/13/2025 1 [place] Shamir Larose [id number] Shamir Larose Notes Date Note Type Note Provider Name and Address Organization Details Recorded Time 02/27/2024 text/html DiabetesReported bypatient.Duration:chr onic Compliance:compliant with medications; compliant with follow-up visits;noncompliant with diet;noncompliant with physical activity he has been checking am sugars and pm sugarshe brings record of am sugars.he is only giving 15 units of lantus if evening is more than 180 - which ends up being >50% of the time. Syeda Mclaughlin MD [address] [place] [address], [phone], [facility], Symone. 02/27/2024 14:27:26 04/01/2024 text/html DiabetesReported bypatient.Review finger sticks:fastin Duration:chronic Compliance:compliant with medications; compliant with follow-up visits;noncompliant with diet;noncompliant with physical activity Self Care:monitoring glucose daily Associated Symptoms:no weight gain; no weight loss; no dizziness; no headaches no feelings of hypoglycemia, he brings his list of fasting glucose with him, most are 120 or less. his main complaint is pain and feeling like the pain doctor doesnt listen to him. when asked more about his pain he admits its not really that intense at night but just enough to keep me awake . When asked if he has tried sleep routine and sleep medicines he says he has done everything - benedryl doesnt make him tired. he has not tried unisom. Syeda Mclaughlin MD [address] [place] [address], [phone], [facility], LCarmen. 04/05/2024 09:54:05 11/16/2024 text/html DiabetesReported bypatient.Review finger sticks:fastin Duration:chronic Compliance:compliant with medications; compliant with follow-up visits;noncompliant with diet;noncompliant with physical activity Self Care:monitoring glucose daily Associated Symptoms:no weight gain; no weight loss; no dizziness; no headaches seeing now has not checked labs latelyHe made himself a [place] cervantes sandwich the other day he only had 2 of them but afterwards his blood sugar was in the 400s Syeda Mclaughlin MD [address] [place] [address], [phone], [facility], LWalterLStella. 11/18/2024 13:30:10 12/17/2024 text/html DiabetesReported bypatient.Review finger sticks:fastin Duration:chronic Compliance:compliant with medications; compliant with follow-up visits;noncompliant with diet;noncompliant with physical activity Self Care:monitoring glucose daily Associated Symptoms:no weight gain; no weight loss; no dizziness; no headaches was rushed to the hospital for flu on Sat. its like when I finished my steroids it just went bam. I'm on an inhaler, a flu pill - took the last one last night. breathing was real good for one day but that was about it.my oxygen is out in the truck. Syeda Mclaughlin MD [address] [place] [address], [phone], [facility], [facility] 12/21/2024 15:59:05 03/16/2025 text/html He is here bec se he got a letter from [facility] stating his CT scan was abnormal. Syeda Mclaughlin MD [address] [place] [address], [phone], [facility], LWalterLWalterC. 03/16/2025 15:48:42
--- OUTSIDE RECORDS SUMMARY | 2025-05-03 14:49 | XMS_ITS | Patient Health Record ---
Author Organization [facility] Address [address] [place] [address] Support Name Relationship Address , Jenny Emergency Contact Unknown U rumaailShamir Beatty Guarantor Unknown [phone] Care Team Providers Care Watch Commander Name Role Phone Syeda Bender Primary Care Provider UnavailIvet Claros Unavailable [phone] Migration, Provider Unavailable Unavailable Rojas Leroy Unavailable [phone] Allergies No Known Allergies Results Component Value Reference Range Notes Urine Drug Screen (cup read) - [id number] Reviewed date:01/14/2025 08:47:27 AM Interpretation: Performing Lab: Notes/Report: OXY + Urine Confirmation Panel (in strument) - [id number] Reviewed date:01/20/2025 02:49:57 PM Interpretation: Performing Lab: Notes/Report: 6-Acetylmorphine 0 <6 ng/mL This test w as developed and its performance characteristics determined by [facility]. It has not been cleared or approved by the U.S. Food and Drug Administration. 7-Aminoclonazepam 0 <60 ng/mL This test was developed and its performance characteristics determined by [facility]. It has not been cleared or approved by the U.S. Food and Drug Administration. Alprazolam 0 <60 ng/mL This test was d eveloped and its performance characteristics determined by [facility]. It has not been cleared or approved by the U.S. Food and Drug Administration. Amphetamine 0 <75 ng/mL This test was d eveloped and its performance characteristics determined by [facility]. It has not been cleared or approved by the U.S. Food and Drug Administration. aOH-Alprazolam 0 <60 ng/mL This test was developed and its performance characteristics determined by [facility]. It has not been cleared or approved by the U.S. Food and Drug Administration. Buprenorphine 0.0 <7.5 ng/mL This test was developed and its performance characteristics determined by [facility]. It has not been cleared or approved by the U.S. Food and Drug Administration. Norbuprenorphine 0.0 <37.5 ng/mL This test w as developed and its performance characteristics determined by [facility]. It has not been cleared or approved by the U.S. Food and Drug Administration. Carisoprodol 0 <75 ng/mL This test was d eveloped and its performance characteristics determined by [facility]. It has not been cleared or approved by the U.S. Food and Drug Administration. Codeine 0 <75 ng/mL This test was d eveloped and its performance characteristics determined by [facility]. It has not been cleared or approved by the U.S. Food and Drug Administration. EDDP 0 <75 ng/mL This test was d eveloped and its performance characteristics determined by [facility]. It has not been cleared or approved by the U.S. Food and Drug Administration. Fentanyl 0 <6 ng/mL This test was d eveloped and its performance characteristics determined by [facility]. It has not been cleared or approved by the U.S. Food and Drug Administration. Hydrocodone >5000 <75 ng/mL This test was d eveloped and its performance characteristics determined by [facility]. It has not been cleared or approved by the U.S. Food and Drug Administration. Hydromorphone 1662 <75 ng/mL This test was developed and its performance characteristics determined by [facility]. It has not been cleared or approved by the U.S. Food and Drug Administration. Lorazepam 0 <60 ng/mL This test was d eveloped and its performance characteristics determined by [facility]. It has not been cleared or approved by the U.S. Food and Drug Administration. MDMA 1 <75 ng/mL This test was d eveloped and its performance characteristics determined by [facility]. It has not been cleared or approved by the U.S. Food and Drug Administration. Meperidine 0.0 <37.5 ng/mL This test was d eveloped and its performance characteristics determined by [facility]. It has not been cleared or approved by the U.S. Food and Drug Administration. Meprobamate 0 <75 ng/mL This test was d eveloped and its performance characteristics determined by [facility]. It has not been cleared or approved by the U.S. Food and Drug Administration. Methamphetamine 0 <75 ng/mL This test wa s developed and its performance characteristics determined by [facility]. It has not been cleared or approved by the U.S. Food and Drug Administration. Methadone 0 <75 ng/mL This test was d eveloped and its performance characteristics determined by [facility]. It has not been cleared or approved by the U.S. Food and Drug Administration. Morphine 0 <75 ng/mL This test was d eveloped and its performance characteristics determined by [facility]. It has not been cleared or approved by the U.S. Food and Drug Administration. Nordiazepam 0 <60 ng/mL This test was d eveloped and its performance characteristics determined by [facility]. It has not been cleared or approved by the U.S. Food and Drug Administration. Norfentanyl 0 <6 ng/mL This test was d eveloped and its performance characteristics determined by [facility]. It has not been cleared or approved by the U.S. Food and Drug Administration. Normeperidine 0.0 <37.5 ng/mL This test was developed and its performance characteristics determined by [facility]. It has not been cleared or approved by the U.S. Food and Drug Administration. O-desmethyltramadol 0 <75 ng/mL This portillo t was developed and its performance characteristics determined by [facility]. It has not been cleared or approved by the U.S. Food and Drug Administration. Oxazepam 0 <60 ng/mL This test was d eveloped and its performance characteristics determined by [facility]. It has not been cleared or approved by the U.S. Food and Drug Administration. Oxycodone 0.0 <37.5 ng/mL This test was d eveloped and its performance characteristics determined by [facility]. It has not been cleared or approved by the U.S. Food and Drug Administration. Oxymorphone 0 <75 ng/mL This test was d eveloped and its performance characteristics determined by [facility]. It has not been cleared or approved by the U.S. Food and Drug Administration. Phencyclidine 0.0 <7.5 ng/mL This test was developed and its performance characteristics determined by [facility]. It has not been cleared or approved by the U.S. Food and Drug Administration. Tapentadol 6.7 <37.5 ng/mL This test was d eveloped and its performance characteristics determined by [facility]. It has not been cleared or approved by the U.S. Food and Drug Administration. Temazepam 0 <60 ng/mL This test was d eveloped and its performance characteristics determined by [facility]. It has not been cleared or approved by the U.S. Food and Drug Administration. Tramadol 12 <75 ng/mL This test was d eveloped and its performance characteristics determined by [facility]. It has not been cleared or approved by the U.S. Food and Drug Administration. Norhydrocodone >5000 <75 ng/mL This test was developed and its performance characteristics determined by [facility]. It has not been cleared or approved by the U.S. Food and Drug Administration. Noroxycodone 0 <38 ng/mL This test was d eveloped and its performance characteristics determined by [facility]. It has not been cleared or approved by the U.S. Food and Drug Administration. Pregabalin 0 <225 ng/mL This test was d eveloped and its performance characteristics determined by [facility]. It has not been cleared or approved by the U.S. Food and Drug Administration. Gabapentin >60516 <225 ng/mL This test was d eveloped and its performance characteristics determined by [facility]. It has not been cleared or approved by the U.S. Food and Drug Administration. Benzoylecgonine 0.0 <37.5 ng/mL This test wa s developed and its performance characteristics determined by [facility]. It has not been cleared or approved by the U.S. Food and Drug Administration. 4-Hydroxy Xylazine 0 <25 ng/mL This test was developed and its performance characteristics determined by [facility]. It has not been cleared or approved by the U.S. Food and Drug Administration. Urine Drug Screen (cup read) - [id number] Reviewed date:04/15/2025 09:20:13 AM Interpretation: Performing Lab: Notes/Report: OPI + OXY + Urine Confirmation Panel (in strument) - [id number] Reviewed date:04/22/2025 10:09:35 AM Interpretation: Performing Lab: Notes/Report: 6-Acetylmorphine 0 <6 ng/mL This test w as developed and its performance characteristics determined by [facility]. It has not been cleared or approved by the U.S. Food and Drug Administration. 7-Aminoclonazepam 0 <60 ng/mL This test was developed and its performance characteristics determined by [facility]. It has not been cleared or approved by the U.S. Food and Drug Administration. Alprazolam 0 <60 ng/mL This test was d eveloped and its performance characteristics determined by [facility]. It has not been cleared or approved by the U.S. Food and Drug Administration. Amphetamine 0 <75 ng/mL This test was d eveloped and its performance characteristics determined by [facility]. It has not been cleared or approved by the U.S. Food and Drug Administration. aOH-Alprazolam 0 <60 ng/mL This test was developed and its performance characteristics determined by [facility]. It has not been cleared or approved by the U.S. Food and Drug Administration. Buprenorphine 0.0 <7.5 ng/mL This test was developed and its performance characteristics determined by [facility]. It has not been cleared or approved by the U.S. Food and Drug Administration. Norbuprenorphine 0.0 <37.5 ng/mL This test w as developed and its performance characteristics determined by [facility]. It has not been cleared or approved by the U.S. Food and Drug Administration. Carisoprodol 0 <75 ng/mL This test was d eveloped and its performance characteristics determined by [facility]. It has not been cleared or approved by the U.S. Food and Drug Administration. Codeine 0 <75 ng/mL This test was d eveloped and its performance characteristics determined by [facility]. It has not been cleared or approved by the U.S. Food and Drug Administration. EDDP 0 <75 ng/mL This test was d eveloped and its performance characteristics determined by [facility]. It has not been cleared or approved by the U.S. Food and Drug Administration. Fentanyl 0 <6 ng/mL This test was d eveloped and its performance characteristics determined by [facility]. It has not been cleared or approved by the U.S. Food and Drug Administration. Hydrocodone 2955 <75 ng/mL This test was d eveloped and its performance characteristics determined by [facility]. It has not been cleared or approved by the U.S. Food and Drug Administration. Hydromorphone 526 <75 ng/mL This test was developed and its performance characteristics determined by [facility]. It has not been cleared or approved by the U.S. Food and Drug Administration. Lorazepam 0 <60 ng/mL This test was d eveloped and its performance characteristics determined by [facility]. It has not been cleared or approved by the U.S. Food and Drug Administration. MDMA 0 <75 ng/mL This test was d eveloped and its performance characteristics determined by [facility]. It has not been cleared or approved by the U.S. Food and Drug Administration. Meperidine 0.0 <37.5 ng/mL This test was d eveloped and its performance characteristics determined by [facility]. It has not been cleared or approved by the U.S. Food and Drug Administration. Meprobamate 0 <75 ng/mL This test was d eveloped and its performance characteristics determined by [facility]. It has not been cleared or approved by the U.S. Food and Drug Administration. Methamphetamine 40 <75 ng/mL This test wa s developed and its performance characteristics determined by [facility]. It has not been cleared or approved by the U.S. Food and Drug Administration. Methadone 0 <75 ng/mL This test was d eveloped and its performance characteristics determined by [facility]. It has not been cleared or approved by the U.S. Food and Drug Administration. Morphine 0 <75 ng/mL This test was d eveloped and its performance characteristics determined by [facility]. It has not been cleared or approved by the U.S. Food and Drug Administration. Nordiazepam 0 <60 ng/mL This test was d eveloped and its performance characteristics determined by [facility]. It has not been cleared or approved by the U.S. Food and Drug Administration. Norfentanyl 0 <6 ng/mL This test was d eveloped and its performance characteristics determined by [facility]. It has not been cleared or approved by the U.S. Food and Drug Administration. Normeperidine 0.0 <37.5 ng/mL This test was developed and its performance characteristics determined by [facility]. It has not been cleared or approved by the U.S. Food and Drug Administration. O-desmethyltramadol 0 <75 ng/mL This portillo t was developed and its performance characteristics determined by [facility]. It has not been cleared or approved by the U.S. Food and Drug Administration. Oxazepam 0 <60 ng/mL This test was d eveloped and its performance characteristics determined by [facility]. It has not been cleared or approved by the U.S. Food and Drug Administration. Oxycodone 0.0 <37.5 ng/mL This test was d eveloped and its performance characteristics determined by [facility]. It has not been cleared or approved by the U.S. Food and Drug Administration. Oxymorphone 0 <75 ng/mL This test was d eveloped and its performance characteristics determined by [facility]. It has not been cleared or approved by the U.S. Food and Drug Administration. Phencyclidine 0.0 <7.5 ng/mL This test was developed and its performance characteristics determined by [facility]. It has not been cleared or approved by the U.S. Food and Drug Administration. Tapentadol 0.0 <37.5 ng/mL This test was d eveloped and its performance characteristics determined by [facility]. It has not been cleared or approved by the U.S. Food and Drug Administration. Temazepam 0 <60 ng/mL This test was d eveloped and its performance characteristics determined by [facility]. It has not been cleared or approved by the U.S. Food and Drug Administration. Tramadol 0 <75 ng/mL This test was d eveloped and its performance characteristics determined by [facility]. It has not been cleared or approved by the U.S. Food and Drug Administration. Norhydrocodone >5000 <75 ng/mL This test was developed and its performance characteristics determined by [facility]. It has not been cleared or approved by the U.S. Food and Drug Administration. Noroxycodone 0 <38 ng/mL This test was d eveloped and its performance characteristics determined by [facility]. It has not been cleared or approved by the U.S. Food and Drug Administration. Pregabalin 0 <225 ng/mL This test was d eveloped and its performance characteristics determined by [facility]. It has not been cleared or approved by the U.S. Food and Drug Administration. Gabapentin >72824 <225 ng/mL This test was d eveloped and its performance characteristics determined by [facility]. It has not been cleared or approved by the U.S. Food and Drug Administration. Benzoylecgonine 0.0 <37.5 ng/mL This test wa s developed and its performance characteristics determined by [facility]. It has not been cleared or approved by the U.S. Food and Drug Administration. 4-Hydroxy Xylazine 0 <25 ng/mL This test was developed and its performance characteristics determined by [facility]. It has not been cleared or approved by the U.S. Food and Drug Administration. [facility] Drug Screen (Spotie by instrument) - [id number] Reviewed date:11/27/2024 09:59:24 AM Interpretation: Performing Lab: Notes/Report: Tox Results Reviewed date:01/20/2025 02:49:57 PM Interpretation: Performing Lab: Notes/Report: Tox Results Reviewed date:04/22/2025 10:18:08 AM Interpretation: Performing Lab: Notes/Report: Reason For Referral No Information Medications Medication SIG (Take, Route, Frequency, Duration) Notes Start Date End Date Status guaiFENesin *Pick strength-form from [facility] for eRX* Not-Taking Magnesium Oxide *Pick strength-form from [facility] for eRX* Not-Taking Lisinopril-hydroCHLO ROthiazide *Pick strength-form from [facility] for eRX* Active Metformin *Reorder from [facility] for eRx and Interaction Alerts* Active Metoprolol Tartrate *Pick strength-form from [facility] for eRX* Not-Taking Nitroglycerin *Pick strength-form from [facility] for eRX* Active ropinirole *Reorder from [facility] for eRx and Interaction Alerts* Not-Taking pantoprazole *Reorder from [facility] for eRx and Interaction Alerts* Active Spiriva with HandiHaler *Reorder from [facility] for eRx and Interaction Alerts* Not-Taking Potassium Chloride *Pick strength-form from [facility] for eRX* Active Rosuvastatin *Reorder from [facility] for eRx and Interaction Alerts* Active Adult Low Dose Aspirin Active [facility] Active clopidogrel *Reorder from [facility] for eRx and Interaction Alerts* Active Tylenol *Pick strength-form from [facility] for eRX* Active Furosemide *Pick strength-form from [facility] for eRX* Active Centrum Silver [facility]* Not-Taking HYDROcodone-Acetamin ophen 10-325 MG 1 tablet as needed Orally every 8 hrs for 30 days As needed Do not exceed 4 per day Fill on 05-18-25 04/15/2025 06/17/2025 Active Gabapentin 800 MG 1 tablet Orally three times a day for 30 days As needed Fill 30 days from previous Rx 04/15/2025 06/16/2025 Active Melatonin *Pick strength-form from [facility] for eRX* Not-Taking HYDROcodone-Acetamin ophen 10-325 MG 1 tablet as needed Orally every 8 hrs for 30 days As needed Do not exceed 4 per day Fill on 04-17-25 04/15/2025 05/17/2025 Active Social History Tobacco Use: Social History Observation Description Date Details (start date - stop date) Current Smoker NA - NA Tobacco Control (Standard) Question Answer Notes Tobacco use: Current smoker Section Notes: Patient is on disability Patient is on disability Problems Problem Type SNOMED Code ICD Code Onset Dates Problem Status W/U Status Risk Notes Problem 454928342 Chronic pain syndrome (G89.4) 04/24/20 24 Active confirmed Problem Lumbosacral spondylosis without myelopathy (03386422) Other spondylosis with radiculopathy, lumbosacral region (M47.27) 04/24/20 24 Active confirmed Problem Lumbosacral spondylosis without myelopathy (disorder) (79110355) Spondylosis without myelopathy or radiculopathy, lumbosacral region (M47.817) 04/24/20 24 Active confirmed Problem Degeneration of lumbar intervertebral disc (82738902) Other intervertebral disc degeneration, lumbar region (M51.36) 04/24/20 24 Active confirmed Problem Post-laminectomy syndrome (87777875) Postlaminectomy syndrome, not elsewhere classified (M96.1) 04/24/20 Active confirmed Problem Abnormal gait (70096313) Unspecified abnormalities of gait and mobility (R26.9) 04/24/20 Active confirmed Problem High risk drug monitoring status (467953088) USP (current) use of opiate analgesic (Z79.891) Active confirmed Problem 493297337 Lumbosacral spondylosis with radiculopathy (M47.27) Active confirmed Problem 869824394 Spondylosis of lumbosacral region, unspecified spinal osteoarthritis complication status (M47.817) Active confirmed Problem 478721035 Lumbar post-laminectomy syndrome (M96.1) Active confirmed Problem 02007431 Abnormality of gait and mobility (R26.9) Active confirmed Vital Signs Height-cm 167.64 cm 04/15/2025 Weight-kg 90.72 kg 04/15/2025 Height 66.00 in 04/15/2025 Weight 200 lbs 04/15/2025 BMI 32.28 kg/m2 04/15/2025 Encounters Encounter Location Date Provider Diagnosis Migrated_Facility 0 0 08/29/2024 Provider Migration [facility] 0 0 08/30/2024 Provider Migration [facility] [address] [place] [address] 11/19/2024 Rojas Leroy Chronic pain syndrom e G89.4 [facility] [address] [address] 01/14/2025 Rojas Leroy [facility] [place] [address] [place] [address] 04/15/2025 Rojas Leroy Other spondylosis wi th radiculopathy, lumbosacral region M47.27 and Chronic pain syndrome G89.4 [facility] [place] [address] [place] [address] 06/17/2024 Rojas Leroy [facility] [place] [address] [place] [address] 07/23/2024 Ivet Adamson [facility] [place] [address] [place] [address] 09/16/2024 Rojas Leroy Chronic pain syndrom e G89.4 ; Spondylosis of lumbosacral region, unspecified spinal osteoarthritis complication status M47.817 ; Lumbosacral spondylosis with radiculopathy M47.27 ; Lumbar post-laminectomy syndrome M96.1 ; Abnormality of gait and mobility R26.9 and superintendent terminal (current) use of opiate analgesic Z79.891 [facility] [address] [address] 11/19/2024 Ivet Adamson Chronic pain syndrom e G89.4 ; Degeneration of intervertebral disc of lumbar region with discogenic back pain M51.360 ; Other spondylosis with radiculopathy, lumbosacral region M47.27 ; Postlaminectomy syndrome, not elsewhere classified M96.1 ; Unspecified abnormalities of gait and mobility R26.9 and superintendent terminal (current) use of opiate analgesic Z79.891 [facility] [address] [address] 01/14/2025 Ivet Adamson Chronic pain syndrom e G89.4 ; Degeneration of intervertebral disc of lumbar region with discogenic back pain M51.360 ; Other spondylosis with radiculopathy, lumbosacral region M47.27 ; Postlaminectomy syndrome, not elsewhere classified M96.1 ; Unspecified abnormalities of gait and mobility R26.9 and USP (current) use of opiate analgesic Z79.891 [facility] [address] [address] 02/17/2025 Rojas Leroy Chronic pain syndrom e G89.4 ; Degeneration of intervertebral disc of lumbar region with discogenic back pain M51.360 ; Postlaminectomy syndrome, not elsewhere classified M96.1 ; Unspecified abnormalities of gait and mobility R26.9 ; Other spondylosis with radiculopathy, lumbosacral region M47.27 and USP (current) use of opiate analgesic Z79.891 [facility] [address] [address] 04/15/2025 Ivet Adamson Chronic pain syndrom e G89.4 ; Degeneration of intervertebral disc of lumbar region with discogenic back pain M51.360 ; Postlaminectomy syndrome, not elsewhere classified M96.1 ; Unspecified abnormalities of gait and mobility R26.9 ; USP (current) use of opiate analgesic Z79.891 and Other spondylosis with radiculopathy, lumbosacral region M47.27 Assessments Encounter Date Diagnosis (ICD Code) Assessment Notes Treatment Notes Treatment Clinical Notes Section Notes 09/16/2024 Chronic pain syndrome (ICD-10 - G89.4) I had a nice visit with the patient today regarding his chronic pain issues. Overall, he says he has been doing alright most of the month but he would like to go back up to the 800mg 3x a day on the gabapentin. This seems reasonable enough so we will get that changed and we will continue the hydrocodone unchanged. We will see him back in a couple of months. 11/19/2024 Chronic pain syndrome (ICD-10 - G89.4) I had a nice discussion with the patient today regarding his chronic pain complaints. He states he is doing reasonably well on his current medication regimen. He is sick right now and is ready to just get back home as he is really feeling unwell. He states he thinks he has the flu or something. Other than that he feels like his pain is well-controlled with his current medication regimen. He feels it allows him to function better overall. He denies any other changes since we last seen him or any untoward side effects of the medication. He will continue his medication at present level and return to clinic in 2 months to monitor for treatment effectiveness and compliance. 11/19/2024 Degeneration of intervertebral disc of lumbar region with discogenic back pain (ICD-10 - M51.360) 11/19/2024 Chronic pain syndrome (ICD-10 - G89.4) 01/14/2025 Chronic pain syndrome (ICD-10 - G89.4) I had a nice discussion with the patient today regarding his chronic pain complaints. He states he is doing reasonably well on his current medication regimen. He reports he was in the hospital with the flu but is doing better now. His last UDS was inconsistent showing positive for hydrocodone and oxycodone. He states he had went to the ER with kidney stones and thinks it may have been from that. He denies any other changes since we last seen him or any untoward side effects of the medication. He continues to defer any sort of interventional procedures. He will continue his medication at present level and return to clinic in 1 month to monitor for treatment effectiveness as well as for increased monitoring for compliance. 09/16/2024 Spondylosis of lumbosacral region, unspecified spinal osteoarthritis complication status (ICD-10 - M47.817) 02/17/2025 Chronic pain syndrome (ICD-10 - G89.4) I had a nice visit with the patient today regarding his chronic pain issues. He is a bit concerned because he has been taking more nitrous so he thinks he is probably going to require some more cardiac procedures. He is worried about doing another open heart because he had quite a bit of difficulty with the first one. We discussed treatments and at this point we will just continue with his medication. We did review his confirmation on his drug screen, which was consistent with his history and it appears the cup read was inaccurate. We will see him back in about 2 months and proceed accordingly. 02/17/2025 Degeneration of intervertebral disc of lumbar region with discogenic back pain (ICD-10 - M51.360) 04/15/2025 Chronic pain syndrome (ICD-10 - G89.4) I had a nice discussion with the patient today regarding his chronic pain complaints. He states a couple of months ago they found some spots on his lungs. He states they are doing more scans in May to see if anything is changed. He is understandably nervous about this. He feels his medications working really well for him so we will continue that at present level. He defers any sort of interventional procedures, updated advanced imaging, physical therapy. I did recommend/discuss ed lifestyle modifications as well as a bowel regimen with him. He denies any other changes since we last seen him or any untoward side effects of the medication. He will continue his medication at present level and return to clinic in 2 months to monitor for treatment effectiveness and compliance. The patient continues with chronic pain requiring treatment to help restore function and improve quality of life. Risks of opioid therapy as well as interaction of opioids with alcohol, illicit drugs, muscle relaxers, and other sedative medications are reviewed briefly with patient again today. The patient has trialed all other reasonable treatment options and uses the medication to alleviate pain in order to remain active and rest with less pain. No clinically relevant medication side effects are noted. Last UDS and AR PRODUCT GRADER reviewed today. Patient is advised that best long-term goals include increased activity, core strengthening, proper weight management, coping strategies, avoidance of painful triggers, and targeted interventional therapy. We will see the patient for routine follow up in accordance with all clinic policies. We did remind patient today of current guidelines to decrease opioid when possible. We will continue to stress nonopioid treatment. RECOMMEND URINE TESTING TODAY Urine drug screening will be performed today to monitor compliance with opioid therapy or to serve as a baseline screen for a patient who may be a candidate for opioid therapy in the future, pending UDS results. We will monitor with in-office testing (rapid testing) today and review the results prior to dispensing prescription. All positive results will be sent for quantitative analysis to ensure accuracy and quantify amounts. Any expected positive results that return negative will also be sent for quantitative analysis. Any questionable read or any medication we cannot test for in the office confidently will be sent for quantitative analysis, as well. Patient has been made aware of this policy and agrees to abide by our urine testing policy. 04/15/2025 Degeneration of intervertebral disc of lumbar region with discogenic back pain (ICD-10 - M51.360) 04/15/2025 Other spondylosis with radiculopathy, lumbosacral region (ICD-10 - M47.27) 04/15/2025 Chronic pain syndrome (ICD-10 - G89.4) 04/15/2025 Postlaminectomy syndrome, not elsewhere classified (ICD-10 - M96.1) 02/17/2025 Postlaminectomy syndrome, not elsewhere classified (ICD-10 - M96.1) 09/16/2024 Lumbosacral spondylosis with radiculopathy (ICD-10 - M47.27) 01/14/2025 Degeneration of intervertebral disc of lumbar region with discogenic back pain (ICD-10 - M51.360) 11/19/2024 Other spondylosis with radiculopathy, lumbosacral region (ICD-10 - M47.27) 11/19/2024 Postlaminectomy syndrome, not elsewhere classified (ICD-10 - M96.1) 01/14/2025 Other spondylosis with radiculopathy, lumbosacral region (ICD-10 - M47.27) 09/16/2024 Lumbar post-laminectomy syndrome (ICD-10 - M96.1) 02/17/2025 Unspecified abnormalities of gait and mobility (ICD-10 - R26.9) 04/15/2025 Unspecified abnormalities of gait and mobility (ICD-10 - R26.9) 04/15/2025 superintendent terminal (current) use of opiate analgesic (ICD-10 - Z79.891) 02/17/2025 Other spondylosis with radiculopathy, lumbosacral region (ICD-10 - M47.27) 09/16/2024 Abnormality of gait and mobility (ICD-10 - R26.9) 01/14/2025 Postlaminectomy syndrome, not elsewhere classified (ICD-10 - M96.1) 11/19/2024 Unspecified abnormalities of gait and mobility (ICD-10 - R26.9) 11/19/2024 superintendent terminal (current) use of opiate analgesic (ICD-10 - Z79.891) 01/14/2025 Unspecified abnormalities of gait and mobility (ICD-10 - R26.9) 02/17/2025 superintendent terminal (current) use of opiate analgesic (ICD-10 - Z79.891) 04/15/2025 Other spondylosis with radiculopathy, lumbosacral region (ICD-10 - M47.27) 09/16/2024 USP (current) use of opiate analgesic (ICD-10 - Z79.891) 01/14/2025 USP (current) use of opiate analgesic (ICD-10 - Z79.891) RECOMMEND URINE TESTING TODAY Urine drug screening will be performed today to monitor compliance with opioid therapy or to serve as a baseline screen for a patient who may be a candidate for opioid therapy in the future, pending UDS results. We will monitor with in-office testing (rapid testing) today and review the results prior to dispensing prescription. All positive results will be sent for quantitative analysis to ensure accuracy and quantify amounts. Any expected positive results that return negative will also be sent for quantitative analysis. Any questionable read or any medication we cannot test for in the office confidently will be sent for quantitative analysis, as well. Patient has been made aware of this policy and agrees to abide by our urine testing policy. 09/16/2024 Other Mehdi, Vj Palafox, am scribing for Rojas Leroy. I, Rojas Leroy, personally performed the services described in this documentation, as scribed by Vj Palafox, and it is both accurate and complete. 02/17/2025 Other Vj Harding, am scribing for Dr. Rojas Leroy. I, Dr. Rojas Leroy, personally performed the services described in this documentation, as scribed by Vj Palafox, and it is both accurate and complete. Plan Of Treatment Next Appt Details Provider Name:Ivet mcneil, 06/10/2025 08:40:00 AM, [address] [place], [address], Insurance Providers Payer Name Payer Address Payer Phone Subscriber Number Group Number Insured Name Patient Relationship to Insured Coverage Start Date Coverage End Date [place] Medicaid [address] [place] [id number] [phone] [id number] Shamir Larose Self - patient is the insured Medical (General) History Surgical History Surgery Date(Month/Year) Back surgery Since 2006 Kidney stone surgery Since 2006 Heart stents Since 2015 Heart stents Since 2020 CABG 12/2023
--- OUTSIDE RECORDS SUMMARY | 2025-05-03 14:49 | XMS_ITS | Clinical Summary ---
Author Organization [facility] Based Address On license of [facility] [place] [address] Care Team Providers Care Supervisor Of Research Name Role Phone Syeda Bender MD Primary Care Provider [phone] Allergies No known active allergies Medications clopidogreL (PLAVIX) 75 mg Tablet Take 75 mg by mouth daily. Held 5 days prior to surgery Active pantoprazole (PROTONIX) 20 mg Tablet, Delayed Release (E.C.) Take 20 mg by mouth daily. Active aspirin (ECOTRIN EC) 325 mg Tablet, Delayed Release (E.C.) Take 1 Tablet by mouth daily. 4 Active OneTouch Ultra Test Strip 1 Strip 4 times daily before meals and at bedtime. 4 Active rosuvastatin (CRESTOR) 20 mg tablet Take 20 mg by mouth daily at bedtime. 4 Active furosemide (Lasix) 20 mg tablet Take 1 Tablet (20 mg) by mouth daily. 4 Active acetaminophen (TYLENOL) 325 mg tablet Take 2 Tablets (650 mg) by mouth every 6 hours as needed for Pain, Mild / Temperature (T > 38 C). 4 Active guaiFENesin (MUCINEX) 600 mg Extended Release Biphasic tablet Take 1 Tablet (600 mg) by mouth every 12 hours. 4 Active insulin lispro (HumaLOG) 100 unit/mL pen syringe Inject 0-18 Units by subcutaneous injection 3 times daily with meals. 4 Active insulin lispro (HumaLOG) 100 unit/mL pen syringe Inject 0-6 Units by subcutaneous injection daily at bedtime. 4 Active melatonin 3 mg Tablet Take 3 Tablets (9 mg) by mouth nightly as needed for Insomnia. 4 Active potassium chloride (K-TAB) 20 mEq Extended Release tablet Take 1 Tablet (20 mEq) by mouth daily with breakfast. 30 Tablet 4 Active oxygen home delivery Home Oxygen Concentrator yes at 0 L/M Rest, 2 L/M Activity, 0 L/M Sleep, Delivery Device: Nasal Cannula Portability: yes, 0 L/M Rest, 2 L/M Activity, May provide device best for patient needs(E system,home fill, conserving device) Length of Need: 99 months 1 Each 4 Active HYDROcodone-shady taminophen (NORCO) 10-325 mg Tablet TAKE 1 TABLET BY MOUTH EVERY 6 HOURS NEEDED max of FOUR PER day 4 Active gabapentin (NEURONTIN) 300 mg capsule take 1 capsule BY MOUTH EVERY MORNING and TWO at night 4 Active metFORMIN (GLUCOPHAGE XR) 500 mg Extended Release 24 hour tablet TAKE 1 TABLET BY MOUTH EVERY DAY FOR TWO weeks THEN ONE TWICE DAILY 4 Active metoprolol tartrate (LOPRESSOR) 25 mg tablet Take 0.5 Tablets (12.5 mg) by mouth 2 times daily. 60 Tablet 11 4 Active Active Problems Problem Noted Date Diagnosed Date Pleural effusion 01/11/2024 Moderate COPD (chronic obstructive pulmonary dis ease) 01/06/2024 VINNIE (acute kidney injury) 01/06/2024 Cardiac Debility r/t CAD s/p CABG x4 01/02/2024 Protein-calorie malnutrition, moderate Coronary artery disease invo lving [place] coronary artery of [place] heart 12/24/2023 Type 2 diabetes mellitus wit h circulatory disorder, with long-term current use of insulin 12/24/2023 Dyslipidemia 12/24/2023 Essential hypertension 12/24/2023 Obesity (BMI 30.0-34.9) 12/24/2023 Emphysema of lung 12/24/2023 PAF (paroxysmal atrial fibrillation) 12/24/2023 Smoker 12/24/2023 Status post coronary artery bypass graft 024 Acute blood loss anemia 12/24/2023 Resolved Problems Problem Noted Date Diagnosed Date Resolved Date Severe sepsis with septic shock 01/06/2024 01/13/2024 Acute on chronic respiratory failure with hypoxia 12/31/2023 01/13/2024 Acute hypoxic respiratory failure 12/26/2023 01/13/2024 Encounters Date Type Department Care Team Description 03/16/2025 External Device Data STL ABSTRACTION Provider, Abstract from Last 3 Months Immunizations Immunization Administration Dates Next Due (PNEUMOVAX 23)(50 YRS UP) PN EUMOCOCCAL POLYSACCHARIDE (PPV23) 0.5 ML, IM 12/26/2019,12/25/2018 INFLUENZA VACCINE QUADRIVALENT 6 MOS UP PF IM ,12/25/2018 Social History Tobacco Use Types Packs/Day Years Used Date Smoking Tobacco: Every Day Cigarettes Smokeless Tobacco: Never Tobacco Cessation:Ready to Q uit: Not Asked; Counseling Given: Not Answered Alcohol Use Standard Drinks/Week Comments Not Currently 0 (1 standard drink = 0.6 oz pur e alcohol) Feeling Safe Answer Date Recorded Are you in a relationship wi th someone who hurts you emotionally and/or physically? No 01/06/2024 Sex and Gender Information Value Date Recorded Sex Assigned at Not on file Legal Sex Male 1:13 PM RESAWYER Gender Identity Not on file Sexual Orientation Not on file Last Filed Vital Signs Vital Sign Reading Time Taken Comments Blood Pressure 120/68 02/12/2024 10:23 AM CDT Pulse 86 02/12/2024 10:23 AM CDT Temperature 36.6 C (97.8 F) 01/13/2024 11:00 AM CDT Respiratory Rate 22 01/13/2024 3:20 AM CDT Oxygen Saturation 97% 02/12/2024 10:23 AM CDT Inhaled Oxygen Concentration - - Weight 85.7 kg (189 lb) 02/12/2024 10:23 AM CDT Height 167.6 cm (5' 6 ) 02/12/2024 10:23 AM CDT Body Mass Index 30.51 02/12/2024 10:23 AM CDT Plan of Treatment Health Maintenance Due Date Last Done Comments DIABETES ANNUAL FOOT EXAM 1979 DIABETES ANNUAL RETINAL EXAM 1979 DIABETES MICROALBUMIN ANNUAL SCREEN 1979 LDL CHOLESTEROL ANNUAL 1979 DTAP/TDAP/TD VACCINES (1 - Tdap) 1980 COLORECTAL SCREENING 2006 Colorectal Cancer Screening 2006 FIT-DNA Q 3 years 2006 FIT/FOBT Q 1 year 2006 Flex Sig/CT Colonography Q 5 years 2006 ZOSTER VACCINE (1 of 2) 2011 RSV VACCINE (60+ or ) (1 - Risk 60-74 years 1-dose series) 2021 DIABETES HBA1C Q 6 MONTHS 05/29/2024 11/29/2023 INFLUENZA VACCINE (#1) 2024 12/26/2019, 2018 Medical Devices Implanted Type Area Dental Chairside Assistant Device Identifier Shelf Expiration Date Model / Serial / Lot Clip Ligating Horizon Red [id number] - Csc - [id number] Implanted:Qty: 1 on 12/24/2023 by Ac Aguirre DO at [facility] Clip N/A: Chest TELE[employer]LEX INC [id number] 05/28/2028 [id number] / / [id number] Clip Ligating Horizon Med Ti [id number] - Csc - [id number] Implanted:Qty: 1 on 12/24/2023 by Ac Aguirre DO at [facility] Clip N/A: Chest TELEFLEX- WECK CLOSURE SYS [id number] 08/13/2028 [id number] / / [id number] Clip Ligating Horizon Med Ti 955427 - Csc - [id number] Implanted:Qty: 1 on 12/24/2023 by Ac Aguirre DO at [facility] Clip N/A: Chest TELEFLEX- WECK CLOSURE SYS [id number] 05/28/2028 [id number] / / [id number] Clip Ligating Horizon Red [id number] - Csc - [id number] Implanted:Qty: 1 on 12/24/2023 by Ac Aguirre DO at [facility] Clip N/A: Chest TELE[employer]LEX INC [id number] 05/14/2028 [id number] / / [id number] Clip Ligating Horizon Red [id number] - Csc - [id number] Implanted:Qty: 1 on 12/24/2023 by Ac Aguirre DO at [facility] Clip N/A: Chest TELEFLEX INC [id number] 05/14/2028 [id number] / / [id number] Clip Ligating Horizon Red [id number] - Csc - [id number] Implanted:Qty: 1 on 12/24/2023 by Ac Aguirre DO at [facility] Clip N/A: Chest TELEFLEX INC [id number] 05/28/2028 [id number] / / [id number] Hemostatic Surgicel 1x2in 1960 - [id number] Implanted:Qty: 1 on 12/24/2023 by Ac Aguirre DO at [facility] Hemostatic N/A: Chest J&J- [employer]IC[employer] [id number] 12/04/20241960 / / [id number] Hemostatic Surgicel 1x2in 1959 - [id number] Implanted:Qty: 1 on 12/24/2023 by Ac Aguirre DO at [facility] Hemostatic N/A: Chest J&J- [employer] [id number] 01/01/20261960 / / [id number] Hemostatic Surgicel 1x2in 1959 - [id number] Implanted:Qty: 1 on 12/24/2023 by Ac Aguirre DO at [facility] Hemostatic N/A: Chest J&J- [employer] [id number] 01/01/20261960 / / [id number] Orthostat 2.0gm Os-201 - [id number] Implanted:Qty: 1 on 12/24/2023 by Ac Aguirre DO at [facility] Hemostatic N/A: Chest ORTHOCON, INC [id number] 08/03/2026 OS- Orthostat 2.0gm Os-201 - [id number] Implanted:Qty: 1 on 12/24/2023 by Ac Aguirre DO at [facility] Hemostatic N/A: Chest ORTHOCON, INC [id number] 08/03/2026 OS- Orthostat 2.0gm Os-201 - [id number] Implanted:Qty: 1 on 12/24/2023 by Ac Aguirre DO at [facility] Hemostatic N/A: Chest ORTHOCON, INC [id number] 08/03/2026 OS- Orthostat 2.0gm Os- - [id number] Implanted:Qty: 1 on 12/24/2023 by Ac Aguirre DO at [facility] Hemostatic N/A: Chest ORTHOCON, INC [id number] 08/03/2026- Hemostatic Surgicel 1x2in 1959 - [id number] Implanted:Qty: 1 on 12/24/2023 by Ac Aguirre DO at [facility] Hemostatic N/A: Chest J&J- [employer] [id number] 03/03/2026 1961 / / [id number] Marker Anastomark Coronry Ss Distal W/ Collins Amgm-D - [id number] Implanted:Qty: 1 on 12/24/2023 by Ac Aguirre DO at [facility] Other N/A: Heart GENESEE BIOMED INC 07/04/2026 AMGM-D / / [id number] Marker Anastomark Coronry Ss Distal W/ Collins Amgm-D - [id number] Implanted:Qty: 1 on 12/24/2023 by Ac Aguirre DO at [facility] Other N/A: Heart [employer] 07/04/2026 AMGM-D / / [id number] Adh Bioglue 10ml [id number] - [id number] Implanted:Qty: 1 on 12/24/2023 by Ac Aguirre DO at [facility] Sealant N/A: Chest ARTIVION (FKA CRYOLIFE) [id number] 03/02/2025 [id number] / / [id number] Procedures Procedure Name Priority Date/Time Associated Diagnosis Comments HEMOGLOBIN A1C Routine 11/29/2023 8:51 AM RESAWYER Atherosclerosis of coronary artery, unspecified vessel or lesion type, unspecified whether angina present, unspecified whether [place] or transplanted heart from Last 3 Months or Most Recently Relevant to Health Maintenance Results * (ABNORMAL) HEMOGLOBIN A1C (11/29/2023 8:51 AM RESAWYER) HEMOGLOBIN A1C 10.6(H) <5.7 % of total Hgb [facility] Comment: For someone without known diabetes, a hemoglobin A1c value of 6.5% or greater indicates that they may have diabetes and this should be confirmed with a follow-up test. For someone with known diabetes, a value <7% indicates that their diabetes is well controlled and a value greater than or equal to 7% indicates suboptimal control. A1c targets should be individualized based on duration of diabetes, age, comorbid conditions, and other considerations. Currently, no consensus exists regarding use of hemoglobin A1c for diagnosis of diabetes for children. ESTIMATED AVERAGE GLUCOSE (MG/DL) 258 mg/dL [facility] ESTIMATED AVERAGE GLUCOSE (MMOL/L) 14.3 mmol/L [facility] Comment: HbA1c performed on [employer] platform. Test Performed at: [facility] [id number] [address] Edwin Gomez MD Blood 11/29/2023 8:51 AM RESAWYER 11/29/2023 8:52 AM RESAWYER Ac Aguirre DO CHEMISTRY ORDERABLES Final Result [facility] [phone] [facility] [address] [place] [address] from Last 3 Months or Most Recently Relevant to Health Maintenance Insurance MEDICAID [place] Advance Directives For more information, please contact: [phone] * Full Code (Latest Code Status on File) Date Activated Date Inactivated Comments 01/06/2024 3:58 PM 01/13/2024 4:13 PM * Full Code Date Activated Date Inactivated Comments 01/02/2024 4:20 PM 01/03/2024 2:36 PM * Full Code Date Activated Date Inactivated Comments 12/24/2023 2:48 PM 01/02/2024 4:12 PM * Full Code Date Activated Date Inactivated Comments 12/24/2023 5:10 AM 12/24/2023 2:48 PM Care Teams Supervisor Of Research Relationship Specialty Start Date End Date Syeda Bender MD [address] [place] [address] PCP - General Family Practice 10/09/23
--- NOTE | 2025-05-03 15:02 | ECG_ITS ---
[facility] Test Date: 2025-05-03 Pat Name: Shamir Larose Department: Room: Gender: Male Code Official: : 1960 Requested By: Kurtis Schaffer Order Number: [id number] Shonda MD: Librado Lerma M.D. Measurements Intervals [place] Rate: 156 P: 0 MO: 0 QRS: -55 QRSD: 130 T: 105 QT: 294 QTc: 475 Interpretive Statements ATRIAL FIBRILLATION WITH RAPID VENTRICULAR RESPONSE LEFT AXIS DEVIATION [QRS AXIS < -30] RIGHT BUNDLE BRANCH BLOCK [120+ ms QRS DURATION, UPRIGHT V1, 40+ ms S IN I/aVL/V4/V5/V6] INFERIOR MYOCARDIAL INFARCTION , PROBABLY OLD [40+ ms Q WAVE AND/OR ST/T ABNORMALITY IN II/aVF] Compared to ECG 12/12/2024 11:52:41 Left-axis deviation now present Possible ischemia no longer present Myocardial infarct finding still present Electronically Signed On 05-06-2025 09:07:51 CDT by Librado Lerma M.D. [email or web address]
--- NOTE | 2025-05-03 15:02 | W.ED.ARRPALP ---
HPI - Arrhythmia/Palpitations General: Chief Complaint: Arrhythmia/Palpitations Stated Complaint: low o2 and rapid hr Time Seen by Provider: 05/03/25 14:56 Source: patient Mode of arrival: ambulatory Limitations: no limitations History of Present Illness: 65-year-old male with a history of A-fib states that over the last 2 days been having increasing heart rate palpitations states it is making feeling slightly short of breath and having some chest pressure states he is felt this way when he has been in A-fib before. Heart rate here is in the 140s denies any worse improved factors. Associated symptoms: Deny nausea or vomiting Related Data Home Medications ?Medication ?Instructions ?Recorded ?Confirmed pantoprazole 40 mg tablet,delayed 40 mg PO DAILY@02/21/23 05/03/25 release metformin 500 mg tablet,extended 500 mg PO BID@,09/19/23 05/03/25 release 24 hr insulin glargine 100 unit/mL (3 10 unit SUBCUT DAILY 05/04/24 05/03/25 mL) subcutaneous pen (Lantus Solostar U-100 Insulin) dulaglutide 0.75 mg/0.5 mL 0.75 mg SUBCUT Q7D 12/12/24 05/03/25 subcutaneous pen injector (Trulicity) gabapentin 800 mg tablet 800 mg PO TID 12/12/24 05/03/25 hydrocodone 10 mg-acetaminophen 1 tab PO Q8H PRN Pain 12/12/24 05/03/25 325 mg tablet rosuvastatin 20 mg tablet 20 mg PO QPM 12/12/24 05/03/25 aspirin 325 mg tablet 325 mg PO QAM 05/03/25 05/03/25 budesonide-formoterol HFA 160 2 puff inhalation BID 05/03/25 05/03/25 mcg-4.5 mcg/actuation aerosol inhaler (Symbicort) lisinopril 10 mg tablet 10 mg PO DAILY 05/03/25 05/03/25 Previous Rx's ?Medication ?Instructions ?Recorded clopidogrel 75 mg tablet 75 mg PO DAILY@05 #90 tabs 08/21/24 albuterol sulfate 90 mcg/actuation 2 inh inhalation Q6H PRN shortness 12/12/24 aerosol inhaler (Ventolin HFA) of breath or wheezing #8.5 grams nitroglycerin 0.4 mg sublingual See Rx Instructions .Route 01/11/25 tablet .COMPLEX #25 tabs furosemide 20 mg tablet 20 mg PO DAILY Edema #90 tabs 03/25/25 Allergies Allergy/AdvReac Type Severity Reaction Status Date / Time Beta-Blockers Allergy ADR-Confusi Verified 05/03/25 14:52 (Beta-Adrenergic Bloc on/Sweating Review of Systems Const: Denies: fever(s), chills, body aches or change in appetite ENMT: Denies: throat pain or dental pain Card: Reports: chest pain, palpitations and irregular heart rhythm Resp: Denies: dyspnea GI: Denies: abdominal pain, nausea, vomiting or diarrhea : Denies: dysuria Musc: Denies: neck pain or back pain Skin/Breast: Denies: rash Neuro: Denies: headache(s) PFSH ED PFSH: Medical History Cigarette smoker motivated to quit PAD (peripheral artery disease) Encounter for tobacco use cessation counseling Sleep apnea in adult Kidney stones Stroke CAD (coronary artery disease) COPD (chronic obstructive pulmonary disease) Hyperlipidemia Hypertension Opioid contract exists Encounter for long-term use of opiate analgesic Tobacco abuse Smoking cessation discussed with patient in detail for 3-10 minutes. -he has cut back to 15 cigs/day Surgical History S/P CABG x 4 History of ureter stent Stented coronary artery H/O angioplasty Family History Other Adopted Social History Smoking and tobacco/nicotine status: current every day tobacco/nicotine user (1 ppd) cigarettes Packs smoked per day: 0.75 Alcohol intake: never Substance/Drug Use: never Adopted: Yes Household members: family Housing: House Physical Exam Const: COMMON NORMALS: patient oriented x3 HENMT: COMMON NORMALS: normocephalic and atraumatic HEAD & SCALP: normocephalic and atraumatic Eye: COMMON NORMALS: conjunctivae normal CONJUNCTIVA: Yes conjunctivae normal Neck/C-Spine: COMMON NORMALS: full ROM and supple Chest: COMMONS NORMALS: normal inspection of the chest Resp: COMMON NORMALS: normal respiratory effort, No retractions, No use of accessory muscles and clear to auscultation bilaterally AUSCULTATION: clear to auscultation bilaterally Cardio: COMMON NORMALS: No murmurs present (Cardio) RATE: tachycardic RHYTHM: abnormal rhythm irregularly irregular GI: COMMON NORMALS: Normal to inspection, nondistended, normoactive bowel sounds present, Soft to palpation, non-tender and no masses PALPATION: Yes Soft to palpation Extremity: COMMON NORMALS: normal to inspection and full ROM Neuro: COMMON NORMALS: patient oriented x3, moves all extremities and no focal motor deficits Psych: COMMON NORMALS: mental status grossly normal, Normal thought process present and cooperative THOUGHT PROCESS: Normal thought process present Skin: COMMON NORMALS: no rashes or lesions noted and no wounds GENERAL SKIN EXAM: no rashes or lesions noted Course Vital Signs: Vital signs: Vital Signs Temperature 97.4 F L 05/03/25 14:42 Pulse Rate 146 H 05/03/25 15:27 Respiratory Rate 18 05/03/25 15:27 Blood Pressure 115/74 05/03/25 15:27 Pulse Oximetry 91 05/03/25 15:27 Oxygen Delivery Me thod Room Air 05/03/25 15:27 MDM - Arrhythmia/Palpitations Medical Decision Making Patient presents here with A-fib with RVR did start him on a Cardizem drip here. He is having no chest pain at this time I spoke to the hospitalist will admit to cardiac stepdown. Medical Records I reviewed the patient's medical records. Lab Data I reviewed the patient's lab results. 05/03/25 14:59 05/03/25 14:59 Radiology Impressions Chest X-Ray 05/03/25 14:46 IMPRESSION: 1. Mild bibasilar atelectasis or airspace disease. 2. Mild cardiomegaly. Postoperative changes of CABG. Laboratory Results WBC 10.25 10^3/uL (3.29-11.43) 05/03/25 14:59 RBC 5.62 10^6/uL (3.85-5.65) 05/03/25 14:59 Hgb 15.40 g/dL (11.27-16.99) 05/03/25 14:59 Hct 46.4 % (37-53) 05/03/25 14:59 MCV 82.6 fl (82-101) 05/03/25 14:59 MCH 27.4 pg (27-33) 05/03/25 14:59 MCHC 33.2 g/dL (30-55) 05/03/25 14:59 RDW 14.4 % (12.1-15.1) 05/03/25 14:59 Plt Count 257 10^3/cmm (157-399) 05/03/25 14:59 MPV 9.5 fL (7.4-10.4) 05/03/25 14:59 Neut % (Auto) 57.0 % 05/03/25 14:59 Lymph % (Auto) 30.7 % 05/03/25 14:59 Spencer % (Auto) 6.0 % 05/03/25 14:59 Eos % (Auto) 5.2 % 05/03/25 14:59 Baso % (Auto) 0.7 % 05/03/25 14:59 Neut # (Auto) 5.85 10^3/uL (1.8-7.7) 05/03/25 14:59 Lymph # (Auto) 3.2 10^3/uL (0.8-4.8) 05/03/25 14:59 Spencer # (Auto) 0.6 10^3/uL (0.2-0.9) 05/03/25 14:59 Eos # (Auto) 0.5 10^3/uL (0.0-0.8) 05/03/25 14:59 Baso # (Auto) 0.1 10^3/uL (0.0-0.1) 05/03/25 14:59 Nucleated RBC % (auto) 0 % 05/03/25 14:59 Nucleated RBCs # 0.0 /100WBC 05/03/25 14:59 PT 11.90 SECONDS (12.1-14.9) L 05/03/25 14:59 INR 0.82 (0.8-1.2) 05/03/25 14:59 Sodium 139 mmol/L (136-145) 05/03/25 14:59 Potassium 4.6 mmol/L (3.5-5.1) 05/03/25 14:59 Chloride 99 mmol/L (98-107) 05/03/25 14:59 Carbon Dioxide 24 mmol/L (22-29) 05/03/25 14:59 Anion Gap 20.6 (5-19) H 05/03/25 14:59 BUN 12 mg/dL (8-23) 05/03/25 14:59 Creatinine 0.8 mg/dL (0.7-1.2) 05/03/25 14:59 GFR Calculation 97.3 mL/min (90-130) 05/03/25 14:59 Glucose 197 mg/dL (65-115) H 05/03/25 14:59 Calculated Osmolality 293 mOsm/kg (285-295) 05/03/25 14:59 Calcium 9.8 mg/dL (8.5-10.5) 05/03/25 14:59 Total Bilirubin 0.4 mg/dL (0.15-1.2) 05/03/25 14:59 AST 15 U/L (0-40) 05/03/25 14:59 ALT 16 U/L (0-41) 05/03/25 14:59 Alkaline Phosphatase 85 U/L (40-130) 05/03/25 14:59 Troponin T Baseline 24 ng/L (0-15) H 05/03/25 14:59 NT-Pro-B Natriuret Pep 641 pg/mL (0-125) H 05/03/25 14:59 Total Protein 7.2 g/dL (6.6-8.7) 05/03/25 14:59 Albumin 4.5 g/dL (3.5-5.2) 05/03/25 14:59 Globulin 2.7 g/dL (1.3-4.6) 05/03/25 14:59 All radiology interpretation(s) finalized by discharge EKG Data EKG 1: I personally reviewed and interpreted this EKG as follows: EKG interpretation date: 05/03/25 EKG interpretation time: 14:47 Interpretation: afib with rvr hr 156 nostelevation qrs 130 qtc 382 Other EKG comments: Chest X-Ray 05/03/25 14:46 IMPRESSION: 1. Mild bibasilar atelectasis or airspace disease. 2. Mild cardiomegaly. Postoperative changes of CABG. Discharge Plan Discharge Patient Disposition: Admitted As Inpatient Clinical Impression: Atrial fibrillation with RVR Condition: Stable Coding Level of Care Code ED Residence Leasing Agent for [facility]
[2025-05-03 15:06] LABS: Hematocrit 46.4 % (37-53); Hemoglobin 15.40 g/dL (11.27-16.99); Mean Corpuscular HGB Conc 33.2 g/dL (30-55); Mean Corpuscular Hemoglobin 27.4 pg (27-33); Mean Corpuscular Volume 82.6 fl (82-101); Nucleated Red Blood Cells % 0 %; Platelet Count 257 10^3/cmm (157-399); Red Blood Count 5.62 10^6/uL (3.85-5.65); White Blood Count 10.25 10^3/uL (3.29-11.43)
[2025-05-03] MEDS: dilTIAZem 5 mg/mL SDV 5 mL 15 MG IVP (15:10)
[2025-05-03 15:16] LABS: INR 0.82 (0.8-1.2); Prothrombin Time 11.90 SECONDS (12.1-14.9)
[2025-05-03] MEDS: dilTIAZem 100 MG in sodium chloride 0.9% (add-van) 100 ML IV (15:17)
[2025-05-03 15:22] LABS: Troponin(5th) Baseline 24 ng/L (0-15)
[2025-05-03 15:39] LABS: Alanine Aminotransferase 16 U/L (0-41); Albumin Level 4.5 g/dL (3.5-5.2); Alkaline Phosphatase 85 U/L (40-130); Anion Gap 20.6 (5-19); Aspartate Amino Transferase 15 U/L (0-40); Blood Urea Nitrogen 12 mg/dL (8-23); Calcium 9.8 mg/dL (8.5-10.5); Carbon Dioxide 24 mmol/L (22-29); Chloride 99 mmol/L (98-107); Creatinine Clr Calc Pharmacy 98.3873; Globulin 2.7 g/dL (1.3-4.6); Glucose 197 mg/dL (65-115); NT Pro B Type Natriuretic Pept 641 pg/mL (0-125); Osmolality Calculated 293 mOsm/kg (285-295); Potassium 4.6 mmol/L (3.5-5.1); Sodium 139 mmol/L (136-145); Total Protein 7.2 g/dL (6.6-8.7)
--- NOTE | 2025-05-03 17:02 | ECG_ITS ---
[employer] [facility] Test Date: 2025-05-03 Pat Name: Shamir Larose Department: Room: 103 Gender: Male Cardiovascular Surgical Tech: : 1960 Requested By: Kurtis Schaffer Order Number: [id number] Shonda MD: Librado Lerma M.D. Measurements Intervals [place] Rate: 141 P: 0 MD: 0 QRS: 76 QRSD: 136 T: 205 QT: 363 QTc: 558 Interpretive Statements ATRIAL FLUTTER WITH RAPID VENTRICULAR RESPONSE RIGHT BUNDLE BRANCH BLOCK [120+ ms QRS DURATION, UPRIGHT V1, 40+ ms S IN I/aVL/V4/V5/V6] MODERATE T-WAVE ABNORMALITY, CONSIDER LATERAL ISCHEMIA [-0.1+ mV T-WAVE IN I/aVL/V5/V6] MODERATE T-WAVE ABNORMALITY, CONSIDER INFERIOR ISCHEMIA [-0.1+ mV T-WAVE IN II/aVF] Compared to ECG 05/03/2025 14:47:18 T-wave abnormality now present Possible ischemia now present Left-axis deviation no longer present Myocardial infarct finding no longer present Electronically Signed On 05-06-2025 09:34:48 CDT by Librado Lerma M.D. [email or web address]
--- NOTE | 2025-05-03 17:23 | PM.HP ---
Providers/Chief Complaint Admitting Physician: Mika Haro Primary Care Provider: Syeda Bender MD Chief Complaint: low o2 and rapid hr History of Present Illness Shamir Larose is a 65 year old patient with a history of coronary artery disease (status-post CABG ?4 and prior stents), COPD, hypertension, hyperlipidemia, peripheral artery disease, prior stroke, kidney stones with ureteral stenting, and known atrial fibrillation who presents after several days of palpitations, heart rates as high as 164 bpm, mild chest discomfort, and shortness of breath. He self-took ? metoprolol at home (had discontinued >1 yr ago due to adverse effects) with minimal improvement. In the ED he was found in atrial fibrillation with rapid ventricular response (HR ~140s), INR 0.82, NT-pro-BNP 641, and chest X-ray showing mild cardiomegaly with post-CABG changes. He received an IV diltiazem bolus and was started on a continuous diltiazem drip, which has lowered the rate somewhat. He denies fever, chills, GI symptoms, leg swelling, or hemoptysis. He reports chronic insomnia and nighttime oxygen use; possible undiagnosed sleep apnea discussed. Back pain present; behind on hydrocodone and gabapentin doses. No alcohol or illicit drug use; current smoker. He is agreeable to full code status and identified Jenny Jauregui as surrogate decision maker. Review of Systems Const: Denies: fever(s), chills, body aches or malaise ENMT: Reports: nasal discharge; Denies: throat pain Card: Reports: chest pain, palpitations and irregular heart rhythm; Denies: edema or pre-syncope Resp: Reports: dyspnea; Denies: productive cough, change in phlegm color or hemoptysis GI: Denies: abdominal pain, nausea, vomiting, diarrhea, constipation, hematochezia or melena : Denies: flank pain, difficulty urinating, urinary frequency or hematuria Musc: Denies: back pain, joint swelling or joint redness Skin/Breast: Denies: rash or new lesions Neuro: Denies: headache(s) or confusion Medications/Allergies Home Medications ?Medication ?Instructions ?Recorded ?Confirmed ?Last Taken ?Type pantoprazole 40 mg tablet,delayed 40 mg PO DAILY@05 02/21/23 06/30/25 06/30/25 History release metformin 500 mg tablet,extended 500 mg PO BID@05,17 09/19/23 05/03/25 05/03/25 History release 24 hr insulin glargine 100 unit/mL (3 10 unit SUBCUT DAILY 05/04/24 05/03/25 05/03/25 History mL) subcutaneous pen (Lantus Solostar U-100 Insulin) clopidogrel 75 mg tablet 75 mg PO DAILY@05 #90 tabs 08/21/24 05/03/25 05/03/25 Rx albuterol sulfate 90 mcg/actuation 2 inh inhalation Q6H PRN shortness 12/12/24 05/03/25 Unknown Rx aerosol inhaler (Ventolin HFA) of breath or wheezing #8.5 grams dulaglutide 0.75 mg/0.5 mL 0.75 mg SUBCUT Q7D 12/12/24 05/03/25 05/03/25 History subcutaneous pen injector (Trulicity) gabapentin 800 mg tablet 800 mg PO TID 12/12/24 05/03/25 05/03/25 History hydrocodone 10 mg-acetaminophen 1 tab PO Q8H PRN Pain 12/12/24 05/03/25 Unknown History 325 mg tablet rosuvastatin 20 mg tablet 20 mg PO QPM 12/12/24 05/03/25 05/02/25 History nitroglycerin 0.4 mg sublingual See Rx Instructions .Route 01/11/25 05/03/25 Unknown Rx tablet .COMPLEX #25 tabs furosemide 20 mg tablet 20 mg PO DAILY Edema #90 tabs 03/25/25 05/03/25 05/03/25 Rx aspirin 325 mg tablet 325 mg PO QAM 05/03/25 05/03/25 05/03/25 History budesonide-formoterol HFA 160 2 puff inhalation BID 05/03/25 05/03/25 05/03/25 History mcg-4.5 mcg/actuation aerosol inhaler (Symbicort) lisinopril 10 mg tablet 10 mg PO DAILY 05/03/25 05/03/25 05/03/25 History Allergies Allergy/AdvReac Type Severity Reaction Status Date / Time Beta-Blockers Allergy ADR-Confusi Verified 05/03/25 14:52 (Beta-Adrenergic Bloc on/Sweating PFSH Acute PFSH: Medical History Atrial fibrillation Cigarette smoker motivated to quit PAD (peripheral artery disease) Encounter for tobacco use cessation counseling Sleep apnea in adult Kidney stones Stroke CAD (coronary artery disease) COPD (chronic obstructive pulmonary disease) Hyperlipidemia Hypertension Opioid contract exists Encounter for long-term use of opiate analgesic Tobacco abuse Smoking cessation discussed with patient in detail for 3-10 minutes. -he has cut back to 15 cigs/day Surgical History S/P CABG x 4 History of ureter stent Stented coronary artery H/O angioplasty Family History Other Adopted Social History Smoking and tobacco/nicotine status: current every day tobacco/nicotine user (1 ppd) cigarettes Packs smoked per day: 0.75 Alcohol intake: never Substance/Drug Use: never Adopted: Yes Household members: family Housing: House Vitals/I&O/Wt Last Vital Signs Temp 97.4 F L 05/03/25 14:42 Pulse 146 H 05/03/25 16:35 Resp 21 H 05/03/25 16:35 BP 103/63 05/03/25 16:35 Pulse Ox 92 05/03/25 16:35 O2 Del Method Room Air 05/03/25 15:27 05/03/25 05/03/25 05/03/25 06:59 14:59 22:59 Intake Total 9.375 / 9.375 Balance 9.375 / 9.375 Weight last 48 hrs Weight 90.718 kg Physical Exam Narrative: Accompanied by his son and male visitor Const: COMMON NORMALS: patient oriented x3 and alert GENERAL APPEARANCE: cooperative ORIENTATION/CONSCIOUSNESS: Yes awake HENMT: COMMON NORMALS: oropharynx normal Neck/C-Spine: COMMON NORMALS: no JVD Resp: COMMON NORMALS: normal respiratory effort and clear to auscultation bilaterally AUSCULTATION: clear to auscultation bilaterally Cardio: COMMON NORMALS: no JVD, regular rhythm, S1 normal heart sound present, S2 normal heart sound present and No murmurs present (Cardio) RATE: tachycardic RHYTHM: abnormal rhythm irregularly irregular HEART SOUNDS: S1 normal heart sound present and S2 normal heart sound present GI: COMMON NORMALS: Normal to inspection, nondistended, normoactive bowel sounds present, Soft to palpation and non-tender PALPATION: Yes Soft to palpation Extremity: COMMON NORMALS: no joint enlargement and no pedal edema Neuro: COMMON NORMALS: patient oriented x3 and moves all extremities SENSORIUM/ORIENTATION: Yes alert Skin: COMMON NORMALS: no rashes or lesions noted GENERAL SKIN EXAM: no rashes or lesions noted Data 05/03/25 14:59 05/03/25 14:59 A&P Assessment and plan (1) Paroxysmal atrial fibrillation with RVR: Atrial fibrillation with rapid ventricular response : Patient in AFib with HR ~140s; symptomatic with palpitations, mild SOB, chest discomfort. Received IV diltiazem bolus/drip with partial rate control. INR subtherapeutic (0.82). Stroke risk elevated due to HTN, CAD, prior stroke. Reviewed vitals, CBC, INR, CMP, troponin, requested magnesium, TSH, reviewed chest x-ray, EKG, ED provider note, discussed with ED provider. - Continue diltiazem drip; begin oral diltiazem when able, taper off drip once effective. Monitor for risk of hypotension combined also with the beta-elijah he took at home. - Discussed also digoxin given still tachycardic with Cardizem drip. Will give 0.25 mg IV push now. Consider repeat to full load depending on responses. - Target HR <110 bpm; aim for sinus rhythm if possible. - Order thyroid function tests, serum magnesium, repeat potassium as needed. - Obtain transthoracic echocardiogram once heart rate allows. - Serial EKGs and troponin levels to monitor for ischemia. - Considered initiation of oral anticoagulant (e.g., Eliquis); discussed if started, discontinue aspirin and continue clopidogrel to avoid triple therapy and risk of bleeding. Started with Lovenox in the hospital. Monitor for risk of bleeding. Reassess blood counts. - Monitor for hypotension; if rate remains high with instability, consider digoxin or electrical cardioversion. Plan Coronary artery disease, PAD: History of CABG ?4 and prior stents; mild chest discomfort but no active ischemic symptoms; CAD influences anticoagulation decisions. Stents over a year now. - Continue aspirin and clopidogrel for now; reassess once anticoagulation strategy finalized. - Follow serial troponins and EKGs for ischemia. - Maintain cardiac monitoring during hospitalization. Tobacco use disorder : Current smoker; recognizes difficulty quitting; nicotine patch in use with good effect. - Continue 21 mg nicotine patch daily; offer nicotine lozenges PRN cravings. - Provide smoking-cessation counseling and resources. Chronic back pain : Chronic pain managed with hydrocodone and gabapentin; patient behind on dosing and reports pain. - Resume scheduled hydrocodone and gabapentin as ordered. - Assess pain control daily; adjust regimen if inadequate. HTN: Monitor blood pressures. Resumed lisinopril, but monitor blood pressure with risk of hypotension with Cardizem drip. Cardiac diet. Diabetes: Continue Lantus, add sliding scale insulin. Monitor POC glucose. Consult carbohydrate diet. HLD: Continue statin PDMP PDMP Reviewed: Not Reviewed Attestations Medical Necessity Statement*: Admission of over 2 midnights anticipated for assessment management of difficult to control atrial fibrillation with RVR paroxysm in a gentleman with underlying coronary disease, PAD, metabolic syndrome, additional comorbidities. and High MDM includes amount and/or complexity of data reviewed/ordered [ previous or external records, resulted lab(s)/test(s), ordered lab(s)/test(s) and other healthcare professional discussion] and described risk of complication, morbidity or mortality of management as documented Diagnoses Paroxysmal atrial fibrillation with RVR I48.0
[2025-05-03] MEDS: HYDROcodone-acetaminophen 10-325 mg Tablet 1 TAB PO (18:05)
[2025-05-03 18:17] LABS: Troponin 5 2HR 29.92 ng/L (0-15); Troponin 5 2HR Delta 5.92 ABS# (0-10)
[2025-05-03 18:22] LABS: Magnesium 1.7 mg/dL (1.7-2.3); Thyroid Stimulating Hormone 0.87 uIU/mL (0.27-4.20)
--- NOTE | 2025-05-03 19:19 | PC.NURSE ---
patient told nurse that his son would be staying with him the entire time or I will leave . Nurse told patient that she would get permission for that and patient again stated well he's staying or I'm leaving. Nurse/ staff writer contacted Director of Acute Care, Amrita Barker who asked the jira administrator wagon drill operator, Mitali Blank. Mitali said that the patient's son could stay IF he stayed in the room and didn't cause any trouble. This information was relayed to the patient who agreed. Patient was moved to a private room. His minor son was given a recliner and a table, along with bedding. Patient expressed his gratitude to [facility] and the hospital.
[2025-05-03] MEDS: digoxin 250 mcg/ml INJ 2 mL IVP (19:42)
[2025-05-03] MEDS: magnesium sulfate premix 2 GM/50 ML PIGGYBACK IV (19:42)
--- NOTE | 2025-05-03 21:02 | ECG_ITS ---
[employer] Test Date: 2025-05-03 Pat Name: Shamir Larose Department: Room: 103 Gender: Male Observer [employer]ing: : 1960 Requested By: Kurtis Schaffer Order Number: [id number] Shonda MD: Librado Lerma M.D. Measurements Intervals [place] Rate: 74 P: 0 ID: 0 QRS: 15 QRSD: 143 T: 161 QT: 383 QTc: 425 Interpretive Statements ATRIAL FIBRILLATION RIGHT BUNDLE BRANCH BLOCK [120+ ms QRS DURATION, UPRIGHT V1, 40+ ms S IN I/aVL/V4/V5/V6] MODERATE T-WAVE ABNORMALITY, CONSIDER LATERAL ISCHEMIA [-0.1+ mV T-WAVE IN I/aVL/V5/V6] Compared to ECG 05/03/2025 17:30:08 Atrial flutter no longer present T-wave abnormality still present Possible ischemia still present Electronically Signed On 05-06-2025 09:34:30 CDT by Librado Lerma M.D. [id number] [id number]
[2025-05-03 21:14] LABS: Troponin 5 6HR 53.99 ng/L (0-15)
[2025-05-03 21:22] LABS: Troponin 5 6HR Delta 29.99 ng/L (0-12)
[2025-05-03] MEDS: dilTIAZem 100 MG in sodium chloride 0.9% (add-van) 100 ML 7.5 MG IV (21:38)
--- NOTE | 2025-05-03 22:20 | PC.NURSE ---
Patient converted to sinus rhythm at 2220 and cardizem has been titrated off.
[2025-05-04] MEDS: HYDROcodone-acetaminophen 10-325 mg Tablet 1 TAB PO ×2 (02:05→09:36)
[2025-05-04 03:33] LABS: Hematocrit 43.3 % (37-53); Hemoglobin 14.40 g/dL (11.27-16.99); Mean Corpuscular HGB Conc 33.3 g/dL (30-55); Mean Corpuscular Hemoglobin 28.2 pg (27-33); Mean Corpuscular Volume 84.7 fl (82-101); Nucleated Red Blood Cells % 0 %; Platelet Count 271 10^3/cmm (157-399); Red Blood Count 5.11 10^6/uL (3.85-5.65); White Blood Count 9.74 10^3/uL (3.29-11.43)
[2025-05-04 04:00] VITALS: BP 117/60; PULSE 66; RESP 23; O2SAT 96
[2025-05-04 04:03] LABS: Anion Gap 16.4 (5-19); Blood Urea Nitrogen 18 mg/dL (8-23); Calcium 9.4 mg/dL (8.5-10.5); Carbon Dioxide 24 mmol/L (22-29); Chloride 103 mmol/L (98-107); Creatinine Clr Calc Pharmacy 80.3020; Glucose 133 mg/dL (65-115); Osmolality Calculated 292 mOsm/kg (285-295); Potassium 4.4 mmol/L (3.5-5.1); Sodium 139 mmol/L (136-145)
[2025-05-04 04:04] LABS: Magnesium 2.4 mg/dL (1.7-2.3)
[2025-05-04 06:00] VITALS: PULSE 60
[2025-05-04 08:00] VITALS: BP 130/64; PULSE 71; RESP 20; TEMP 36.1; O2SAT 94
[2025-05-04] MEDS: insulin glargine 100 units/1 mL 10 UNIT SUBCUT (08:40)
--- NOTE | 2025-05-04 08:49 | PM.DCS ---
Discharge Providers Date of Admission: 05/03/25 16:37 Date of Discharge: May 04, 2025 Attending Provider at Admission: Mika Haro Attending Provider at Discharge: Mika Haro Primary Care Provider: Syeda Bender MD Diagnoses at Discharge Discharge Diagnosis (1) Paroxysmal atrial fibrillation with RVR: Status: Acute Reason for Visit Reason for Visit: low o2 and rapid hr Brief History: Shamir Larose is a 65 year old patient with a history of coronary artery disease (status-post CABG ?4 and prior stents), COPD, hypertension, hyperlipidemia, peripheral artery disease, prior stroke, kidney stones with ureteral stenting, and known atrial fibrillation who presents after several days of palpitations, heart rates as high as 164 bpm, mild chest discomfort, and shortness of breath. He self-took ? metoprolol at home (had discontinued >1 yr ago due to adverse effects) with minimal improvement. In the ED he was found in atrial fibrillation with rapid ventricular response (HR ~140s), INR 0.82, NT-pro-BNP 641, and chest X-ray showing mild cardiomegaly with post-CABG changes. He received an IV diltiazem bolus and was started on a continuous diltiazem drip, which has lowered the rate somewhat. He denies fever, chills, GI symptoms, leg swelling, or hemoptysis. He reports chronic insomnia and nighttime oxygen use; possible undiagnosed sleep apnea discussed. Back pain present; behind on hydrocodone and gabapentin doses. No alcohol or illicit drug use; current smoker. He is agreeable to full code status and identified Jenny Juventino as surrogate decision maker. Hospital Course Hospital Course He received treatment with Cardizem drip, a dose of digoxin, troponins were trended, with mild to moderate elevation, up to 53.99 at 6 hours. He converted back to sinus rhythm heart rates in the 70s. He is chest pain-free. He is continued on Cardizem 60 mg every 12 hours, he started on Eliquis with Plavix for stroke risk prevention with atrial fibrillation and continued therapy for CAD. He is referred for additional assessment with echocardiogram, stress test as well as sleep study and for reassessment with cardiology and primary provider. He is asked to monitor his heart rates and blood pressures at least twice daily. His TSH and electrolytes were normal. He is encouraged to continue efforts toward smoking cessation. Physical Exam Narrative: Accompanied by his son. Const: COMMON NORMALS: patient oriented x3 and alert GENERAL APPEARANCE: cooperative ORIENTATION/CONSCIOUSNESS: Yes awake HENMT: COMMON NORMALS: oropharynx normal Neck/C-Spine: COMMON NORMALS: no JVD Resp: COMMON NORMALS: normal respiratory effort and clear to auscultation bilaterally AUSCULTATION: clear to auscultation bilaterally Cardio: COMMON NORMALS: no JVD, regular rhythm, S1 normal heart sound present, S2 normal heart sound present and No murmurs present (Cardio) RHYTHM: regular rhythm HEART SOUNDS: S1 normal heart sound present and S2 normal heart sound present GI: COMMON NORMALS: Normal to inspection, nondistended, normoactive bowel sounds present, Soft to palpation and non-tender PALPATION: Yes Soft to palpation Extremity: COMMON NORMALS: no joint enlargement and no pedal edema Neuro: COMMON NORMALS: patient oriented x3 and moves all extremities SENSORIUM/ORIENTATION: Yes alert Skin: COMMON NORMALS: no rashes or lesions noted GENERAL SKIN EXAM: no rashes or lesions noted Discharge Data Studies Completed and Pending Completed Studies During Hospitalization Category Date Time Status XR chest 1V portable [id number] Stat Exams 05/03/25 14:46 Completed Pending at discharge Category Date Time Status Basic Metabolic Panel AM LABS Lab 05/05/25 04:00 Ordered Basic Metabolic Panel AM LABS Lab 05/06/25 04:00 Ordered Complete Blood Count w/Auto AM LABS Lab 05/05/25 04:00 Ordered Complete Blood Count w/Auto AM LABS Lab 05/06/25 04:00 Ordered Radiology Impressions Chest X-Ray 05/03/25 14:46 IMPRESSION: 1. Mild bibasilar atelectasis or airspace disease. 2. Mild cardiomegaly. Postoperative changes of CABG. Laboratory Results WBC 9.74 10^3/uL (3.29-11.43) 05/04/25 03:23 RBC 5.11 10^6/uL (3.85-5.65) 05/04/25 03:23 Hgb 14.40 g/dL (11.27-16.99) 05/04/25 03:23 Hct 43.3 % (37-53) 05/04/25 03:23 MCV 84.7 fl (82-101) 05/04/25 03:23 MCH 28.2 pg (27-33) 05/04/25 03:23 MCHC 33.3 g/dL (30-55) 05/04/25 03:23 RDW 14.5 % (12.1-15.1) 05/04/25 03:23 Plt Count 271 10^3/cmm (157-399) 05/04/25 03:23 MPV 9.5 fL (7.4-10.4) 05/04/25 03:23 Neut % (Auto) 56.6 % 05/04/25 03:23 Lymph % (Auto) 29.1 % 05/04/25 03:23 Ida % (Auto) 8.9 % 05/04/25 03:23 Eos % (Auto) 4.3 % 05/04/25 03:23 Baso % (Auto) 0.7 % 05/04/25 03:23 Neut # (Auto) 5.51 10^3/uL (1.8-7.7) 05/04/25 03:23 Lymph # (Auto) 2.8 10^3/uL (0.8-4.8) 05/04/25 03:23 Ida # (Auto) 0.9 10^3/uL (0.2-0.9) 05/04/25 03:23 Eos # (Auto) 0.4 10^3/uL (0.0-0.8) 05/04/25 03:23 Baso # (Auto) 0.1 10^3/uL (0.0-0.1) 05/04/25 03:23 Nucleated RBC % (auto) 0 % 05/04/25 03:23 Nucleated RBCs # 0.0 /100WBC 05/04/25 03:23 PT 11.90 SECONDS (12.1-14.9) L 05/03/25 14:59 INR 0.82 (0.8-1.2) 05/03/25 14:59 Sodium 139 mmol/L (136-145) 05/04/25 03:23 Potassium 4.4 mmol/L (3.5-5.1) 05/04/25 03:23 Chloride 103 mmol/L (98-107) 05/04/25 03:23 Carbon Dioxide 24 mmol/L (22-29) 05/04/25 03:23 Anion Gap 16.4 (5-19) 05/04/25 03:23 BUN 18 mg/dL (8-23) 05/04/25 03:23 Creatinine 1.0 mg/dL (0.7-1.2) 05/04/25 03:23 GFR Calculation 75.2 mL/min (90-130) L 05/04/25 03:23 Glucose 133 mg/dL (65-115) H 05/04/25 03:23 POC Glucose 161 mg/dL (70-110) H 05/04/25 06:25 Calculated Osmolality 292 mOsm/kg (285-295) 05/04/25 03:23 Calcium 9.4 mg/dL (8.5-10.5) 05/04/25 03:23 Magnesium 2.4 mg/dL (1.7-2.3) H 05/04/25 03:23 Total Bilirubin 0.4 mg/dL (0.15-1.2) 05/03/25 14:59 AST 15 U/L (0-40) 05/03/25 14:59 ALT 16 U/L (0-41) 05/03/25 14:59 Alkaline Phosphatase 85 U/L (40-130) 05/03/25 14:59 Troponin T Baseline 24 ng/L (0-15) H 05/03/25 14:59 Troponin T 120 Minute 29.92 ng/L (0-15) H 05/03/25 17:34 Delta Troponin T 5.92 ABS# (0-10) 05/03/25 17:34 Troponin T Hi Sens 6Hr 53.99 ng/L (0-15) H 05/03/25 20:45 Troponin T Hi Sens 6Hr Delta 29.99 ng/L (0-12) H* 05/03/25 20:45 NT-Pro-B Natriuret Pep 641 pg/mL (0-125) H 05/03/25 14:59 Total Protein 7.2 g/dL (6.6-8.7) 05/03/25 14:59 Albumin 4.5 g/dL (3.5-5.2) 05/03/25 14:59 Globulin 2.7 g/dL (1.3-4.6) 05/03/25 14:59 TSH 0.87 uIU/mL (0.27-4.20) 05/03/25 14:59 Vitals Last Vital Signs Temp 96.9 F L 05/04/25 08:00 Pulse 71 05/04/25 08:00 Resp 20 H 05/04/25 08:00 BP 130/64 05/04/25 08:00 Pulse Ox 94 05/04/25 08:00 O2 Del Method Nasal Cannula 05/04/25 08:00 O2 Flow Rate 2 05/04/25 08:00 Discharge Plan Discharge Patient Disposition: Home Condition: Stable Prescriptions: New Eliquis 5 mg tablet 5 mg PO BID Qty: 180 0RF diltiazem HCl 60 mg capsule,extended release 12 hr 60 mg PO BID Qty: 60 0RF Continued furosemide 20 mg tablet 20 mg PO DAILY Qty: 90 3RF clopidogrel 75 mg tablet 75 mg PO DAILY@05 Qty: 90 3RF nitroglycerin 0.4 mg tablet, sublingual See Rx Instructions .ROUTE .COMPLEX Qty: 25 3RF Dose Instruction: DISSOLVE 1 TABLET UNDER TONGUE EVERY 5 MINUTES NEEDED FOR CHEST PAIN Rx Instructions: DISSOLVE 1 TABLET UNDER TONGUE EVERY 5 MINUTES NEEDED FOR CHEST PAIN insulin glargine [Lantus Solostar U-100 Insulin] 100 unit/mL (3 mL) insulin pen 10 unit SUBCUT DAILY pantoprazole 40 mg tablet,delayed release (DR/EC) 40 mg PO DAILY@05 metformin 500 mg tablet extended release 24 hr 500 mg PO BID@05,17 hydrocodone-acetaminophen 10-325 mg tablet 1 tab PO Q8H PRN (Reason: Pain) gabapentin 800 mg tablet 800 mg PO TID Trulicity 0.75 mg/0.5 mL pen injector 0.75 mg SUBCUT Q7D Rx Instructions: Saturday rosuvastatin 20 mg tablet 20 mg PO QPM albuterol sulfate [Ventolin HFA] 90 mcg/actuation HFA aerosol inhaler 2 inh inhalation Q6H PRN (Reason: shortness of breath or wheezing) Qty: 8.5 0RF lisinopril 10 mg tablet 10 mg PO DAILY budesonide-formoterol [Symbicort] 160-4.5 mcg/actuation HFA aerosol inhaler 2 puff INHALATION BID Discontinued aspirin 325 mg tablet 325 mg PO QAM Discharge Orders: Discharge Order (Routine); Ordered 05/04/25 Ordered By: Mika Haro Other Ambulatory Orders: Sestamibi Stress Test Request (Routine) Timeframe: 1 Day Facility: [facility] - Location: Cardiac Diagnostic Laboratory Ordered By: Mika Haro CV. echo complete* [id number] (Routine) Timeframe: 2 Days Facility: [facility] - Location: Radiology Ordered By: Mika Haro Sleep Study/Titration (Routine) Timeframe: 2 Days Facility: [facility] - Location: [facility] Ordered By: Mika Haro Referrals: Syeda Bender MD [Primary Care Provider, Family Practice] - 05/11/25 9:15 am Maritza Alas FNP [Nurse Practitioner, Cardiology] - 05/18/25 2:30 pm Referral Note: AFib RVR Discharge Diet: Cardiac and Diabetic Patient Instructions: Opioid Safety, Patient Portal & Reyes Instructions Activity Restrictions/Additional Instructions: Please monitor heart rates and blood pressure 2-3 times daily, see values to bring to her appointment. Do not take Cardizem if you are heart rate is less than 60 or blood pressure less than 100/50. Seek medical attention in case of return of fast heart rate despite taking Cardizem, or having very low heart rate or low blood pressure, chest pain or pressure or any other worsening or new concerning symptoms. Please follow up for a stress test. You are started on blood thinner medication to help reduce stroke with atrial fibrillation. Monitor for any bleeding. Also follow-up for echocardiogram. Follow-up for sleep study to assess for sleep apnea which may contribute to episodes of atrial fibrillation. Follow-up with your primary doctor. Follow-up with cardiology for reassessment of all of the above. Your potassium and magnesium levels are good. Continue your efforts to stop smoking due to significant risks to your heart lungs and other organs. Discharge Attestations Time Spent in Discharge Care*: greater than 30 min Quality Metrics Clinical Quality Measures [ No reported AMI, CVA or VTE this stay] Coding Level of Care Code 24563 Total time (in minutes) for Discharge: 45 Diagnoses Paroxysmal atrial fibrillation with RVR I48.0
--- NOTE | 2025-05-04 08:51 | PC.NURSE ---
patient stated he will sign AMA if he won't be out of here before 10 am due to his ride will be going to work at 10 am. Offered him that case mgt can set up a ride for him until we heard from the hospitalist. Pt stated, no. i will sign AMA if he will not discharge me today. I've been doing that walking out here. they can't keep me. I know i feel better. They told me yesterday if my heart rate is back is back to normal i can get to go home. I was ready to go home last night. Notified Dr Haro.
[2025-05-04 09:37] VITALS: BP 134/94; PULSE 72; O2SAT 93
== END 2025-05-04 10:05 | disposition home or self-care (01) | DRG 310 ==
LOC: ER 16:20 → CSU 16:37
PROVIDERS: Admitting Provider Internal Medicine; Emergency Provider Emergency Medicine; PCP Family Medicine; Visit Provider Internal Medicine
DX: I48.0 Paroxysmal atrial fibrillation (principal); I25.10 Atherosclerotic heart disease of native coronary artery without angina pectoris; Z95.1 Presence of aortocoronary bypass graft; Z95.5 Presence of coronary angioplasty implant and graft; J44.9 Chronic obstructive pulmonary disease, unspecified; I10 Essential (primary) hypertension; E78.5 Hyperlipidemia, unspecified; I73.9 Peripheral vascular disease, unspecified; Z86.73 Personal history of transient ischemic attack (TIA), and cerebral infarction without residual deficits; Z87.442 Personal history of urinary calculi; Z79.02 Long term (current) use of antithrombotics/antiplatelets; Z79.4 Long term (current) use of insulin; Z79.85 Long-term (current) use of injectable non-insulin antidiabetic drugs; F17.210 Nicotine dependence, cigarettes, uncomplicated; G47.33 Obstructive sleep apnea (adult) (pediatric); Z99.81 Dependence on supplemental oxygen; G89.29 Other chronic pain; M54.9 Dorsalgia, unspecified
CPT/HCPCS: 36415; 36416; 71045; 80048; 80053; 82962; 83735; 83880; 84443; 84484; 85025; 85610; 93005; 96365; 96366; 96372; 96375; 96376; 99285; J1160; J1650; J1815; J3475; J3490; J9999

== ENCOUNTER → 2025-05-18 14:05 | Outpatient (BNVA) | payer MEDICAID, SELFPAY | PROVIDERS: PCP Family Medicine; Visit Provider Nurse Practitioner Family | DX: I25.10 Atherosclerotic heart disease of native coronary artery without angina pectoris (principal); Z09 Encounter for follow-up examination after completed treatment for conditions other than malignant neoplasm; I48.0 Paroxysmal atrial fibrillation; Z79.01 Long term (current) use of anticoagulants; R60.9 Edema, unspecified; F17.210 Nicotine dependence, cigarettes, uncomplicated; Z95.1 Presence of aortocoronary bypass graft; Z95.5 Presence of coronary angioplasty implant and graft; I10 Essential (primary) hypertension | CPT/HCPCS: 99213 ==

== ENCOUNTER 2025-05-27 06:11 | Outpatient (CLI) | payer MEDICAID, SELFPAY ==
--- NOTE | 2025-05-27 06:15 | USCV_ITS ---
Shamir Larose Age: 65 Gender: M : 1960 Exam Date: 05/27/2025 06:25 Ordering Phys: Mika Haro MD Technologist: Exam Location: [facility] – [place] Indication: murmur cp BP: 120 / 70 HR: 86 Rhythm: Sinus Technical Quality: Adequate MEASUREMENTS (Male / Female) Normal Values 2D ECHO LV Diastolic Diameter PLAX 4.5 cm 4.2 - 5.9 / 3.9 - 5.3 cm IVS Diastolic Thickness 1.4 cm 0.6 - 1.0 / 0.6 - 0.9 cm IVS Systolic Thickness 1.9 cm LVPW Diastolic Thickness 1.7 cm 0.6 - 1.0 / 0.6 - 0.9 cm LVPW Systolic Thickness 2.1 cm LVOT Diameter 2.0 cm LV Ejection Fraction 2D Teich 66.3 % LV Ejection Fraction MOD 4C 65.4 % LV Ejection Fraction MOD 2C 57.7 % LV Ejection Fraction 2C AL 57.9 % LA Diameter 4.2 cm RA Systolic Volume 4C AL 40.7 ml RA Systolic Volume 4C MOD 40.3 ml Aorta at Sinotubular Diameter 2.7 cm M-MODE LA Ao Ratio MM 1.3 AV Cusp Separation MM 2.5 cm DOPPLER AV Peak Velocity 143.0 cm/s LVOT Peak Velocity 144.0 cm/s AV Area Cont Eq vti 4.7 cm squared AV Area Cont Eq pk 3.2 cm squared MV Peak Velocity 120.0 cm/s MV Area PHT 4.3 cm squared Mitral E to A Ratio 0.9 TV Peak Velocity 204.0 cm/s TR Peak Velocity 252.0 cm/s TR Peak Gradient 25.4 mmHg TV Peak E Velocity 82.0 cm/s PV Peak Velocity 114.0 cm/s FINDINGS Left Ventricle Normal left ventricular size, systolic function and wall thickness, with no regional wall motion abnormalities. Left ventricular ejection fraction is estimated at 56 %. Grade I/IV diastolic dysfunction (abnormal relaxation filling pattern), normal to mildly elevated filling pressures. Right Ventricle The right ventricle is normal in size and function. Right Atrium The right atrium is normal in size. Left Atrium The left atrium is normal in size. Mitral Valve Structurally normal mitral valve without significant stenosis or prolapse. There is no mitral regurgitation. Aortic Valve Mild aortic valve calcification. No aortic valve stenosis. Trace aortic valve regurgitation. Tricuspid Valve Structurally normal tricuspid valve without significant stenosis or regurgitation. Pulmonary artery systolic pressure is normal. Pulmonic Valve Structurally normal pulmonic valve without significant stenosis. There is no pulmonic regurgitation. Pericardium Normal pericardium without effusion. Aorta Normal ascending aorta dimension. IVC The inferior vena cava appears normal. CONCLUSIONS Normal left ventricular size, systolic function and wall thickness, with no regional wall motion abnormalities. Left ventricular ejection fraction is estimated at 56 %. Grade I/IV diastolic dysfunction (abnormal relaxation filling pattern), normal to mildly elevated filling pressures. There is no pericardial effusion. No significant valve abnormalities. Right atrial pressure is around 5 mm of mercury. Ashley Zheng MD (Electronically Signed) Final Date: 28 May 2025 21:13 S
== END 2025-05-27 06:12 | disposition home or self-care (01) ==
LOC: RAD 06:11
PROVIDERS: PCP Family Medicine; Visit Provider Internal Medicine
DX: I48.0 Paroxysmal atrial fibrillation (principal); R93.1 Abnormal findings on diagnostic imaging of heart and coronary circulation; I35.8 Other nonrheumatic aortic valve disorders
CPT/HCPCS: 93306

== ENCOUNTER 2025-06-02 07:12 | Outpatient (CLI) | payer MEDICAID, SELFPAY ==
--- NOTE | 2025-06-02 07:16 | CT_ITS ---
WS: [id number] CT CHEST TECHNIQUE: Noncontrast CT of the chest with coronal and sagittal reformatted images. CLINICAL INFORMATION: LUNG NODULES COMPARISON: CTA 12/29 DLP: 541.[address] scans at [facility] use at least one of these dose optimization techniques: automated exposure control; mA and/or kV adjustment per patient size (includes targeted exams where dose is matched to clinical indication); or iterative reconstruction. FINDINGS: Moderate chronic emphysematous changes. Again seen are several noncalcified subcentimeter pulmonary nodules nonsignificantly changed compared to previous. No new suspicious pulmonary parenchymal opacities. The largest nodule LEFT lower lobe measuring 6 mm. Recommend continued annual surveillance. Prior CABG. Sternotomy. Cardiomegaly. Aortic calcification. Normal caliber thoracic aorta. Coronary calcification. Normal caliber descending thoracic aorta. No mediastinal or hilar lymphadenopathy. No axillary lymphadenopathy. Adrenal glands are normal. Cholelithiasis. Fatty liver. Small esophageal hernia. Fatty atrophy of the pancreas. Splenic artery calcification. Moderate thoracic kyphosis. Mild thoracic curve. Fat-containing epigastric hernia just below the sternum. CT/CT chest wo con [id number] IMPRESSION: 1. Several subcentimeter noncalcified pulmonary nodules stable compared to pre vious. No new suspicious pulmonary parenchymal opacities. 2. Largest nodule in the LEFT lower lobe measuring 6 mm. Recommend continued a nnual surveillance 3. Sternotomy with prior CABG. 4. Aortic and coronary calcification. 5. Cholelithiasis with stones extending near the neck of the gallbladder uncha nged from previous. 6. Small esophageal hiatal hernia. 7. Fat-containing epigastric hernia.
== END 2025-06-02 07:13 | disposition home or self-care (01) ==
LOC: RAD 07:13
PROVIDERS: PCP Family Medicine; Visit Provider Family Medicine
DX: R91.8 Other nonspecific abnormal finding of lung field (principal); J43.9 Emphysema, unspecified; I70.0 Atherosclerosis of aorta; I25.10 Atherosclerotic heart disease of native coronary artery without angina pectoris; Z95.1 Presence of aortocoronary bypass graft; K80.20 Calculus of gallbladder without cholecystitis without obstruction; K44.9 Diaphragmatic hernia without obstruction or gangrene
CPT/HCPCS: 71250

== ENCOUNTER 2025-07-06 19:48 | Outpatient (CLI) | payer MEDICAID, SELFPAY | END 2025-07-06 19:49 | disposition home or self-care (01) | LOC: SLEEP 19:49 | PROVIDERS: PCP Family Medicine; Referring Provider Internal Medicine; Visit Provider Internal Medicine Pulmonary Disease | DX: G47.33 Obstructive sleep apnea (adult) (pediatric) (principal) | CPT/HCPCS: 95810 ==

== ENCOUNTER 2025-10-04 20:10 | Outpatient (CLI) | payer MEDICAID, SELFPAY | END 2025-10-04 20:11 | disposition home or self-care (01) | LOC: SLEEP 20:11 | PROVIDERS: PCP Family Medicine; Referring Provider Internal Medicine; Visit Provider Internal Medicine Pulmonary Disease | DX: G47.30 Sleep apnea, unspecified (principal) | CPT/HCPCS: 95810 ==